=== PATIENT | male | born 1965 | race Caucasian/White ===

== ENCOUNTER 2020-04-17 13:24 | Observation (INO) ==
[2020-04-17] MEDS ORDERED: OPTIRAY 320 125ml IV ONE (13:53)
--- NOTE | 2020-04-17 13:54 | Emergency Department Note ---
Impression & Plan Left leg weakness, Stroke-like symptom, Hypertension ED Provider Note NAME: ANAYELI RAJAN AGE: 54 SEX: M : 1965 ARRIVES VIA: Walk-In INFORMANT: Patient, ED PROVIDER(S): Seferino Hook MD Chief Complaint: Leg weakness HPI: Patient was reportedly at work when he did experience some left lower extremity numbness and subsequent had weakness in the left lower extremity. The patient does not have pain in the leg but feels as though it is weak. Patient denies any slurred speech, confusion, headache, chest pain, shortness of breath. The patient states that his numbness has improved but he still feels as though the left lower extremity is weak. The patient denies any current headache and the patient denies any history of seizures. Patient's weakness has been persistent nothing is made any better or worse. ROS: See HPI for pertinent positives and negatives. A total of 10 systems were reviewed and otherwise negative. Past medical history: See below Surgical history: See below Social history: See below Physical Exam: GENERAL: Well appearing, well nourished, NAD, non-toxic. EYE EXAM: Normal conjunctiva. PERRL, no anisocoria and EOM's grossly intact w/o pain. NECK: Supple, no nuchal rigidity, no adenopathy, non-tender. No signs of meningismus. LUNGS: Clear to auscultation. Normal chest wall mechanics. HEART: NSR, no MRG. ABDOMEN: Abdomen soft, non-tender, normo-active bowel sounds, no masses, no rebound or guarding. BACK: No CVA TTP. SKIN: No rashes and no bruising. UPPER EXTREMITIES: Upper extremities are grossly normal. LOWER EXTREMITIES: Grossly normal, no edema. NEURO EXAM: A&O x3, cranial nerves II-XII grossly intact, normal speech, 4 out of 5 strength left lower extremity 5 out of 5 in the right lower extremity, no saddle anesthesia. Differential diagnoses: Infection, dehydration, metabolic abnormality, hypo/hyperglycemia, electrolyte disturbance, anemia, hypoxia, cardiac sources, intracerebral event, toxicologic, neurologic, as well as other pathologies. Course: Patient was seen and evaluated the bedside. Full history physical exam was performed. EKG: Indication: Stroke work-up Normal sinus rhythm, rate of 74, normal intervals, normal axis, single T wave inversion in lead III not in contiguous leads. No ST changes. Imaging Studies: Radiology results as stated below per my review in the radiologist's interpretation: CT ANGIOGRAM OF THE BRAIN; CT ANGIOGRAM OF THE NECK CLINICAL HISTORY: Strokelike symptoms. COMPARISON STUDY: Unenhanced CT of the brain performed concurrently on 04/17/2020. TECHNIQUE: Following the IV administration of 118 of Optiray 320, CT angiogram of the head and neck was performed from the aortic arch to the vertex. Images ar e reviewed in the axial, sagittal, and coronal planes. 3-D MIPS images are created and assessed. IV contrast was administered without complication. All measurements were calculated based on NASCET criteria. A dose lowering technique was utilized adhering to the principles of ALARA. CT DOSE: 1109.51 mGy.cm FINDINGS: Brain parenchyma: A focus of cortical irregularity/encephalomalacia is again se en in the right cerebral hemisphere with a 1.6 cm focus of hyperdensity. No additional findings are concerning for acute hemorrhage. There is no mass effect or evidence of acute territorial ischemia by CT criteria. There is no evidence of enhancing mass lesion on the angiogram phase images. The ventricles, sulci, and cisterns are normal in configuration. Clay-white matter differentiation is preserved. No extra-axial fluid collection is seen. Thoracic aorta: Visualized portions of the thoracic aorta are normal in caliber. The aortic arch demonstrates bovine variant anatomy. Right carotid arterial system: The right common carotid artery is widely patent, as are the right internal and external carotid arteries. Left carotid arterial system: The left common carotid artery is widely patent, as are the left internal and external carotid arteries. Vertebral arteries: The vertebral arteries are widely patent bilaterally noting a right-sided dominance. Subclavian arteries: Patent bilaterally. Intracranial vasculature: There is a large right posterior communicating artery. The internal carotid arteries are patent at the skull base, as are the anterior and middle cerebral arteries bilaterally. The vertebrobasilar system and posterior cerebral arteries are widely patent. The right vertebral artery is dominant. There is no aneurysm, high-grade stenosis, or focal vessel cut off seen throughout the intracranial circulation. Jugular veins: Patent bilaterally. Dural sinuses: Patent. Lung apices: Partially visualized upper lobe lung parenchyma appears clear. Soft tissues: The visualized pharyngeal soft tissues are normal in appearance noting angiographic phase technique. The oropharyngeal airway appears widely patent. The salivary and thyroid glands are normal in appearance. No cervical lymphadenopathy is seen. Skeletal structures: The calvarium appears intact. The cervical spine is maintained noting mild spondylosis. No lytic or blastic lesion is identified. Orbits: The bony orbits are intact. Orbital contents are normal in appearance. Sinuses and mastoids: There is moderate mucosal thickening with an air-fluid level in the right maxillary antrum. The remaining paranasal sinuses are clear. The mastoid air cells are well pneumatized. IMPRESSION: 1. Again seen is a focus of cortical irregularity versus encephalomalacia involving the right cerebellar hemisphere with associated parenchymal hyperdensity. This was better assessed on the today's unenhanced examination, and calcification is favored. 2. No additional findings are concerning for hemorrhage. There is no mass effect or evidence of acute territorial ischemia noting angiographic phase technique. 3. Unremarkable CT angiogram of the brain. 4. Unremarkable CT angiogram of the neck. ACT 112: Negative or not required by law. Electronically signed by: Favian Nassar M.D. 04/17/2020 2:21 PM Dictated: 04/17/20 1411 Transcribed: 04/17/[address] ANGIOGRAM OF THE BRAIN; CT ANGIOGRAM OF THE NECK CLINICAL HISTORY: Strokelike symptoms. COMPARISON STUDY: Unenhanced CT of the brain performed concurrently on 04/17/2020. TECHNIQUE: Following the IV administration of 118 of Optiray 320, CT angiogram of the head and neck was performed from the aortic arch to the vertex. Images are reviewed in the axial, sagittal, and coronal planes. 3-D MIPS images are created and assessed. IV contrast was administered without complication. All measurements were calculated based on NASCET criteria. A dose lowering technique was utilized adhering to the principles of ALARA. CT DOSE: 1109.51 mGy.cm FINDINGS: Brain parenchyma: A focus of cortical irregularity/encephalomalacia is again seen in the right cerebral hemisphere with a 1.6 cm focus of hyperdensity. No additional findings are concerning for acute hemorrhage. There is no mass effect or evidence of acute territorial ischemia by CT criteria. There is no evidence of enhancing mass lesion on the angiogram phase images. The ventricles, sulci, and cisterns are normal in configuration. Clay-white matter differentiation is preserved. No extra-axial fluid collection is seen. Thoracic aorta: Visualized portions of the thoracic aorta are normal in caliber. The aortic arch demonstrates bovine variant anatomy. Right carotid arterial system: The right common carotid artery is widely patent, as are the right internal and external carotid arteries. Left carotid arterial system: The left common carotid artery is widely patent, as are the left internal and external carotid arteries. Vertebral arteries: The vertebral arteries are widely patent bilaterally noting a right-sided dominance. Subclavian arteries: Patent bilaterally. Intracranial vasculature: There is a large right posterior communicating artery. The internal carotid arteries are patent at the skull base, as are the anterior and middle cerebral arteries bilaterally. The vertebrobasilar system and posterior cerebral arteries are widely patent. The right vertebral artery is dominant. There is no aneurysm, high-grade stenosis, or focal vessel cut off seen throughout the intracranial circulation. Jugular veins: Patent bilaterally. Dural sinuses: Patent. Lung apices: Partially visualized upper lobe lung parenchyma appears clear. Soft tissues: The visualized pharyngeal soft tissues are normal in appearance noting angiographic phase technique. The oropharyngeal airway appears widely patent. The salivary and thyroid glands are normal in appearance. No cervical l ymphadenopathy is seen. Skeletal structures: The calvarium appears intact. The cervical spine is ma intained noting mild spondylosis. No lytic or blastic lesion is identified. Orbits: The bony orbits are intact. Orbital contents are normal in appearance. Sinuses and mastoids: There is moderate mucosal thickening with an air-fluid level in the right maxillary antrum. The remaining paranasal sinuses are clear. The mastoid air cells are well pneumatized. IMPRESSION: 1. Again seen is a focus of cortical irregularity versus encephalomalacia involving the right cerebellar hemisphere with associated parenchymal hyperdensity. This was better assessed on the today's unenhanced examination, and calcification is favored. 2. No additional findings are concerning for hemorrhage. There is no mass effect or evidence of acute territorial ischemia noting angiographic phase technique. 3. Unremarkable CT angiogram of the brain. 4. Unremarkable CT angiogram of the neck. ACT 112: Negative or not required by law. Electronically signed by: Favian Nassar M.D. 04/17/2020 2:21 PM Dictated: 04/17/20 141 Transcribed: 04/17/201410 CT SCAN OF THE BRAIN WITHOUT IV CONTRAST CLINICAL HISTORY: Strokelike symptoms. COMPARISON STUDY: No priors. TECHNIQUE: Unenhanced axial CT scan of the brain is performed from the vertex to the skull base. A dose lowering technique was utilized adhering to the principles of ALARA. FINDINGS: Brain parenchyma: There is a small focus of cortical irregularity versus encephalomalacia in the right cerebellum. A linear focus of parenchymal hyperdensity at this site seen on image #8 measures 1.6 cm. Calcification is favored over hemorrhage. No additional findings are concerning for hemorrhage. There is no mass effect or evidence of acute territorial ischemia by CT criteria. Clay-white matter differentiation is preserved. No extra-axial fluid collection is seen. Ventricles, sulci, cisterns: Normal in configuration. Intracranial vasculature: The visualized intracranial vasculature at the skull base is normal in appearance. Calvarium: Unremarkable. Sinuses and mastoids: Fluid/secretions are partially visualized in the right maxillary sinus. The remaining visualized paranasal sinuses are clear. The mastoid air cells are well pneumatized. Orbits: The bony orbits are grossly intact. IMPRESSION: 1. There is a small focus of cortical irregularity versus encephalomalacia in the right cerebellar hemisphere. A linear parenchymal hyperdensity at this site could represent calcification versus hemorrhage. Calcification is favored. If no prior studies are available to assess for chronicity then a short-term follow-up CT could be considered for reassessment. 2. No additional findings are concerning for hemorrhage. There is no mass effect or evidence of acute territorial ischemia by CT criteria. Findings were discussed with Dr. Hook in the emergency department at the time of interpretation. ACT 112: Negative or not required by law. Electronically signed by: Favian Nassar M.D. 04/17/2020 2:09 PM Dictated: 04/17/20 1359 Transcribed: 04/17/20 1359 Cardiac monitoring: An order was placed for continuous cardiac monitoring. The monitor shows a rate of 74 with sinus rhythm. MDM: Patient did present with concern for left lower extremity weakness and prior numbness. After further discussion the patient states that he might have a little bit of back discomfort. The patient did have blood work completed and a code stroke was initiated given the patient's subjective weakness as well as his last known well at noon. I did asked to immediately speak with telestroke neurology at [facility]. Patient's CT head and CT angiography's of the head and neck were negative. I did speak with Dr. Valle at [facility] he did evaluate the patient. Patient did have resolution of his leg weakness. No TPA at this time. Patient was given the rest of a full dose aspirin and the patient was subsequently adm itted to the [facility] service under Dr. Galvan. Critical Care: I have personally spent 42 minutes of critical care time in direct management of this patient. This includes bedside care, interpretation of diagnostic studies, and testing, discussion with consultants, patient, and family members, and other require inpatient management activities. This 42 minutes is in excess of all separately billable procedures. Past Med/Surg History Medical History (Updated 04/18/20 @ 07:22 by Seferino Hook MD) H/O: HTN (hypertension) HLD (hyperlipidemia) Surgical History No pertinent past surgical history Social History Smoking Status: Never smoker Second Hand Exposure: No; Do You Dip or Chew Tobacco: Yes; Tobacco Cessation Education Requested by Patient: No Hx Alcohol Use: Yes Alcohol type: beer Hx Substance Use: No Preferred Language: Salvadorean Communication Ability: Effective Caustic Liquor Maker Required: No Beliefs That Will Affect Care: None Current Living Situation: Spouse Other Information That Helps Us Care for You: No Feels Safe at Home: Yes Assistive Devices: None Allergies Allergies Allergy/AdvReac Type Severity Reaction Status Date / Time niacin Allergy RASH/ Unverified 04/17/20 15:18 DIFFICULTY BREATHING Sulfa (Sulfonamide Allergy RASH/ Unverified 04/17/20 15:19 Antibiotics) DIFFICULTY BREATHING Home Meds Home Medications Medication Instructions Recorded Confirmed atorvastatin [Lipitor] 80 mg PO DAILY 04/17/20 04/17/20 cholecalciferol (vitamin D3) 12.5 mcg PO DAILY 04/17/20 04/17/20 duloxetine 60 mg PO DAILY 04/17/20 04/17/20 lisinopril [Prinivil] 20 mg PO DAILY 04/17/20 04/17/20 multivitamin [Multiple Vitamin] 1 tab PO DAILY 04/17/20 04/17/20 Results & Data (ED) Vital Signs Vital Signs - 24 hr 04/17/20 13:35 04/17/20 14:02 04/17/20 14:03 Temperature 36.5 C Temperature Source Oral Pulse Rate 74 100 H 95 H Pulse Rate from SpO2 Sensor 99 H 94 H Respiratory Rate 16 21 Respiratory Effort / Characteristics Non-Labored Spontaneous Respiratory Depth Normal Blood Pressure 156/93 H 173/104 H Blood Pressure Mean 114 120 Blood Pressure Position Sitting Pulse Oximetry 100 100 100 Oxygen Delivery Method Room Air Sepsis Recent Fever Within 48 Hours No Sepsis New/Unexplained Change in Mental Status N/A Sepsis Action Taken by Nursing No Action Required 04/17/20 14:10 04/17/20 14:20 04/17/20 14:30 Temperature Temperature Source Pulse Rate 100 H 86 73 Pulse Rate from SpO2 Sensor 99 H Respiratory Rate 22 18 Respiratory Effort / Characteristics Respiratory Depth Blood Pressure 154/99 H Blood Pressure Mean 111 Blood Pressure Position Pulse Oximetry 98 Oxygen Delivery Method Sepsis Recent Fever Within 48 Hours Sepsis New/Unexplained Change in Mental Status Sepsis Action Taken by Nursing 04/17/20 14:31 Temperature Temperature Source Pulse Rate 75 Pulse Rate from SpO2 Sensor Respiratory Rate 18 Respiratory Effort / Characteristics Respiratory Depth Blood Pressure Blood Pressure Mean Blood Pressure Position Pulse Oximetry Oxygen Delivery Method Sepsis Recent Fever Within 48 Hours Sepsis New/Unexplained Change in Mental Status Sepsis Action Taken by Residential Medications Current Medication List: was personally reviewed by me Laboratory Data Attestation: I reviewed the patient's lab results. Result diagrams: 04/18/20 06:59 04/17/20 13:50 Lab Results 04/17/20 04/17/20 04/17/20 Range/Units 13:50 13:50 13:50 WBC 7.19 (4.8-10.8) K/uL RBC 4.58 L (4.7-6.1) M/uL Hgb 15.8 (14.0-18.0) g/dL Hct 46.3 (42-52) % MCV 101.1 H (80-100) fL MCH 34.5 H (25-34) pg MCHC 34.1 (32-36) g/dL RDW Std Deviation 48.4 H (36.4-46.3) fL RDW Coeff of Lea 13.2 (11.5-14.5) % Plt Count 193 (130-400) K/uL MPV 11.3 H (7.4-10.4) fL Immature Gran % (Auto) 0.3 % Neut % (Auto) 59.3 % Lymph % (Auto) 25.3 % Tama % (Auto) 12.1 % Eos % (Auto) 2.4 % Baso % (Auto) 0.6 % Neut # (Auto) 4.27 (1.4-6.5) K/uL Lymph # (Auto) 1.82 (1.2-3.4) K/uL Tama # (Auto) 0.87 H (0.11-0.59) K/uL Eos # (Auto) 0.17 (0-0.5) K/uL Baso # (Auto) 0.04 (0-0.2) K/uL Immature Gran # (Auto) 0.02 (0.00-0.02) K/uL PT 10.5 (9.0-12.0) Seconds INR 1.0 (0.9-1.1) APTT 24.0 (21.0-31.0) Seconds PTT Ratio 0.9 Sodium 139 (136-145) mmol/L Potassium 4.0 (3.5-5.1) mmol/L Chloride 105 (98-107) mmol/L Carbon Dioxide 31 (21-32) mmol/L Anion Gap 4.0 (3-11) BUN 20 H (7-18) mg/dl Creatinine 1.23 (0.6-1.4) mg/dl Est Cr Clr Drug Dosing 70.3 ml/min Est GFR ( Amer) 77.7 Est GFR (Non-Af Amer) 67.1 BUN/Creatinine Ratio 16.4 (10-20) Glucose 99 (70-99) mg/dl POC Glucose (70-99) mg/dl Calcium 9.1 (8.5-10.1) mg/dl Magnesium 2.1 (1.8-2.4) mg/dl Total Bilirubin 0.8 (0.2-1) mg/dl AST 38 H (15-37) U/L ALT 61 (12-78) U/L Alkaline Phosphatase 84 (45-117) U/L Troponin I < 0.015 (0-0.045) ng/ml Total Protein 8.1 (6.4-8.2) gm/dl Albumin 3.8 (3.4-5.0) gm/dl Globulin 4.3 H (2.5-4.0) gm/dl Albumin/Globulin Ratio 0.9 (0.9-2) Specimen Hemolysis Blood Type Antibody Screen 04/17/20 04/17/20 Range/Units 14:03 14:04 WBC (4.8-10.8) K/uL RBC (4.7-6.1) M/uL Hgb (14.0-18.0) g/dL Hct (42-52) % MCV (80-100) fL MCH (25-34) pg MCHC (32-36) g/dL RDW Std Deviation (36.4-46.3) fL RDW Coeff of Lea (11.5-14.5) % Plt Count (130-400) K/uL MPV (7.4-10.4) fL Immature Gran % (Auto) % Neut % (Auto) % Lymph % (Auto) % Tama % (Auto) % Eos % (Auto) % Baso % (Auto) % Neut # (Auto) (1.4-6.5) K/uL Lymph # (Auto) (1.2-3.4) K/uL Tama # (Auto) (0.11-0.59) K/uL Eos # (Auto) (0-0.5) K/uL Baso # (Auto) (0-0.2) K/uL Immature Gran # (Auto) (0.00-0.02) K/uL PT (9.0-12.0) Seconds INR (0.9-1.1) APTT (21.0-31.0) Seconds PTT Ratio Sodium (136-145) mmol/L Potassium (3.5-5.1) mmol/L Chloride (98-107) mmol/L Carbon Dioxide (21-32) mmol/L Anion Gap (3-11) BUN (7-18) mg/dl Creatinine (0.6-1.4) mg/dl Est Cr Clr Drug Dosing ml/min Est GFR ( Amer) Est GFR (Non-Af Amer) BUN/Creatinine Ratio (10-20) Glucose (70-99) mg/dl POC Glucose 114 H (70-99) mg/dl Calcium (8.5-10.1) mg/dl Magnesium (1.8-2.4) mg/dl Total Bilirubin (0.2-1) mg/dl AST (15-37) U/L ALT (12-78) U/L Alkaline Phosphatase (45-117) U/L Troponin I (0-0.045) ng/ml Total Protein (6.4-8.2) gm/dl Albumin (3.4-5.0) gm/dl Globulin (2.5-4.0) gm/dl Albumin/Globulin Ratio (0.9-2) Specimen Hemolysis Blood Type A Negative Antibody Screen NEGATIVE Administered Medications Discontinued Medications Aspirin (Aspirin Chew 324 Mg) 162 mg PO NOW STA Stop: 04/17/20 15:01 Last Admin: 04/17/20 15:13 Dose: 162 mg Documented by: [id number] Ioversol (Optiray 320 125ml) 118 ml IV ONCE ONE Stop: 04/17/20 13:54 Last Admin: 04/17/20 13:53 Dose: 118 ml Documented by: [id number] Ondansetron HCl (Ondansetron Inj 2 Mg/Ml 2 Ml Vial) Confirm Administered Dose 4 mg .ROUTE .STK-MED ONE Stop: 04/17/20 14:04 Last Admin: 04/17/20 14:29 Dose: 4 mg Documented by: [id number] Discharge Plan Visit Data Chief Complaint: Neuro Symptoms/Deficit Stated Complaint: NUMBNESS IN L LEG,LIGHT HEADED, SHAKING ED Provider: Seferino Hook Discharge Problem: Left leg weakness, Stroke-like symptom, Hypertension Patient Disposition: Admitted As Inpatient Discharge Instructions Interventions: ED Discharge Assessment Last Done: 04/17/20 16:40 Discharge Problem: Hypertension Qualifiers: Hypertension type: unspecified Qualified Code(s): I10 - Essential (primary) hypertension
[2020-04-17] MEDS ORDERED: ONDANSETRON INJ 2 MG/ML 2 ML VIAL ONE (14:03)
[2020-04-17 14:08] LABS: Basophils # (auto) 0.04 K/uL (0-0.2); Basophils % (auto) 0.6 %; Eosinophils # (auto) 0.17 K/uL (0-0.5); Eosinophils % (auto) 2.4 %; Hematocrit (blood only) 46.3 % (42-52); Hemoglobin 15.8 g/dL (14.0-18.0); Immature Granulocytes # (auto) 0.02 K/uL (0.00-0.02); Immature Granulocytes % (auto) 0.3 %; Lymphocytes # (auto) 1.82 K/uL (1.2-3.4); Lymphocytes % (auto) 25.3 %; Mean Corpuscular Hemoglobin 34.5 pg (25-34); Mean Corpuscular Hgb Conc 34.1 g/dL (32-36); Mean Corpuscular Volume 101.1 fL (80-100); Mean Platelet Volume 11.3 fL (7.4-10.4); Monocytes # (auto) 0.87 K/uL (0.11-0.59); Monocytes % (auto) 12.1 %; Neutrophils # (auto) 4.27 K/uL (1.4-6.5); Neutrophils % (auto) 59.3 %; Platelet Count 193 K/uL (130-400); RDW Coefficient of Variation 13.2 % (11.5-14.5); RDW Standard Deviation 48.4 fL (36.4-46.3); Red Blood Count 4.58 M/uL (4.7-6.1); White Blood Count 7.19 K/uL (4.8-10.8)
--- NOTE | 2020-04-17 14:10 | CT Scan Report ---
CT SCAN OF THE BRAIN WITHOUT IV CONTRAST CLINICAL HISTORY: Strokelike symptoms. COMPARISON STUDY: No priors. TECHNIQUE: Unenhanced axial CT scan of the brain is performed from the vertex to the skull base. A d ose lowering technique was utilized adhering to the principles of ALARA. FINDINGS: Brain parenchyma: There is a small focus of cortical irregularity versus encephalomalacia in the righ t cerebellum. A linear focus of parenchymal hyperdensity at this site seen on image #8 measures 1.6 c m. Calcification is favored over hemorrhage. No additional findings are concerning for hemorrhage. Th ere is no mass effect or evidence of acute territorial ischemia by CT criteria. Clay-white matter dif ferentiation is preserved. No extra-axial fluid collection is seen. Ventricles, sulci, cisterns: Normal in configuration. Intracranial vasculature: The visualized intracranial vasculature at the skull base is normal in appe arance. Calvarium: Unremarkable. Sinuses and mastoids: Fluid/secretions are partially visualized in the right maxillary sinus. The rem aining visualized paranasal sinuses are clear. The mastoid air cells are well pneumatized. Orbits: The bony orbits are grossly intact. IMPRESSION: 1. There is a small focus of cortical irregularity versus encephalomalacia in the right cerebellar he misphere. A linear parenchymal hyperdensity at this site could represent calcification versus hemorrh age. Calcification is favored. If no prior studies are available to assess for chronicity then a shor t-term follow-up CT could be considered for reassessment. 2. No additional findings are concerning for hemorrhage. There is no mass effect or evidence of acute territorial ischemia by CT criteria. Findings were discussed with Dr. Hook in the emergency department at the time of interpretation. ACT 112: Negative or not required by law. Electronically signed by: Favian Nassar M.D. 04/17/2020 2:09 PM
[2020-04-17 14:20] LABS: Partial Thromboplastin Ratio 0.9; Prothrombin Time 10.5 Seconds (9.0-12.0)
--- NOTE | 2020-04-17 14:22 | CT Scan Report ---
CT ANGIOGRAM OF THE BRAIN; CT ANGIOGRAM OF THE NECK CLINICAL HISTORY: Strokelike symptoms. COMPARISON STUDY: Unenhanced CT of the brain performed concurrently on 04/17/2020. TECHNIQUE: Following the IV administration of 118 of Optiray 320, CT angiogram of the head and neck w as performed from the aortic arch to the vertex. Images are reviewed in the axial, sagittal, and donaldo nal planes. 3-D MIPS images are created and assessed. IV contrast was administered without complicati on. All measurements were calculated based on NASCET criteria. A dose lowering technique was utilize d adhering to the principles of ALARA. CT DOSE: 1109.51 mGy.cm FINDINGS: Brain parenchyma: A focus of cortical irregularity/encephalomalacia is again seen in the right cerebr al hemisphere with a 1.6 cm focus of hyperdensity. No additional findings are concerning for acute he morrhage. There is no mass effect or evidence of acute territorial ischemia by CT criteria. There is no evidence of enhancing mass lesion on the angiogram phase images. The ventricles, sulci, and cister ns are normal in configuration. Clay-white matter differentiation is preserved. No extra-axial fluid collection is seen. Thoracic aorta: Visualized portions of the thoracic aorta are normal in caliber. The aortic arch demo nstrates bovine variant anatomy. Right carotid arterial system: The right common carotid artery is widely patent, as are the right int ernal and external carotid arteries. Left carotid arterial system: The left common carotid artery is widely patent, as are the left customer marketing intern al and external carotid arteries. Vertebral arteries: The vertebral arteries are widely patent bilaterally noting a right-sided dominan ce. Subclavian arteries: Patent bilaterally. Intracranial vasculature: There is a large right posterior communicating artery. The internal carotid arteries are patent at the skull base, as are the anterior and middle cerebral arteries bilaterally. The vertebrobasilar system and posterior cerebral arteries are widely patent. The right vertebral ar olayinka is dominant. There is no aneurysm, high-grade stenosis, or focal vessel cut off seen throughout the intracranial circulation. Jugular veins: Patent bilaterally. Dural sinuses: Patent. Lung apices: Partially visualized upper lobe lung parenchyma appears clear. Soft tissues: The visualized pharyngeal soft tissues are normal in appearance noting angiographic pha se technique. The oropharyngeal airway appears widely patent. The salivary and thyroid glands are nor mal in appearance. No cervical lymphadenopathy is seen. Skeletal structures: The calvarium appears intact. The cervical spine is maintained noting mild spond ylosis. No lytic or blastic lesion is identified. Orbits: The bony orbits are intact. Orbital contents are normal in appearance. Sinuses and mastoids: There is moderate mucosal thickening with an air-fluid level in the right maxil mendy antrum. The remaining paranasal sinuses are clear. The mastoid air cells are well pneumatized. IMPRESSION: 1. Again seen is a focus of cortical irregularity versus encephalomalacia involving the right cerebel lar hemisphere with associated parenchymal hyperdensity. This was better assessed on the today's unen hanced examination, and calcification is favored. 2. No additional findings are concerning for hemorrhage. There is no mass effect or evidence of acute territorial ischemia noting angiographic phase technique. 3. Unremarkable CT angiogram of the brain. 4. Unremarkable CT angiogram of the neck. ACT 112: Negative or not required by law. Electronically signed by: Favian Nassar M.D. 04/17/2020 2:21 PM
[2020-04-17 14:28] LABS: Alanine Aminotransferase 61 U/L (12-78); Albumin Globulin Ratio 0.9 (0.9-2); Albumin Level 3.8 gm/dl (3.4-5.0); Alkaline Phosphatase 84 U/L (45-117); Aspartate Aminotransferase 38 U/L (15-37); BUN Creatinine Ratio 16.4 (10-20); Bilirubin,Total 0.8 mg/dl (0.2-1); Blood Urea Nitrogen 20 mg/dl (7-18); Calcium 9.1 mg/dl (8.5-10.1); Carbon Dioxide 31 mmol/L (21-32); Chloride 105 mmol/L (98-107); Creatinine Clr Calc Pharmacy 70.3 ml/min; Est GFR (African American) 77.7; Est GFR (Non-African American) 67.1; Globulin 4.3 gm/dl (2.5-4.0); Glucose 99 mg/dl (70-99); Magnesium 2.1 mg/dl (1.8-2.4); Sodium 139 mmol/L (136-145); Total Protein 8.1 gm/dl (6.4-8.2); Troponin I < 0.015 ng/ml (0-0.045)
[2020-04-17] MEDS ORDERED: ASPIRIN CHEW 324 MG PO STA (15:00)
[2020-04-17] MEDS ORDERED: ACETAMINOPHEN 325 MG TAB PO PRN (15:32)
[2020-04-17] MEDS ORDERED: ONDANSETRON INJ 2 MG/ML 2 ML VIAL IV PRN (15:32)
--- NOTE | 2020-04-17 15:56 | History & Physical Report ---
Date of Service April 17, 2020 Assessment & Plan (1) Stroke-like symptoms: Presented with left leg numbness and weakness started earlier at around 12 noon Stroke alert was called in at around 1348 hrs. by the time symptoms were improving CTA did not show a focus of cortical irregularity versus encephalomalacia involving the right cerebellar hemisphere with associated parenchymal hyperdensity Telemetry neurologist recommended to have full dose aspirin daily Will get MRI of the brain, carotid ultrasound and echo Neuro assessment We will consult neurologist Possible history of depression Has been taking duloxetine We will continue (2) Left leg numbness: As above-improved (3) Left leg weakness: As above-improving (4) HLD (hyperlipidemia): We will continue atorvastatin 80 mg a day Recheck fasting lipids tomorrow (5) H/O: HTN (hypertension): Continue lisinopril DVT prophylaxis SCDs,increase ambulation Statin Full History of Present Illness Chief Complaint: Left leg numbness and weakness at around noon today Primary Care Provider: Myrna Monroy PA-C He is a 54-year-old male with significant past medical history of hypertension, hyperlipidemia and depression apparently has been complaining of sudden onset of left lower extremity numbness and weakness while at work and standing. He was trying to go to the bathroom and noticed that his left leg is weak but no history of fall in the condition lasted for about half an hour. Denies any other associated symptoms. No headache but did have nonspecific visual disturbance. No facial asymmetry or speech problem. No weakness involving any other extremities. Denies any chest pain and/or palpitation or shortness of breath. No abdominal pain nausea and or vomiting and no fever and/or chills. Denies any neurological symptoms like this in the past. Stroke alert was called in and he was evaluated by on-call neurologist in [facility] who advised full dose aspirin and the symptoms of left leg numbness and weakness have almost gone by the time I examined the patient. Initial CT of the head and CTAs did not show any acute stroke but did show cortical irregularity versus encephalomalacia involving the right cerebellar hemisphere with associated parenchymal hyperdensity. He was admitted to telemetry unit for observation. Allergies Allergy/AdvReac Type Severity Reaction Status Date / Time niacin Allergy RASH/ Unverified 04/17/20 15:18 DIFFICULTY BREATHING Sulfa (Sulfonamide Allergy RASH/ Unverified 04/17/20 15:19 Antibiotics) DIFFICULTY BREATHING Home Medications Home Medications Medication Instructions Recorded Confirmed Type atorvastatin [Lipitor] 80 mg PO DAILY 04/17/20 04/17/20 History cholecalciferol (vitamin D3) 12.5 mcg PO DAILY 04/17/20 04/17/20 History duloxetine 60 mg PO DAILY 04/17/20 04/17/20 History lisinopril [Prinivil] 20 mg PO DAILY 04/17/20 04/17/20 History multivitamin [Multiple Vitamin] 1 tab PO DAILY 04/17/20 04/17/20 History Past Med/Surg History Medical History (Updated 04/17/20 @ 15:49 by Kd Galvan MD) H/O: HTN (hypertension) HLD (hyperlipidemia) Surgical History No pertinent past surgical history Social History Smoking Status: Never smoker Second Hand Exposure: No; Do You Dip or Chew Tobacco: Yes; Tobacco Cessation Education Requested by Patient: No Hx Alcohol Use: Yes Alcohol type: beer Hx Substance Use: No Preferred Language: Sinhala Communication Ability: 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 Beliefs That Will Affect Care: None Current Living Situation: Spouse Other Information That Helps Us Care for You: No Feels Safe at Home: Yes Assistive Devices: None Review of Systems Review of Systems: All systems reviewed & are unremarkable except as noted in HPI & below Physical Exam Physical Exam: Lying in bed comfortably Constitutional: well developed and well nourished; no acute distress and not ill appearing Eyes: PERRL, conjunctivae normal, anicteric sclerae ENMT: external ear and nose normal, oropharynx normal Neck: trachea midline, no thyromegaly Respiratory: no respiratory distress Auscultation: lungs clear to auscultation bilaterally Cardiovascular: Rate/Rhythm: regular rate and regular rhythm Heart Sounds: no murmur Gastrointestinal (Abdomen): Inspection/Auscultation: normal bowel sounds; abdomen not distended Percussion/Palpation: abdomen soft; abdomen nontender Musculoskeletal: No arthritis involving any joint Neurologic: normal touch/pain/proprioception, CN's II-XI intact bilaterally, deep tendon reflexes 2+ bilaterally, moves all extremities and + focal motor deficit (Questionable 1/5 motor deficit in the left lower extremity); no meningeal signs Speech / Cognition: normal speech Motor/Sensory: no tremor Psychiatric: A+Ox3, euthymic affect Lymphatic: no cervical or axillary lymphadenopathy Results & Data Results & Data ([facility]) Vital Signs (Past 12 Hours) Vital Signs Temp Pulse Resp BP Pulse Ox 04/17/20 14:31 75 18 04/17/20 14:30 73 18 154/99 H 04/17/20 14:20 86 22 04/17/20 14:10 100 H 98 04/17/20 14:03 95 H 21 100 04/17/20 14:02 100 H 173/104 H 100 04/17/20 13:35 36.5 C 74 16 156/93 H 100 Laboratory Results Short CBC 04/17/20 Range/Units 13:50 WBC 7.19 (4.8-10.8) K/uL Hgb 15.8 (14.0-18.0) g/dL Hct 46.3 (42-52) % Plt Count 193 (130-400) K/uL BMP 04/17/20 13:50 Sodium 139 Potassium 4.0 Chloride 105 Carbon Dioxide 31 BUN 20 H Creatinine 1.23 Glucose 99 Calcium 9.1 Cardiac Enzymes 04/17/20 Range/Units 13:50 Troponin I < 0.015 (0-0.045) ng/ml Liver Function 04/17/20 Range/Units 13:50 Total Bilirubin 0.8 (0.2-1) mg/dl AST 38 H (15-37) U/L ALT 61 (12-78) U/L Alkaline Phosphatase 84 (45-117) U/L Albumin 3.8 (3.4-5.0) gm/dl Medications Administered Current Inpatient Medications Acetaminophen (Acetaminophen 325 Mg Tab) 650 mg PO Q4H PRN PRN Reason: Pain or Fever Stop: 05/17/20 15:31 Aspirin (Aspirin 325 Mg Ectab) 325 mg PO QAM [facility] Stop: 05/18/20 08:59 Ondansetron HCl (Ondansetron Inj 2 Mg/Ml 2 Ml Vial) 4 mg IV Q6H PRN PRN Reason: Nausea Stop: 05/17/20 15:31 Code Status & VTE Plan VTE Prophylaxis Plan VTE Prophylaxis will be ordered: Yes
--- NOTE | 2020-04-17 18:01 | Electrocardiogram Report ---
Test Reason : Blood Pressure : / mmHG Vent. Rate : 074 BPM Atrial Rate : 074 BPM P-R Int : 118 ms QRS Dur : 072 ms QT Int : 378 ms P-R-T Axes : 051 067 012 degrees QTc Int : 419 ms Normal sinus rhythm Normal ECG No previous ECGs available Confirmed by Ted Thacker ([id number]) on 04/17/2020 6:00:49 PM Referred By: Confirmed By:Ted Thacker
--- NOTE | 2020-04-17 23:45 | Magnetic Resonance Report ---
MRI OF THE BRAIN WITHOUT IV CONTRAST CLINICAL HISTORY: Strokelike symptoms. COMPARISON STUDY: CT of the brain dated 04/17/2020. TECHNIQUE: MRI of the brain was performed utilizing various T1 and T2-weighted sequences in the axial , sagittal, and coronal planes. IV contrast was not administered for this examination. FINDINGS: Brain parenchyma: There is minimal microangiopathic disease. There is no hemorrhage or mass effect. T here is no restricted diffusion to suggest acute ischemia. Clay-white matter differentiation is prese rved. No extra-axial fluid collection is seen. The cerebellar tonsils are normal in configuration. Th ere is cortical irregularity identified in the right cerebellar hemisphere, corresponding to the abno rmality seen by CT. No abnormal signal is shown on the gradient sequences and there is no evidence of hemorrhage. Hyperdensity seen by CT likely represents calcification. Ventricles, sulci, and cisterns: Normal in configuration. Pituitary and sella: Unremarkable. Intracranial vasculature: Normal flow voids are maintained at the skull base. Orbits: The bony orbits are grossly intact. Orbital contents are normal in appearance. Sinuses and mastoids: Moderate mucosal thickening is noted in the right maxillary antrum. The remaini ng paranasal sinuses are clear. The mastoid air cells are well pneumatized. Calvarium: Unremarkable. Cervical cord: Partially visualized cervical spinal cord is normal in morphology and signal intensity . IMPRESSION: 1. There is no evidence of hemorrhage, mass effect, or acute ischemia. 2. Findings in the right cerebellar hemisphere as above. This corresponds to the abnormality seen by CT and may represent the sequelae of remote insult or possibly a small vascular malformation. ACT 112: Negative or not required by law. Electronically signed by: Favian Nassar M.D. 04/17/2020 11:44 PM
[2020-04-18 07:11] LABS: Basophils # (auto) 0.03 K/uL (0-0.2); Basophils % (auto) 0.6 %; Eosinophils # (auto) 0.22 K/uL (0-0.5); Eosinophils % (auto) 4.1 %; Hematocrit (blood only) 43.6 % (42-52); Hemoglobin 14.8 g/dL (14.0-18.0); Immature Granulocytes # (auto) 0.01 K/uL (0.00-0.02); Immature Granulocytes % (auto) 0.2 %; Lymphocytes # (auto) 1.58 K/uL (1.2-3.4); Lymphocytes % (auto) 29.1 %; Mean Corpuscular Hemoglobin 34.3 pg (25-34); Mean Corpuscular Hgb Conc 33.9 g/dL (32-36); Mean Corpuscular Volume 101.2 fL (80-100); Mean Platelet Volume 11.1 fL (7.4-10.4); Monocytes % (auto) 12.9 %; Neutrophils # (auto) 2.89 K/uL (1.4-6.5); Neutrophils % (auto) 53.1 %; Platelet Count 160 K/uL (130-400); RDW Coefficient of Variation 13.2 % (11.5-14.5); RDW Standard Deviation 49.2 fL (36.4-46.3); Red Blood Count 4.31 M/uL (4.7-6.1); White Blood Count 5.43 K/uL (4.8-10.8)
[2020-04-18 07:42] LABS: Potassium 4.1 mmol/L (3.5-5.1)
[2020-04-18 07:43] LABS: BUN Creatinine Ratio 13.2 (10-20); Calcium 8.6 mg/dl (8.5-10.1); Creatinine Clr Calc Pharmacy 83.1 ml/min; Est GFR (African American) 95.2; Est GFR (Non-African American) 82.2
[2020-04-18 07:53] LABS: Thyroid Stimulating Hormone 0.792 uIu/ml (0.300-4.500)
[2020-04-18] MEDS ORDERED: MULTIVITAMIN TAB PO SCH (09:00)
[2020-04-18] MEDS ORDERED: CHOLECALCIFEROL 1,000 UNITS 25 MCG TAB PO SCH (09:00)
[2020-04-18] MEDS ORDERED: ATORVASTATIN 40 MG TAB PO SCH (09:00)
[2020-04-18] MEDS ORDERED: ASPIRIN 325 MG ECTAB PO SCH (09:00)
[2020-04-18] MEDS ORDERED: lisinopril 20 MG TAB PO SCH (09:00)
[2020-04-18] MEDS ORDERED: DULoxetine HCL 60 MG CAP PO SCH (09:00)
[2020-04-18] MEDS ORDERED: CLOPIDOGREL BISULFATE 75 MG TAB PO ONE (10:36)
--- NOTE | 2020-04-18 10:56 | Hospitalist Progress Note ---
Date of Service April 18, 2020 Assessment & Plan Admission and Anticipated Discharge Date Admission Date: April 17, 2020 Results & Data Results & Data ([facility]) Vital Signs (Past 12 Hours) Vital Signs Temp Pulse Pulse Resp BP Pulse Ox 04/18/20 07:39 36.7 C 64 16 135/87 96 04/18/20 03:27 36.7 C 70 16 143/83 H 95
--- NOTE | 2020-04-18 11:18 | Electrocardiogram Report ---
Test Reason : Blood Pressure : / mmHG Vent. Rate : 062 BPM Atrial Rate : 062 BPM P-R Int : 116 ms QRS Dur : 070 ms QT Int : 404 ms P-R-T Axes : 062 067 050 degrees QTc Int : 410 ms Normal sinus rhythm Normal ECG When compared with ECG of 17-APR-2020 13:46, No significant change was found Confirmed by Ted Thacker ([id number]) on 04/18/2020 11:18:24 AM Referred By: REFERRED SELF Confirmed By:Ted Thacker
--- NOTE | 2020-04-18 11:43 | Consultation Report ---
DATE OF CONSULTATION: 04/18/2020 REASON FOR CONSULTATION: Possible transient ischemic attack. HISTORY OF PRESENT ILLNESS: The patient is a 54-year-old right-handed male with a history of hypertension, hyperlipidemia and depression. On this background, he was in his usual state of health, was working at about noon yesterday standing when he noted that there was as if he was walking on ice with the left leg, meaning that it was slipping and felt weak. It was accompanied by numbness to the level of the hip. Once the numbness came on, he fell to the ground. He was picked up and sat down. He felt he had spotty vision, although not sparkly vision. He felt mildly lightheaded but not vertiginous and was shaky. There was no accompanying headache, double vision, numbness on the face, slurred speech, or facial droop. There was no accompanying headache. There was no left arm numbness, tingling or weakness. There was no confusion. There was no spine pain, no incontinence and no symptoms in the right lower extremity. The patient has no prior history of neurologic dysfunction. He has been well. He has not had any fevers, chills, sweats or weight loss. He had eaten both breakfast and lunch prior to this event at 12:00 noon yesterday. He had slept well the evening before. No head or neck trauma, chiropractic manipulation of the neck, chest pain, palpitation, or shortness of breath. The symptoms lasted about a half an hour. His brought him to the Emergency Room. The patient has no history of prior neurologic dysfunction. He has no history of rheumatic fever, murmur, DE, DVT, PE or cancer. The patient was seen by stroke neurology who recommended aspirin. The patient was rapidly improving, so he did not need TPA. PAST MEDICAL HISTORY: As above. PAST SURGICAL HISTORY: None. SOCIAL HISTORY: He does not smoke. Drinks 3-4 cans of beer per night to help him fall asleep. 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 FAMILY HISTORY: His father had an DE and at 45. He also had hypertension. There is no family history otherwise of early stroke, DVT or PE. HOME MEDICATIONS: Included atorvastatin, vitamin D3, duloxetine, lisinopril and multiple vitamins. ALLERGIES: NIACIN AND SULFA. DATA: Diagnostically, the patient's electrocardiogram was sinus rhythm. His echo is pending. His laboratories were notable for an MCV of 101, normal platelet count. PT, PTT were normal. Blood sugar on admission was 114. AST 38, triglycerides 238, LDL 78, HDL 67. B12 and folate are pending. CT of the head, which I have reviewed, shows a small focus of cortical irregularity versus encephalomalacia in the right cerebellar hemisphere. A linear parenchymal hyperdensity at this site, could represent calcification versus hemorrhage; calcification is favored. CTA of the head and neck are unremarkable other than confirming the focus of cortical irregularity in the right cerebellar hemisphere. MRI of the brain, which I have reviewed, shows no evidence of hemorrhage, mass effect or acute ischemia. Findings in the right cerebellar hemisphere showed no evidence of hemorrhage. This corresponds to the abnormality on CT and may represent a sequela of remote insult or prior vascular malformation. PHYSICAL EXAMINATION: VITAL SIGNS: Initial blood pressure was 173/104. The patient has remained mildly hypertensive, although blood pressure currently 135/87. 36.7, 64, 96% on room air. GENERAL: The patient is awake and alert, normal speech and language. No right/left confusion and no aphasia. NECK: There are no carotid bruits. HEART: No heart murmurs. Heart is regular rate and rhythm. LUNGS: Clear. BACK: There is no spinal tenderness. EXTREMITIES: Bilateral posterior tibial pulses are intact. There is no calf swelling or tenderness. Both legs are warm, dry and symmetrically pigmented. NEUROLOGIC: Pupils are equal, round and reactive to light. The optic nerves are grossly normal. There is normal messina, motility, facial sensation and facial symmetry. Tongue is midline. Motor: Normal bulk and tone. Full strength, no drift. Normal rapid alternating movements. Symmetric reflexes. Downgoing toes. [id number]-vu-vgpi and ncyf-ak-yzzf are normal. There is no dysdiadochokinesia. Sensation is intact to vibration, temperature and light touch. There is no evidence of spinal level to light touch. Gait and tandem are normal. IMPRESSION: Probable transient ischemic attack. Localization most likely is brain. Spinal ischemia would likely present differently and have caused crossed motor and sensory signs. I see no evidence of ischemia to the left lower extremity and suspect had that been ischemic in basis that the patient would have had significant pain. His symptoms were painless. PLAN: Recommend aspirin 81 mg, Plavix 75 mg for 3 weeks and then discontinue Plavix. Goal LDL 70 or less. Goal blood pressure 120/80. Recommend outpatient evaluation of blood sugar. Recommend monitor worker for 2 weeks as an outpatient to rule out atrial fibrillation. Right cerebellar calcification. The patient reports 2 concussions in years; however, had no significant neurologic deficit. This could be posttraumatic dystrophic calcifications. However, a small vascular anomaly is not excluded. In that regard, the patient should be referred to neurosurgery for at least a one-time evaluation for their advice regarding imaging and any potential followup. This vascular calcification is not the etiology of the recent spell. Should the patient develop any sudden severe headaches, he should seek medical attention. The patient should see me or the physician's assistant vice president, Sofie John, in followup post discharge. [place]
--- NOTE | 2020-04-18 14:07 | Discharge Summary ---
Date of Service April 18, 2020 Admission HPI Per Admitting Provider He is a 54-year-old male with significant past medical history of hypertension, hyperlipidemia and depression apparently has been complaining of sudden onset of left lower extremity numbness and weakness while at work and standing. He was trying to go to the bathroom and noticed that his left leg is weak but no history of fall in the condition lasted for about half an hour. Denies any other associated symptoms. No headache but did have nonspecific visual disturbance. No facial asymmetry or speech problem. No weakness involving any other extremities. Denies any chest pain and/or palpitation or shortness of breath. No abdominal pain nausea and or vomiting and no fever and/or chills. Denies any neurological symptoms like this in the past. Stroke alert was called in and he was evaluated by on-call neurologist in [facility] who advised full dose aspirin and the symptoms of left leg numbness and weakness have almost gone by the time I examined the patient. Initial CT of the head and CTAs did not show any acute stroke but did show cortical irregularity versus encephalomalacia involving the right cerebellar hemisphere with associated parenchymal hyperdensity. He was admitted to telem etry unit for observation. Admission Exam Per Admitting Provider Physical Exam: Lying in bed comfortably Constitutional: well developed and well nourished; no acute distress and not ill appearing Eyes: PERRL, conjunctivae normal, anicteric sclerae ENMT: external ear and nose normal, oropharynx normal Neck: trachea midline, no thyromegaly Respiratory: no respiratory distress Auscultation: lungs clear to auscultation bilaterally Cardiovascular: Rate/Rhythm: regular rate and regular rhythm Heart Sounds: no murmur Gastrointestinal (Abdomen): Inspection/Auscultation: normal bowel sounds; abdomen not distended Percussion/Palpation: abdomen soft; abdomen nontender Musculoskeletal: No arthritis involving any joint Neurologic: normal touch/pain/proprioception, CN's II-XI intact bilaterally, deep tendon reflexes 2+ bilaterally, moves all extremities and + focal motor deficit (Questionable 1/5 motor deficit in the left lower extremity); no meningeal signs Speech / Cognition: normal speech Motor/Sensory: no tremor Psychiatric: A+Ox3, euthymic affect Lymphatic: no cervical or axillary lymphadenopathy Principal Diagnosis Transient ischemic attack Discharge Exam Constitutional WD/WN, vitals as above + well hydrated; no acute distress Eyes PERRL, conjunctivae normal, anicteric sclerae ENMT external ear and nose normal, oropharynx normal Respiratory normal respiratory effort, lungs clear to auscultation Cardiovascular RRR, no murmur, no edema Gastrointestinal (Abdomen) normal bowel sounds, soft, nontender, no hepatosplenomegaly Musculoskeletal no cyanosis or clubbing, extremities motor strength 5/5 Neurologic PERRL, EOMI, accommodation nl, no face palsy, no dysarthria normal touch/pain/proprioception, deep tendon reflexes 2+ bilaterally and moves all extremities; no focal motor deficits Psychiatric A+Ox3, euthymic affect Discharge Data Allergies Allergy/AdvReac Type Severity Reaction Status Date / Time niacin Allergy RASH/ Unverified 04/17/20 15:18 DIFFICULTY BREATHING Sulfa (Sulfonamide Allergy RASH/ Unverified 04/17/20 15:19 Antibiotics) DIFFICULTY BREATHING Consultations 04/17/20 15:16 ED Decision to Admit Stat 04/17/20 15:32 Consult Neurology Routine 04/17/20 15:37 Consult Case Management - Discharge Planning Routine Ordered Studies 04/17/20 13:49 CT angio head w con Stat CT angio neck with con Stat Brain parenchyma: A focus of cortical irregularity/encephalomalacia is again seen in the right cerebral hemisphere with a 1.6 cm focus of hyperdensity. No additional findings are concerning for acute hemorrhage. There is no mass effect or evidence of acute territorial ischemia by CT criteria. There is no evidence of enhancing mass lesion on the angiogram phase images. The ventricles, sulci, and cisterns are normal in configuration. Clay-white matter differentiation is preserved. No extra-axial fluid collection is seen. Thoracic aorta: Visualized portions of the thoracic aorta are normal in caliber. The aortic arch demonstrates bovine variant anatomy. Right carotid arterial system: The right common carotid artery is widely patent, as are the right internal and external carotid arteries. Left carotid arterial system: The left common carotid artery is widely patent, as are the left internal and external carotid arteries. Vertebral arteries: The vertebral arteries are widely patent bilaterally noting a right-sided dominance. Subclavian arteries: Patent bilaterally. Intracranial vasculature: There is a large right posterior communicating artery. The internal carotid arteries are patent at the skull base, as are the anterior and middle cerebral arteries bilaterally. The vertebrobasilar system and posterior cerebral arteries are widely patent. The right vertebral artery is dominant. There is no aneurysm, high-grade stenosis, or focal vessel cut off seen throughout the intracranial circulation. Jugular veins: Patent bilaterally. Dural sinuses: Patent. Lung apices: Partially visualized upper lobe lung parenchyma appears clear. Soft tissues: The visualized pharyngeal soft tissues are normal in appearance noting angiographic phase technique. The oropharyngeal airway appears widely patent. The salivary and thyroid glands are normal in appearance. No cervical lymphadenopathy is seen. Skeletal structures: The calvarium appears intact. The cervical spine is maintained noting mild spondylosis. No lytic or blastic lesion is identified. Orbits: The bony orbits are intact. Orbital contents are normal in appearance. Sinuses and mastoids: There is moderate mucosal thickening with an air-fluid level in the right maxillary antrum. The remaining paranasal sinuses are clear. The mastoid air cells are well pneumatized. IMPRESSION: 1. Again seen is a focus of cortical irregularity versus encephalomalacia involving the right cerebellar hemisphere with associated parenchymal hyperdensity. This was better assessed on the today's unenhanced examination, and calcification is favored. 2. No additional findings are concerning for hemorrhage. There is no mass effect or evidence of acute territorial ischemia noting angiographic phase technique. 3. Unremarkable CT angiogram of the brain. 4. Unremarkable CT angiogram of the neck. CT head/brain wo con Stat Brain parenchyma: There is a small focus of cortical irregularity versus encephalomalacia in the right cerebellum. A linear focus of parenchymal hyperdensity at this site seen on image #8 measures 1.6 cm. Calcification is favored over hemorrhage. No additional findings are concerning for hemorrhage. There is no mass effect or evidence of acute territorial ischemia by CT criteria. Clay-white matter differentiation is preserved. No extra-axial fluid collection is seen. Ventricles, sulci, cisterns: Normal in configuration. Intracranial vasculature: The visualized intracranial vasculature at the skull base is normal in appearance. Calvarium: Unremarkable. Sinuses and mastoids: Fluid/secretions are partially visualized in the right maxillary sinus. The remaining visualized paranasal sinuses are clear. The mastoid air cells are well pneumatized. Orbits: The bony orbits are grossly intact. IMPRESSION: 1. There is a small focus of cortical irregularity versus encephalomalacia in the right cerebellar hemisphere. A linear parenchymal hyperdensity at this site could represent calcification versus hemorrhage. Calcification is favored. If no prior studies are available to assess for chronicity then a short-term follow-up CT could be considered for reassessment. 2. No additional findings are concerning for hemorrhage. There is no mass effect or evidence of acute territorial ischemia by CT criteria. 04/17/20 19:09 MR brain wo con Urgent Brain parenchyma: There is minimal microangiopathic disease. There is no hemorrhage or mass effect. There is no restricted diffusion to suggest acute ischemia. Clay-white matter differentiation is preserved. No extra-axial fluid collection is seen. The cerebellar tonsils are normal in configuration. There is cortical irregularity identified in the right cerebellar hemisphere, corresponding to the abnormality seen by CT. No abnormal signal is shown on the gradient sequences and there is no evidence of hemorrhage. Hyperdensity seen by CT likely represents calcification. Ventricles, sulci, and cisterns: Normal in configuration. Pituitary and sella: Unremarkable. Intracranial vasculature: Normal flow voids are maintained at the skull base. Orbits: The bony orbits are grossly intact. Orbital contents are normal in appearance. Sinuses and mastoids: Moderate mucosal thickening is noted in the right maxillary antrum. The remaining paranasal sinuses are clear. The mastoid air cells are well pneumatized. Calvarium: Unremarkable. Cervical cord: Partially visualized cervical spinal cord is normal in morphology and signal intensity. IMPRESSION: 1. There is no evidence of hemorrhage, mass effect, or acute ischemia. 2. Findings in the right cerebellar hemisphere as above. This corresponds to the abnormality seen by CT and may represent the sequelae of remote insult or possibly a small vascular malformation. Hospital Course (1) Left leg weakness: (2) Left leg numbness: (3) Stroke-like symptoms: TIA Presented with left leg numbness and weakness started earlier at around 12 noon which resolved shortly after Was evaluated by neurologist CT head showed a small focus of cortical irregularity vs encephalomalacia in right cerebellar hemisphere. A linear parenchymal hyperdensity at this site, could represent calcification vs hemorrhage; calcification favored. CTA of head and neck are unremarkable except for confirming finding mentioned above. MRI brain showed no evidence of hemorrhage, mass effect or acute ischemia. Patient was started on aspirin and plavix Discharged on Aspirin 81mg and plavix 75mg daily for 3 weeks after which patient continues only aspirin A1c still pending Continue home atorvastatin 80mg daily Patient advised to follow up with PCP for cardiac monitoring for 2 weeks for dysrhythmia Patient to follow up with neurology Neurologist also recommends patient follow up with neurosurgery for further eval regarding imaging findings (4) HLD (hyperlipidemia): Continue atorvastatin (5) H/O: HTN (hypertension): Continue lisinopril Total Time Total Time Spent Total Time Spent (In Minutes): 45 Total Time Includes: Examination of the Patient, Discharge Planning and Medication Reconciliation Discharge Plan Discharge Items Patient Disposition: Home - Self-Care Reason For Visit: STROKE LIKE SYMPTOMS Discharge Diagnosis: Transient ischemic attack Activity: Resume your previous activity Non-emergency contact: Primary Care Provider and Neurologist Call non-emergency contact if: you have any medication questions and your symptoms worsen Follow-up/Referrals: Myrna Monroy PA-C [Primary Care Provider] - Diet: Heart Healthy Addtl Attending Provider Instructions: Mr Wang. You came to the hospital for left leg numbness and weakness. You were evaluated for a possible stroke/TIA. You were started on aspirin 81mg daily and clopidogrel 75mg daily. Please take these for 3 weeks after which you stop the plavix and continue the aspirin. Continue to take your lipitor (atorvastatin) and your other medications. You will need to follow up with your Primary Doctor about a heart monitor as we discussed. Please follow up with Neurology and neurosurgery as well. It was a pleasure taking care of you. Pending Studies at Discharge: No Stand-Alone Forms: My [facility], Work/School Release (Inpt), Smoking Cessation Medications and DC Order Prescriptions: New clopidogrel 75 mg Tablet 75 mg PO QAM 21 Days Qty: 21 RF: 0 aspirin 81 mg Tablet,Delayed Release (Dr/Ec) 81 mg PO QAM 30 Days Qty: 30 RF: 0 Continued atorvastatin [Lipitor] 80 mg Tablet 80 mg PO DAILY RF: 0 lisinopril [Prinivil] 20 mg Tablet 20 mg PO DAILY RF: 0 multivitamin Tablet 1 tab PO DAILY RF: 0 cholecalciferol (vitamin D3) 25 mcg (1,000 unit) Tablet 12.5 mcg PO DAILY RF: 0 duloxetine 60 mg capsule,delayed release(DR/EC) 60 mg PO DAILY RF: 0 Discharge Orders: Discharge Order (Routine); Ordered 04/18/20 Ordered By: Sue Orourke Admission Data Admit Date/Time: 04/17/20 15:32 Attending Provider: Sue Orourke I. Admit Provider: Kd Galvan Primary Care Provider: Myrna Monroy Other Providers: Kd Galvan ; Sofie John ; Jesús Sullivan ; Sofie Herrera ; Pepe Peñaloza Other Interventions: Discharge Summary Assessment (RN) Last Done: 04/18/20 14:04
[2020-04-18 14:27] LABS: Folate (Folic Acid) 14.61 ng/ml (>5.38)
[2020-04-19 05:51] LABS: Estimated Average Glucose 126 mg/dl
[2020-04-19] MEDS ORDERED: ASPIRIN 81 MG ECTAB PO SCH (09:00)
[2020-04-19] MEDS ORDERED: CLOPIDOGREL BISULFATE 75 MG TAB PO SCH (09:00)
== END 2020-04-18 14:22 | disposition home or self-care (01) ==
LOC: 2E 13:24 → ED 13:24 → SUATTDRO 15:32 → 2E 16:40

== ENCOUNTER 2023-05-04 15:27 | Inpatient (IN) ==
[2023-05-04] MEDS ORDERED: ASPIRIN CHEW 324 MG PO STA (15:34)
--- NOTE | 2023-05-04 15:34 | ED Triage Note ---
Date of Service May 04, 2023 History of Present Illness This patient was briefly evaluated while in triage. An abbreviated physical exam was performed. This patient is a 57-year-old Male who presents to the ED for evaluation of chest pain and shortness of breath. Patient has had symptoms that have been intermittent for months. Patient reports that the pain is in the center of the chest. It occasionally radiates to the left chest region. The patient rates his discomfort a 4 out of 10. The patient reports that his father in his mid 40s from a heart attack. After the patient left triage, charge nurse indicated that the patient was sent here for an abnormal stress test. Physical Exam CONSTITUTIONAL: Healthy and well nourished. Patient does not appear in any acute distress. HEENT: No scleral icterus or conjunctival injection/pallor. RESPIRATORY: Clear to auscultation bilaterally with no wheezing, crackles, rhonchi or stridor. CARDIOVASCULAR: Regular rate and rhythm with no murmurs, rubs or gallops. MUSCULOSKELETAL: No tenderness to palpation across the anterior chest wall. INTEGUMENTARY: No rash or other significant dermatologic conditions noted. HEMATOLOGIC: No ecchymosis or petechiae. NEUROLOGIC: No focal neurologic deficits noted. Initial orders for labs and / or imaging were placed and patient was placed in the waiting area until a bed is available. Please see further documentation for the full ED course.
--- NOTE | 2023-05-04 15:47 | Electrocardiogram Report ---
Test Reason : Blood Pressure : / mmHG Vent. Rate : 068 BPM Atrial Rate : 068 BPM P-R Int : 126 ms QRS Dur : 072 ms QT Int : 390 ms P-R-T Axes : 040 033 030 degrees QTc Int : 414 ms Normal sinus rhythm Normal ECG When compared with ECG of 18-APR-2020 07:06, No significant change was found Confirmed by Ted Thacker ([id number]) on 05/04/2023 3:47:15 PM Referred By: Confirmed By:Ted Thacker
[2023-05-04 15:51] LABS: Basophils # (auto) 0.06 K/uL (0.00-0.20); Basophils % (auto) 0.7 %; Eosinophils # (auto) 0.22 K/uL (0.00-0.50); Eosinophils % (auto) 2.7 %; Hemoglobin 15.8 g/dl (14.0-18.0); Immature Granulocytes # (auto) 0.03 K/uL (0.01-0.20); Immature Granulocytes % (auto) 0.4 %; Lymphocytes # (auto) 2.06 K/uL (1.20-3.40); Lymphocytes % (auto) 25.3 %; Mean Corpuscular Hemoglobin 35.1 pg (25.0-34.0); Mean Corpuscular Hgb Conc 36.7 g/dL (32.0-36.0); Mean Corpuscular Volume 95.6 fL (80.0-100.0); Mean Platelet Volume 11.4 fL (9.4-12.4); Monocytes # (auto) 0.83 K/uL (0.11-0.59); Monocytes % (auto) 10.2 %; Neutrophils # (auto) 4.94 K/uL (1.40-6.50); Neutrophils % (auto) 60.7 %; Platelet Count 185 K/uL (130-400); RDW Coefficient of Variation 12.1 % (11.5-14.5); RDW Standard Deviation 42.4 fL (36.4-46.3); White Blood Count 8.14 K/ul (4.8-10.8)
[2023-05-04 16:08] LABS: Albumin Globulin Ratio 1.5 (0.9-2); Albumin Level 4.5 gm/dl (3.4-5.0); BUN Creatinine Ratio 15.6 (10-20); Bilirubin,Total 0.9 mg/dl (0.2-1.0); Calcium 10.1 mg/dl (8.6-10.3); Creatinine Clr Calc Pharmacy 92.7 ml/min; Est GFR (Non-African American) 95.8 ml/min; Potassium 3.6 mmol/L (3.5-5.1); Total Protein 7.5 gm/dl (6.0-8.3)
[2023-05-04 16:16] LABS: Troponin I High Sensitivity 2.8 pg/ml (0-20)
[2023-05-04 16:19] LABS: Partial Thromboplastin Ratio 0.8; Partial Thromboplastin Time 23.6 Seconds (21.0-31.0); Prothrombin Time 10.9 Seconds (9.0-12.0)
--- NOTE | 2023-05-04 16:20 | XRay Report ---
XR chest 1V not portable CLINICAL HISTORY: Chest pain TECHNIQUE: Single frontal radiograph of the chest was obtained. Comparison: None available at the time of this dictation. FINDINGS: No lines and tubes are seen. The cardiomediastinal silhouette is normal. The lungs are clear. No evid ence of pleural effusion or pneumothorax. IMPRESSION: No acute chest disease. ACT 112: Negative or not required by law. Electronically signed by: Carlos Mcallister M.D. 05/04/2023 4:18 PM
--- NOTE | 2023-05-04 16:29 | Emergency Department Note ---
Impression & Plan Chest pain, Abnormal cardiovascular stress test ED Provider Note NAME: ANAYELI RAJAN III AGE: 57 SEX: M : 1965 ARRIVES VIA: Walk-In INFORMANT: Patient, the patient's significant other ED PROVIDER(S): Gustabo De Leon DO CHIEF COMPLAINT: Chest pain HPI: The patient is a 57-year-old male who has a history of diabetes as well as hypertension presented to the emergency department for chest pain. The patient had a family history of early coronary artery disease as well as sudden cardiac . He was having chest discomfort since Sunday. He states his pain is located in the center of his chest and is constant. He denies having any radiation to the back. He denies having any leg swelling or leg pain. He does note slight shortness of breath at times. He states the pain is worsened with exertion. The patient had a stress test on April 25. This was an abnormal stress test. The patient was sent to the emergency department for further evaluation after his follow-up appoint with cardiology today. ROS: See above HPI for pertinent positives & negatives. A total of 10 systems reviewed and were otherwise negative. PAST MEDICAL HISTORY: See Below PAST SURGICAL HISTORY: See Below FAMILY HISTORY: See Below SOCIAL HISTORY: See Below HOME MEDICATIONS: See Below ALLERGIES: See Below VITALS: See Below PHYSICAL EXAMINATION: GENERAL: Patient is awake alert in no acute distress patient is resting comfortably and showing no signs of anxiety EYES: The conjunctivae are clear. The pupils are round and reactive. EARS, NOSE, MOUTH AND THROAT: The nose is without any evidence of any deformity. NECK: The neck is nontender and supple. RESPIRATORY: Normal respiratory effort is noted there is no evidence of wheezing rhonchi or rales CARDIOVASCULAR: Regular rate and rhythm noted there no murmurs rubs or gallops normal S1 normal S2. GASTROINTESTINAL: The abdomen is soft. Abdomen is nontender. MUSCULOSKELETAL/EXTREMITIES: There is no evidence of gross deformity full range of motion is noted in the hips and shoulders. SKIN: There is no obvious evidence of any rash. There are no petechiae, pallor or cyanosis noted. NEUROLOGIC: Patient is awake alert and oriented x3 MEDICAL DECISION MAKING: The patient is a 57-year-old male who presented to the emergency department for an evaluation of chest pain. The patient has been having problems with chest over the course of the last 10 days. The patient did have a stress test. The stress test was abnormal. The patient was sent to cardiology today. 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 For this reason the patient was sent to the emergency department. The patient has had ongoing pain for greater than 24 hours. I discussed the patient's laboratory and radiographic studies with him. I also discussed the limitations of the emergency department work-up for chest pain with him. I discussed this condition with the [facility] assembler engine as well as the [facility] hospitalist group. They have agreed to evaluate the patient for further management and disposition. Triage Nursing notes reviewed. Prior medical records reviewed. The patient's stress test from the [employer] system was reviewed. Vital Signs: reviewed and remarkable for elevated blood pressure. Differential diagnosis: Cardiac ischemia, aortic dissection, pulmonary embolism, pneumothorax, pneumonia, pericarditis, myocarditis, esophageal rupture, GERD, cholecystitis, pancreatitis, musculoskeletal, as well as other pathologies. ER treatment provided: See below Diagnostics interpreted by me: ECG: EKG was obtained in the emergency department. My interpretation is normal sinus rhythm at 68 bpm. There is no ectopy. There is no acute ST segment abnormalities noted. This was compared to a tracing from April 18, 2000. No changes were noted. Cardiac Monitoring: An order was placed for continuous cardiac monitoring. The monitor shows a rate of 58 bpm with sinus bradycardia. Laboratory studies: As stated above and show below. Imaging studies: See below. Radiographic imaging was reviewed by myself Consultation(s): I discussed this case with Dr. Gonzalez who is on for interventional cardiology. I discussed this case with Dr. Franco who is on for [facility] cardiology. I discussed this case with Winter who is on-call for [facility] hospitalist group. 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 Required: No Beliefs That Will Affect Care: None marital status: Current Living Situation: Spouse Feels Safe at Home: Yes Assistive Devices: None Allergies Allergies Allergy/AdvReac Type Severity Reaction Status Date / Time niacin Allergy RASH/ Unverified 04/17/20 15:18 DIFFICULTY BREATHING Sulfa (Sulfonamide Allergy RASH/ Unverified 04/17/20 15:19 Antibiotics) DIFFICULTY BREATHING Home Meds Home Medications Medication Instructions Recorded Confirmed atorvastatin 80 mg tablet (Lipitor) 80 mg PO DAILY 04/17/20 04/17/20 cholecalciferol (vitamin D3) 25 12.5 mcg PO DAILY 04/17/20 04/17/20 mcg (1,000 unit) tablet duloxetine 60 mg capsule,delayed 60 mg PO DAILY 04/17/20 04/17/20 release lisinopril 20 mg tablet (Prinivil) 20 mg PO DAILY 04/17/20 04/17/20 multivitamin 1 tab PO DAILY 04/17/20 04/17/20 Results & Data (ED) Vital Signs Vital Signs - 24 hr 05/04/23 15:30 05/04/23 16:21 05/04/23 16:21 Temperature 36.6 C Temperature Source Temporal Artery Scan Pulse Rate 71 Pulse Rate [Apical] Pulse Rate from SpO2 Sensor Pulse Rhythm [Apical] Pulse Strength [Apical] Respiratory Rate 18 Respiratory Effort / Characteristics Non-Labored Spontaneous Respiratory Depth Normal Blood Pressure 141/98 H Blood Pressure [Left Arm] Blood Pressure Mean 112 Blood Pressure Mean [Left Arm] Pulse Oximetry 98 97 97 Oxygen Delivery Method Room Air Room Air Room Air Oxygen Flow Rate 0 Sepsis Recent Fever Within 48 Hours No Sepsis New/Unexplained Change in Mental Status N/A Sepsis Action Taken by Nursing No Action Required Oxygen Flow Rate - Titration 0 05/04/23 16:35 05/04/23 16:35 05/04/23 16:40 Temperature Temperature Source Pulse Rate 64 63 62 Pulse Rate [Apical] Pulse Rate from SpO2 Sensor 64 62 Pulse Rhythm [Apical] Pulse Strength [Apical] Respiratory Rate 16 18 Respiratory Effort / Characteristics Respiratory Depth Blood Pressure Blood Pressure [Left Arm] Blood Pressure Mean Blood Pressure Mean [Left Arm] Pulse Oximetry 98 97 Oxygen Delivery Method Oxygen Flow Rate Sepsis Recent Fever Within 48 Hours Sepsis New/Unexplained Change in Mental Status Sepsis Action Taken by Nursing Oxygen Flow Rate - Titration 05/04/23 16:50 05/04/23 17:00 05/04/23 17:00 Temperature Temperature Source Pulse Rate 63 62 Pulse Rate [Apical] Pulse Rate from SpO2 Sensor 63 62 Pulse Rhythm [Apical] Pulse Strength [Apical] Respiratory Rate 17 17 Respiratory Effort / Characteristics Respiratory Depth Blood Pressure 150/94 H Blood Pressure [Left Arm] Blood Pressure Mean 122 Blood Pressure Mean [Left Arm] Pulse Oximetry 98 97 Oxygen Delivery Method Oxygen Flow Rate Sepsis Recent Fever Within 48 Hours Sepsis New/Unexplained Change in Mental Status Sepsis Action Taken by Nursing Oxygen Flow Rate - Titration 05/04/23 17:10 05/04/23 17:20 05/04/23 17:30 Temperature Temperature Source Pulse Rate 62 68 Pulse Rate [Apical] 58 L Pulse Rate from SpO2 Sensor 61 65 Pulse Rhythm [Apical] Regular Pulse Strength [Apical] Normal Respiratory Rate 17 16 19 Respiratory Effort / Characteristics Non-Labored Spontaneous Respiratory Depth Normal Blood Pressure Blood Pressure [Left Arm] 146/100 H Blood Pressure Mean Blood Pressure Mean [Left Arm] 115 Pulse Oximetry 98 100 98 Oxygen Delivery Method Room Air Room Air Oxygen Flow Rate Sepsis Recent Fever Within 48 Hours Sepsis New/Unexplained Change in Mental Status Sepsis Action Taken by Nursing Oxygen Flow Rate - Titration Home Medications Current Medication List: was personally reviewed by me Laboratory Data Attestation: I reviewed the patient's lab results. 05/04/23 15:39 05/04/23 15:39 Lab Results 05/04/23 Range/Units 15:39 WBC 8.14 (4.8-10.8) K/ul RBC 4.50 L (4.70-6.10) M/uL Hgb 15.8 (14.0-18.0) g/dl Hct 43.0 (42.0-52.0) % MCV 95.6 (80.0-100.0) fL MCH 35.1 H (25.0-34.0) pg MCHC 36.7 H (32.0-36.0) g/dL RDW Std Deviation 42.4 (36.4-46.3) fL RDW Coeff of [place] 12.1 (11.5-14.5) % Plt Count 185 (130-400) K/uL MPV 11.4 (9.4-12.4) fL Immature Gran % (Auto) 0.4 % Neut % (Auto) 60.7 % Lymph % (Auto) 25.3 % [place] % (Auto) 10.2 % Eos % (Auto) 2.7 % Baso % (Auto) 0.7 % Neut # (Auto) 4.94 (1.40-6.50) K/uL Lymph # (Auto) 2.06 (1.20-3.40) K/uL [place] # (Auto) 0.83 H (0.11-0.59) K/uL Eos # (Auto) 0.22 (0.00-0.50) K/uL Baso # (Auto) 0.06 (0.00-0.20) K/uL Immature Gran # (Auto) 0.03 (0.01-0.20) K/uL PT 10.9 (9.0-12.0) Seconds INR 1.0 (0.9-1.1) APTT 23.6 (21.0-31.0) Seconds PTT Ratio 0.8 Sodium 141 (136-145) mmol/L Potassium 3.6 (3.5-5.1) mmol/L Chloride 102 (98-107) mmol/L Carbon Dioxide 31 (21-32) mmol/L Anion Gap 8 (3-11) BUN 14 (6-23) mg/dl Creatinine 0.90 (0.6-1.4) mg/dl Est Cr Clr Drug Dosing 92.7 ml/min Est GFR ( Amer) 111.0 ml/min Est GFR (Non-Af Amer) 95.8 ml/min BUN/Creatinine Ratio 15.6 (10-20) Glucose 134 H (70-99(Fasting)) mg/dl Calcium 10.1 (8.6-10.3) mg/dl Total Bilirubin 0.9 (0.2-1.0) mg/dl AST 38 (13-39) U/L ALT 47 (7-52) U/L Alkaline Phosphatase 65 (34-104) U/L Troponin I High Sens 2.8 (0-20) pg/ml Total Protein 7.5 (6.0-8.3) gm/dl Albumin 4.5 (3.4-5.0) gm/dl Globulin 3.0 (2.5-4.0) gm/dl Albumin/Globulin Ratio 1.5 (0.9-2) Administered Medications Discontinued Medications Aspirin (Aspirin Chew 324 Mg) 324 mg PO NOW STA Stop: 05/04/23 15:35 Last Admin: 05/04/23 16:14 Dose: 324 mg Documented By: ABBY Nitroglycerin (Nitroglycerin Sl 0.4 Mg/Tab Tab) 0.4 mg SL NOW STA Stop: 05/04/23 17:35 Last Admin: 05/04/23 17:48 Dose: 0.4 mg Documented By: MILKA Imaging Data Attestation: I personally reviewed and interpreted this imaging study as follows: My Impression: 1 view chest x-ray was obtained in the emergency department. My interpretation is no free air or definite infiltrate, final report below. Radiologist's Impression: Chest X-Ray 05/04/23 15:34 XR chest 1V not portable CLINICAL HISTORY: Chest pain TECHNIQUE: Single frontal radiograph of the chest was obtained. Comparison: None available at the time of this dictation. FINDINGS: No lines and tubes are seen. The cardiomediastinal silhouette is normal. The lungs are clear. No evidence of pleural effusion or pneumothorax. IMPRESSION: No acute chest disease. ACT 112: Negative or not required by law. Electronically signed by: Carlos Mcallister M.D. 05/04/2023 4:18 PM Discharge Plan Visit Data Chief Complaint: Chest Pain Stated Complaint: CHEST PAIN, SOB ED Provider: Gustabo De Leon Discharge Problem: Chest pain, Abnormal cardiovascular stress test Patient Disposition: Being Evaluated by Hospitalist Forms Stand Alone Forms: My [facility] Prescriptions Prescriptions: No Action atorvastatin [Lipitor] 80 mg Tablet 80 mg PO DAILY lisinopril [Prinivil] 20 mg Tablet 20 mg PO DAILY multivitamin Tablet 1 tab PO DAILY cholecalciferol (vitamin D3) 25 mcg (1,000 unit) Tablet 12.5 mcg PO DAILY duloxetine 60 mg capsule,delayed release(DR/EC) 60 mg PO DAILY Referrals Referrals: Car Pereira MD [Primary Care Provider] - Discharge Problem: Chest pain Qualifiers: Chest pain type: unspecified Qualified Code(s): R07.9 - Chest pain, unspecified
--- NOTE | 2023-05-04 16:58 | History & Physical Report ---
Date of Service May 04, 2023 Assessment & Plan (1) Chest pain: (2) Abnormal cardiovascular stress test: Plan: Patient is 57-year-old male with PMH HTN, dyslipidemia, DM II, paroxysmal SVT, history of nonsustained V. tach on ZIO in 2019, anxiety, tobacco use presented to ER from outpatient cardiology office for chest pain and history of abnormal stress test. constant chest heaviness x 5 days. Exercise stress echo on 04/25/2023 positive for inducible ischemia, apical hypokinesis on stress imaging, EF: 55-59%, no significant valvular disease. Today EKG sinus rhythm, rate 68, no significant ST changes. HS troponin: 2.8-->3.4 SL nitro x 1 in ER with reported decreased chest heaviness CXR: no acute disease Currently denies CP Repeat EKG in am Will trend troponin Nitropaste NPO midnight Lipid panel in am, continue atorvastatin Continue aspirin, metoprolol succinate Cardiology consult (3) Diabetes mellitus, type II: Plan: A1c: 7.1 on 11/24/22 Hold home metformin Novolog correction sliding for now. Monitor BSG (4) Hypertension: Plan: Continue lisinopril, HCTZ, metoprolol succinate (5) HLD (hyperlipidemia): Plan: Lipid panel 02/08/23: total: 192, Triglycerides: 266, HDL: 72, LDL: 90 Continue atorvastatin, Zetia, Vascepa (6) Anxiety: Plan: Continue duloxetine (7) Tobacco use: Plan: Chewing tobacco Denies nicotine patch (8) Alcohol use: Plan: Reports 3-4 beers daily Monitor for alcohol withdrawal Ativan prn DVT Prophylaxis Heparin SQ Full Code as per discussion with pt Follows with Dr Yuen for routine care Pt was seen and care coordinated with Dr Galvan. See addendum History of Present Illness Chief Complaint: CP Primary Care Provider: Car Pereira MD Patient is 57-year-old male with PMH HTN, dyslipidemia, DM II, paroxysmal SVT, history of nonsustained V. tach on ZIO in 2019, anxiety, tobacco use presented to ER from outpatient cardiology office for chest pain and history of abnormal stress test. History obtained from patient, significant other, as well as outpatient chart review. Patient has been having episodes of chest pain and SOB with exertion for several months. He also has been noticing tachypalpitations with exertion past couple of months. Had exercise stress echo on 04/25/2023 that was positive for inducible ischemia, apical hypokinesis on stress imaging, EF: 55-59%, no significant valvular disease. Was prescribed SL nitro after positive stress test however patient has never used. States for past 5 days has had constant mid sternal heaviness. Still with SOB with exertion. Seen by cardiology today and referred to ER.Chronic cough in morning but denies any worsening. Denies fever/chills, diaphoresis, N/V/D/C, CACERES, dizziness, syncope, vision changes, neck pain, orthopnea, sore throat, choking, otalgia, rhinorrhea, abdominal pain, paresthesias, weakness, extremity weakness, extremity edema, rashes, urinary symptoms. Allergies Allergy/AdvReac Type Severity Reaction Status Date / Time niacin Allergy RASH/ Unverified 05/04/23 17:54 DIFFICULTY BREATHING Sulfa (Sulfonamide Allergy RASH/ Unverified 05/04/23 17:54 Antibiotics) DIFFICULTY BREATHING pravastatin [From Pravachol] AdvReac Muscle Pain Verified 05/04/23 17:54 Home Medications Medication Instructions Recorded Confirmed Type atorvastatin 80 mg tablet (Lipitor) 80 mg PO HS 04/17/20 05/04/23 History duloxetine 60 mg capsule,delayed 60 mg PO DAILY 04/17/20 05/04/23 History release aspirin 81 mg tablet,delayed 81 mg PO HS 05/04/23 05/04/23 History release ezetimibe 10 mg tablet 10 mg PO DAILY 05/04/23 05/04/23 History hydrochlorothiazide 12.5 mg tablet 12.5 mg PO QAM 05/04/23 05/04/23 History icosapent ethyl 1 gram capsule 2 g PO BIDM 05/04/23 05/04/23 History lisinopril 20 mg tablet 20 mg PO DAILY 05/04/23 05/04/23 History metformin 500 mg tablet,extended 500 mg PO AMPM 05/04/23 05/04/23 History release 24 hr metoprolol succinate 25 mg 25 mg PO DAILY 05/04/23 05/04/23 History tablet,extended release 24 hr nitroglycerin 0.4 mg sublingual 0.4 mg sublingual DIRECTED PRN 05/04/23 05/04/23 History tablet Chest Pain Past Med/Surg History Medical History (Updated 05/04/23 @ 19:20 by Nataliya Malhotra PA-C) Alcohol use Tobacco use Anxiety Diabetes mellitus, type II Hypertension Stroke-like symptom Left leg weakness HLD (hyperlipidemia) H/O: HTN (hypertension) Surgical History (Updated 05/04/23 @ 19:11 by Nataliya Malhotra PA-C) History of colonoscopy Family History (Updated 05/04/23 @ 19:28 by Nataliya Malhotra PA-C) Father Sudden age 45 Mother Diabetes Social History (Updated 05/04/23 @ 19:20 by Nataliya Malhotra PA-C) Smoking Status: Never smoker Tobacco Type: Smokeless Tobacco (Dip or Chew) Second Hand Exposure: No; Do You Dip or Chew Tobacco: Yes; Hx Alcohol Use: Yes (3-4 beer daily) Alcohol type: beer Hx Substance Use: No Preferred Language: Divehi Communication Ability: Effective Stabber Required: No Beliefs That Will Affect Care: None marital status: Current Living Situation: Spouse Feels Safe at Home: Yes Assistive Devices: None Review of Systems Review of Systems: All systems reviewed & are unremarkable except as noted in HPI & below Physical Exam Physical Exam: General: no acute distress, WDWN Head: normocephalic, atraumatic Eyes: conjunctiva non-injected, anicteric ENT: normal inspection external ears, nose, mucous membranes moist Neck: supple, trachea midline Lungs: clear, no respiratory distress, no wheezing/rhonchi/rales CV: RRR, no murmur, no pretibial edema Abd: normal BS, soft, non-tender Ext: no cyanosis, no calf tenderness Neuro: A&O x 3, no focal deficits noted, normal affect Skin: warm, dry Results & Data Results & Data Vital Signs (Past 12 Hours) Vital Signs Temp Pulse Resp BP Pulse Ox O2 Del Method O2 Flow Rate 05/04/23 16:21 97 Room Air 05/04/23 16:21 97 Room Air 0 05/04/23 15:30 36.6 C 71 18 141/98 H 98 Room Air Laboratory Results Short CBC 05/04/23 Range/Units 15:39 WBC 8.14 (4.8-10.8) K/ul Hgb 15.8 (14.0-18.0) g/dl Hct 43.0 (42.0-52.0) % Plt Count 185 (130-400) K/uL BMP 05/04/23 15:39 Sodium 141 Potassium 3.6 Chloride 102 Carbon Dioxide 31 BUN 14 Creatinine 0.90 Glucose 134 H Calcium 10.1 Liver Function 05/04/23 Range/Units 15:39 Total Bilirubin 0.9 (0.2-1.0) mg/dl AST 38 (13-39) U/L ALT 47 (7-52) U/L Alkaline Phosphatase 65 (34-104) U/L Albumin 4.5 (3.4-5.0) gm/dl Diagnostic Findings Chest X-Ray 05/04/23 15:34 XR chest 1V not portable CLINICAL HISTORY: Chest pain TECHNIQUE: Single frontal radiograph of the chest was obtained. Comparison: None available at the time of this dictation. FINDINGS: No lines and tubes are seen. The cardiomediastinal silhouette is normal. The lungs are clear. No evidence of pleural effusion or pneumothorax. IMPRESSION: No acute chest disease. ACT 112: Negative or not required by law. Electronically signed by: Carlos Mcallister M.D. 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 with ongoing chest pain and abnormal stress echo During examination he has not been complaining of any pain or any other symptoms His apparent blood test and EKG are unremarkable On examination Lying in bed comfortably without any chest pain or shortness of breath Remains hemodynamically stable with blood pressure on the upper side at 150/95 Chest-clear to auscultate bilaterally Heart-S1-S2, regular Abdomen-benign Extremities-negative for any edema His admission labs, EKG and imaging studies reviewed Recent abnormal stress echo with ongoing off-and-on chest pain No apparent EKG changes and or increasing troponin We will continue current management and keep him n.p.o. for probable cardiac cath tomorrow Agree with assessment and plan as outlined above by JOHN T[address]well Dr (1) Chest pain Chest pain type: unspecified Qualified Code(s): R07.9 - Chest pain, unspecified (4) Hypertension Hypertension type: unspecified Qualified Code(s): I10 - Essential (primary) hypertension
[2023-05-04] MEDS ORDERED: NITROGLYCERIN SL 0.4 MG/TAB TAB SL STA (17:34)
[2023-05-04] MEDS ORDERED: POLYETHYLENE (MIRALAX) 17 GM PACK PO PRN (22:14)
[2023-05-04] MEDS ORDERED: GLUCOSE 40% GEL 15 GM TUBE PO PRN (22:14)
[2023-05-04] MEDS ORDERED: ONDANSETRON INJ 2 MG/ML 2 ML VIAL IV PRN (22:14)
[2023-05-04] MEDS ORDERED: LORazepam 1 MG TAB PO PRN (22:14)
[2023-05-04] MEDS ORDERED: DEXTROSE 50% 50 ML SYRINGE IV PRN (22:14)
[2023-05-04] MEDS ORDERED: CARBOHYDRATES FOR HYPOGLYCEMIA PO PRN (22:14)
[2023-05-04] MEDS ORDERED: GLUCAGON FOR INJ 1 MG VIAL SQ PRN (22:14)
[2023-05-04] MEDS ORDERED: GLUCOSE 10 TAB/TUBE PO PRN (22:14)
[2023-05-04] MEDS: INSULIN ASPART PER UNIT CHARGE SC SCH (22:34)
[2023-05-04] MEDS: NITROGLYCERIN 2% OINTMENT 30GM TUBE EXT SCH (22:48)
[2023-05-04] MEDS: ATORVASTATIN 40 MG TAB PO SCH (22:49)
[2023-05-04] MEDS: HEPARIN SOD 5,000 UNIT/0.5 ML VIAL SQ SCH (22:50)
[2023-05-05] MEDS: ACETAMINOPHEN 325 MG TAB PO PRN ×2 (06:25→21:33)
[2023-05-05] MEDS: NITROGLYCERIN 2% OINTMENT 30GM TUBE EXT SCH ×3 (06:28→17:48)
[2023-05-05] MEDS: INSULIN ASPART PER UNIT CHARGE SC SCH ×4 (06:35→20:37)
[2023-05-05 07:50] LABS: Hematocrit (blood only) 39.1 % (42.0-52.0); Mean Corpuscular Hemoglobin 34.2 pg (25.0-34.0); Mean Corpuscular Hgb Conc 35.8 g/dL (32.0-36.0); Mean Corpuscular Volume 95.6 fL (80.0-100.0); Mean Platelet Volume 11.6 fL (9.4-12.4); Platelet Count 167 K/uL (130-400); RDW Coefficient of Variation 12.3 % (11.5-14.5); Red Blood Count 4.09 M/uL (4.70-6.10); White Blood Count 5.09 K/ul (4.8-10.8)
[2023-05-05] MEDS: hydroCHLOROthiazide 25 MG TAB PO SCH (08:02)
[2023-05-05] MEDS: EZETIMIBE 10 MG TAB PO SCH (08:02)
[2023-05-05] MEDS: DULoxetine HCL 60 MG CAP PO SCH (08:03)
[2023-05-05] MEDS: lisinopril 20 MG TAB PO SCH (08:03)
[2023-05-05] MEDS: ASPIRIN 81 MG ECTAB PO SCH (08:04)
[2023-05-05] MEDS: MULTIVITAMIN TAB PO SCH (08:04)
[2023-05-05] MEDS: METOPROLOL SUCC 25MG EXT REL TAB PO SCH (08:04)
[2023-05-05] MEDS: THIAMINE HCL 100 MG TAB PO SCH (08:04)
[2023-05-05] MEDS: FOLIC ACID 1 MG TAB PO SCH (08:04)
[2023-05-05] MEDS: HEPARIN SOD 5,000 UNIT/0.5 ML VIAL SQ SCH ×2 (08:08→20:56)
[2023-05-05 08:19] LABS: Calcium 9.3 mg/dl (8.6-10.3); Magnesium 1.9 mg/dl (1.7-2.4); Potassium 3.7 mmol/L (3.5-5.1)
[2023-05-05 08:20] LABS: Estimated Average Glucose 154 mg/dl
[2023-05-05 08:25] LABS: BUN Creatinine Ratio 14.6 (10-20); Chol HDL Ratio 3.3 (0-5); Creatinine Clr Calc Pharmacy 93.8 ml/min; Est GFR (African American) 111.6 ml/min; Est GFR (Non-African American) 96.3 ml/min
--- NOTE | 2023-05-05 13:34 | Cardiology Consultation ---
Date of Consultation May 05, 2023 Assessment & Plan (1) Chest pain: (2) Abnormal cardiovascular stress test: Plan This is a 57 year old man with a recent positive exercise stress test who presents with Unstable angina. 1. Unstable Angina -resolved; continue Nitropaste -continue aspirin/lipitor/zetia -continue lisinopril and HCTZ -if chest pain returns and does not respond to nitroglycerin, will plan for urgent catheterization -repeat troponins and EKG if chest pain returns -Otherwise, plan for coronary angiogram on Sunday05/07/23. I provided 85 min of care to the patient in regards to Unstable angina. We discussed the management of unstable angina. History of Present Illness Reason for Consultation: Chest pain and positive Stress Test Attending Physician: Gauri Courtney MD History of Present Illness This ia a 57-year-old male with PMH HTN, dyslipidemia, DM II, paroxysmal SVT, history of nonsustained V. tach on ZIO in 2019, anxiety, tobacco use presented to ER from outpatient cardiology office for chest pain and history of abnormal stress test. constant chest heaviness x 5 days. He tell me that the pain was 24/7 and non-exertional. Exercise stress echo on 04/25/2023 positive for inducible ischemia, apical hypokinesis on stress imaging, EF: 55-59%, no significant valvular disease. Troponins have been negative x 3 Chest pain has resolved s/p nitropaste. No N/V/CACERES; afebrile. No PND or orthopnea. Allergies Allergy/AdvReac Type Severity Reaction Status Date / Time niacin Allergy RASH/ Unverified 05/04/23 17:54 DIFFICULTY BREATHING Sulfa (Sulfonamide Allergy RASH/ Unverified 05/04/23 17:54 Antibiotics) DIFFICULTY BREATHING pravastatin [From Pravachol] AdvReac Muscle Pain Verified 05/04/23 17:54 Home Medications Medication Instructions Recorded Confirmed Type atorvastatin 80 mg tablet (Lipitor) 80 mg PO HS 04/17/20 05/04/23 History duloxetine 60 mg capsule,delayed 60 mg PO DAILY 04/17/20 05/04/23 History release aspirin 81 mg tablet,delayed 81 mg PO HS 05/04/23 05/04/23 History release ezetimibe 10 mg tablet 10 mg PO DAILY 05/04/23 05/04/23 History hydrochlorothiazide 12.5 mg tablet 12.5 mg PO QAM 05/04/23 05/04/23 History icosapent ethyl 1 gram capsule 2 g PO BIDM 05/04/23 05/04/23 History lisinopril 20 mg tablet 20 mg PO DAILY 05/04/23 05/04/23 History metformin 500 mg tablet,extended 500 mg PO AMPM 05/04/23 05/04/23 History release 24 hr metoprolol succinate 25 mg 25 mg PO DAILY 05/04/23 05/04/23 History tablet,extended release 24 hr nitroglycerin 0.4 mg sublingual 0.4 mg sublingual DIRECTED PRN 05/04/23 05/04/23 History tablet Chest Pain Patient History Medical History Alcohol use Tobacco use Anxiety Diabetes mellitus, type II Hypertension Stroke-like symptom Left leg weakness HLD (hyperlipidemia) H/O: HTN (hypertension) Surgical History History of colonoscopy Family History Father Sudden age 45 Mother Diabetes Social History Smoking Status: Never smoker Tobacco Type: Smokeless Tobacco (Dip or Chew) Second Hand Exposure: No; Do You Dip or Chew Tobacco: Yes; Hx Alcohol Use: Yes Alcohol type: beer Hx Substance Use: No Preferred Language: Botswanan Communication Ability: Effective Edge Stripper Required: No Beliefs That Will Affect Care: None marital status: Current Living Situation: Spouse Current Living Situation Comment: home with Other Information That Helps Us Care for You: No Feels Safe at Home: Yes Safety Concerns: Feels Safe At This Time Assistive Devices: None Review of Systems Review of Systems: A comprehensive review of systems was otherwise negative unless noted above. Physical Exam Physical Exam: AAOx3; NAD. Constitutional: WD/WN, vitals as above Eyes: PERRL, conjunctivae normal, anicteric sclerae Neck: trachea midline, no thyromegaly Cardiovascular: RRR, no murmur, no edema Gastrointestinal (Abdomen): normal bowel sounds, soft, nontender, no hepatosplenomegaly Skin: no rashes, warm and dry Psychiatric: A+Ox3, euthymic affect Results & Data Vital Signs (Past 12 Hours) Vital Signs Temp Pulse Pulse Resp BP Pulse Ox O2 Del Method 05/05/23 11:29 36.5 C 60 19 122/78 98 Room Air 05/05/23 07:33 61 05/05/23 07:06 36.6 C 63 18 118/71 94 Room Air 05/05/23 06:26 60 132/77 05/05/23 03:05 36.4 C L 60 18 144/77 H 96 Room Air Results BMP Results: Sodium 142 mmol/L (136-145) 05/05/23 Potassium 3.7 mmol/L (3.5-5.1) 05/05/23 Chloride 104 mmol/L (98-107) 05/05/23 Carbon Dioxide 30 mmol/L (21-32) 05/05/23 Anion Gap 8 (3-11) 05/05/23 BUN 13 mg/dl (6-23) 05/05/23 Creatinine 0.89 mg/dl (0.6-1.4) 05/05/23 Glucose 152 mg/dl (70-99(Fasting)) H 05/05/23 Results Complete Blood Count Results: RBC 4.09 M/uL (4.70-6.10) L 05/05/23 WBC 5.09 K/ul (4.8-10.8) 05/05/23 Hgb 14.0 g/dl (14.0-18.0) 05/05/23 Hct 39.1 % (42.0-52.0) L 05/05/23 Plt Count 167 K/uL (130-400) 05/05/23 (1) Chest pain Chest pain type: unspecified Qualified Code(s): R07.9 - Chest pain, unspecified
--- NOTE | 2023-05-05 14:23 | Hospitalist Progress Note ---
Date of Service May 05, 2023 Assessment & Plan (1) Chest pain: Plan 57-year-old male with PMH of HTN, dyslipidemia, DM II, paroxysmal SVT, history of nonsustained V. tach on ZIO in 2019, anxiety, tobacco use presented to ER from outpatient cardiology office for chest pain and history of abnormal stress test. 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 He is being managed for the following: (1) Chest pain: (2) Abnormal cardiovascular stress test: Exercise stress echo on 04/25/2023 positive for inducible ischemia, apical hypokinesis on stress imaging, EF: 55-59%, no significant valvular disease. Admitting EKG sinus rhythm, rate 68, no significant ST changes. HS troponin: 2.8-->3.4 SL nitro x 1 in ER with reported decreased chest heaviness Admitting CXR: no acute disease. Troponin trends negative. LDL 46 Currently denies CP Repeat EKG w/ Chest pain C/w Nitropaste c/w aspirin/lipitor/zetia/metoprolol Cardio on board, plan for cath on Sunday. Diabetes mellitus, type II: A1c: 7.1 on 11/24/22 Hold home metformin Novolog correction sliding for now. Monitor BSG Other chronic medical conditions: Continue with/resume home meds as and when able. Hypertensioncontinue HCTZ/lisinopril/metoprolol succinate HLDcontinue atorvastatin, Zetia, Vascepa Anxietycontinue duloxetine Tobacco useChews tobacco. counseling done, denies nicotine patch. Alcohol usereports 3-4 beers a day, monitor for alcohol withdrawal. Ativan as needed DVT prophylaxis: Heparin subcu Full code Admission and Anticipated Discharge Date Admission Date: May 04, 2023 Subjective Patient was seen and examined at bedside. Patient was sitting up in bed, on room air, NAD, reports no further chest pain in the hospital. Patient denies any headache or dizziness or palpitation. Patient reports feeling okay and moving bowels okay. Physical Exam Physical Exam: GENERAL: Alert and oriented x3. NAD, on RA. HEENT: No pallor, no icterus. Pupils equal, round and reactive to light. Oral mucosa moist. NECK: No JVD, no neck masses. HEART: S1 and S2 heard. Regular rate and rhythm. No murmur, no gallop. RESPIRATORY SYSTEM: Normal AP diameter. No accessory muscle use. No wheezing, no crackles. ABDOMEN: Soft, bowel sounds present, nontender, no distention. CENTRAL NERVOUS SYSTEM: No facial droop. Speech is clear. Obeys simple commands. Moves extremities. EXTREMITIES: No edema, no erythema seen. Results & Data Results & Data Vital Signs (Past 12 Hours) Vital Signs Temp Pulse Pulse Resp BP Pulse Ox O2 Del Method 05/05/23 11:29 36.5 C 60 19 122/78 98 Room Air 05/05/23 07:33 61 05/05/23 07:06 36.6 C 63 18 118/71 94 Room Air 05/05/23 06:26 60 132/77 05/05/23 03:05 36.4 C L 60 18 144/77 H 96 Room Air (1) Chest pain Chest pain type: unspecified Qualified Code(s): R07.9 - Chest pain, unspecified
[2023-05-05] MEDS: ICOSAPENT ETHYL 1 GM EXT SCH (16:57)
[2023-05-05] MEDS ORDERED: oxyCODONE HCL IR 5 MG TAB (IMMEDIATE RELEASE) PO PRN (20:46)
[2023-05-05] MEDS ORDERED: oxyCODONE HCL IR 5 MG TAB (IMMEDIATE RELEASE) PO STA (20:46)
--- NOTE | 2023-05-05 20:46 | Communication Note ---
Date of Service: May 05, 2023 Patient complaining of headache and chest pain symptoms. Nitropaste removed for now.
[2023-05-05] MEDS: ATORVASTATIN 40 MG TAB PO SCH (20:55)
[2023-05-05 21:58] LABS: Partial Thromboplastin Ratio 0.9; Partial Thromboplastin Time 24.8 Seconds (21.0-31.0)
--- OUTSIDE RECORDS SUMMARY | 2023-05-06 05:07 | External Medical Summary | Summary of Care ---
Author Name Unknown Organization [facility] Address [address] [place] [address] Phone [phone] Care Team Providers Care Title Searcher Name Role Phone Unavailable Primary Care Provider Unavailabl e Reason for Visit * Reason Comments eRx-Medication Refill Encounter Details Date Type Department Care Team Description 03/12/2023 Refill Family Medicine [address] [phone] Car Pereira MD [address] [place] [address] [place] [id number] Hyperlipidemia LDL goal <100; Current moderate episode of major depressive disorder without prior episode (HCC) Allergies Active Allergy Reactions Severity Noted Date Comments Niacin Rash,Wheezing High 10/17/2006 Pravachol Muscle pain 04/22/2009 Sulfa Antibiotics Chills, fever, rash documented as of this encounter (statuses as of 03/13/2023) Medications Medication Sig Dispensed Refills Start Date End Date Status SM Aspirin Adult Low Strength 81 MG Oral Tablet Delayed Release Take 1 Tablet by mouth in the morning. 0 0 Active Ezetimibe 10 MG Oral Tablet (Zetia)Indications:Dy slipidemia, goal LDL below 130 TAKE 1 TABLET BY MOUTH EVERY MORNING 90 Tablet 2 3 Active Metoprolol Succinate ER 50 MG Oral Tablet Extended Release 24 Hour (Toprol XL)Indications:PSVT (paroxysmal supraventricular tachycardia),HERNÁNDEZ (dyspnea on exertion),Essential hypertension with goal blood pressure less than 140/90,Dyslipidemia, goal LDL below 70,Family history of sudden in father,NSVT (nonsustained ventricular tachycardia) (HCC) One daily 90 Tablet 1 3 Active hydroCHLOROthiazide 12.5 MG Oral Tablet (Hydrodiuril)Indicati ons:HTN, goal below 140/90,PSVT (paroxysmal supraventricular tachycardia),NSVT (nonsustained ventricular tachycardia) (HCC),Dyslipidemia, goal LDL below 100 Take 2 Tablets by mouth in the morning. 90 Tablet 3 3 Active Lisinopril 20 MG Oral Tablet (Prinivil)Indications :HTN, goal below 140/90,PSVT (paroxysmal supraventricular tachycardia),NSVT (nonsustained ventricular tachycardia) (HCC),Dyslipidemia, goal LDL below 100 Take 1 Tablet by mouth in the morning. 90 Tablet 3 3 Active metFORMIN HCl ER 500 MG Oral Tablet Extended Release 24 Hour (Glucophage XR)Indications:DM type 2, goal HbA1c < 7% (HCC) Take 1 Tablet by mouth in the morning and 1 Tablet in the evening. 180 Tablet 1 3 Active Icosapent Ethyl 1 GM Oral Capsule (Vascepa)Indications: Dyslipidemia, goal LDL below 70 Take 2 Capsules by mouth 2 times a day with morning and evening meals. Swallow capsules whole, do not open or break. 360 Capsule 3 3 Active Atorvastatin Calcium 80 MG Oral Tablet (Lipitor)Indications: Hyperlipidemia LDL goal <100 TAKE ONE TABLET BY MOUTH AT BEDTIME 90 Tablet 1 3 Active DULoxetine HCl 60 MG Oral Capsule Delayed Release Particles (Cymbalta)Indications :Current moderate episode of major depressive disorder without prior episode (HCC) take 1 capsule every day in the morning. do not cut, crush or chew. 90 Capsule 1 3 Active Atorvastatin Calcium 80 MG Oral Tablet (Lipitor)Indications: Hyperlipidemia LDL goal <100 take one pill by mouth at bedtime 90 Tablet 1 3 03/13/20 23 Discontinued DULoxetine HCl 60 MG Oral Capsule Delayed Release Particles (Cymbalta)Indications :Current moderate episode of major depressive disorder without prior episode (HCC) Take 1 Capsule by mouth in the morning. TAKE ONE CAPSULE BY MOUTH EVERY DAY DO NOT CUT, CRUSH, OR CHEW . 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 HISTORY OF TOBACCO USE Anxiety state Disorder of intervertebral disc Hyperlipidemia LDL goal <100 Overview: ICD-10 update of inactive term Primary hypertension documented as of this encounter (statuses as of 03/13/2023) Resolved Problems Problem Noted Date Resolved Date COVID-19 06/29/2020 12/03/2020 Prediabetes 04/26/2020 03/22/2022 Overview: Per Prediabetes protocol Dyslipidemia, goal to be determined 05/25/2009 01/26/2017 Overview: Per Lipid Taxonomy. Mixed dyslipidemia 12/02/2004 05/25/2009 Overview: Per Lipid Taxonomy. 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 06/14/2004 02/28/2019 NONE 01/26/2017 documented as of this encounter (statuses as of 03/13/2023) Immunizations Name Administration Dates Next Due Covid-19 Ad26, Single Dose (Adebayo/J&J) 021 PPD 10/24/2011 TD - Tetanus/Diptheria (ADULT) 06/18/2001 TDAP (age 10 and older)(Boostrix) 12/01/2020 TDAP (age 11 and older)(Adacel) 05/04/2010 documented as of this encounter Social History Tobacco Use Types Packs/Day Years Used Date Smoking Tobacco: Never Passive Smoke Exposure: Never Smokeless Tobacco: Current Snuff Comments:chews Alcohol Use Standard Drinks/Week Comments No 0 (1 standard drink = 0.6 oz pur e alcohol) Food Insecurity Answer Date Recorded Within the past 12 months, y ou worried that your food would run out before you got money to buy more. Never true 02/16/2020 Within the past 12 months, t he food you bought just didn't last and you didn't have money to get more. Never true 02/16/2020 Sex Assigned at Date Recorded Not on file Job Start Date Occupation Industry Not on file Not on file Not on file documented as of this encounter Miscellaneous Notes * Telephone Encounter - Glory Wallace [facility] - 03/13/2023 2:29 PM EDTSigned Prescriptions: Disp Refills Atorvastatin Calcium 80 MG Oral Tablet (Li*90 Tab*1 Sig: TAKE ONE TABLET BY MOUTH AT BEDTIMEAuthorizing Provider: ESTEFANY LECHUGA User: GLORY WALLACE DULoxetine HCl 60 MG Oral Capsule Delayed *90 Cap*1 Sig: take 1 capsule every day in the morning. do not cut, crush or chew.Authorizing Provider: ESTEFANY LECHUGA User: GLORY WALLACE documented in this encounter Plan of Treatment Upcoming Encounters Date Type Specialty Care Team Description 04/25/2023 Imaging Cardiac Studies 05/28/2023 Office Visit Family Medicine Estefany Lechuga DO [address] [place] [id number] 06/15/2023 Office Visit Cardiology Divya Bryan CRNP [address] [place] [id number] Scheduled Procedures Name Priority Associated Diagnoses Date/Ti me COLONOSCOPY FLEXIBLE PROXIMAL DIAGNOSTIC Recall Screen for colon cancer Health Maintenance Due Date Last Done Comments Hepatitis B (1 of 3 - 3-dose series) 1965 Pneumococcal Vaccine: Pediatrics (0 to 5 Years) and At-Risk Patients (6 to 64 Years) (1 - PCV) 10/08/1973 HIV Screening 10/08/1982 Cologuard 10/08/2012 Fecal Occult Blood Test 10/08/2012 Sigmoidoscopy 10/08/2012 Zoster Vaccines (1 of 2) 10/08/2017 Depression, Most Recent Score >= 10 (will fire each visit until score < 10) 02/17/2020 02/16/2020 COVID-19 Vaccine (2 - Booster for Adebayo series) 11/19/2020 09/24/2020 Influenza Vaccine (FLU shot) (#1) 2023 Diabetic Foot Exam 05/10/2023 05/10/2022 HbA1c 05/26/2023 11/24/2022, 04/19, 11/07/2021, Additional history exists DIABETES-EYE EXAM 08/03/2023 08/03/2022, , 08/03/2022, Additional history exists Albumin/Creatinine Ratio 11/25/2023 11/24/2022, 10/17 GFR 02/09/2024 02/08/2023, 10/17, 07/21/2021, Additional history exists Lipid Panel 02/09/2028 02/08/2023, 02/18, 11/07/2021, Additional history exists Colonoscopy 11/30/2029 12/01/2019, 12/01/2019 Colorectal Cancer Screening 11/30/2029 DTaP,Tdap,and Td Vaccines (3 - Td or Tdap) 12/01/2030 12/01/2020, 05/04/2010, 06/18/2001 Hepatitis C Screening Completed 07/21/2021 , 07/21/2021, 07/21/2021 GARDASIL-HPV IMMUNIZATION SERIES Aged Out No longer eligible based on patient's age to complete this topic MENINGOCOCCAL (MENACTRA/MENVEO) Aged Out No longer eligible based on patient's age to complete this topic documented as of this encounter Medical Devices Not on filedocumented as of this encounter Visit Diagnoses Diagnosis Hyperlipidemia LDL goal <100 Other and unspecified hyperlipidemia Current moderate episode of major depressive disorder without prior episode (HCC) documented in this encounter
--- OUTSIDE RECORDS SUMMARY | 2023-05-06 05:07 | External Medical Summary | Summary of Care ---
Author Name Unknown Organization [facility] Address [address] [place] [address] Phone [phone] Care Team Providers Care Child Development Associate Teacher Name Role Phone Unavailable Primary Care Provider Unavailabl e Reason for Visit * Reason Onset Date Comments Test Results 03/06/2023 Encounter Details Date Type Department Care Team Description 03/06/2023 Telephone Cardiology, [facility] [address] [place] [address] Divya Bryan CRNP [address] [place] [id number] Test Results Allergies Active Allergy Reactions Severity Noted Date Comments Niacin Rash,Wheezing High 10/17/2006 Pravachol Muscle pain 04/22/2009 Sulfa Antibiotics Chills, fever, rash documented as of this encounter (statuses as of 03/06/2023) Medications Medication Sig Dispensed Refills Start Date End Date Status SM Aspirin Adult Low Strength 81 MG Oral Tablet Delayed Release Take 1 Tablet by mouth in the morning. 0 04/18/2020 Active Ezetimibe 10 MG Oral Tablet (Zetia)Indications:Dys lipidemia, goal LDL below 130 TAKE 1 TABLET BY MOUTH EVERY MORNING 90 Tablet 2 08/07/2022 Active Atorvastatin Calcium 80 MG Oral Tablet (Lipitor)Indications:H yperlipidemia LDL goal <100 take one pill by mouth at bedtime 90 Tablet 1 09/13/2022 Active DULoxetine HCl 60 MG Oral Capsule Delayed Release Particles (Cymbalta)Indications: Current moderate episode of major depressive disorder without prior episode (HCC) Take 1 Capsule by mouth in the morning. TAKE ONE CAPSULE BY MOUTH EVERY DAY DO NOT CUT, CRUSH, OR CHEW . 90 Capsule 1 09/13/2022 Active Metoprolol Succinate ER 50 MG Oral Tablet Extended Release 24 Hour (Toprol XL)Indications:PSVT (paroxysmal supraventricular tachycardia) (HCC),HERNÁNDEZ (dyspnea on exertion),Essential hypertension with goal blood pressure less than 140/90,Dyslipidemia, goal LDL below 70,Family history of sudden in father,NSVT (nonsustained ventricular tachycardia) (HCC) One daily 90 Tablet 1 09/13/2022 Active hydroCHLOROthiazide 12.5 MG Oral Tablet (Hydrodiuril)Indicatio ns:HTN, goal below 140/90,PSVT (paroxysmal supraventricular tachycardia) (HCC),NSVT (nonsustained ventricular tachycardia) (HCC),Dyslipidemia, goal LDL below 100 Take 2 Tablets by mouth in the morning. 90 Tablet 3 11/06/2022 Active Lisinopril 20 MG Oral Tablet (Prinivil)Indications: HTN, goal below 140/90,PSVT (paroxysmal supraventricular tachycardia) (HCC),NSVT (nonsustained ventricular tachycardia) (HCC),Dyslipidemia, goal LDL below 100 Take 1 Tablet by mouth in the morning. 90 Tablet 3 11/06/2022 Active metFORMIN HCl ER 500 MG Oral Tablet Extended Release 24 Hour (Glucophage XR)Indications:DM type 2, goal HbA1c < 7% (HCC) Take 1 Tablet by mouth in the morning and 1 Tablet in the evening. 180 Tablet 1 11/24/2022 Active Icosapent Ethyl 1 GM Oral Capsule (Vascepa)Indications:D yslipidemia, goal LDL below 70 Take 2 Capsules by mouth 2 times a day with morning and evening meals. Swallow capsules whole, do not open or break. 360 Capsule 3 02/27/2023 Active documented as of this encounter (statuses as of 03/06/2023) Active Problems Problem Noted Date Mild nonproliferative [...] as of this encounter (statuses as of 03/06/2023) Resolved Problems Problem Noted Date Resolved Date COVID-19 06/29/2020 12/03/2020 Prediabetes 04/26/2020 03/22/2022 Overview: Per Prediabetes protocol Dyslipidemia, goal to be determined 05/25/2009 01/26/2017 Overview: Per Lipid Taxonomy. Mixed dyslipidemia 12/02/2004 05/25/2009 Overview: Per Lipid Taxonomy. 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 06/14/2004 02/28/2019 NONE 01/26/2017 documented as of this encounter (statuses as of 03/06/2023) Immunizations Name Administration Dates Next Due Covid-19 [...] encounter Miscellaneous Notes * Telephone Encounter - Stacie Salazar CMA - 03/06/2023 8:51 AM EDT Portal message sent. Stress test is on cancellation list. * Telephone Encounter - Stacie Salazar CMA - 03/06/2023 8:49 AM EDT ----- Message from BOUCHRA Dillon sent at 02/28/2023 7:43 AM EDT ----- Patient was primarily sinus rhythm with an average heart rate of 87 beats per minute. 17 episodes of SVT with the longest lasting 16 beats. Triggered events of lightheadedness and palpitations/fluttering correlated with sinus tachycardia with heart rates ranging between 100-169 beats per minute. Noconcerning or dangerous rhythms. Please have the patient increase his metoprolol succinate to a total of 75 mg daily. If he would like to split up dosing by taking 50 mg in the morning and 25 mg in the evening that is okay too- please ask what he would prefer. Are we able to get his stress test moved up any? -BOUCHRA Templeton documented in this encounter Plan of Treatment Upcoming Encounters Date Type Specialty Care Team Description 04/25/2023 Imaging Cardiac Studies 05/28/2023 Office Visit Family Medicine Edyta Yuen DO [address] [place] [address] 06/15/2023 Office Visit Cardiology Divya Bryan CRNP [address] [place] [address] Scheduled Procedures Name Priority Associated Diagnoses Date/Ti [...]
--- OUTSIDE RECORDS SUMMARY | 2023-05-06 05:07 | External Medical Summary | Summary of Care ---
Author Name Unknown Organization [facility] Address [address] [facility] [place] [address] Phone [phone] Care Team Providers Care Underlay Stitcher Name Role Phone Unavailable Primary Care Provider Unavailabl e Encounter Details Date Type Department Care Team (Late st Contact Info) Description 04/26/2023 Refill Cardiology, [facility] [address] [place] [address] Divya Franco CRNP [address] [place] [address] Allergies Active Allergy Reactions Criticality Noted Date Comments Niacin Rash,Wheezing High 10/17/2006 Pravachol Muscle pain 04/22/2009 Sulfa Antibiotics Chills, fever, rash documented as of this encounter (statuses as of 04/26/2023) Medications Medication Sig Dispensed Refills Start Date End Date Status SM Aspirin Adult Low Strength 81 MG Oral Tablet Delayed Release Take 1 Tablet by mouth in the morning. 0 04/18/2020 Active Ezetimibe 10 MG Oral Tablet (Zetia)Indications:Dys lipidemia, goal LDL below 130 TAKE 1 TABLET BY MOUTH EVERY MORNING 90 Tablet 2 08/07/2022 Active Metoprolol Succinate ER 50 MG Oral Tablet Extended Release 24 Hour (Toprol XL)Indications:PSVT (paroxysmal supraventricular tachycardia),HERNÁNDEZ (dyspnea on exertion),Essential hypertension with goal blood pressure less than 140/90,Dyslipidemia, goal LDL below 70,Family history of sudden in father,NSVT (nonsustained ventricular tachycardia) (HCC) One daily 90 Tablet 1 09/13/2022 Active hydroCHLOROthiazide 12.5 MG Oral Tablet (Hydrodiuril)Indicatio ns:HTN, goal below 140/90,PSVT (paroxysmal supraventricular tachycardia),NSVT (nonsustained ventricular tachycardia) (HCC),Dyslipidemia, goal LDL below 100 Take 2 Tablets by mouth in the morning. 90 Tablet 3 11/06/2022 Active Lisinopril 20 MG Oral Tablet (Prinivil)Indications: HTN, goal below 140/90,PSVT (paroxysmal supraventricular tachycardia),NSVT (nonsustained ventricular tachycardia) (HCC),Dyslipidemia, goal LDL below 100 Take 1 Tablet by mouth in the morning. 90 Tablet 3 11/06/2022 Active metFORMIN HCl ER 500 MG Oral Tablet Extended Release 24 Hour (Glucophage XR)Indications:DM type 2, goal HbA1c < 7% ([facility]) Take 1 Tablet by mouth in the morning and 1 Tablet in the evening. 180 Tablet 1 11/24/2022 Active Icosapent Ethyl 1 GM Oral Capsule (Vascepa)Indications:D yslipidemia, goal LDL below 70 Take 2 Capsules by mouth 2 times a day with morning and evening meals. Swallow capsules whole, do not open or break. 360 Capsule 3 02/27/2023 Active Atorvastatin Calcium 80 MG Oral Tablet (Lipitor)Indications:H yperlipidemia LDL goal <100 TAKE ONE TABLET BY MOUTH AT BEDTIME 90 Tablet 1 03/13/2023 Active DULoxetine HCl 60 MG Oral Capsule Delayed Release Particles (Cymbalta)Indications: Current moderate episode of major depressive disorder without prior episode ([facility]) take 1 capsule every day in the morning. do not cut, crush or chew. 90 Capsule 1 03/13/2023 Active Nitroglycerin 0.4 MG Sublingual Tablet Sublingual (Nitrostat) Place 1 Tablet under the tongue every 5 minutes as needed for Pain, Chest. 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 HISTORY OF TOBACCO USE Anxiety state Disorder of intervertebral disc Hyperlipidemia LDL goal <100 Overview: ICD-10 update of inactive term Primary hypertension documented as of this encounter (statuses as of 04/26/2023) Resolved Problems Problem Noted Date Diagnosed Date Resolved Date COVID-19 06/29/2020 12/03/2020 Prediabetes 04/26/2020 03/22/2022 Overview: Per Prediabetes protocol Dyslipidemia, goal to be determined 05/25/2009 01/26/2017 Overview: Per Lipid Taxonomy. Mixed dyslipidemia 12/02/2004 9 Overview: Per Lipid Taxonomy. 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 06/14/2004 02/28/2019 NONE 01/26/2017 documented as of this encounter (statuses as of 04/26/2023) Immunizations Name Administration Dates Next Due Covid-19 [...] drink = 0.6 oz pur e alcohol) PHQ-2 Answer Date Recorded PHQ-2 Score 17 09/02/2019 Hunger Vital Sign Answer Date Recorded Worried About Running Out of Food in the Last Ye ar Never true 12/10/2018 Ran Out of Food in the Last Year Never true 12/10/2018 Sex and Gender Information Value Date Recorded Sex Assigned at Not on file Gender Identity Not on file Sexual Orientation Not on file Job Start Date Occupation Industry Not on file Not on file Not on file documented as of this encounter Miscellaneous Notes * Telephone Encounter - Divya Franco CRNP - 04/26/2023 9:42 AM EST Signed Prescriptions: Disp Refills Nitroglycerin 0.4 MG Sublingual Tablet Sub*25 Tab*11 Sig: Place 1 Tablet under the tongue every 5 minutes as needed for Pain, Chest. up to 3 doses in 15 minutes Authorizing Provider: DIVYA FRANCO * Telephone Encounter - Lady Lezama OSA - 04/26/2023 9:29 AM EST Spoke with Pt, appt scheduled for 05/04 for 60 minutes with Divya. Pt aware this appointment is togo over the results of the stress test. He is also aware the he will be getting a call from the nurse with additional information. * Telephone Encounter - Divya Franco CRNP - 04/26/2023 7:52 AM EST Patient was evaluated by the undersigned in January of 2023. At this time he was having concerns regarding chest discomfort. Given symptoms and family history he underwent an exercise stress echo on 04/25/2023. Exercise stress echo abnormal and suggestive of inducible ischemia. Resting study showed a normal LV systolic function and no significant valvular disease. Please have the patient come in sooner to discuss possible cardiac catheterization. Primary electric screw driver operator is Dr. Gibbs however any AP would be appropriate. Please make sure he stays on aspirin 81 mg daily and takes all of his medications as ordered. I putin an order for sublingual nitroglycerin also--please explain any use. If he has any return of chest discomfort he should immediately call 911 and present to the emergency department. Please have him limit his activities to prevent chest discomfort from occurring. BOUCHRA Temple[place] documented in this encounter Plan of Treatment Upcoming Encounters Date Type Department Care Team (Late st Contact Info) Description 05/04/2023 3:00 PM EST Office Visit Cardiology, [facility] [address] [place] [address] Divya Franco CRNP [address] [place] [address] 05/28/2023 12:00 PM EST Office Visit Family Practice [facility] [address] [place] [address] Edyta Yuen DO [address] [place] [address] 06/15/2023 1:30 PM EST Office Visit Cardiology, [facility] [address] [place] [address] Divya Franco CRNP [address] [place] [address] Scheduled Procedures Name Priority Associated Diagnoses Date/Ti [...] 10) 02/17/2020 02/16/2020 COVID-19 Vaccine (2 - season) 2023 09/24/2020 Influenza Vaccine (FLU shot) (#1) 2023 Diabetic Foot Exam 05/10/2023 05/10/2022 HbA1c 05/26/2023 11/24/2022, 04/19, 11/07/2021, Additional history exists Diabetic Eye Exam 08/03/2023 08/03/2022, , 08/03/2022, Additional history exists Albumin/Creatinine Ratio 11/25/2023 11/24/2022, 10/17 GFR 02/09/2024 02/08/2023, 10/17, 07/21/2021, Additional history exists Lipid Panel 02/09/2028 02/08/2023, 02/18, 11/07/2021, Additional history exists Colonoscopy 11/30/2029 12/01/2019, 12/01/2019 Colorectal Cancer Screening 11/30/2029 DTaP,Tdap,and Td Vaccines (3 - Td or Tdap) 12/01/2030 12/01/2020, 05/04/2010, 06/18/2001 GARDASIL-HPV IMMUNIZATION SERIES Aged Out No longer eligible based on patient's age to complete this topic MENINGOCOCCAL (MENACTRA/MENVEO) Aged Out No longer eligible based on patient's age to complete this topic documented as of this encounter Medical Devices Not on filedocumented as of this encounter
--- OUTSIDE RECORDS SUMMARY | 2023-05-06 05:07 | External Medical Summary ---
Author Name Unknown Address Unknown Organization [id number]:[facility] [place] [address] [place] [address] Laboratory Report Ordering Provider Test Date Status SALVADOR MALDONADO 02/08/2023 15:40:38 Final Observation Date Value Abnormality Reference (Units ) Status LDL, (direct) 02/08/2023 15:40:38 90 <=129 (mg/dL) Final LDL Cholesterol Reference Ra nges (mg/dL):
<70 Target level for high risk ASCVD patient
<100 Optimal for general population
100-129 Near optimal for general population
130-159 Borderline high
160-189 High
>=190 Very high Performing Location [facility] - [address] [place] [address]
--- OUTSIDE RECORDS SUMMARY | 2023-05-06 05:07 | External Medical Summary | Summary of Care ---
Author Name Unknown Organization [facility] Address [address] [place] [address] Phone [phone] Care Team Providers Care Sales Account Executive Name Role Phone Unavailable Primary Care Provider Unavailabl e Encounter Details Date Type Department Care Team Description 12/11/2022 Orders Only Outcomes Research Department [address], [place] [id number] Sulema Flaherty CHRA [employer] [facility] Other*[id number] Allergies Active Allergy Reactions Severity Noted Date Comments Niacin Rash,Wheezing High 10/17/2006 Pravachol Muscle pain 04/22/2009 Sulfa Antibiotics Chills, fever, rash documented as of this encounter (statuses as of 12/11/2022) Medications Medication Sig Dispensed Refills Start Date End Date Status SM Aspirin Adult Low Strength 81 MG Oral Tablet Delayed Release Take 1 Tablet by mouth in the morning. 0 04/18/2020 Active Icosapent Ethyl 1 GM Oral Capsule (Vascepa) Take by mouth 2 Capsules 2 times a day with morning and evening meals . Swallow capsules whole, do not open or break. 120 Capsule 11 11/08/2021 Active Ezetimibe 10 MG Oral Tablet (Zetia)Indications:Dys lipidemia, goal LDL below 130 TAKE 1 TABLET BY MOUTH EVERY MORNING 90 Tablet 2 08/07/2022 Active Cephalexin 500 MG Oral Capsule (Keflex) 0 09/03/2022 Active Atorvastatin Calcium 80 MG Oral Tablet [...] the evening. 180 Tablet 1 11/24/2022 Active documented as of this encounter (statuses as of 12/11/2022) Active Problems Problem Noted Date Mild nonproliferative [...] as of this encounter (statuses as of 12/11/2022) Resolved Problems Problem Noted Date Resolved Date COVID-19 06/29/2020 12/03/2020 Prediabetes 04/26/2020 03/22/2022 Overview: Per Prediabetes protocol Dyslipidemia, goal to be determined 05/25/2009 01/26/2017 Overview: Per Lipid Taxonomy. Mixed dyslipidemia 12/02/2004 05/25/2009 Overview: Per Lipid Taxonomy. 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 06/14/2004 02/28/2019 NONE 01/26/2017 documented as of this encounter (statuses as of 12/11/2022) Immunizations Name Administration Dates Next Due Covid-19 [...] on file documented as of this encounter Plan of Treatment Upcoming Encounters Date Type Specialty Care Team Description 01/24/2023 Office Visit Sleep Disorders Ca Kennedy CRNP [address] [place] [address] 02/08/2023 Office Visit Cardiology Divya Bryan CRNP [address] [place] [address] 05/28/2023 Office Visit Family Medicine Edyta Yuen DO [address] [place] [address] Scheduled Orders Name Type Priority Associated Diagnoses Orde r Schedule MYCODE SUBSEQUENT ADULT Lab Routine [employer] Research Other*[id number] Every 6 Months for 2 Occurrences starting 12/11/2022 until 12/31/2023 Scheduled Procedures Name Priority Associated Diagnoses Date/Ti [...] series) 11/19/2020 09/24/2020 Influenza Vaccine (FLU shot) (Season Ended) 2023 DIABETES-FOOT EXAM 05/10/2023 05/10/2022 HbA1c 05/26/2023 11/24/2022, 04/19, 11/07/2021, Additional history exists DIABETES-EYE EXAM 08/03/2023 08/03/2022, , 08/03/2022, Additional history exists GFR 11/07/2023 11/06/2022, 08/2021, 09/22/2020, Additional history exists Albumin/Creatinine Ratio 11/25/2023 11/24/2022, 10/17 Lipid Panel 03/17/2027 03/17/2022, 10/17, 01/12/2021, Additional history exists Colonoscopy 11/30/2029 12/01/2019, 12/01/2019 [...] as of this encounter Visit Diagnoses Diagnosis [employer] Other*[id number] documented in this encounter
--- OUTSIDE RECORDS SUMMARY | 2023-05-06 05:07 | External Medical Summary ---
Author Name Unknown Address Unknown Organization [id number]:LAB[facility]ATORY [facility] [place] - [facility] [address] [place] [address] Laboratory Report Ordering Provider Test Date Status SALVADOR MALDONADO 02/08/2023 15:40:38 Final Observation Date Value Abnormality Reference (Units ) Status WBC, Total 02/08/2023 15:40:38 8.64 4.00-10.80 (K/uL) Final RBC 02/08/2023 15:40:38 4.51 4.50-5.25 (M/uL) Final Hemoglobin 02/08/2023 15:40:38 15.6 14.0-16.8 (g/dL) Final HCT 02/08/2023 15:40:38 46.9 40.0-48.4 (%) Final MCV 02/08/2023 15:40:38 104.0 82.0-99.5 (fL) Final MCH 02/08/2023 15:40:38 34.6 27.0-34.0 (pg) Final MCHC 02/08/2023 15:40:38 33.3 32.0-36.0 (g/dL) Final RDW 02/08/2023 15:40:38 12.2 11.5-15.5 (%) Final Platelets 02/08/2023 15:40:38 181 140-400 (K/uL) Final MPV 02/08/2023 15:40:38 12.0 6.6-11.1 (fL) Final Nucleated erythrocytes/100 leukocytes [Ratio] in Blood by Automated count 02/08/2023 15:40:38 0 <=0 (/100 WBCs) Final Performing Location LAB[facility]ATORY [facility] [place] - [address] [place] [address]
--- OUTSIDE RECORDS SUMMARY | 2023-05-06 05:07 | External Medical Summary | Summary of Care ---
Author Name Unknown Organization [facility] Address [address] [place] [address] Phone [phone] Care Team Providers Care Telegraph Inspector Name Role Phone Car Pereira MD Primary Care Provider Reason for Visit * Reason Onset Date Comments Test Results 11/07/2022 Encounter Details Date Type Department Care Team Description 11/07/2022 Telephone Cardiology, [facility] [address] [facility] [place] [address] [facility] [address] [facility] [address] Test Results Allergies Active Allergy Reactions Severity Noted Date Comments Niacin Rash,Wheezing High 10/17/2006 Pravachol Muscle pain 04/22/2009 Sulfa Antibiotics Chills, fever, rash documented as of this encounter (statuses as of 11/27/2022) Medications Medication Sig Dispensed Refills Start Date End Date Status SM Aspirin Adult Low Strength 81 MG Oral Tablet Delayed Release Take 1 Tablet by mouth in the morning. 0 0 Active Icosapent Ethyl 1 GM Oral Capsule (Vascepa) Take by mouth 2 Capsules 2 times a day with morning and evening meals . Swallow capsules whole, do not open or break. 120 Capsule 11 2 Active Ezetimibe 10 MG Oral Tablet (Zetia)Indications:Dy slipidemia, goal LDL below 130 TAKE 1 TABLET BY MOUTH EVERY MORNING 90 Tablet 2 3 Active Cephalexin 500 MG Oral Capsule (Keflex) 0 3 Active Atorvastatin Calcium 80 MG Oral Tablet (Lipitor)Indications: Hyperlipidemia LDL goal <100 take one pill by mouth at bedtime 90 Tablet 1 3 Active DULoxetine HCl 60 MG Oral Capsule Delayed Release Particles (Cymbalta)Indications :Current moderate episode of major depressive disorder without prior episode (HCC) Take 1 Capsule by mouth in the morning. TAKE ONE CAPSULE BY MOUTH EVERY DAY DO NOT CUT, CRUSH, OR CHEW . 90 Capsule 1 3 Active Metoprolol Succinate ER 50 MG Oral Tablet Extended Release 24 Hour (Toprol XL)Indications:PSVT (paroxysmal supraventricular tachycardia) (HCC),HERNÁNDEZ (dyspnea on exertion),Essential hypertension with goal blood pressure less than 140/90,Dyslipidemia, goal LDL below 70,Family history of sudden in father,NSVT (nonsustained ventricular tachycardia) (HCC) One daily 90 Tablet 1 3 Active hydroCHLOROthiazide 12.5 MG Oral Tablet (Hydrodiuril)Indicati ons:HTN, goal below 140/90,PSVT (paroxysmal supraventricular tachycardia) (HCC),NSVT (nonsustained ventricular tachycardia) (HCC),Dyslipidemia, goal LDL below 100 Take 2 Tablets by mouth in the morning. 90 Tablet 3 3 Active Lisinopril 20 MG Oral Tablet (Prinivil)Indications :HTN, goal below 140/90,PSVT (paroxysmal supraventricular tachycardia) (HCC),NSVT (nonsustained ventricular tachycardia) (HCC),Dyslipidemia, goal LDL below 100 Take 1 Tablet by mouth in the morning. 90 Tablet 3 3 Active metFORMIN HCl 500 MG Oral Tablet (Glucophage)Indicatio ns:DM type 2, goal HbA1c < 7% (HCC) Take 1 Tablet by mouth 2 times a day with morning and evening meals. 60 Tablet 5 3 11/25/19 23 Discontinued documented as of this encounter (statuses as of 11/27/2022) Active Problems Problem Noted Date Mild nonproliferative [...] as of this encounter (statuses as of 11/27/2022) Resolved Problems Problem Noted Date Resolved Date COVID-19 06/29/2020 12/03/2020 Prediabetes 04/26/2020 03/22/2022 Overview: Per Prediabetes protocol Dyslipidemia, goal to be determined 05/25/2009 01/26/2017 Overview: Per Lipid Taxonomy. Mixed dyslipidemia 12/02/2004 05/25/2009 Overview: Per Lipid Taxonomy. 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 06/14/2004 02/28/2019 NONE 01/26/2017 documented as of this encounter (statuses as of 11/27/2022) Immunizations Name Administration Dates Next Due Covid-19 Ad26, Single Dose (Adebayo/J&J) 021 PPD 10/24/2011 TD - Tetanus/Diptheria (ADULT) 06/18/2001 TDAP (age 10 and older)(Boostrix) 12/01/2020 TDAP (age 11 and older)(Adacel) 05/04/2010 documented as of this encounter Social History Tobacco Use Types Packs/Day Years Used Date Smoking Tobacco: Never Smokeless Tobacco: Current Snuff Comments:chews Alcohol [...] encounter Miscellaneous Notes * Telephone Encounter - Tati Myers CMA - 11/07/2022 11:58 AM EDT ----- Message from BOUCHRA Dillon sent at 11/06/2022 4:12 PM EDT ----- Renal function stable. Liver function mildly abnormal but improved compared to 02/2022. Will continue to monitor. Avoid tylenol and alcohol in excess. Repeat AST/ALT in 6 months. Blood count normal. documented in this encounter Plan of Treatment Upcoming Encounters Date Type Specialty Care Team Description 01/24/2023 Office Visit Sleep Disorders Ca Kennedy CRNP [address] [place] [address] 02/08/2023 Office Visit Cardiology Divya Bryan CRNP [address] [place] [address] 05/28/2023 Office Visit Family Medicine Edyta Yuen DO [address] [place] [address] Scheduled Orders Name Type Priority Associated Diagnoses Orde r Schedule AST Lab Routine HTN, goal below 140/90 Expected: 05/10/2023 (Approximate), Expires: 11/08/2023 ALT Lab Routine HTN, goal below 140/90 Expected: 05/10/2023 (Approximate), Expires: 11/08/2023 Scheduled Procedures Name Priority Associated Diagnoses Date/Ti [...] as of this encounter Visit Diagnoses Diagnosis HTN, goal below 140/90- Primary Unspecified essential hypertension documented in this encounter Care Teams Telegraph Inspector Relationship Specialty Start Date End Date Car Pereira MD [address] [place] [address] [place] [address] PCP - General Family Medicine 12/10/18 11/14/22 documented as of this encounter
--- OUTSIDE RECORDS SUMMARY | 2023-05-06 05:07 | External Medical Summary ---
Author Name Unknown Address Unknown Organization [id number]:LABORATORY [facility] [place] - [address] [place] [address] Laboratory Report Ordering Provider Test Date Status SALVADOR MALDONADO 02/08/2023 15:40:38 Final Observation Date Value Abnormality Reference (Units ) Status Triglyceride 02/08/2023 15:40:38 266 Above high normal <=174 (mg/dL) Final Triglyceride Reference Range s (mg/dL):
<150 Acceptable
150-174 Borderline high
175-499 High
>=500 Very high Cholesterol 02/08/2023 15:40:38 192 <200 (mg /dL) Final Total Cholesterol Reference Ranges (mg/dL):
<200 Desirable
200-239 Borderline high
>=240 High HDL 02/08/2023 15:40:38 72 >39 (mg/dL ) Final HDL Cholesterol Reference Ra nges (mg/dL):
>=60 High (Desirable)
<50 Low (Undesirable) For Females
<40 Low (Undesirable) For Males NON-HDL CHOLESTEROL 02/08/2023 15:40:38 120 <=159 (mg/dL) Final Non-HDL Cholesterol Referenc e Range (mg/dL):
<100 Target level for high risk ASCVD patient
<130 Optimal for general population
130-159 Near optimal for general population
160-189 Borderline High
190-219 High
>=220 Very High Performing Location LABORATORY [facility] - [address] [place] [address]
--- OUTSIDE RECORDS SUMMARY | 2023-05-06 05:07 | External Medical Summary ---
Author Name Unknown Address Unknown Organization [id number]:LAB[facility] [place] - [address] [facility] [address] Laboratory Report Ordering Provider Test Date Status DALTON MALDONADOISO 02/08/2023 15:40:38 Final Observation Date Value Abnormality Reference (Units ) Status BUN 02/08/2023 15:40:38 14 6-20 (mg/dL) Final Creatinine 02/08/2023 15:40:38 0.9 0.6-1.2 (mg/dL) Final Glomerular filtration rate/1.73 sq M.predicted [Volume Rate/Area] in Serum, Plasma or Blood by Creatinine-based formula (CKD-EPI) 02/08/2023 15:40:38 >90 >=60 (mL/min) Final eGFR is calculated based on the CKD-EPI 2020 equation SODIUM 02/08/2023 15:40:38 140 135-146 (m mol/L) Final Potassium 02/08/2023 15:40:38 3.9 3.5-5.1 (m mol/L) Final Cl 02/08/2023 15:40:38 99 98-107 (mm ol/L) Final CO2 02/08/2023 15:40:38 27 22-32 (mmo l/L) Final Anion gap 02/08/2023 15:40:38 14 7-15 (mmol /L) Final Glucose 02/08/2023 15:40:38 120 70-120 (mg /dL) Final Calcium 02/08/2023 15:40:38 9.8 8.4-10.2 ( mg/dL) Final Performing Location [facility] [place] - [address] [facility] [address]
--- OUTSIDE RECORDS SUMMARY | 2023-05-06 05:07 | External Medical Summary | Summary of Care ---
Author Name Unknown Organization [facility] Address [address] [place] [address] Phone [phone] Care Team Providers Care Electric Tape Slitter Name Role Phone Unavailable Primary Care Provider Unavailabl e Reason for Referral * Precert (Within 10 days (routine)) - Pending Review Specialty Diagnoses / Procedures Referred By Contac t Referred To Contact Cardiac Studies Diagnoses PSVT (paroxysmal supraventricular tachycardia) (HCC) Chest pain, unspecified type HTN, goal below 140/90 NSVT (nonsustained ventricular tachycardia) (HCC) Dyslipidemia, goal LDL below 70 Procedures ECHO, STRESS (EXERCISE) W/ PHYSICIAN Divya Bryan CRNP [address] [place] [address] Referral ID Status Reason Start Date Expiration Date Visits Requested Visits Authorized [id number] Pending Review Precert 02/08/2023 999 999 Reason for Visit * Reason Comments Follow Up Encounter Details Date Type Department Care Team Description 02/08/2023 Office Visit Cardiology, [facility] [address] [place] [address] Divya Bryan CRNP [address] [place] [address] Chest pain, unspecified type*; PSVT (paroxysmal supraventricular tachycardia) (HCC); NSVT (nonsustained ventricular tachycardia) (HCC); HTN, goal below 140/90; Dyslipidemia, goal LDL below 70 Allergies Active Allergy Reactions Severity Noted Date Comments Niacin Rash,Wheezing High 10/17/2006 Pravachol Muscle pain 04/22/2009 Sulfa Antibiotics Chills, fever, rash documented as of this encounter (statuses as of 02/08/2023) Medications Medication Sig Dispensed Refills Start Date [...] 11/08/2021 Active Ezetimibe 10 MG Oral Tablet (Zetia)Indications:Dy [...] of sudden in father,NSVT (nonsustained ventricular tachycardia) ([facility]) One daily 90 Tablet 1 09/13/2022 Active hydroCHLOROthiazide 12.5 MG Oral Tablet (Hydrodiuril)Indicati ons:HTN, goal below 140/90,PSVT (paroxysmal supraventricular tachycardia) (HCC),NSVT (nonsustained ventricular tachycardia) (HCC),Dyslipidemia, goal LDL below 100 Take 2 Tablets by mouth in the morning. 90 Tablet 3 11/06/2022 Active Lisinopril 20 MG Oral Tablet (Prinivil)Indications [...] the evening. 180 Tablet 1 11/24/2022 Active Cephalexin 500 MG Oral Capsule (Keflex) 0 09/03/2022 3 Discontinu ed(End of Procedure) documented as of this encounter (statuses as of 02/08/2023) Active Problems Problem Noted Date Mild nonproliferative [...] as of this encounter (statuses as of 02/08/2023) Resolved Problems Problem Noted Date Resolved Date COVID-19 06/29/2020 12/03/2020 Prediabetes 04/26/2020 03/22/2022 Overview: Per Prediabetes protocol Dyslipidemia, goal to be determined 05/25/2009 01/26/2017 Overview: Per Lipid Taxonomy. Mixed dyslipidemia 12/02/2004 05/25/2009 Overview: Per Lipid Taxonomy. 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 06/14/2004 02/28/2019 NONE 01/26/2017 documented as of this encounter (statuses as of 02/08/2023) Immunizations Name Administration Dates Next Due Covid-19 Ad26, Single Dose (Adebayo/J&J) 021 PPD 10/24/2011 TD - Tetanus/Diptheria (ADULT) 06/18/2001 TDAP (age 10 and older)(Boostrix) 12/01/2020 TDAP (age 11 and older)(Adacel) 05/04/2010 documented as of this encounter Social History Tobacco Use Types Packs/Day Years Used Date Smoking Tobacco: Never Passive Smoke Exposure: Never Smokeless Tobacco: Current Snuff Tobacco Cessation:Ready to Q uit: Not Asked; Counseling Given: Not Answered Comments:chews Alcohol Use Standard Drinks/Week Comments No [...] on file documented as of this encounter Last Filed Vital Signs Vital Sign Reading Time Taken Comments Blood Pressure 120/82 02/08/2023 3:02 PM EDT Pulse 72 02/08/2023 3:02 PM EDT Temperature - - Respiratory Rate 10 02/08/2023 3:02 PM EDT Oxygen Saturation 97% 02/08/2023 3:02 PM EDT Inhaled Oxygen Concentration - - Weight 80.9 kg (178 lb 4 oz) 02/08/2023 3:02 PM EDT Height - - Body Mass Index 25.38 08/05/2021 2:18 PM EST documented in this encounter Progress Notes * BOUCHRA Dillon - 02/08/2023 3:00 PM EDT Cardiology Outpatient Visit 02/08/2023 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 Gibbs Past medical history: Palpitations, secondary to Paroxysmal SVT and nonsustained VT per Zio monitor 04/2020 Chronic HERNÁNDEZ- mild restrictive lung disease noted on PFTS, 07/2021 Hypertension, goal below 140/90 Dyslipidemia History of tobacco use ? TIA, 04/2020 COVID-2019 and 07/11/2020 Type 2 Diabetes Family history of sudden in father age 45 HPI 57-year-old male presenting to the cardiology office today in routine follow-up. [facility]. At his last appointment he was having concerns regarding intermittent lightheadedness with position changes thought to be due to orthostasis and hydrochlorothiazide was reduced to 12.5 mg daily. Today the patient presents with concerns regarding a recent episode of chest discomfort. Sunday morning he woke up with a dull heavy chest discomfort. Symptoms waxed and waned throughout the day and eventually resolved spontaneously. He denies any associated symptoms of shortness of breath. Does note some muscular discomfort in his left shoulder and left neck which worsens with movement/manipulation. He has been noticing tachy palpitations, heart rates elevating with minimal activity. Causes him to become diaphoretic. No lightheadedness. No orthopnea, PND, or increased lower extremity edema. No fever, chills, cough, hematochezia, melena, or hemoptysis. He states he is compliant with all medications. EKG today normal sinus rhythm, 66 beats per minute. Current Outpatient Medications Medication Sig Dispense Refill SM Aspirin Adult Low Strength 81 MG Oral Tablet Delayed Release Take 1 Tablet by mouth in the morning. Icosapent Ethyl 1 GM Oral Capsule (Vascepa) Take by mouth 2 Capsules 2 times a day with morning andevening meals . Swallow capsules whole, do not open or break. 120 Capsule 11 Ezetimibe 10 MG Oral Tablet (Zetia) TAKE 1 TABLET BY MOUTH EVERY MORNING 90 Tablet 2 Atorvastatin Calcium 80 MG Oral Tablet (Lipitor) take one pill by mouth at bedtime 90 Tablet 1 DULoxetine HCl 60 MG Oral Capsule Delayed Release Particles (Cymbalta) Take 1 Capsule by mouth in the morning. TAKE ONE CAPSULE BY MOUTH EVERY DAY DO NOT CUT, CRUSH, OR CHEW . 90 Capsule 1 Metoprolol Succinate ER 50 MG Oral Tablet Extended Release 24 Hour (Toprol XL) One daily 90 Tablet 1 hydroCHLOROthiazide 12.5 MG Oral Tablet (Hydrodiuril) Take 2 Tablets by mouth in the morning. 90 Tablet 3 Lisinopril 20 MG Oral Tablet (Prinivil) Take 1 Tablet by mouth in the morning. 90 Tablet 3 metFORMIN HCl ER 500 MG Oral Tablet Extended Release 24 Hour (Glucophage XR) Take 1 Tablet by mouthin the morning and 1 Tablet in the evening. 180 Tablet 1 No current facility-administered medications for this visit. Past Medical History: Diagnosis Date Anxiety state COVID-19 07/12/2020 Disorder of intervertebral disc DM type 2, goal HbA1c < 7% (HCC) 11/07/2021 hgba1c 7.0 Dog bite 12/01/2020 son's bit right hand Encounter for hepatitis C screening test for low risk patient 07/21/2021 negative Essential hypertension with goal blood pressure less than 140/90 History of tobacco use Hyperlipidemia LDL goal < 160 Laceration of left ear 09/03/2022 complex laceration, sutured in ER Major depressive disorder, single episode, moderate (HCC) 09/02/2019 Psychosexual dysfunction with inhibited sexual excitement Past Surgical History: Procedure Laterality Date COLONOSCOPY, DIAGNOSTIC (RECTUM) 12/01/2019 diverticulosis, repeat 10 yrs / COLONOSCOPY FLEXIBLE PROXIMAL DIAGNOSTIC performed by Diana Dobbs MD at ENDOSCOPY [facility] CXR 2 VIEWS AP/PA & LATERAL 05/22/2004 pah-normal chest INFORMATION 07/2002 rt knee surgery , has donor ligament Social History Tobacco Use Smoking status: Never Passive exposure: Never Smokeless tobacco: Current Types: Snuff Tobacco comments: chews Substance Use Topics Alcohol use: No Drug use: No Review of patient's allergies indicates: Allergen Reactions Niacin Rash and Wheezing Pravachol [Pravachol] Muscle pain Sulfa Antibiotics Chills, fever, rash Review of Systems: See HPI for pertinent positives. All others negative, other than those noted in HPI. Physical Exam BP 120/82 (BP Site: Left Arm, BP Position: Sitting, BP Cuff Size: Large) | Pulse 72 | Resp 10 | Wt 80.9 kg (178 lb 4 oz) | SpO2 97% | BMI 25.38 kg/m | BSA 2 m General: No acute distress. A+Ox3. HEENT: Normocephalic. Atraumatic. Conjunctiva and sclera clear. NECK: No carotid bruits. No JVD. Carotid upstrokes are brisk. Heart: RRR. S1 and S2 noted without murmur, rubs, gallops. PMI non displaced. Lungs: Clear lung sounds bilaterally. No wheezing rhonchi or rales. Abdomen: Normal bowel sounds. Soft. Nontender. No masses or organomegaly. No abdominal bruits. Extremities: No edema No clubbing or cyanosis. Pulses: radial=2/4, posterior tibial=2/4, dorsalis pedis = 2/4. NEURO: No focal deficits. PSYCH: Normal. Lab data/imaging study review: Echo 10/21/2021 The examination is adequate to evaluate the referral indication. The qualitative LV ejection fraction is 60-64% (normal). The LV wall thickness is normal. No significant valvular disease is present. Trivial tricuspid regurgitation is present. The signal is inadequate to calculate pulmonary artery systolic pressure. Normal right heart. Nuclear stress 06/03/2020 Exercise stress nuclear cardiac stress test negative for ischemia. Gated SPECT imaging reveals normal myocardial thickening and wall motion. The left ventricular ejection fraction was calculated to be >70 % The exercise test was terminated per patient request due to fatigue and shortness of breath. The patient described a "3/10 anterior chest tightness" at rest which did not change with exercise and persisted post exercise without change. These symptoms were felt to be atypical in character for angina, with normal rest, normal EKG response, and normal perfusion as noted. Echocardiogram at [facility] 04/18/2020 LVEF 60-65% with normal wall thickness and no wall motion abnormalities. Normal diastolic dysfunction. No significant valvular abnormalities. No evidence of PFO/ASD Impression/Plan: 1. Chest pain, unspecified type -Episode of chest discomfort concerning for unstable angina given cardiac risk factors and family history of sudden cardiac . -EKG without acute ischemic changes. Patient referred for exercise stress echo to rule out ischemic cause to his symptoms. 2. PSVT (paroxysmal supraventricular tachycardia) (HCC) 3. NSVT (nonsustained ventricular tachycardia) (HCC) Palpitations secondary to paroxysmal SVT and nonsustained V-tach per Zio 04/2020. Symptoms normally well controlled- now having worsening tachy-palpitations with minimal exertion. 1. Repeat 14 day Zio monitor to reassess repeat 14 day Zio monitor to assess for concerning cardiacdysrhythmias. 2. Continue metoprolol succinate 50 mg daily 3. Routine blood work ordered for today. 4. HTN, goal below 140/90 Well controlled. 1. Continue lisinopril 20 mg daily. 2. Continue HCTZ 12.5 mg daily -consider discontinuation 3. Continue metoprolol succinate 50 mg daily. 5. Dyslipidemia, goal LDL below 70 Triglycerides elevated but improved overall. LDL 82. 1. Continue Vascepa 2g BID, atorvastatin 80 mg daily, and Zetia 10 mg daily. 2. Repeat fasting lipid panel. The patient agrees to the above plan and will call with additional questions or concerns. ER with all emergencies advised. Follow-up: Return in about 3 months (around 05/11/2023). | Check-out note: Labs today. Wearing 14 day zio- schedule LISA I spent a total of 40 minutes on the date of service in preparation, delivery, and documentation ofthe care provided to William Wang excluding any time spent in the performance of separately billed services. BOUCHRA [facility], Department of Cardiology This chart was completed in part utilizing [employer] Speech Voice Recognition Software. Grammatical errors, random word insertions, prounoun errors, and incomplete sentences are an occasional consequence of this system due to software limitations, ambient noise, and hardware issues. Any formal questions or concerns about the content, text, or information contained within the body of this dictation should be directly addressed to the provider for clarification. documented in this encounter Procedure Notes * Javi Richter MD - 02/08/2023 3:10 PM EDTAssociated Order(s): EKG REASON FOR STUDY: chest pain, palpitations CONCLUSIONS: Normal sinus rhythm Normal ECG When compared with ECG of 13-SEP-2022 11:36, Vent. rate has decreased BY 44 BPM Ventricular Rate: 66 Atrial Rate: 66 OK Interval: 120 QRS Duration: 78 QT/QTc: 394/413 ms P-R-T [place]: 50 : 52 : 32 degrees documented in this encounter Nursing Notes * Tati Myers CMA - 02/08/2023 2:57 PM EDT Examination Room: 7 Name: William Wang Date of : (1965). Reason for Visit: 5M f/u Interim Hospitalization(s): none Problems/Concerns: C/o heart racing, palpitations with little exertion such as walking up steps Chest Pain/SOB: C/o of dull chest pain upon waking Sunday AM, lasted 2 days. No aggravating factors. Also c/o neck and shoulder pain. No SOB [facility] Discussed: Not applicable [facility] is a way you can talk to your provider online through e-mail. Would you like to sign up? I can activate it for you? ALREADY ACTIVE Patient was instructed to not get up on the exam table until directed and assisted by their provider; patient is to remain seated in the chair/ wheelchair/ exam table for fall prevention and safety reasons. Patient is aware to have assistance to step down off exam table with personnel. Patient voiced full comprehension of instructions. documented in this encounter Plan of Treatment Upcoming Encounters Date Type Specialty Care Team Description 04/25/2023 Imaging Cardiac Studies 05/28/2023 Office Visit Family Medicine Edyta Yuen DO [address] [place] [address] 06/15/2023 Office Visit Cardiology Divya Bryan CRNP [address] [place] [address] Pending Results Name Type Priority Associated Diagnoses Date /Time CBC Lab Routine PSVT (paroxysmal supraventricular tachycardia) (HCC) Chest pain, unspecified type HTN, goal below 140/90 NSVT (nonsustained ventricular tachycardia) (HCC) Dyslipidemia, goal LDL below 70 02/08/2023 3:40 PM EDT BASIC METABOLIC PANEL Lab Routine PSVT (paroxysmal supraventricular tachycardia) (HCC) Chest pain, unspecified type HTN, goal below 140/90 NSVT (nonsustained ventricular tachycardia) (HCC) Dyslipidemia, goal LDL below 70 02/08/2023 3:40 PM EDT MAGNESIUM Lab Routine PSVT (paroxysmal supraventricular tachycardia) (HCC) Chest pain, unspecified type HTN, goal below 140/90 NSVT (nonsustained ventricular tachycardia) (HCC) Dyslipidemia, goal LDL below 70 02/08/2023 3:40 PM EDT LIPID PANEL WITH DIRECT LDL IF TG IS HIGH Lab Routine PSVT (paroxysmal supraventricular tachycardia) (HCC) Chest pain, unspecified type HTN, goal below 140/90 NSVT (nonsustained ventricular tachycardia) (HCC) Dyslipidemia, goal LDL below 70 02/08/2023 3:40 PM EDT Scheduled Orders Name Type Priority Associated Diagnoses Orde r Schedule ECHO, STRESS (EXERCISE) W/ PHYSICIAN Echocardiology Routine PSVT (paroxysmal supraventricular tachycardia) (HCC) Chest pain, unspecified type HTN, goal below 140/90 NSVT (nonsustained ventricular tachycardia) (HCC) Dyslipidemia, goal LDL below 70 Expected: 02/08/2023, Expires: 02/09/2024 CBC Lab Routine PSVT (paroxysmal supraventricular tachycardia) (HCC) Chest pain, unspecified type HTN, goal below 140/90 NSVT (nonsustained ventricular tachycardia) (HCC) Dyslipidemia, goal LDL below 70 Expected: 02/08/2023, Expires: 02/09/2024 BASIC METABOLIC PANEL Lab Routine PSVT (paroxysmal supraventricular tachycardia) (HCC) Chest pain, unspecified type HTN, goal below 140/90 NSVT (nonsustained ventricular tachycardia) (HCC) Dyslipidemia, goal LDL below 70 Expected: 02/08/2023, Expires: 02/09/2024 MAGNESIUM Lab Routine PSVT (paroxysmal supraventricular tachycardia) (HCC) Chest pain, unspecified type HTN, goal below 140/90 NSVT (nonsustained ventricular tachycardia) (HCC) Dyslipidemia, goal LDL below 70 Expected: 02/08/2023, Expires: 02/09/2024 EXTERNAL EKG 8 TO 15 DAYS Holter Routine PSVT (paroxysmal supraventricular tachycardia) (HCC) Chest pain, unspecified type HTN, goal below 140/90 NSVT (nonsustained ventricular tachycardia) (HCC) Dyslipidemia, goal LDL below 70 Expected: 02/09/2023 (Approximate), Expires: 02/09/2024 LIPID PANEL WITH DIRECT LDL IF TG IS HIGH Lab Routine PSVT (paroxysmal supraventricular tachycardia) (HCC) Chest pain, unspecified type HTN, goal below 140/90 NSVT (nonsustained ventricular tachycardia) (HCC) Dyslipidemia, goal LDL below 70 Expected: 02/08/2023, Expires: 02/09/2024 Scheduled Procedures Name Priority Associated Diagnoses Date/Ti [...] 09/24/2020 Influenza Vaccine (FLU shot) (#1) 2023 DIABETES-FOOT EXAM 05/10/2023 05/10/2022 HbA1c 05/26/2023 [...] Not on filedocumented as of this encounter Procedures Procedure Name Priority Date/Time Associated Diagnosis Comments OK ECG ROUTINE ECG W/LEAST 12 LDS W/I&R Routine 02/08/2023 3:10 PM EDT PSVT (paroxysmal supraventricular tachycardia) (HCC) Chest pain, unspecified type HTN, goal below 140/90 NSVT (nonsustained ventricular tachycardia) (HCC) Dyslipidemia, goal LDL below 70 documented in this encounter Results * EKG (02/08/2023 3:10 PM EDT) 02/08/2023 3:10 PM EDT Procedure Note Javi Richter MD - 02/08/2023 3:10 PM EDT REASON FOR STUDY: chest pain, palpitations CONCLUSIONS: Normal sinus rhythm Normal ECG When compared with ECG of 13-SEP-2022 11:36, Vent. rate has decreased BY 44 BPM Ventricular Rate: 66 Atrial Rate: 66 OK Interval: 120 QRS Duration: 78 QT/QTc: 394/413 ms P-R-T [place]: 50 : 52 : 32 degrees Divya SHOOK EKG [facility] documented in this encounter Visit Diagnoses Diagnosis Chest pain, unspecified type- Primary PSVT (paroxysmal supraventricular tachycardia) (HCC) Paroxysmal supraventricular tachycardia NSVT (nonsustained ventricular tachycardia) (HCC) Paroxysmal ventricular tachycardia HTN, goal below 140/90 Unspecified essential hypertension Dyslipidemia, goal LDL below 70 Other and unspecified hyperlipidemia documented in this encounter
--- OUTSIDE RECORDS SUMMARY | 2023-05-06 05:07 | External Medical Summary | Summary of Care ---
Author Name Unknown Organization [facility] Address [address] [facility] [place] [address] Phone [phone] Care Team Providers Care Decal Applier Name Role Phone Unavailable Primary Care Provider Unavailabl e Reason for Visit * Reason Onset Date Comments Test Results 04/26/2023 Encounter Details Date Type Department Care Team (Late st Contact Info) Description 04/26/2023 Refill Cardiology, [facility] [address] [place] [address] Erica Franco CRNP [address] [place] [address] Allergies Active Allergy Reactions Criticality Noted Date Comments Niacin Rash,Wheezing High 10/17/2006 Pravachol Muscle pain 04/22/2009 Sulfa Antibiotics Chills, fever, rash documented as of this encounter (statuses as of 04/27/2023) Medications Medication Sig Dispensed Refills Start Date [...] of sudden in father,NSVT (nonsustained ventricular tachycardia) ([facility]) One daily 90 Tablet 1 09/13/2022 Active hydroCHLOROthiazide 12.5 MG Oral Tablet (Hydrodiuril)Indicatio ns:HTN, goal below 140/90,PSVT (paroxysmal supraventricular tachycardia),NSVT (nonsustained ventricular tachycardia) ([facility]),Dyslipidemia, goal LDL below 100 Take 2 Tablets by mouth in the morning. 90 Tablet 3 11/06/2022 Active Lisinopril 20 MG Oral Tablet (Prinivil)Indications: HTN, goal below 140/90,PSVT (paroxysmal supraventricular tachycardia),NSVT (nonsustained ventricular tachycardia) ([facility]),Dyslipidemia, goal LDL below 100 Take 1 Tablet by mouth in the morning. 90 Tablet 3 11/06/2022 Active metFORMIN HCl ER 500 MG Oral Tablet Extended Release 24 Hour (Glucophage XR)Indications:DM type 2, goal HbA1c < 7% ([facility]) Take 1 Tablet by mouth in the [...] of major depressive disorder without prior episode ([facility]) take 1 capsule every day in the morning. do not cut, crush or chew. 90 Capsule 1 03/13/2023 Active Nitroglycerin 0.4 MG Sublingual Tablet Sublingual (Nitrostat) Place 1 Tablet under the tongue every 5 minutes as needed for Pain, Chest. up to 3 doses in 15 minutes 25 Tablet 11 04/26/2023 Active documented as of this encounter (statuses as of 04/27/2023) Active Problems Problem Noted Date Diagnosed Date [...] as of this encounter (statuses as of 04/27/2023) Resolved Problems Problem Noted Date Diagnosed Date Resolved Date COVID-19 06/29/2020 12/03/2020 Prediabetes 04/26/2020 03/22/2022 Overview: Per Prediabetes protocol Dyslipidemia, goal to be determined 05/25/2009 01/26/2017 Overview: Per Lipid Taxonomy. Mixed dyslipidemia 12/02/2004 9 Overview: Per Lipid Taxonomy. 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 06/14/2004 02/28/2019 NONE 01/26/2017 documented as of this encounter (statuses as of 04/27/2023) Immunizations Name Administration Dates Next Due Covid-19 [...] Telephone Encounter - Stacie Salazar CMA - 04/27/2023 11:13 AM EST Portal message sent * Telephone Encounter - Erica Franco CRNP - 04/26/2023 9:42 AM EST Signed Prescriptions: Disp Refills Nitroglycerin 0.4 MG Sublingual Tablet Sub*25 Tab*11 Sig: Place 1 Tablet under the tongue every 5 minutes as needed for Pain, Chest. up to 3 doses in 15 minutes Authorizing Provider: ERICA FRANCO * Telephone Encounter - Lady Lezama OSA - 04/26/2023 9:29 AM EST Spoke with Pt, appt scheduled for 05/04 for 60 minutes with Erica. Pt aware this appointment is togo over the results of the stress test. He is also aware the he will be getting a call from the nurse with additional information. * Telephone Encounter - Erica Franco CRNP - 04/26/2023 7:52 AM EST [...] sooner to discuss possible cardiac catheterization. Primary industrial sewer is Dr. Gibbs however any AP would [...] 05/04/2023 3:00 PM EST Office Visit Cardiology, [facility] [address] [place] [address] Erica Franco CRNP [address] [place] [address] 05/28/2023 12:00 PM EST Office Visit Family Practice [facility] [address] [place] [address] Edyta Yuen DO [address] [place] [address] 06/15/2023 1:30 PM EST Office Visit Cardiology, [facility] [address] [place] [address] Erica Franco CRNP [address] [place] [address] Scheduled Procedures Name Priority Associated Diagnoses Date/Ti [...]
--- OUTSIDE RECORDS SUMMARY | 2023-05-06 05:07 | External Medical Summary | Summary of Care ---
Author Name Unknown Organization [facility] Address [address] [facility] [place] [address] Phone [phone] Care Team Providers Care Firer Diesel Locomotive Name Role Phone Unavailable Primary Care Provider Unavailabl e Encounter Details Date Type Department Care Team Description 02/12/2023 Telephone Cardiology, [facility] [address] [place] [address] Divya Bryan CRNP [address] [place] [address] Allergies Active Allergy Reactions Severity Noted Date Comments Niacin Rash,Wheezing High 10/17/2006 Pravachol Muscle pain 04/22/2009 Sulfa Antibiotics Chills, fever, rash documented as of this encounter (statuses as of 02/12/2023) Medications Medication Sig Dispensed Refills Start Date [...] as of this encounter (statuses as of 02/12/2023) Active Problems Problem Noted Date Mild nonproliferative [...] as of this encounter (statuses as of 02/12/2023) Resolved Problems Problem Noted Date Resolved Date COVID-19 06/29/2020 12/03/2020 Prediabetes 04/26/2020 03/22/2022 Overview: Per Prediabetes protocol Dyslipidemia, goal to be determined 05/25/2009 01/26/2017 Overview: Per Lipid Taxonomy. Mixed dyslipidemia 12/02/2004 05/25/2009 Overview: Per Lipid Taxonomy. 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 * Telephone Encounter - BOUCHRA Dillon - 02/12/2023 8:38 AM EDT Lipids are borderline controlled. Renal function electrolytes, and CBC all normal. It looks like the patients stress test is not scheduled till April- can we get this moved up within the next 4-6 weeks. Thanks, BOUCHRA Templeton documented in this encounter Plan of Treatment Upcoming Encounters Date Type Specialty Care Team Description 04/25/2023 Imaging Cardiac Studies 05/28/2023 Office Visit Family Medicine Edyta Yuen DO [address] [place] [address] 06/15/2023 Office Visit Cardiology Divya Bryan CRNP [address] [place] [address] Scheduled Procedures Name Priority Associated Diagnoses Date/Ti [...]
--- OUTSIDE RECORDS SUMMARY | 2023-05-06 05:07 | External Medical Summary | Summary of Care ---
Author Name Unknown Organization [facility] Address [address] [facility] [place] [address] Phone [phone] Care Team Providers Care Ham Sawyer Name Role Phone Unavailable Primary Care Provider Unavailabl e Reason for Visit * Reason Onset Date Comments Medication Refill 02/27/2023 Encounter Details Date Type Department Care Team Description 02/27/2023 Refill Cardiology, [facility] [address] [place] [address] Divya Franco CRNP [address] [place] [address] Dyslipidemia, goal LDL below 70* Allergies Active Allergy Reactions Severity Noted Date Comments Niacin Rash,Wheezing High 10/17/2006 Pravachol Muscle pain 04/22/2009 Sulfa Antibiotics Chills, fever, rash documented as of this encounter (statuses as of 02/27/2023) Medications Medication Sig Dispensed Refills Start Date End Date Status SM Aspirin Adult Low Strength 81 MG Oral Tablet Delayed Release Take 1 Tablet by mouth in the morning. 0 04/18/2020 Active Ezetimibe 10 MG Oral Tablet (Zetia)Indications:Dy [...] or break. 360 Capsule 3 02/27/2023 Active Icosapent Ethyl 1 GM Oral Capsule (Vascepa) Take by mouth 2 Capsules 2 times a day with morning and evening meals . Swallow capsules whole, do not open or break. 120 Capsule 11 11/08/2021 3 Discontinu ed(Refill) documented as of this encounter (statuses as of 02/27/2023) Active Problems Problem Noted Date Mild nonproliferative [...] as of this encounter (statuses as of 02/27/2023) Resolved Problems Problem Noted Date Resolved Date COVID-19 06/29/2020 12/03/2020 Prediabetes 04/26/2020 03/22/2022 Overview: Per Prediabetes protocol Dyslipidemia, goal to be determined 05/25/2009 01/26/2017 Overview: Per Lipid Taxonomy. Mixed dyslipidemia 12/02/2004 05/25/2009 Overview: Per Lipid Taxonomy. 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 Swallow capsules whole, do not open or break. Authorizing Provider: DIVYA FRANCO * Telephone Encounter - SHERI Aguilar - 02/27/2023 9:15 AM EDTPending Prescriptions: Disp Refills Icosapent Ethyl 1 GM Oral Capsule (Vascepa)360 Ca*3 Sig: Take 2 Capsules by mouth 2 times a day with morning and evening meals. Swallow capsules whole, do not open or break. * Telephone Encounter - SHERI Aguilar - 02/27/2023 9:14 AM EDT Did you pend patient's preferred pharmacy and medication before forwarding?yes Pharmacy: [id number] [address] [facility] Pending Prescriptions: Disp Refills Icosapent Ethyl 1 GM Oral Capsule (Vascep*360 Ca*3 Sig: Take 2 Capsules by mouth 2 times a day with morning and evening meals. Swallow capsules whole, do not open or break. Last Visit: 02/08/2023 (in office), 07/14/2021 (telemedicine) Next Visit: 06/15/2023 If no future appointments scheduled, and last appointment is greater than a year ago, please schedule patient for a follow-up appointment Last date the medication was ordered: 11-08-2021 Is this request for a controlled substance?No Urine Drug Screen:No results found for this or any previous visit. Patient Phone Numbers Labs: Lab Results Component Value Date/Time CREAT 0.9 02/08/2023 03:40 PM CREAT 0.9 05/04/2020 01:20 PM POTASSIUM 3.9 02/08/2023 03:40 PM POTASSIUM 4.1 04/18/2020 12:00 AM POTASSIUM 4.4 09/02/2019 03:38 PM TSH 1.63 11/24/2022 12:52 PM TSH 0.792 04/18/2020 12:00 AM TSH 2.30 09/02/2019 03:38 PM LDLCALC 107 11/07/2021 11:28 AM LDLCALC 78 04/18/2020 12:00 AM LDLCALC 195 (H) 08/23/2015 10:49 AM LDLDIRECT 90 02/08/2023 03:40 PM LDLDIRECT 284 (H) 02/16/2020 08:52 AM ALT 63 (H) 11/06/2022 02:00 PM ALT 24 01/21/2019 03:44 PM HGBA1C 7.1 (H) 11/24/2022 12:52 PM HGBA1C 6 (A) 04/18/2020 12:00 AM documented in this encounter Plan of Treatment Upcoming Encounters Date Type Specialty Care Team Description 04/25/2023 Imaging Cardiac Studies 05/28/2023 Office Visit Family Medicine Edyta Yuen DO [address] [place] [address] 06/15/2023 Office Visit Cardiology Divya Franco CRNP [address] [place] [address] Scheduled Procedures Name Priority Associated Diagnoses Date/Ti [...] as of this encounter Visit Diagnoses Diagnosis Dyslipidemia, goal LDL below 70- Primary Other and unspecified hyperlipidemia documented in this encounter
--- OUTSIDE RECORDS SUMMARY | 2023-05-06 05:07 | External Medical Summary ---
Author Name Unknown Address Unknown Organization [id number]:[facility] [address] [place] [address] Laboratory Report Ordering Provider Test Date Status SALVADOR MALDONADO 02/08/2023 15:40:38 Final Observation Date Value Abnormality Reference (Units ) Status Magnesium 02/08/2023 15:40:38 2.2 1.5-2.6 (m g/dL) Final Performing Location [facility] - [address] [place] [address]
--- OUTSIDE RECORDS SUMMARY | 2023-05-06 05:07 | External Medical Summary | Summary of Care ---
Author Name Unknown Organization [facility] Address [address] [facility] [place] [address] Phone [phone] Care Team Providers Care Child Development Professor Name Role Phone Unavailable Primary Care Provider Unavailabl e Reason for Visit * Reason Comments Outpatient Testing Encounter Details Date Type Department Care Team Description 02/08/2023 Laboratory Laboratory, [facility] [place] [phone] [facility] [address] [place] [address] PSVT (paroxysmal supraventricular tachycardia) ([facility]); Chest pain, unspecified type; HTN, goal below 140/90; NSVT (nonsustained ventricular tachycardia) ([facility]); Dyslipidemia, goal LDL below 70 Allergies Active [...] 24 Hour (Toprol XL)Indications:PSVT (paroxysmal supraventricular tachycardia) ([facility]),HERNÁNDEZ (dyspnea on exertion),Essential hypertension with goal blood pressure less than 140/90,Dyslipidemia, goal LDL below 70,Family history of sudden in father,NSVT (nonsustained ventricular tachycardia) ([facility]) One daily 90 Tablet 1 09/13/2022 Active [...] Edyta Yuen DO [address] [place] [address] 06/15/2023 Office Visit Cardiology Divya Bryan CRNP [address] [place] [address] Pending Results Name Type Priority Associated Diagnoses [...] below 70 02/08/2023 3:40 PM EDT Scheduled Procedures Name Priority Associated Diagnoses Date/Ti [...] as of this encounter Visit Diagnoses Diagnosis PSVT (paroxysmal supraventricular tachycardia) (HCC) Paroxysmal supraventricular tachycardia Chest pain, unspecified type HTN, goal below 140/90 Unspecified essential hypertension NSVT (nonsustained ventricular tachycardia) (HCC) Paroxysmal ventricular tachycardia Dyslipidemia, goal LDL below 70 Other and unspecified hyperlipidemia documented in this encounter
--- OUTSIDE RECORDS SUMMARY | 2023-05-06 05:08 | External Medical Summary ---
Author Name Unknown Address Unknown Organization [id number]:LABORATORY [facility] - [address] [place] [address] Laboratory Report Ordering Provider Test Date Status ALEXANDREA ALLISON 11/24/2022 12:52:39 Final Observation Date Value Abnormality Reference (Units ) Status HbA1C 11/24/2022 12:52:39 7.1 Above high normal 4. 0-5.6 (%) Final The use of HbA1c to monitor glycemic status is based on normal hemoglobin and HbA composition. This test should not be used in patients with abnormal hemoglobin that affects the half life of the red blood cell or the in vivo glycation rates. Glucose, estimated average 11/24/2022 12:52:39 157 Above high normal <126 (mg/dL) Fin al Performing Location LAB[facility]ATORY [facility] - [address] [place] [address]
--- OUTSIDE RECORDS SUMMARY | 2023-05-06 05:08 | External Medical Summary | Summary of Care ---
Author Name Unknown Organization [facility] Address [address] [facility] [address] Phone [phone] Care Team Providers Care Internal Audit Senior Manager Name Role Phone Unavailable Primary Care Provider Unavailabl e Reason for Visit * Reason Comments Outpatient Testing Encounter Details Date Type Department Care Team Description 11/24/2022 Laboratory Laboratory, [facility] [address] [facility] [place] [phone] [facility] [address] PSVT (paroxysmal supraventricular tachycardia) ([facility]); Screening for prostate cancer; DM type 2, goal HbA1c < 7% ([facility]) Allergies Active Allergy Reactions Severity Noted Date Comments Niacin Rash,Wheezing High 10/17/2006 Pravachol Muscle pain 04/22/2009 Sulfa Antibiotics Chills, fever, rash documented as of this encounter (statuses as of 11/24/2022) Medications Medication Sig Dispensed Refills Start Date [...] of sudden in father,NSVT (nonsustained ventricular tachycardia) ([facility]) One daily 90 Tablet 1 09/13/2022 Active [...] as of this encounter (statuses as of 11/24/2022) Active Problems Problem Noted Date Mild nonproliferative [...] as of this encounter (statuses as of 11/24/2022) Resolved Problems Problem Noted Date Resolved Date COVID-19 06/29/2020 12/03/2020 Prediabetes 04/26/2020 03/22/2022 Overview: Per Prediabetes protocol Dyslipidemia, goal to be determined 05/25/2009 01/26/2017 Overview: Per Lipid Taxonomy. Mixed dyslipidemia 12/02/2004 05/25/2009 Overview: Per Lipid Taxonomy. 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 06/14/2004 02/28/2019 NONE 01/26/2017 documented as of this encounter (statuses as of 11/24/2022) Immunizations Name Administration Dates Next Due Covid-19 Ad26, Single Dose (Adebyao/J&J) 021 PPD 10/24/2011 TD - Tetanus/Diptheria (ADULT) [...] Encounters Date Type Specialty Care Team Description 02/08/2023 Office Visit Cardiology Divya Bryan CRNP [address] [place] [address] 05/28/2023 Office Visit Family Medicine Edyta Yuen DO [address] [place] [address] Pending Results Name Type Priority Associated Diagnoses Date /Time TSH WITH FREE T4 IF INDICATED Lab Routine PSVT (paroxysmal supraventricular tachycardia) ([facility]) 11/24/2022 12:52 PM EDT PSA Lab Routine Screening for prostate cancer 11/24/2022 12:52 PM EDT HEMOGLOBIN A1C Lab Routine DM type 2, goal HbA1c < 7% ([facility]) 11/24/2022 12:52 PM EDT ALBUMIN / CREATININE RATIO, URINE Lab Routine DM type 2, goal HbA1c < 7% ([facility]) 11/24/2022 12:52 PM EDT Scheduled Procedures Name Priority Associated [...] - Booster for Adebayo series) 11/19/2020 09/24/2020 Albumin/Creatinine Ratio 11/07/2022 11/07/2021 HbA1c 11/07/2022 05/10/2022, 10/17, 09/22/2020, Additional history exists Influenza Vaccine (FLU shot) (Season Ended) 2023 DIABETES-FOOT EXAM 05/10/2023 05/10/2022 DIABETES-EYE EXAM 08/03/2023 08/03/2022, , 08/03/2022, Additional history exists GFR 11/07/2023 11/06/2022, 08/2021, 09/22/2020, Additional history exists Lipid Panel 03/17/2027 03/17/2022, 10/17, 01/12/2021, Additional [...] (paroxysmal supraventricular tachycardia) (HCC) Paroxysmal supraventricular tachycardia Screening for prostate cancer Special screening for malignant neoplasm of prostate DM type 2, goal HbA1c < 7% (HCC) documented in this encounter
--- OUTSIDE RECORDS SUMMARY | 2023-05-06 05:08 | External Medical Summary ---
Author Name Unknown Address Unknown Organization K01:[facility] - [address] [place] [address] Laboratory Report Ordering Provider Test Date Status ALEXANDREA ALLISON 11/24/2022 12:52:39 Final Observation Date Value Abnormality Reference (Units ) Status PSA 11/24/2022 12:52:39 0.40 <3.10 (ng/ mL) Final Performing Location [facility] - [address] [place] [address]
--- OUTSIDE RECORDS SUMMARY | 2023-05-06 05:08 | External Medical Summary | Summary of Care ---
Author Name Unknown Organization [facility] Address [address] [place] [address] Phone [phone] Care Team Providers Care Appraiser Art Name Role Phone Car Pereira MD Primary Care Provider Reason for Visit * Reason Comments Outpatient Testing Encounter Details Date Type Department Care Team Description 11/06/2022 Laboratory Laboratory, [facility] [address] [place] [address] [facility] [address] [place] [address] Elevated AST (SGOT); Elevated ALT measurement; HTN, goal below 140/90; PSVT (paroxysmal supraventricular tachycardia) ([facility]); NSVT (nonsustained ventricular tachycardia) ([facility]); Dyslipidemia, goal LDL below 100; DM type 2, goal HbA1c < 7% ([facility]); Essential hypertension with goal blood pressure less than 140/90 Allergies Active Allergy Reactions Severity Noted Date Comments Niacin Rash,Wheezing High 10/17/2006 Pravachol Muscle pain 04/22/2009 Sulfa Antibiotics Chills, fever, rash documented as of this encounter (statuses as of 11/06/2022) Medications Medication Sig Dispensed Refills Start Date [...] CHEW . 90 Capsule 1 09/13/2022 Active metFORMIN HCl 500 MG Oral Tablet (Glucophage)Indication s:DM type 2, goal HbA1c < 7% (HCC) Take 1 Tablet by mouth 2 times a day with morning and evening meals. 60 Tablet 5 09/13/2022 Active Metoprolol Succinate ER 50 MG [...] the morning. 90 Tablet 3 11/06/2022 Active documented as of this encounter (statuses as of 11/06/2022) Active Problems Problem Noted Date Mild nonproliferative [...] as of this encounter (statuses as of 11/06/2022) Resolved Problems Problem Noted Date Resolved Date COVID-19 06/29/2020 12/03/2020 Prediabetes 04/26/2020 03/22/2022 Overview: Per Prediabetes protocol Dyslipidemia, goal to be determined 05/25/2009 01/26/2017 Overview: Per Lipid Taxonomy. Mixed dyslipidemia 12/02/2004 05/25/2009 Overview: Per Lipid Taxonomy. 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 06/14/2004 02/28/2019 NONE 01/26/2017 documented as of this encounter (statuses as of 11/06/2022) Immunizations Name Administration Dates Next Due Covid-19 [...] Encounters Date Type Specialty Care Team Description 11/24/2022 Office Visit Family Medicine Edyta Yuen DO [address] [place] [address] 02/08/2023 Office Visit Cardiology Divya Bryan CRNP [address] [place] [address] Pending Results Name Type Priority Associated Diagnoses Date /Time COMPREHENSIVE METABOLIC PANEL Lab Routine HTN, goal below 140/90 PSVT (paroxysmal supraventricular tachycardia) (HCC) NSVT (nonsustained ventricular tachycardia) (HCC) Dyslipidemia, goal LDL below 100 DM type 2, goal HbA1c < 7% (HCC) Essential hypertension with goal blood pressure less than 140/90 11/06/2022 2:00 PM EDT Scheduled Procedures Name Priority Associated [...] - Booster for Adebayo series) 11/19/2020 09/24/2020 GFR - Renal Function 07/21/2022 07/21/2021, 09/22/2020, 05/04/2020, Additional history exists Albumin/Creatinine Ratio 11/07/2022 11/07/2021 HgA1C 11/07/2022 05/10/2022, 10/17, 09/22/2020, Additional history exists Influenza Vaccine (FLU shot) (Season Ended) 2023 DIABETES-FOOT EXAM 05/10/2023 05/10/2022 DIABETES-EYE EXAM 08/03/2023 08/03/2022, , 08/03/2022, Additional history exists Lipid Panel 03/17/2027 03/17/2022, 10/17, 01/12/2021, Additional history exists Colonoscopy 11/30/2029 12/01/2019, 12/01/2019 Colorectal Cancer Screening 11/30/2029 DTaP,Tdap,and Td Vaccines (3 - Td or Tdap) 12/01/2030 12/01/2020, 05/04/2010, 06/18/2001 Hepatitis C Screening Completed 07/21/2021 GARDASIL-HPV IMMUNIZATION SERIES Aged Out No longer eligible based on patient's age to complete this topic MENINGOCOCCAL (MENACTRA/MENVEO) Aged Out No longer eligible based on patient's age to complete this topic documented as of this encounter Medical Devices Not on filedocumented as of this encounter Procedures Procedure Name Priority Date/Time Associated Diagnosis Comments CBC Routine 11/06/2022 2:00 PM EDT HTN, goal below 140/90 PSVT (paroxysmal supraventricular tachycardia) (HCC) NSVT (nonsustained ventricular tachycardia) (HCC) Dyslipidemia, goal LDL below 100 DM type 2, goal HbA1c < 7% (HCC) Essential hypertension with goal blood pressure less than 140/90 documented in this encounter Results * CBC (11/06/2022 2:00 PM EDT) WBC 7.03 4.00 - 10.80 K/uL 11/06/2022 2:11 PM EDT [facility] RBC 4.24 4.50 - 5.25 M/uL 11/06/2022 2:11 PM EDT [facility] HGB 14.5 14.0 - 16.8 g/dL 11/06/2022 2:11 PM EDT [facility] [place] [facility] HCT 42.7 40.0 - 48.4 % 11/06/2022 2:11 PM EDT [facility] [place] [facility] MCV 100.7 82.0 - 99.5 fL 11/06/2022 2:11 PM EDT [facility] [place] [facility] MCH 34.2 27.0 - 34.0 pg 11/06/2022 2:11 PM EDT [facility] [place] [facility] MCHC 34.0 32.0 - 36.0 g/dL 11/06/2022 2:11 PM EDT [facility] [place] [facility] RDW 12.8 11.5 - 15.5 % 11/06/2022 2:11 PM EDT [facility] [place] [facility] PLT 151 140 - 400 K/uL 11/06/2022 2:11 PM EDT [facility] [place] [facility] MPV 11.4 6.6 - 11.1 fL 11/06/2022 2:11 PM EDT [facility] [place] [facility] Blood Venous blood specimen / Unknown Venipuncture / Unknown 11/06/2022 2:00 PM EDT 11/06/2022 2:00 PM EDT Divya SHOOK LAB BLOOD ORDER [facility] [facility] [address] documented in this encounter Visit Diagnoses Diagnosis Elevated AST (SGOT) Nonspecific elevation of levels of transaminase or lactic acid dehydrogenase (LDH) Elevated ALT measurement Nonspecific elevation of levels of transaminase or lactic acid dehydrogenase (LDH) HTN, goal below 140/90 Unspecified essential hypertension PSVT (paroxysmal supraventricular tachycardia) (HCC) Paroxysmal supraventricular tachycardia NSVT (nonsustained ventricular tachycardia) (HCC) Paroxysmal ventricular tachycardia Dyslipidemia, goal LDL below 100 Other and unspecified hyperlipidemia DM type 2, goal HbA1c < 7% (HCC) Essential hypertension with goal blood pressure less than 140/90 documented in this encounter Care Teams Appraiser Art Relationship Specialty Start Date End Date Car Pereira MD [address] [place] [address] [place] [address] PCP - General Family Medicine 12/10/18 documented as of this encounter
--- OUTSIDE RECORDS SUMMARY | 2023-05-06 05:08 | External Medical Summary ---
Author Name Unknown Address Unknown Organization K0G:[facility] - [address] [place] [address] Laboratory Report Ordering Provider Test Date Status SALVADOR MALDONADO 11/06/2022 14:00:27 Final Observation Date Value Abnormality Reference (Units ) Status BUN 11/06/2022 14:00:27 12 6-20 (mg/dL) Final Creatinine 11/06/2022 14:00:27 1.0 0.6-1.2 (mg/dL) Final Glomerular filtration rate/1.73 sq M.predicted [Volume Rate/Area] in Serum, Plasma or Blood by Creatinine-based formula (CKD-EPI) 11/06/2022 14:00:27 86 >=60 (mL/min) Final eGFR is calculated based on the CKD-EPI 2020 equation SODIUM 11/06/2022 14:00:27 142 135-146 (m mol/L) Final Potassium 11/06/2022 14:00:27 4.4 3.5-5.1 (m mol/L) Final Cl 11/06/2022 14:00:27 101 98-107 (mm ol/L) Final CO2 11/06/2022 14:00:27 29 22-32 (mmo l/L) Final Anion gap 11/06/2022 14:00:27 12 7-15 (mmol /L) Final Glucose 11/06/2022 14:00:27 128 Above high normal 70 -120 (mg/dL) Final Albumin 11/06/2022 14:00:27 4.5 3.8-5.0 (g /dL) Final AST (Aspartate aminotransferase) 11/06/2022 14:00:27 62 Above high normal 10-50 (U/L) Final Alk Phos 11/06/2022 14:00:27 81 35-130 (U/ L) Final Bilirubin, Total 11/06/2022 14:00:27 0.7 <=1 .2 (mg/dL) Final Calcium 11/06/2022 14:00:27 10.0 8.4-10.2 ( mg/dL) Final Protein 11/06/2022 14:00:27 6.9 6.0-8.3 (g /dL) Final ALT (Alanine aminotransferase) 11/06/2022 14:00:27 63 Above high normal 10-50 (U/L) Final Performing [facility] - [address] [facility] [address]
--- OUTSIDE RECORDS SUMMARY | 2023-05-06 05:08 | External Medical Summary | Summary of Care ---
Author Name Unknown Organization [facility] Address [address] [place] [address] Phone [phone] Care Team Providers Care Hydrometeorologist Name Role Phone Unavailable Primary Care Provider Unavailabl e Reason for Referral * Evaluate & Treat - Unlimited Visits (Within 10 days (routine)) - Pending Review Specialty Diagnoses / Procedures Referred By Katerin reilly Referred To Contact Sleep Medicine / Sleep Disorders Diagnoses Snoring Persistent insomnia ETOH abuse Edyta Lopez DO [address] [place] [address] Referral ID Status Reason Start Date Expiration Date Visits Requested Visits Authorized [id number] Pending Review Specialty Services Required 11/24/2022 2 2 Question Answer Referral Priority Within 10 days (routine) [facility] CAD SLEEP MED ADULT REFERRAL Sleep Apnea Testing and Management Does the patient snore and/or gasp at night or has been told they stop breathing at night? Yes Reason for Visit * Reason Comments NEW PATIENT New pt to get establ ished in care with us, wants to discuss his meds and issue with the Metformin has diarrhea on this. He has some nausea as well and not sure if from the Metformin. He had a splinter in Rt foot and wants it looked at. Encounter Details Date Type Department Care Team Description 11/24/2022 Office Visit Family [facility] [address] [place] [address] Edyta Lopez DO [address] [place] [address] Well adult exam*; DM type 2, goal HbA1c < 7% (HCC); Screening for prostate cancer; PSVT (paroxysmal supraventricular tachycardia) ([facility]); Snoring; Persistent insomnia; ETOH abuse Allergies Active Allergy Reactions Severity Noted Date [...] depressive disorder without prior episode ([facility]) Take 1 Capsule by mouth in the morning. TAKE ONE CAPSULE BY MOUTH EVERY DAY DO NOT CUT, CRUSH, OR CHEW . 90 Capsule 1 3 Active Metoprolol Succinate ER 50 MG Oral Tablet Extended Release 24 Hour (Toprol XL)Indications:PSVT (paroxysmal supraventricular tachycardia) ([facility]),HERNÁNDEZ (dyspnea on exertion),Essential hypertension with goal blood pressure less than 140/90,Dyslipidemia, goal LDL below 70,Family history of sudden in father,NSVT (nonsustained ventricular tachycardia) ([facility]) One daily 90 Tablet 1 3 Active [...] the evening. 180 Tablet 1 3 Active metFORMIN HCl 500 MG Oral [...] Sign Reading Time Taken Comments Blood Pressure 108/66 11/24/2022 12:16 PM EDT Pulse 102 11/24/2022 12:16 PM EDT Temperature 36.6 C (97.8 F) 11/24/2022 12:16 PM E DT Respiratory Rate 16 11/24/2022 12:16 PM EDT Oxygen Saturation - - Inhaled Oxygen Concentration - - Weight 83 kg (183 lb) 11/24/2022 12:16 PM EDT Height - - Body Mass Index 26.05 08/05/2021 2:18 PM EST documented in this encounter Progress Notes * Edyta Lopez, DO - 11/24/2022 12:25 PM EDT Subjective: William Wang is a 57 year old male. Chief Complaint Patient presents with NEW PATIENT New pt to get established in care with us, wants to discuss his meds and issue with the Metformin has diarrhea on this. He has some nausea as well and not sure if from the Metformin. He had a splinter in Rt foot and wants it looked at. HPI: This is a 57 year old male with PMHx as below presents for annual well check. hctz, lisinopril, metoprolol - cardio following - htn, psvt, DL statin, zetia, vascepa cymbalta Metformin-DM - will try to change to ER to see if helps with diarrhea Additional labs ordered Splinter in foot - R When getting up in am will get dizzy - advised to send message to cardio to see if meds could be adjusted Does drink nightly 3-4 drinks per night - states doing this to help with sleeping. Pos snoring. 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 Icosapent Ethyl 1 GM Oral Capsule (Vascepa) Take by mouth 2 Capsules 2 times a day with morningand evening meals . Swallow capsules whole, do [...] CRUSH, OR CHEW . 90 Capsule 1 metFORMIN HCl 500 MG Oral Tablet (Glucophage) Take 1 Tablet by mouth 2 times a day with morningand evening meals. 60 Tablet 5 Metoprolol Succinate ER 50 MG Oral Tablet Extended Release 24 Hour (Toprol XL) One daily 90 Tablet 1 hydroCHLOROthiazide 12.5 MG Oral Tablet (Hydrodiuril) Take 2 Tablets by mouth in the morning. 90 Tablet 3 Lisinopril 20 MG Oral Tablet (Prinivil) Take 1 Tablet by mouth in the morning. 90 Tablet 3 Cephalexin 500 MG Oral Capsule (Keflex) (Patient not taking: Reported on 11/06/2022) No current facility-administered medications for this visit. [...] performed by Diana Dobbs MD at [facility] CXR 2 VIEWS AP/PA & LATERAL 05/22/2004 pah-normal chest INFORMATION 07/2002 rt knee surgery , has donor ligament Review of patient's allergies indicates: Allergen Reactions Niacin Rash and Wheezing Pravachol [Pravachol] Muscle pain Sulfa Antibiotics Chills, fever, rash Family History Problem Relation Age of Onset Diabetes Mother at age 57yrs dx 2002 Heart Disorder Father OK at age 45 Family Status Relation Status Mo Alive Fa at age 45 [place] Bro Alive Bro Alive Shaan Alive Son Alive Social History Socioeconomic History Marital status: Spouse name: Not on file Number of children: Not on file Years of education: Not on file Highest education level: Not on file Occupational History 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 Tobacco Use Smoking status: Never Passive exposure: Never Smokeless tobacco: Current Types: Snuff Tobacco comments: chews Substance and Sexual Activity Alcohol use: No Drug use: No Sexual activity: Yes Partners: Female Other Topics Concern Not on file Social History Narrative Not on file Social Determinants of Health Financial Resource Strain: Not on file Food Insecurity: Not on file Transportation Needs: Not on file Physical Activity: Not on file Stress: Not on file Social Connections: Not on file Intimate Partner Violence: Not on file Housing Stability: Not on file Did the patient complete the screening questionnaire for Depression: Yes. In general, compared to other people your age, what would you say that your health is? Good Not Applicable Hospital ER within 30 days: No Patient is able to obtain all of his medications? Yes Patient takes medications as prescribed? Yes Tobacco screening completed today: Yes Non-smoker Alcohol screening completed today: Yes Occasionally (Socially) Spirometry: Not applicable Dental Exam: No Eye Screening: Yes: Exercise Screening: exercises 3-4 times per week Nutrition Assessment: Eats a balanced diet Pain Screening: Yes Are you having any pain? No Review of Systems: As per HPI all other ROS negative. Results for orders placed or performed in visit on 11/06/22 CBC Result Value Ref Range WBC 7.03 4.00 - 10.80 K/uL RBC 4.24 4.50 - 5.25 M/uL HGB 14.5 14.0 - 16.8 g/dL HCT 42.7 40.0 - 48.4 % MCV 100.7 82.0 - 99.5 fL MCH 34.2 27.0 - 34.0 pg MCHC 34.0 32.0 - 36.0 g/dL RDW 12.8 11.5 - 15.5 % PLT 151 140 - 400 K/uL MPV 11.4 6.6 - 11.1 fL COMPREHENSIVE METABOLIC PANEL Result Value Ref Range BUN 12 6 - 20 mg/dL Creatinine 1.0 0.6 - 1.2 mg/dL Estimated Glomerular Filtration Rate 86 >=60 mL/min Sodium 142 135 - 146 mmol/L Potassium 4.4 3.5 - 5.1 mmol/L Chloride 101 98 - 107 mmol/L CO2 29 22 - 32 mmol/L Anion Gap 12 7 - 15 mmol/L Glucose 128 (H) 70 - 120 mg/dL Albumin 4.5 3.8 - 5.0 g/dL AST 62 (H) 10 - 50 U/L Alkaline Phosphatase 81 35 - 130 U/L Bilirubin, Total 0.7 <=1.2 mg/dL Calcium 10.0 8.4 - 10.2 mg/dL Protein 6.9 6.0 - 8.3 g/dL ALT 63 (H) 10 - 50 U/L Wt Readings from Last 3 Encounters: 11/24/22 83 kg (183 lb) 11/06/22 84 kg (185 lb 1.6 oz) 09/13/22 83 kg (183 lb) Health Maintenance Due Topic Date Due Hepatitis B (1 of 3 - 3-dose series) Never done Pneumococcal Vaccine: Pediatrics (0 to 5 Years) and At-Risk Patients (6 to 64 Years) (1 - PCV) Never done HIV Screening Never done Zoster Vaccines (1 of 2) Never done Depression, Most Recent Score >= 10 (will fire each visit until score < 10) 02/17/2020 COVID-19 Vaccine (2 - Booster for Adebayo series) 11/19/2020 Albumin/Creatinine Ratio 11/07/2022 HbA1c 11/07/2022 OBJECTIVE: Physical Exam: BP 108/66 | Pulse 102 | Temp 36.6 C (97.8 F) (Tympanic) | Resp 16 | Wt 83 kg (183 lb) | BMI 26.05 kg/m | BSA 2.03 m General: alert, healthy and no distress Head: Normocephalic, No masses, lesions, tenderness or abnormalities Eye Exam: PERRLA, extraocular movements intact, conjunctiva are pink and non- injected, sclera clear Ears: External ears normal, Canals clear, TM's Normal Oropharynx: no exudate, no erythema, lips, buccal mucosa, and tongue normal and mucous membranes are moist Neck: supple, no adenopathy, no bruits Heart: regular rate & rhythm, no murmur and no gallops Lungs: lungs clear to auscultation Abdomen: abdomen soft, non-tender, normal bowel sounds and no masses or organomegaly Extremities: no joint deformities, effusion, or inflammation, no edema Well adult exam (Primary) DM type 2, goal HbA1c < 7% (HCC) - HEMOGLOBIN A1C; Future; Expected date: 11/24/2022 - ALBUMIN / CREATININE RATIO, URINE; Future; Expected date: 11/24/2022 - metFORMIN HCl ER 500 MG Oral Tablet Extended Release 24 Hour (Glucophage XR); Take 1 Tablet by mouth in the morning and 1 Tablet in the evening. Screening for prostate cancer - PSA; Future; Expected date: 11/24/2022 PSVT (paroxysmal supraventricular tachycardia) (HCC) - TSH WITH FREE T4 IF INDICATED; Future; Expected date: 11/24/2022 Snoring - SLEEP MEDICINE REFERRAL OP Persistent insomnia - SLEEP MEDICINE REFERRAL OP ETOH abuse - SLEEP MEDICINE REFERRAL OP Follow Up: Return in about 6 months (around 05/26/2023), or if symptoms worsen or fail to improve, for Clinic Visit. | For: Clinic Visit Discussed with patient: -HEALTH PROMOTION: Adequate sleep (8-10 hours/night), regular exercise, balanced diet, dental care,limiting sedentary activities (TV, computer, Internet) -MENTAL HEALTH: Discuss feelings with an someone that they can trust -INJURY PREVENTION: Driving Safety, Seat Belts, Sun Safety, No Weapons, Conflict Resolution, Personal Safety -SUBSTANCE ABUSE: Tobacco, Drugs, Alcohol Edyta Lopez DO documented in this encounter Plan of Treatment Upcoming Encounters Date Type Specialty Care Team Description 02/08/2023 Office Visit Cardiology Divya Bryan CRNP [address] [place] [address] 05/28/2023 Office Visit Family Medicine Edyta Lopez DO [address] [place] [address] Pending Results Name Type Priority Associated Diagnoses Date /Time TSH WITH FREE T4 IF INDICATED Lab Routine PSVT (paroxysmal supraventricular tachycardia) (HCC) 11/24/2022 12:52 PM EDT PSA Lab Routine Screening for prostate cancer 11/24/2022 12:52 PM EDT HEMOGLOBIN A1C Lab Routine DM type 2, goal HbA1c < 7% (HCC) 11/24/2022 12:52 PM EDT ALBUMIN / CREATININE RATIO, URINE Lab Routine DM type 2, goal HbA1c < 7% ([facility]) 11/24/2022 12:52 PM EDT Scheduled Orders Name Type Priority Associated Diagnoses Orde r Schedule TSH WITH FREE T4 IF INDICATED Lab Routine PSVT (paroxysmal supraventricular tachycardia) (HCC) Expected: 11/24/2022 (Approximate), Expires: 11/24/2023 PSA Lab Routine Screening for prostate cancer Expected: 11/24/2022 (Approximate), Expires: 11/24/2023 HEMOGLOBIN A1C Lab Routine DM type 2, goal HbA1c < 7% (HCC) Expected: 11/24/2022 (Approximate), Expires: 11/24/2023 ALBUMIN / CREATININE RATIO, URINE Lab Routine DM type 2, goal HbA1c < 7% (HCC) Expected: 11/24/2022 (Approximate), Expires: 11/24/2023 Scheduled Procedures Name Priority Associated Diagnoses Date/Ti me COLONOSCOPY FLEXIBLE PROXIMAL DIAGNOSTIC Recall Screen for colon cancer Scheduled Referrals Name Type Priority Associated Diagnoses Orde r Schedule SLEEP MEDICINE REFERRAL OP Referral Within 10 days (routine) Snoring Persistent insomnia ETOH abuse Ordered: 11/24/2022 Health Maintenance Due Date Last Done Comments [...] Albumin/Creatinine Ratio 11/07/2022 11/07/2021 HbA1c 11/07/2022 05/10/2022, 05/2 08/2021, 09/22/2020, Additional history exists Influenza Vaccine (FLU shot) (Season Ended) 2023 DIABETES-FOOT EXAM 05/10/2023 05/10/2022 DIABETES-EYE EXAM 08/03/2023 08/03/2022, , 08/03/2022, Additional history exists GFR 11/07/2023 11/06/2022, 02/0 08/2021, 09/22/2020, Additional history exists Lipid Panel 03/17/2027 03/17/2022, 0508/2021, 01/12/2021, Additional history exists Colonoscopy 11/30/2029 12/01/2019, [...] as of this encounter Visit Diagnoses Diagnosis Well adult exam- Primary Routine general medical examination at a health care facility DM type 2, goal HbA1c < 7% (HCC) Screening for prostate cancer Special screening for malignant neoplasm of prostate PSVT (paroxysmal supraventricular tachycardia) (HCC) Paroxysmal supraventricular tachycardia Snoring Other dyspnea and respiratory abnormality Persistent insomnia Persistent disorder of initiating or maintaining sleep ETOH abuse Alcohol abuse, unspecified documented in this encounter"
--- OUTSIDE RECORDS SUMMARY | 2023-05-06 05:08 | External Medical Summary | Summary of Care ---
Author Name Unknown Organization [facility] Address [address] [facility] [address] Phone [phone] Care Team Providers Care Security And Compliance Analyst Name Role Phone Car Pereira MD Primary Care Provider [phone] Reason for Visit * Reason Comments Follow Up Encounter Details Date Type Department Care Team Description 11/06/2022 Office Visit Cardiology, [facility] [address] [place] [address] Divya Bryan CRNP [address] [place] [address] HTN, goal below 140/90*; PSVT (paroxysmal supraventricular tachycardia) (HCC); NSVT (nonsustained ventricular tachycardia) (HCC); Dyslipidemia, goal LDL below 100 Allergies Active Allergy Reactions Severity Noted Date [...] CHEW . 90 Capsule 1 3 Active metFORMIN HCl 500 MG Oral Tablet (Glucophage)Indicatio ns:DM type 2, goal HbA1c < 7% (HCC) Take 1 Tablet by mouth 2 times a day with morning and evening meals. 60 Tablet 5 3 Active Metoprolol Succinate ER 50 MG [...] the morning. 90 Tablet 3 3 Active hydroCHLOROthiazide 25 MG Oral Tablet (Hydrodiuril)Indicati ons:PSVT (paroxysmal supraventricular tachycardia) (HCC) Take by mouth 1 Tablet in the morning. 90 Tablet 3 2 11/07/19 23 Discontinued Lisinopril 10 MG Oral Tablet (Prinivil)Indications :DM type 2, goal HbA1c < 7% (HCC),Essential hypertension with goal blood pressure less than 140/90 Take 1 Tablet by mouth in the morning. 90 Tablet 3 3 11/07/19 23 Discontinued documented as of this encounter [...] Smoking Tobacco: Never Smokeless Tobacco: Current Snuff Tobacco Cessation:Ready [...] Sign Reading Time Taken Comments Blood Pressure 136/90 11/06/2022 1:28 PM EDT Pulse 80 11/06/2022 1:28 PM EDT Temperature - - Respiratory Rate 18 11/06/2022 1:28 PM EDT Oxygen Saturation - - Inhaled Oxygen Concentration - - Weight 84 kg (185 lb 1.6 oz) 11/06/2022 1:28 PM EDT Height - - Body Mass Index 26.35 08/05/2021 2:18 PM EST documented in this encounter Progress Notes * BOUCHRA Dillon - 11/06/2022 1:30 PM EDT Cardiology Outpatient Visit 11/06/2022 Primary Routing Machine Operator: Dr. Gibbs Past medical history: 1. Palpitations, secondary to Paroxysmal SVT and nonsustained VT per Zio monitor 04/2020 2. Chronic HERNÁNDEZ- mild restrictive lung disease noted on PFTS, 07/2021 3. Hypertension, goal below 140/90 4. Dyslipidemia 5. History of tobacco use 6. ? TIA, 04/2020 7. COVID-2019 and 07/11/2020 8. Type 2 Diabetes 9. Family history of sudden in father age 45 HPI 57-year-old male presenting to the cardiology office today in routine follow-up. Was last evaluatedby the undersigned approximately 1 year ago. Today the patient presents feeling generally well. Notes that back in August had an episode of lightheadedness with position changes. One instance he fell and hit his ear. Since then he is had intermittent episodes of lightheadedness but no syncope. Denies any chest pain. Has ongoing shortness of breath however he believes that his symptoms are improving as he started going back to the gym and exercises by lifting weights 4 days a week. He has also been doing some cardio. No orthopnea, PND, or increased lower extremity edema. No fever, chills, cough, hematochezia, melena, or hemoptysis. He states he is compliant with all medications. Of note, he was also recently started on metformin.With this medication he has been having frequent loose bowel movements. Current Outpatient Medications Medication Sig Dispense Refill [...] DM type 2, goal HbA1c < 7% ([facility]) 11/07/2021 hgba1c 7.0 Dog bite 12/01/2020 son's [...] performed by Diana Dobbs MD at END[facility]COPY [facility] CXR 2 VIEWS AP/PA & LATERAL 05/22/2004 pah-normal chest INFORMATION 07/2002 rt knee surgery , has donor ligament Social History Tobacco Use Smoking status: Never Smokeless tobacco: Current Types: Snuff Tobacco comments: chews Substance Use Topics Alcohol use: No Drug use: No Review of patient's allergies indicates: Allergen Reactions Niacin Rash and Wheezing Pravachol [Pravachol] Muscle pain Sulfa Antibiotics Chills, fever, rash Review of Systems: See HPI for pertinent positives. All others negative, other than those noted in HPI. Physical Exam BP 136/90 | Pulse 80 | Resp 18 | Wt 84 kg (185 lb 1.6 oz) | BMI 26.35 kg/m | BSA 2.04 m General: No acute distress. A+Ox3. HEENT: [...] and normal perfusion as noted. Echocardiogram at [facility] 04/18/2020 LVEF 60-65% with normal wall thickness and no wall motion abnormalities. Normal diastolic dysfunction. No significant valvular abnormalities. No evidence of PFO/ASD Impression/Plan: 1. HTN, goal below 140/90 Controlled. Having episodes of lightheadedness with position changes. 1. Reduce hydrochlorothiazide to 12.5 mg daily. Increase hydration to at minimum 60 oz of water a day. ? Possibly a degree of hypovolemia given frequent bowel movements with metformin. I encouraged the patient to reach out to his PCP regarding dose adjustments. 2. Increase lisinopril 20 mg daily. 3. Continue metoprolol succinate 50 mg daily. 4. Routine blood work ordered for today. 2. PSVT (paroxysmal supraventricular tachycardia) (HCC) 3. NSVT (nonsustained ventricular tachycardia) (HCC) Palpitations secondary to paroxysmal SVT and nonsustained V-tach per Zio 04/2020. 1. Patient symptoms controlled on metoprolol. Continue 4. Dyslipidemia, goal LDL below 70 Triglycerides elevated but improved overall. LDL 82. 1. Continue Vascepa 2g BID, atorvastatin 80 mg daily, and Zetia 10 mg daily. 2. Repeat fasting lipid panel. The patient agrees to the above plan and will call with additional questions or concerns. ER with all emergencies advised. Follow-up: Return in about 3 months (around 02/06/2023). | Check-out note: Labs today. Wants a PCP at I spent a total of 30 minutes on the date of service in preparation, delivery, and documentation ofthe care provided to William Wang excluding any time spent in the performance of separately billed services. BOUCHRA Cortes [facility], Department of Cardiology This chart was completed in part utilizing [employer] Speech Voice Recognition Software. Grammatical errors, random word insertions, prounoun errors, and incomplete sentences are an occasional consequence of this system due to software limitations, ambient noise, and hardware issues. Any formal questions or concerns about the content, text, or information contained within the body of this dictation should be directly addressed to the provider for clarification. documented in this encounter Nursing Notes * Gayatri Saleem LPN - 11/06/2022 1:27 PM EDT Examination Room: 7 Name: William Wang Date of : (1965) Reason for Visit: Follow up Interim Hospitalization(s): Denies Problems/Concerns: Denies Chest Pain/SOB: Denies chest pain at this time, increased Exertional SOB My [facility] is a way you can [...] Encounters Date Type Specialty Care Team Description 11/06/2022 Laboratory Laboratory Thiago Lindo [address] [place] [address] Elevated AST (SGOT); Elevated ALT measurement; HTN, goal below 140/90; PSVT (paroxysmal supraventricular tachycardia) (HCC); NSVT (nonsustained ventricular tachycardia) (HCC); Dyslipidemia, goal LDL below 100; DM type 2, goal HbA1c < 7% (HCC); Essential hypertension with goal blood pressure less than 140/90 11/24/2022 Office Visit Family Medicine Edyta Yuen DO [address] [place] [address] 02/08/2023 Office Visit Cardiology Divya Bryan CRNP [address] [place] [address] Pending Results Name Type Priority Associated Diagnoses Date /Time COMPREHENSIVE METABOLIC PANEL Lab Routine HTN, goal below 140/90 PSVT (paroxysmal supraventricular tachycardia) (HCC) NSVT (nonsustained ventricular tachycardia) (HCC) Dyslipidemia, goal LDL below 100 DM type 2, goal HbA1c < 7% (HCC) Essential hypertension with goal blood pressure less than 140/90 11/06/2022 2:00 PM EDT Scheduled Orders Name Type Priority Associated Diagnoses Orde r Schedule COMPREHENSIVE METABOLIC PANEL Lab Routine HTN, goal below 140/90 PSVT (paroxysmal supraventricular tachycardia) (HCC) NSVT (nonsustained ventricular tachycardia) (HCC) Dyslipidemia, goal LDL below 100 Expected: 11/06/2022, Expires: 11/07/2023 Scheduled Procedures Name Priority Associated Diagnoses Date/Ti [...] Not on filedocumented as of this encounter Results * CBC (11/06/2022 2:00 [...] Divya SHOOK LAB BLOOD ORDER [facility] [address] [facility] [address] documented in this encounter Visit Diagnoses Diagnosis HTN, goal below 140/90- Primary Unspecified essential hypertension PSVT (paroxysmal supraventricular tachycardia) (HCC) Paroxysmal supraventricular tachycardia NSVT (nonsustained ventricular tachycardia) (HCC) Paroxysmal ventricular tachycardia Dyslipidemia, goal LDL below 100 Other and unspecified hyperlipidemia Elevated AST (SGOT) Nonspecific elevation of levels [...] 140/90 documented in this encounter Care Teams Security And Compliance Analyst Relationship Specialty Start Date End Date Car Pereira MD [address] [place] [address] [place] [phone] PCP - General Family Medicine 12/10/18 documented as of this encounter
--- OUTSIDE RECORDS SUMMARY | 2023-05-06 05:08 | External Medical Summary ---
Author Name Unknown Address Unknown Organization [id number] [address] [place] [address] Laboratory Report Ordering Provider Test Date Status SALVADOR MALDONADO 11/06/2022 14:00:27 Final Observation Date Value Abnormality Reference (Units ) Status WBC, Total 11/06/2022 14:00:27 7.03 4.00-10.8 0 (K/uL) Final RBC 11/06/2022 14:00:27 4.24 4.50-5.25 (M/uL) Final Hemoglobin 11/06/2022 14:00:27 14.5 14.0-16.8 (g/dL) Final HCT 11/06/2022 14:00:27 42.7 40.0-48.4 (%) Final MCV 11/06/2022 14:00:27 100.7 82.0-99.5 (fL) Final MCH 11/06/2022 14:00:27 34.2 27.0-34.0 (pg) Final MCHC 11/06/2022 14:00:27 34.0 32.0-36.0 (g/dL) Final RDW 11/06/2022 14:00:27 12.8 11.5-15.5 (%) Final Platelets 11/06/2022 14:00:27 151 140-400 (K /uL) Final MPV 11/06/2022 14:00:27 11.4 6.6-11.1 ( fL) Final Performing Location [facility] [address] [place] [address]
--- OUTSIDE RECORDS SUMMARY | 2023-05-06 05:08 | External Medical Summary ---
Author Name Unknown Address Unknown Organization [id number]:LABORATORY [facility] – [place] - [address] [place] [address] Laboratory Report Ordering Provider Test Date Status ALEXANDREA ALLISON 11/24/2022 12:52:39 Final Normal: <30 mg/g creatinine< br/>High: 30-300 mg/g creatinine
Very High: >300 mg/g creatinine
Nephrotic: >2200 mg/g creatinine Observation Date Value Abnormality Reference (Units ) Status Albumin, Urine 11/24/2022 12:52:39 <1.20 (mg/dL) Final Creatinine, Urine 11/24/2022 12:52:39 183 (mg/dL) Final Albumin/Creatinine [Mass Ratio] in Urine 11/24/2022 12:52:39 <7 <30 (mg/g Creat) Final Performing Location LABORATORY [facility] [place] - [address] [place] [address]
--- OUTSIDE RECORDS SUMMARY | 2023-05-06 05:08 | External Medical Summary ---
Author Name Unknown Address Unknown Organization [id number]:LABORATORY [facility] [place] - [address] [place] [address] Laboratory Report Ordering Provider Test Date Status ALEXANDREA ALLISON 11/24/2022 12:52:39 Final Observation Date Value Abnormality Reference (Units ) Status TSH 11/24/2022 12:52:39 1.63 0.27-4.20 (uIU/mL) Final Performing Location LABORATORY [facility] - [address] [place] [address]
[2023-05-06 06:47] LABS: BUN Creatinine Ratio 16.5 (10-20); Calcium 9.4 mg/dl (8.6-10.3); Creatinine Clr Calc Pharmacy 98.2 ml/min; Est GFR (African American) 113.7 ml/min; Est GFR (Non-African American) 98.1 ml/min; Potassium 3.7 mmol/L (3.5-5.1)
--- OUTSIDE RECORDS SUMMARY | 2023-05-06 07:28 | External Medical Summary | Summary of Care ---
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 [place] [address] Divya Bryan CRNP [address] [facility] [place] [address] Chest pain, unspecified type*; Abnormal stress echocardiogram; Family history of sudden in father; PSVT (paroxysmal supraventricular tachycardia); NSVT (nonsustained ventricular tachycardia) ([facility]); HTN, goal below 140/90; Dyslipidemia, goal LDL below 70 Allergies Active Allergy Reactions Criticality Noted Date Comments Niacin Rash,Wheezing High 10/17/2006 Pravachol Muscle pain 04/22/2009 Sulfa Antibiotics Chills, fever, rash documented as of this encounter (statuses as of 05/04/2023) Medications Medication Sig Dispensed Refills Start Date [...] One daily 90 Tablet 1 09/13/2022 Active Lisinopril 20 MG Oral Tablet (Prinivil)Indications [...] 15 minutes 25 Tablet 11 04/26/2023 Active hydroCHLOROthiazide 12.5 MG Oral Tablet (Hydrodiuril)Indicati ons:PSVT (paroxysmal supraventricular tachycardia),NSVT (nonsustained ventricular tachycardia) (HCC),HTN, goal below 140/90 Take 1 Tablet by mouth in the morning. 0 05/04/2023 Active hydroCHLOROthiazide 12.5 MG Oral Tablet (Hydrodiuril)Indicati ons:HTN, goal below 140/90,PSVT (paroxysmal supraventricular tachycardia),NSVT (nonsustained ventricular tachycardia) (HCC),Dyslipidemia, goal LDL below 100 Take 2 Tablets by mouth in the morning. 90 Tablet 3 11/06/2022 3 Discontinu ed(Refill) documented as of this encounter (statuses as of 05/04/2023) Active Problems Problem Noted Date Diagnosed Date [...] as of this encounter (statuses as of 05/04/2023) Resolved Problems Problem Noted Date Diagnosed Date Resolved Date COVID-19 06/29/2020 12/03/2020 Prediabetes 04/26/2020 03/22/2022 Overview: Per Prediabetes protocol Dyslipidemia, goal to be determined 05/25/2009 01/26/2017 Overview: Per Lipid Taxonomy. Mixed dyslipidemia 12/02/2004 9 Overview: Per Lipid Taxonomy. 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 06/14/2004 02/28/2019 NONE 01/26/2017 documented as of this encounter (statuses as of 05/04/2023) Immunizations Name Administration Dates Next Due Covid-19 [...] Sign Reading Time Taken Comments Blood Pressure 128/76 05/04/2023 2:46 PM EST Pulse 74 05/04/2023 2:46 PM EST Temperature - - Respiratory Rate - - Oxygen Saturation 93% 05/04/2023 2:46 PM EST Inhaled Oxygen Concentration - - Weight 81.6 kg (180 lb) 05/04/2023 2:46 PM EST Height - - Body Mass Index 25.62 08/05/2021 2:18 PM EST documented in this encounter Progress Notes * Divya Bryan CRNP - 05/04/2023 3:00 PM EST Cardiology Outpatient Visit 05/04/2023 Primary Stock Associate: Dr. Gibbs Past medical history: Abnormal LISA 04/25/2023-- completed due to chest pain. Palpitations, secondary to Paroxysmal SVT and nonsustained VT per Zio monitor 04/2020 Chronic HERNÁNDEZ- mild restrictive lung disease noted on PFTS, 07/2021 Hypertension, goal below 140/90 Dyslipidemia History of tobacco use ? TIA, 04/2020 COVID-2019 and 07/11/2020 Type 2 Diabetes Family history of sudden in father age 45 HPI 57-year-old male presenting to the cardiology office today in follow-up after recent testing. In March of 2023 patient had concerns regarding episodes of chest discomfort without any associated symptoms. Given symptoms and family history he ultimately underwent an exercise stress echo on 04/25/2023. Exercise stress echo was abnormal and suggestive of inducible ischemia. Resting study revealed a normal LV systolic function and no significant valvular disease. Was started on aspirin 81 mgdaily. Today the patient presents with his . Notes that over the last 2 months he has been extremely sedentary which is very unusual for him. He continues to have chest pressure and tightness with any sort of exertion. Actively having chest discomfort today in office-- describes it as constant. He also notes shortness of breath with minimal exertion. Unable to walk up his 16 steps without becoming dyspneic. He denies palpitations. No lightheadedness or dizziness. No orthopnea, PND, or increased lower extremity edema. No fever, chills, cough, hematochezia, melena, or hemoptysis. He states he is compliant with all medications. Has not used any sublingual nitroglycerin. EKG today normal sinus rhythm, 71 beats per minute. Current Outpatient Medications Medication Sig Dispense Refill SM Aspirin Adult Low Strength 81 MG Oral Tablet Delayed Release Take 1 Tablet by mouth in the morning. Ezetimibe 10 MG Oral Tablet (Zetia) TAKE 1 TABLET BY MOUTH EVERY MORNING 90 Tablet 2 Metoprolol Succinate ER 50 MG Oral Tablet Extended Release 24 Hour (Toprol XL) One daily 90 Tablet 1 Lisinopril 20 MG Oral Tablet (Prinivil) Take 1 Tablet by mouth in the morning. 90 Tablet 3 metFORMIN HCl ER 500 MG Oral Tablet Extended Release 24 Hour (Glucophage XR) Take 1 Tablet by mouthin the morning and 1 Tablet in the evening. 180 Tablet 1 Icosapent Ethyl 1 GM Oral Capsule (Vascepa) Take 2 Capsules by mouth 2 times a day with morning andevening meals. Swallow capsules whole, do not open or break. 360 Capsule 3 Atorvastatin Calcium 80 MG Oral Tablet (Lipitor) TAKE ONE TABLET BY MOUTH AT BEDTIME 90 Tablet 1 DULoxetine HCl 60 MG Oral Capsule Delayed Release Particles (Cymbalta) take 1 capsule every day in the morning. do not cut, crush or chew. 90 Capsule 1 hydroCHLOROthiazide 12.5 MG Oral Tablet (Hydrodiuril) Take 1 Tablet by mouth in the morning. Nitroglycerin 0.4 MG Sublingual Tablet Sublingual (Nitrostat) Place 1 Tablet under the tongue every5 minutes as needed for Pain, Chest. up to 3 doses in 15 minutes 25 Tablet 11 No current facility-administered medications for this visit. [...] performed by Diana Dobbs MD at ENDOSCOPY [facility] CXR 2 VIEWS AP/PA & LATERAL [...] those noted in HPI. Physical Exam BP 128/76 | Pulse 74 | Wt 81.6 kg (180 lb) | SpO2 93% | BMI 25.62 kg/m | BSA 2.01 m General: No acute distress. A+Ox3. HEENT: [...] deficits. PSYCH: Normal. Lab data/imaging study review: LISA 04/25/2023 The stress echo is positive for inducible ischemia. Apical hypokinesis visualized on stress imaging. The left ventricular ejection fraction increases normally with stress. There was accelerated heart rate response to exercise. The stress test was terminated due to dyspnea. Abnormal stress ECG as described below. Resting Study: The qualitative LV ejection fraction is 55-59% (normal). The left ventricular diastolic function is normal. No significant valvular disease is present. This study has what is deemed to be a "significant abnormality" consistent with ACT 112. See additional documentation regarding notification of patient and ordering provider Echo 10/21/2021 The examination is adequate to [...] and normal perfusion as noted. Echocardiogram at [facility] 04/18/2020 LVEF 60-65% with normal wall thickness and no wall motion abnormalities. Normal diastolic dysfunction. No significant valvular abnormalities. No evidence of PFO/ASD Impression/Plan: 1. Chest pain, unspecified type 2. Abnormal stress test -Episode of chest discomfort concerning for unstable angina given-- abnortmal LISA suggestive of ischemia 04/25/2023 -Cardiac risk factors include HTN, DM and family history of sudden cardiac . -EKG today showing NSR 71 bpm, no acute ST segment changes. 1. Case discussed with Dr. Gibbs. Discussed risk versus benefit of inpatient versus outpatient cardiac catheterization. Given ongoing chest discomfort symptoms patient opted to present to [facility] Emergency Department for expedited care-- agree with this decision. Declined ambulance. 2. Continue aspirin 81 mg daily 3. PSVT (paroxysmal supraventricular tachycardia) (HCC) 4. NSVT (nonsustained ventricular tachycardia) (HCC) Palpitations secondary to paroxysmal SVT and nonsustained V-tach per Zio 04/2020. Symptoms normally well controlled- now having worsening tachy-palpitations with minimal exertion. 1. Continue metoprolol succinate 50 mg daily 5. HTN, goal below 140/90 Well controlled. 1. Continue lisinopril 20 mg daily. 2. Continue HCTZ 12.5 mg daily -consider discontinuation 3. Continue metoprolol succinate 50 mg daily. 6. Dyslipidemia, goal LDL below 70 Triglycerides elevated but improved overall. LDL 90. 1. Continue Vascepa 2g BID, atorvastatin 80 mg daily, and Zetia 10 mg daily. 2. Consider transitioning to Crestor vs [id number]. The patient agrees to the above plan and will call with additional questions or concerns. ER with all emergencies advised. Check-out note: Follow up after hospitalization. I spent a total of 40 minutes on the date of service in preparation, delivery, and documentation ofthe care provided to William Wang excluding any time spent in the performance of separately billed services. BOUCHRA Cortes, Department of Cardiology This chart was completed in part utilizing [employer] Speech Voice Recognition Software. Grammatical errors, random [...] documented in this encounter Nursing Notes * Stacie Salazar CMA - 05/04/2023 2:46 PM EST Examination Room: 7 Name: William Wang Date of : (1965) Reason for Visit: acutre Interim Hospitalization(s): none Problems/Concerns: denied Chest Pain/SOB: chest pain [facility] you can [...] Care Team (Late st Contact Info) Description 05/28/2023 12:00 PM EST Office Visit Family Practice [facility] [address] [facility] [place] [address] Edyta Yuen DO [address] [place] [address] 06/15/2023 1:30 PM EST Office Visit Cardiology, [facility] [address] [place] [place] [address] Divya Bryan CRNP [address] [place] [address] Scheduled Orders Name Type Priority Associated Diagnoses Orde r Schedule EKG COMPLETE (TRACING AND INTERP) EKG Routine Chest pain, unspecified type Abnormal stress echocardiogram Family history of sudden in father Dyslipidemia, goal LDL below 70 PSVT (paroxysmal supraventricular tachycardia) NSVT (nonsustained ventricular tachycardia) (HCC) HTN, goal below 140/90 Ordered: 05/04/2023 Scheduled Procedures Name Priority Associated Diagnoses Date/Ti [...] score < 10) 02/17/2020 02/16/2020 COVID-19 Vaccine ( season) 2023 09/24/2020 Influenza Vaccine (FLU shot) [...] as of this encounter Visit Diagnoses Diagnosis Chest pain, unspecified type- Primary Abnormal stress echocardiogram Other nonspecific abnormal cardiovascular system function study Family history of sudden in father PSVT (paroxysmal supraventricular tachycardia) Paroxysmal supraventricular tachycardia NSVT (nonsustained ventricular tachycardia) (HCC) Paroxysmal ventricular tachycardia HTN, goal below 140/90 Unspecified essential hypertension Dyslipidemia, goal LDL below 70 Other and unspecified hyperlipidemia documented in this encounter
[2023-05-06] MEDS: INSULIN ASPART PER UNIT CHARGE SC SCH ×4 (08:00→20:26)
[2023-05-06] MEDS: ICOSAPENT ETHYL 1 GM EXT SCH ×2 (08:01→17:08)
[2023-05-06] MEDS: ASPIRIN 81 MG ECTAB PO SCH (08:01)
[2023-05-06] MEDS: DULoxetine HCL 60 MG CAP PO SCH (08:01)
[2023-05-06] MEDS: hydroCHLOROthiazide 25 MG TAB PO SCH (08:02)
[2023-05-06] MEDS: FOLIC ACID 1 MG TAB PO SCH (08:02)
[2023-05-06] MEDS: THIAMINE HCL 100 MG TAB PO SCH (08:02)
[2023-05-06] MEDS: EZETIMIBE 10 MG TAB PO SCH (08:03)
[2023-05-06] MEDS: lisinopril 20 MG TAB PO SCH (08:03)
[2023-05-06] MEDS: MULTIVITAMIN TAB PO SCH (08:03)
[2023-05-06] MEDS: METOPROLOL SUCC 25MG EXT REL TAB PO SCH (08:03)
[2023-05-06] MEDS: HEPARIN SOD 5,000 UNIT/0.5 ML VIAL SQ SCH ×2 (08:07→20:34)
[2023-05-06] MEDS ORDERED: POTASSIUM CHLORIDE CRTAB 20 MEQ TABCR PO STA (09:13)
[2023-05-06] MEDS ORDERED: NITROGLYCERIN SL 0.4 MG/TAB TAB ONE (10:49)
--- NOTE | 2023-05-06 11:19 | Cardiology Progress Note ---
Date of Service May 06, 2023 Assessment & Plan (1) Chest pain: (2) Abnormal cardiovascular stress test: Plan This is a 57 year old man with a recent positive exercise stress test who presents with Unstable angina. 1. Unstable Angina (recent abnormal stress test) -resolved; continue nitroglycerin prn -continue aspirin/lipitor/zetia -continue lisinopril and HCTZ -if chest pain returns and does not respond to nitroglycerin, will plan for urgent catheterization -repeat troponins and EKG if chest pain returns -Otherwise, plan for coronary angiogram on Sunday05/07/23. -NPO s/p midnight I provided 55 min of care to the patient in regards to Unstable angina. We discussed the management of unstable angina. Admission and Anticipated Discharge Date Admission Date: May 04, 2023 Subjective Patient was seen and examined at bedside. Patient was sitting up in bed, on room air, NAD, reports no further chest pain in the hospital. Patient denies any headache or dizziness or palpitation. Patient reports feeling okay and moving bowels okay. Had some CP this morning that resolved with SL nitro x 1. Nitropaste is off. Review of Systems Review of Systems: A comprehensive review of systems was otherwise negative unless noted above. Physical Exam Physical Exam: AAOx3; NAD. Constitutional: WD/WN, vitals as above Eyes: PERRL, conjunctivae normal, anicteric sclerae Neck: trachea midline, no thyromegaly Cardiovascular: RRR, no murmur, no edema Gastrointestinal (Abdomen): normal bowel sounds, soft, nontender, no hepatosplenomegaly Skin: no rashes, warm and dry Psychiatric: A+Ox3, euthymic affect Results & Data Vital Signs (Past 12 Hours) Vital Signs Temp Pulse Pulse Resp BP Pulse Ox O2 Del Method 05/06/23 10:56 36.7 C 73 18 101/65 93 Room Air 05/06/23 09:59 59 L 05/06/23 07:29 36.7 C 61 16 118/77 95 Room Air 05/06/23 06:08 36.8 C 67 17 128/82 97 Oxymask 05/06/23 04:00 36.0 C L 58 L 18 117/75 96 Room Air O2 Flow Rate 05/06/23 10:56 05/06/23 09:59 05/06/23 07:29 05/06/23 06:08 4 05/06/23 04:00 Results BMP Results: Sodium 140 mmol/L (136-145) 05/06/23 Potassium 3.7 mmol/L (3.5-5.1) 05/06/23 Chloride 103 mmol/L (98-107) 05/06/23 Carbon Dioxide 31 mmol/L (21-32) 05/06/23 Anion Gap 6 (3-11) 05/06/23 BUN 14 mg/dl (6-23) 05/06/23 Creatinine 0.85 mg/dl (0.6-1.4) 05/06/23 Glucose 114 mg/dl (70-99(Fasting)) H 05/06/23 Results Complete Blood Count Results: RBC 4.09 M/uL (4.70-6.10) L 05/05/23 WBC 5.09 K/ul (4.8-10.8) 05/05/23 Hgb 14.0 g/dl (14.0-18.0) 05/05/23 Hct 39.1 % (42.0-52.0) L 05/05/23 Plt Count 167 K/uL (130-400) 05/05/23 (1) Chest pain Chest pain type: unspecified Qualified Code(s): R07.9 - Chest pain, unspecified
[2023-05-06] MEDS: NITROGLYCERIN SL 0.4 MG/TAB TAB SL PRN ×3 (14:22→14:42)
[2023-05-06] MEDS ORDERED: CALCIUM CARBONATE 500 MG CHEWABLE TAB PO STA (14:42)
[2023-05-06] MEDS ORDERED: FAMOTIDINE 20 MG TAB PO STA (14:42)
[2023-05-06] MEDS ORDERED: MoRPHine SULFATE 2 MG/ML CARP IV STA (14:57)
[2023-05-06] MEDS: NITROGLYCERIN 2% OINTMENT 30GM TUBE EXT SCH ×2 (15:23→20:34)
--- NOTE | 2023-05-06 15:53 | Hospitalist Progress Note ---
Date of Service May 06, 2023 Assessment & Plan (1) Chest pain: Plan 57-year-old male with PMH of HTN, dyslipidemia, DM II, paroxysmal SVT, history of nonsustained V. tach on ZIO in 2019, anxiety, tobacco use presented to ER from outpatient cardiology office for chest pain and history of abnormal stress test. He reported constant chest heaviness x 5 days DISPOSAL MAN. He is being managed for the following: (1) Chest pain: (2) Abnormal cardiovascular stress test: Exercise stress echo on 04/25/2023 positive for inducible ischemia, apical hypokinesis on stress imaging, EF: 55-59%, no significant valvular disease. Admitting EKG sinus rhythm, rate 68, no significant ST changes. HS troponin: 2.8-->3.4 SL nitro x 1 in ER with reported decreased chest heaviness Admitting CXR: no acute disease. Troponin trends negative. LDL 46 had mild chest pain today, requiring reinstitution of nitropaste, pt is agreeable for nitropaste Repeat EKG w/ Chest pain, so far no acute changes. C/w Nitropaste c/w aspirin/lipitor/zetia/metoprolol Cardio on board, plan for cath on Sunday. NPO midnight. Diabetes mellitus, type II: A1c: 7.1 on 11/24/22 Hold home metformin Novolog correction sliding for now. Monitor BSG Other chronic medical conditions: Continue with/resume home meds as and when able. Hypertensioncontinue HCTZ/lisinopril/metoprolol succinate HLDcontinue atorvastatin, Zetia, Vascepa Anxietycontinue duloxetine Tobacco useChews tobacco. counseling done, denies nicotine patch. Alcohol usereports 3-4 beers a day, monitor for alcohol withdrawal. Ativan as needed DVT prophylaxis: Heparin subcu Full code Admission and Anticipated Discharge Date Admission Date: May 04, 2023 Subjective Patient was seen and examined at bedside. Patient was sitting up in bed, on room air, NAD, not in any acute distress. Overnight patient had mild headache per patient and hence his Nitropaste was discontinued. Patient reported having 3/10 chest pain with no radiation during bedside exam in the morning, EKG with no acute ST or T changes. This seems to have resolved on its own before sublingual nitro. Later in the day, he again had chest pain 4/10, with radiation to base of neck and left arm. He received 3 sublingual nitro with some improvement in chest pain, then received Nitropaste with resolution of chest pain. EKG with no changes, troponin was negative. Given him small dose of IV morphine. Coordinated with cardiology, plan for early cath tomorrow. Physical Exam Physical Exam: GENERAL: Alert and oriented x3. NAD, on RA. HEENT: No pallor, no icterus. Pupils equal, round and reactive to light. Oral mucosa moist. NECK: No JVD, no neck masses. HEART: S1 and S2 heard. Regular rate and rhythm. No murmur, no gallop. RESPIRATORY SYSTEM: Normal AP diameter. No accessory muscle use. No wheezing, no crackles. ABDOMEN: Soft, bowel sounds present, nontender, no distention. CENTRAL NERVOUS SYSTEM: No facial droop. Speech is clear. Obeys simple commands. Moves extremities. EXTREMITIES: No edema, no erythema seen. Results & Data Results & Data Vital Signs (Past 12 Hours) Vital Signs Temp Pulse Pulse Resp BP BP Pulse Ox 05/06/23 14:45 90 22 116/68 98 05/06/23 10:56 36.7 C 73 18 101/65 93 05/06/23 09:59 59 L 05/06/23 07:29 36.7 C 61 16 118/77 95 05/06/23 06:08 36.8 C 67 17 128/82 97 05/06/23 04:00 36.0 C L 58 L 18 117/75 96 O2 Del Method O2 Flow Rate 05/06/23 14:45 Nasal Cannula 2 05/06/23 10:56 Room Air 05/06/23 09:59 05/06/23 07:29 Room Air 05/06/23 06:08 Oxymask 4 05/06/23 04:00 Room Air (1) Chest pain Chest pain type: unspecified Qualified Code(s): R07.9 - Chest pain, unspecified
[2023-05-06] MEDS: ATORVASTATIN 40 MG TAB PO SCH (20:33)
[2023-05-07] MEDS: NITROGLYCERIN 2% OINTMENT 30GM TUBE EXT SCH ×4 (03:01→20:12)
[2023-05-07] MEDS: INSULIN ASPART PER UNIT CHARGE SC SCH ×4 (07:42→20:17)
[2023-05-07] MEDS: lisinopril 20 MG TAB PO SCH (07:45)
[2023-05-07] MEDS: hydroCHLOROthiazide 25 MG TAB PO SCH (07:46)
[2023-05-07] MEDS: ASPIRIN 81 MG ECTAB PO SCH (07:46)
[2023-05-07] MEDS: DULoxetine HCL 60 MG CAP PO SCH (07:46)
[2023-05-07] MEDS: FOLIC ACID 1 MG TAB PO SCH (07:46)
[2023-05-07] MEDS: THIAMINE HCL 100 MG TAB PO SCH (07:46)
[2023-05-07] MEDS: EZETIMIBE 10 MG TAB PO SCH (07:46)
[2023-05-07] MEDS: ICOSAPENT ETHYL 1 GM EXT SCH ×2 (07:47→17:16)
[2023-05-07] MEDS: MULTIVITAMIN TAB PO SCH (07:47)
[2023-05-07] MEDS: METOPROLOL SUCC 25MG EXT REL TAB PO SCH (07:47)
[2023-05-07] MEDS: HEPARIN SOD 5,000 UNIT/0.5 ML VIAL SQ SCH ×2 (07:51→20:14)
--- NOTE | 2023-05-07 08:05 | Cardiology Progress Note ---
Date of Service May 07, 2023 Assessment & Plan (1) Chest pain: (2) Abnormal cardiovascular stress test: Plan IMPRESSION: This is a 57 year old man with a recent positive exercise stress test who presents with unstable angina. PLAN: 1. Unstable Angina (recent abnormal stress test) -resolved with nitro-patch; continue nitroglycerin prn -continue aspirin/Lipitor/Zetia -continue lisinopril and HCTZ -Keep NPO for tentative diagnostic cardiac cath this am. Case discussed with Dr. Gibbs-- further recommendations pending cath findings. I spent a total of 40 minutes on the date of service in preparation, delivery, and documentation of the care provided to this patient, excluding any time spent in the performance of separately billed services. Admission and Anticipated Discharge Date Admission Date: May 04, 2023 Supervising Physician Co-Signing Physician Notes Supervising Physician Attestation: I have personally performed a history and physical examination on the patient. I agree with the physician lpn or medical assistant's findings and plan as documented with the following additions. Subjective: Patient feeling well at present without recurrent chest discomfort. Telemetry reveals sinus rhythm mostly in the 60s to 70s at rest. Exam: Cardiovascular: Regular, no murmurs rubs or gallops, no edema Data: EKG performed this morning 05/07/2023 and interpreted pendantly: Sinus rhythm at 63 bpm, normal tracing. Assessment and Plan: Chest pain, unstable angina Abnormal recent exercise stress echocardiogram suggestive of LAD coronary territory ischemia Continue aspirin, ezetimibe, HCTZ, lisinopril, metoprolol, atorvastatin. Continue topical nitroglycerin ointment for now with plans to discontinue depending upon how he does postcardiac catheterization. DVT prophylaxis: Subcutaneous heparin I spent a total of 20 minutes on the date of service in preparation, delivery, and documentation of the care provided to this patient, excluding any time spent in the performance of separately billed services. Domingo Gibbs, DO Subjective 57-year-old male who initially presented to [facility] emergency department on 05/04/2023 due to concerns for unstable angina in the setting of an abnormal e xercise stress echo. Started on Nitro-paste with resolution in chest discomfort. EKG unremarkable showing normal sinus rhythm without acute ST segment changes throughout the weekend. Currently n.p.o. for possible cardiac catheterization today. Labs pending from this AM. HS trops during admission negative x5. Upon entrance into the room patient resting in bed. Family and at bedside. Had chest pain this morning, prior to nitro patch replacement-- symptoms improving. EKG without acute changes. No shortness of breath. No palpitations. No lightheadedness/dizziness or syncope- no headache. Tele: NSR 60-100s Review of Systems Review of Systems: All systems reviewed & are unremarkable except as noted in HPI & below Physical Exam Constitutional: WD/WN, vitals as above Eyes: PERRL, conjunctivae normal, anicteric sclerae Neck: trachea midline, no thyromegaly Cardiovascular: RRR, no murmur, no edema Gastrointestinal (Abdomen): normal bowel sounds, soft, nontender, no hepatosplenomegaly Skin: no rashes, warm and dry Psychiatric: A+Ox3, euthymic affect Results & Data Vital Signs (Past 12 Hours) Vital Signs Temp Pulse Pulse Resp BP Pulse Ox O2 Del Method 05/07/23 07:11 36.4 C L 63 18 115/78 95 Room Air 05/07/23 02:34 36.5 C 82 18 103/65 94 Room Air 05/06/23 23:23 36.6 C 62 19 102/65 94 Room Air 05/06/23 22:44 62 Laboratory Results Cardiac Enzymes 05/06/23 Range/Units 14:42 Troponin I High Sens 2.4 (0-20) pg/ml CBC 05/07/23 Range/Units 08:38 WBC 6.75 (4.8-10.8) K/ul RBC 4.52 L (4.70-6.10) M/uL Hgb 15.5 (14.0-18.0) g/dl Hct 44.6 (42.0-52.0) % Plt Count 183 (130-400) K/uL Comprehensive Metabolic Panel 05/07/23 Range/Units 08:38 Sodium 140 (136-145) mmol/L Potassium 4.5 D (3.5-5.1) mmol/L Chloride 102 (98-107) mmol/L Carbon Dioxide 31 (21-32) mmol/L BUN 15 (6-23) mg/dl Creatinine 0.88 (0.6-1.4) mg/dl Glucose 124 H (70-99(Fasting)) mg/dl Calcium 9.9 (8.6-10.3) mg/dl Intake and Output 05/06/23 05/07/23 05/07/23 22:59 06:59 14:59 Intake Total 200 / 1700 50 / 1700 Balance 200 / 1700 50 / 1700 Intake: Oral 200 / 1700 50 / 1700 Other: Weight 78 kg Weight Measurement Method Standing Scale Diagnostic Findings Cardiac Enzymes 05/06/23 Range/Units 14:42 Troponin I High Sens 2.4 (0-20) pg/ml CBC 05/07/23 Range/Units 08:38 WBC 6.75 (4.8-10.8) K/ul RBC 4.52 L (4.70-6.10) M/uL Hgb 15.5 (14.0-18.0) g/dl Hct 44.6 (42.0-52.0) % Plt Count 183 (130-400) K/uL Comprehensive Metabolic Panel 05/07/23 Range/Units 08:38 Sodium 140 (136-145) mmol/L Potassium 4.5 D (3.5-5.1) mmol/L Chloride 102 (98-107) mmol/L Carbon Dioxide 31 (21-32) mmol/L BUN 15 (6-23) mg/dl Creatinine 0.88 (0.6-1.4) mg/dl Glucose 124 H (70-99(Fasting)) mg/dl Calcium 9.9 (8.6-10.3) mg/dl Intake and Output 05/06/23 05/07/23 05/07/23 22:59 06:59 14:59 Intake Total 200 / 1700 50 / 1700 Balance 200 / 1700 50 / 1700 Intake: Oral 200 / 1700 50 / 1700 Other: Weight 78 kg Weight Measurement Method Standing Scale (1) Chest pain Chest pain type: unspecified Qualified Code(s): R07.9 - Chest pain, unspecified
[2023-05-07] MEDS: NITROGLYCERIN SL 0.4 MG/TAB TAB SL PRN (08:42)
[2023-05-07 09:06] LABS: Hematocrit (blood only) 44.6 % (42.0-52.0); Hemoglobin 15.5 g/dl (14.0-18.0); Mean Corpuscular Hemoglobin 34.3 pg (25.0-34.0); Mean Corpuscular Hgb Conc 34.8 g/dL (32.0-36.0); Mean Corpuscular Volume 98.7 fL (80.0-100.0); Mean Platelet Volume 11.3 fL (9.4-12.4); Platelet Count 183 K/uL (130-400); RDW Coefficient of Variation 12.3 % (11.5-14.5); RDW Standard Deviation 44.9 fL (36.4-46.3); Red Blood Count 4.52 M/uL (4.70-6.10); White Blood Count 6.75 K/ul (4.8-10.8)
[2023-05-07 09:30] LABS: Calcium 9.9 mg/dl (8.6-10.3); Creatinine Clr Calc Pharmacy 94.8 ml/min; Est GFR (African American) 112.1 ml/min; Est GFR (Non-African American) 96.7 ml/min; Potassium 4.5 mmol/L (3.5-5.1)
--- NOTE | 2023-05-07 15:16 | Pre Anesthesia Assessment ---
Date of Service May 07, 2023 Pre Sedation Assessment Vital Signs Temp Pulse Pulse Pulse Resp BP BP 05/07/23 10:56 97.7 F 61 18 108/69 05/07/23 08:48 61 115/74 05/07/23 08:00 65 05/07/23 08:00 05/07/23 07:11 97.5 F L 63 18 115/78 05/07/23 02:34 97.7 F 82 18 103/65 05/06/23 23:23 97.9 F 62 19 102/65 05/06/23 22:44 62 05/06/23 19:50 98.4 F 69 18 109/72 05/06/23 16:30 68 05/06/23 16:15 97.9 F 69 19 107/68 Pulse Ox O2 Del Method 05/07/23 10:56 97 Room Air 05/07/23 08:48 05/07/23 08:00 05/07/23 08:00 Room Air 05/07/23 07:11 95 Room Air 05/07/23 02:34 94 Room Air 05/06/23 23:23 94 Room Air 05/06/23 22:44 05/06/23 19:50 99 Room Air 05/06/23 16:30 05/06/23 16:15 96 Room Air Cardiovascular + regular rate Respiratory + respiratory effort normal Pre-Sedation Airway Assessment Smoking Status: Never smoker Hx Sleep Apnea: No Hx Difficult Intubation: No Thyromental Distance: < 3.5 Finger Breadths Oral Cavity: + Dental Abnormalities Mallampati Class: III ASA: ASA3 Procedure Planning Contraindications for Sedation: none Current Medications Reviewed: Yes Notes The planned sedation has been discussed with the patient. Informed Consent was obtained. I have identified the patient, determined the appropriateness of sedation and have assessed the patient immediately prior to the procedure. All medicine(s) and interventions are by my order.
[2023-05-07] MEDS ORDERED: HEPARIN (PORCINE) 1000 UNIT/ML 10 ML (CATH LAB USE ONLY) ONE (15:18)
[2023-05-07] MEDS ORDERED: MIDAZOLAM HCL 1 MG/ML 2ML VIAL ONE ×2 (15:18→16:26)
[2023-05-07] MEDS ORDERED: fentaNYL citrate PF 100 MCG/2 ML VIAL ONE ×2 (15:18→16:36)
[2023-05-07] MEDS ORDERED: niCARdipine HCL INJ 2.5 MG/ML 10 ML AMP ONE (15:18)
[2023-05-07] MEDS ORDERED: NITROGLYCERIN/D5W 100MCG/ML 20ML SYR ONE (15:19)
--- NOTE | 2023-05-07 15:35 | Hospitalist Progress Note ---
Date of Service May 07, 2023 Assessment & Plan (1) Chest pain: Plan 57-year-old male with PMH of HTN, dyslipidemia, DM II, paroxysmal SVT, history of nonsustained V. tach on ZIO in 2019, anxiety, tobacco use presented to ER from outpatient cardiology office for chest pain and history of abnormal stress test. 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 He is being managed for the following: (1) Chest pain: (2) Abnormal cardiovascular stress test: Exercise stress echo on 04/25/2023 positive for inducible ischemia, apical hypokinesis on stress imaging, EF: 55-59%, no significant valvular disease. Admitting EKG sinus rhythm, rate 68, no significant ST changes. HS troponin: 2.8-->3.4 SL nitro x 1 in ER with reported decreased chest heaviness Admitting CXR: no acute disease. Troponin trends negative. LDL 46 had mild chest pain in AM, recieved SL nitro w/ resolution Repeat EKG w/ Chest pain, so far no acute changes. C/w Nitropaste c/w aspirin/lipitor/zetia/metoprolol Cardio on board, plan for cath on today, await further recs. Diabetes mellitus, type II: A1c: 7.1 on 11/24/22 Hold home metformin Novolog correction sliding for now. Monitor BSG Other chronic medical conditions: Continue with/resume home meds as and when able. Hypertensioncontinue HCTZ/lisinopril/metoprolol succinate HLDcontinue atorvastatin, Zetia, Vascepa Anxietycontinue duloxetine Tobacco useChews tobacco. counseling done, denies nicotine patch. Alcohol usereports 3-4 beers a day, monitor for alcohol withdrawal. Ativan as needed DVT prophylaxis: Heparin subcu Full code Dispo: pending cardiac clearance, for heart cath today. Admission and Anticipated Discharge Date Admission Date: May 04, 2023 Subjective Patient was seen and examined at bedside. Patient was sitting up in bed, on room air, NAD, not in any acute distress. Reports mild chest pain in am, relieved w/ SL nitro. denies other ros. Physical Exam Physical Exam: GENERAL: Alert and oriented x3. NAD, on RA. HEENT: No pallor, no icterus. Pupils equal, round and reactive to light. Oral mucosa moist. NECK: No JVD, no neck masses. HEART: S1 and S2 heard. Regular rate and rhythm. No murmur, no gallop. RESPIRATORY SYSTEM: Normal AP diameter. No accessory muscle use. No wheezing, no crackles. ABDOMEN: Soft, bowel sounds present, nontender, no distention. CENTRAL NERVOUS SYSTEM: No facial droop. Speech is clear. Obeys simple commands. Moves extremities. EXTREMITIES: No edema, no erythema seen. Results & Data Results & Data Vital Signs (Past 12 Hours) Vital Signs Temp Pulse Pulse Pulse Resp BP BP 05/07/23 15:19 72 16 112/76 05/07/23 10:56 36.5 C 61 18 108/69 05/07/23 08:48 61 115/74 05/07/23 08:00 65 05/07/23 08:00 05/07/23 07:11 36.4 C L 63 18 115/78 Pulse Ox O2 Del Method 05/07/23 15:19 96 Room Air 05/07/23 10:56 97 Room Air 05/07/23 08:48 05/07/23 08:00 05/07/23 08:00 Room Air 05/07/23 07:11 95 Room Air (1) Chest pain Chest pain type: unspecified Qualified Code(s): R07.9 - Chest pain, unspecified
[2023-05-07] MEDS ORDERED: OPTIRAY 350 ONE (15:40)
[2023-05-07] MEDS ORDERED: ATROPINE SULFATE 0.1 MG/ML 10ML SYR IV ONE (16:25)
[2023-05-07] MEDS ORDERED: NOREPINEPHRINE BITARTRATE 1 MG/ML 4 ML VIAL (CATH LAB USE ONLY) IV ONE (16:25)
[2023-05-07] MEDS ORDERED: DOPamine 400MG / 250ML D5W (Cath Lab Use ONLY) IV ONE (16:26)
[2023-05-07] MEDS ORDERED: CLOPIDOGREL BISULFATE 300 MG TAB ONE (17:05)
--- NOTE | 2023-05-07 17:25 | Post Anesthesia Assessment ---
Date of Service May 07, 2023 Post Sedation Assessment Vital Signs Temp Pulse Pulse Pulse Resp BP BP 05/07/23 17:21 97.3 F L 66 19 112/68 05/07/23 15:47 66 05/07/23 15:19 72 16 112/76 05/07/23 10:56 97.7 F 61 18 108/69 05/07/23 08:48 61 115/74 05/07/23 08:00 65 05/07/23 08:00 05/07/23 07:11 97.5 F L 63 18 115/78 05/07/23 02:34 97.7 F 82 18 103/65 05/06/23 23:23 97.9 F 62 19 102/65 05/06/23 22:44 62 05/06/23 19:50 98.4 F 69 18 109/72 Pulse Ox O2 Del Method 05/07/23 17:21 96 Room Air 05/07/23 15:47 05/07/23 15:19 96 Room Air 05/07/23 10:56 97 Room Air 05/07/23 08:48 05/07/23 08:00 05/07/23 08:00 Room Air 05/07/23 07:11 95 Room Air 05/07/23 02:34 94 Room Air 05/06/23 23:23 94 Room Air 05/06/23 22:44 05/06/23 19:50 99 Room Air Recovery Score Activity: Moves 4 extremities Respiration: Deep Breath/Cough Circulation: +/-20% PreAnes Value Consciousness: Fully Awake Oxygen Saturation: O2 needed for >90% Discharge Sedation Level of Care: Fast Track Phase II Post Sedation Plan On clinical assessment, the patient appears to have tolerated the sedation without complications. Patient is recovering as anticipated. Patient will continue to be monitored by nursing and may be discharged when sedation discharge criteria are met per below protocol. Upon Completions of procedure up to 15 minutes continue every 5 minute vital signs and the P.A.R. score; then discharge to a Phase I or Fast Track to Phase II per the following guidelines: * Discharge Patient to appropriate Phase II area if PAR is 8 or greater or return to pre- procedure baseline. The post - procedure orders will be as directed. * If PAR score is less than 8 or not return to pre-procedure baseline then patient will follow Phase I monitoring till PAR is reached for Phase II. The Phase I may be done in procedure room or may call to secure a Phase I area. * If naloxone or flumazenil are used for reversal, hold in Phase I for continued monitoring from when last reversal dose was given for a minimum of 60 minutes or longer pending the nurse and/or physician discretion of patient condition before discharge to Phase II. Please call the Sedation Physician to re-evaluate and complete post-note for discharge to Phase II area. Do NOT discharge from procedure sedation or Phase 1 until post- sedation evaluation note is complete by procedure /sedation MD Sedation Discharge Instructions to be given to the patient at discharge to home.
--- NOTE | 2023-05-07 17:30 | Post Operative Brief Note ---
Cardiology Brief Post Op Date of Surgery May 07, 2023 Pre & Post Diagnosis Coronary artery disease Procedure Coronary angiography/left heart catheterization PCI RCA Tree Trimmer Kendrick Norwood MD Medical Records Field Technician Keiko Onofre Estimated Blood Loss 15 Findings See Below Left main normal Circumflex diffuse mid segment disease up to 40% LAD diffuse mid segment disease up to 50%. Medium D1 with 70% ostial RCA mild diffuse proximal/mid disease. 95% stenosis at the junction of mi d/distal segments LVEDP normal PCI of RCA with 2 overlapping drug-eluting stents (2.75 x 12, 2.75 x 18 mm [place]; postdilated with 3.0 NC). Anesthesia Type RN Sedation Complications none Disposition Disposition: PCU
--- NOTE | 2023-05-07 19:12 | Electrocardiogram Report ---
Test Reason : Blood Pressure : / mmHG Vent. Rate : 063 BPM Atrial Rate : 063 BPM P-R Int : 134 ms QRS Dur : 084 ms QT Int : 416 ms P-R-T Axes : 040 023 006 degrees QTc Int : 425 ms Normal sinus rhythm Normal ECG When compared with ECG of 04-MAY-2023 15:35, No significant change was found Confirmed by Rakesh Cardoza ([id number]) on 05/07/2023 7:12:13 PM Referred By: NO PCP Confirmed By:Rakesh Cardoza
[2023-05-07] MEDS: ATORVASTATIN 40 MG TAB PO SCH (20:14)
--- NOTE | 2023-05-08 00:13 | Cardiac Catheterization ---
[facility] Data: Drywall Sander Cardiac Status Clinical evaluation leading to the procedure CAD Presenation: Unstable angina Anginal Classification: CCS IV Diagnostic Physicians Name: Kendrick Norwood MD Closure Device Recommendations: PCI without planned CABG Cardiac Cath Procedure Full Procedure Date May 08, 2023 Pre-Procedure Diagnosis Pre-Procedure Diagnosis: Angina and Positive Stress Test AUC Score AUC Score: 7 Post-Procedure Diagnosis Post-Procedure Diagnosis: Severe CAD, Successful PCI and Normal Intracardiac Pressures Procedure(s) Performed Procedure(s) Performed: Coronary Angiography, Left Heart Cath and Drug Eluting Stent Dynamometer Tuner Kendrick Norwood MD Count Team Member(s) Keiko Onofre Estimated Blood Loss Estimated Blood Loss: 25 Medication(s) Medication(s): Clopidogrel, Fentanyl, Heparin, Lidocaine 1%, Nicardipine, Nitroglycerin and Versed Summary of Findings Indication: Unstable angina, abnormal stress test Access: 6 Fr right radial artery Catheters: [place] Findings: LM -normal caliber, 20% distal stenosis LAD -medium caliber, 30% ostial, 40 to 50% mid segment stenosis, remainder of vessel without significant disease. Distal vessel small and tapers to apex. Medium D1 70 to 80% ostial. Medium D2 without significant disease. Circumflex -medium caliber, proximal luminal irregularities, 40% mid segment stenosis just before takeoff of small OM2. RCA -dominant, medium caliber. Diffuse, mild earlymid segment disease up to 30%, 95% latemid stenosis at junction with distal segment. Remainder of distal vessel and the PDA without significant disease. LVEDP -4 -- PCI -- Antithrombotic therapy: Heparin, clopidogrel Procedure: RCA cannulated with JR4 guide Pre-procedure flow GUERDA 3 Electronic Equipment Set Up Operator 50 wire passed across lesion into distal vessel Latemid into distal RCA lesion predilated with 2.5 compliant balloon Initial attempt to stent vessel unsuccessful as stent malfunction caused early partial stent expansion while trying to place across dilated lesion. During stenting attempt patient developed chest pain and ST elevations inferiorly. Stent removed back to guide with improvement in symptoms/EKG changes. Stent eventually able to be pulled back into guide with some difficulty and removed from body Dilated lesion stented with new 2.75 x 18 mm [place] drug-eluting stent. Additional stent (2.75 x 12 mm Blas) placed to mid RCA overlapping proximal aspect of initial stent Stent post-dilated with 3.0 noncompliant balloon Residual stenosis just proximal to stent unresponsive to IC vasodilators. Post procedure GUERDA 3 flow, stent well expanded with minimal residual stenosis and no apparent cardiac complications. Arterial Closure: TR band Summary: 1. Multi-vessel coronary artery disease -95% latemid RCA 40 to 50% mid LAD. 75% ostial D1 40% mid circumflex 2. Normal intracardiac filling pressure 3. Successful PCI of mid to distal RCA with 2 overlapping drug-eluting stents (2.75 x 12, 2.75 x 18 mm Blas; postdilated with 3.0 NC). Recommendations: To PCU for continued monitoring Loaded with clopidogrel 600 mg in Drywall Sander Continue dual-antiplatelet therapy for at least 1 year Continue statin, and ASCVD risk factor modification Consult cardiac Rehab Recommend medical management of remaining CAD. Hemodynamics Rest Ao:: 87/55/72 Final Ao: 81/48/59 LV: 91/4 Recommendations Recommendations: PCI without planned CABG Specimens Specimens: None Radiation Exposure (mGy) 2225 Contrast (mls) 140 Anesthesia moderate 6589-4103 Procedural Complication(s) None Disposition PCU I attest to the content of the Intraoperative Record and any orders documented therein. Any exceptions are noted below. [facility] Card Cath Procedure Codes Cardiac Catheterization Procedure 1: Cardiovascular Cath Procedures: 54787 Coronaries and LHC (+/-LV) Moderate Sedation Procedure 1: Sedation/Anesthesia: 36163 Mod Sedation by the same physician;Init15 Min Child Age 5 & Up Procedure 2: Sedation/Anesthesia: 38637 Mod Sedation by the same physician; Ea [id number] Minutes Stenting Procedure 1: Cardiovascular Stent Procedures: 62546 Perc transcatheter placement of intracoronary stent(s), with ang PG Care Time/CCT Total # of Minutes Spent Total Time Spent with Patient: Total time spent is greater than 50% in coordination of care (as documented) at patient's floor/unit and/or counseling patient:
[2023-05-08] MEDS: NITROGLYCERIN 2% OINTMENT 30GM TUBE EXT SCH (03:07)
--- NOTE | 2023-05-08 07:00 | Cardiology Progress Note ---
Date of Service May 08, 2023 Assessment & Plan (1) Chest pain: (2) Abnormal cardiovascular stress test: (3) CAD (coronary artery disease): Plan IMPRESSION: This is a 57 year old man with a recent positive exercise stress test who presents with unstable angina. Found to have diffuse multivessel CAD per cardiac cath 05/07/2023. S/p PCI to the mRCA with x2 ZEE. PLAN: 1. Unstable Angina (recent abnormal stress test) -Continue DAPT with ASA (lifelong therapy) and clopidogrel for a minimum of 1 year uninterrupted -LDL controlled. Continue Lipitor, Zetia, and Vascepa -BP controlled, continue lisinopril and HCTZ -Recommend cardiac rehab. -Recommend patient to get up and ambulate in the baig way prior to discharge. -No pushing/pulling/heavy lifting or using the right arm for 3 days. -Patient off of work until 05/14. Recommend light duty until evaluated in office at the beginning of May. Case discussed with Dr. Gibbs. Will arrange follow up in our office the first week in May. I spent a total of 40 minutes on the date of service in preparation, delivery, and documentation of the care provided to this patient, excluding any time spent in the performance of separately billed services. Admission and Anticipated Discharge Date Admission Date: May 04, 2023 Supervising Physician Co-Signing Physician Notes Supervising Physician Attestation: I have personally performed a history and physical examination on the patient. I agree with the physician ophthalmic surgical assistant's findings and plan as documented with the following additions. Subjective: Patient feeling well at present without recurrent chest discomfort. Telemetry reveals sinus rhythm mostly in the 60s to 70s at rest. Exam: Cardiovascular: Regular, no murmurs rubs or gallops, no edema Right radial catheterization site clean , dry, and intact without hematoma Data: EKG performed this morning 05/08/2023 and interpreted independently: Sinus rhythm at 73 bpm, normal tracing. Assessment and Plan: Chest pain, unstable angina Abnormal recent exercise stress echocardiogram with PCI ,two Inez to RCA on 04/2023. Residual branch vessel and nonobstructive disease elsewhere for which medical Rx planned. Continue aspirin, clopidogrel, ezetimibe, HCTZ, lisinopril, metoprolol, ator vastatin. Topical nitroglycerin discontinued. Increase activity. Future consideration include adding Imdur. Stable for discharge from cardiac perspective. DVT prophylaxis: Subcutaneous heparin I spent a total of 20 minutes on the date of service in preparation, delivery, and documentation of the care provided to this patient, excluding any time spent in the performance of separately billed services. Domingo Gibbs, DO Subjective 57 year old man with a recent positive exercise stress test who presents with unstable angina. Underwent cardiac cath 05/07/2023: revealing multi-vessel coronary artery disease-- 95% latemid RCA, 40 to 50% mid LAD, 75% ostial D1, 40% mid circumflex. s/p Successful PCI of mid to distal RCA with 2 overlapping drug-eluting stents (2.75 x 12, 2.75 x 18 mm Blas; postdilated with 3.0 NC). Loaded with Plavix and started on DAPT with ASA. Labs: Stable renal function Tele: NSR 70-80s Upon entrance into the room patient resting in bed. Feeling well, no exertional chest pain or shortness of breath. No palpitations, lightheadedness or dizziness. No pain or numbness of the right arm/hand. No bleeding or hematoma of the right arm. Review of Systems Review of Systems: All systems reviewed & are unremarkable except as noted in HPI & below Physical Exam Physical Exam: AAOx3; NAD. Constitutional: WD/WN, vitals as above Eyes: PERRL, conjunctivae normal, anicteric sclerae Neck: trachea midline, no thyromegaly Cardiovascular: RRR, no murmur, no edema Gastrointestinal (Abdomen): normal bowel sounds, soft, nontender, no hepatosplenomegaly Skin: no rashes, warm and dry Psychiatric: A+Ox3, euthymic affect Results & Data Vital Signs (Past 12 Hours) Vital Signs Temp Pulse Pulse Pulse Resp BP BP 05/08/23 03:10 36.3 C L 85 17 111/71 05/07/23 23:44 36.5 C 68 18 102/67 05/07/23 22:45 83 05/07/23 21:16 36.5 C 72 18 112/71 05/07/23 20:00 71 110/68 05/07/23 19:25 76 107/70 05/07/23 19:13 36.8 C 74 18 110/72 Pulse Ox O2 Del Method 05/08/23 03:10 95 Room Air 05/07/23 23:44 94 Room Air 05/07/23 22:45 05/07/23 21:16 97 Room Air 05/07/23 20:00 05/07/23 19:25 05/07/23 19:13 98 Room Air Laboratory Results Comprehensive Metabolic Panel 05/07/23 05/08/23 Range/Units 08:38 05:52 Sodium 140 140 (136-145) mmol/L Potassium 4.5 D 4.1 (3.5-5.1) mmol/L Chloride 102 102 (98-107) mmol/L Carbon Dioxide 31 33 H (21-32) mmol/L BUN 15 15 (6-23) mg/dl Creatinine 0.88 0.85 (0.6-1.4) mg/dl Glucose 124 H 116 H (70-99(Fasting)) mg/dl Calcium 9.9 9.3 (8.6-10.3) mg/dl Intake and Output 05/07/23 05/08/23 05/08/23 22:59 06:59 14:59 Intake Total 200 / 320 120 / 320 Balance 200 / 320 120 / 320 Intake: Oral 200 / 320 120 / 320 Other: # Unmeasured Voids 1 Weight 79.9 kg Weight Measurement Method Built in [facility] (1) Chest pain Chest pain type: unspecified Qualified Code(s): R07.9 - Chest pain, unspecified (3) CAD (coronary artery disease) Associated angina: without angina Coronary Disease-Associated Artery/Lesion type: redding artery [place] vs. transplanted heart: redding heart Qualified Code(s): I25.10 - Atherosclerotic heart disease of redding coronary artery without angina pectoris
[2023-05-08 07:07] LABS: Calcium 9.3 mg/dl (8.6-10.3); Potassium 4.1 mmol/L (3.5-5.1)
[2023-05-08 07:13] LABS: BUN Creatinine Ratio 17.6 (10-20); Creatinine Clr Calc Pharmacy 98.2 ml/min; Est GFR (African American) 113.7 ml/min; Est GFR (Non-African American) 98.1 ml/min; Phosphorus 4.5 mg/dl (2.5-4.9)
[2023-05-08 07:51] VITALS: RESP 18
[2023-05-08] MEDS: INSULIN ASPART PER UNIT CHARGE SC SCH ×2 (08:00→12:04)
[2023-05-08] MEDS: MULTIVITAMIN TAB PO SCH (08:01)
[2023-05-08] MEDS: EZETIMIBE 10 MG TAB PO SCH (08:01)
[2023-05-08] MEDS: ICOSAPENT ETHYL 1 GM EXT SCH (08:01)
[2023-05-08] MEDS: ASPIRIN 81 MG ECTAB PO SCH (08:01)
[2023-05-08] MEDS: METOPROLOL SUCC 25MG EXT REL TAB PO SCH (08:01)
[2023-05-08] MEDS: DULoxetine HCL 60 MG CAP PO SCH (08:01)
[2023-05-08] MEDS: hydroCHLOROthiazide 25 MG TAB PO SCH (08:01)
[2023-05-08] MEDS: FOLIC ACID 1 MG TAB PO SCH (08:01)
[2023-05-08] MEDS: THIAMINE HCL 100 MG TAB PO SCH (08:02)
[2023-05-08] MEDS: lisinopril 20 MG TAB PO SCH (08:02)
[2023-05-08] MEDS ORDERED: CLOPIDOGREL BISULFATE 75 MG TAB PO SCH (09:00)
[2023-05-08] MEDS: HEPARIN SOD 5,000 UNIT/0.5 ML VIAL SQ SCH (10:09)
[2023-05-08 11:18] VITALS: TEMP 98.1; O2SAT 98
--- NOTE | 2023-05-08 12:50 | Discharge Summary ---
Date of Service May 08, 2023 Admission HPI Per Admitting Provider Patient is 57-year-old male with PMH HTN, dyslipidemia, DM II, paroxysmal SVT, history of nonsustained V. tach on ZIO in 2019, anxiety, tobacco use presented to ER from outpatient cardiology office for chest pain and history of abnormal stress test. History obtained from patient, significant other, as well as outpatient chart review. Patient has been having episodes of chest pain and SOB with exertion for several months. He also has been noticing tachypalpitations with exertion past couple of months. Had exercise stress echo on 04/25/2023 that was positive for inducible ischemia, apical hypokinesis on stress imaging, EF: 55-59%, no significant valvular disease. Was prescribed SL nitro after positive stress test however patient has never used. States for past 5 days has had constant mid sternal heaviness. Still with SOB with exertion. Seen by cardiology today and referred to ER.Chronic cough in morning but denies any worsening. Denies fever/chills, diaphoresis, N/V/D/C, CACERES, dizziness, syncope, vision c hanges, neck pain, orthopnea, sore throat, choking, otalgia, rhinorrhea, abdominal pain, paresthesias, weakness, extremity weakness, extremity edema, rashes, urinary symptoms. Admission Exam Per Admitting Provider General: no acute distress, WDWN Head: normocephalic, atraumatic Eyes: conjunctiva non-injected, anicteric ENT: normal inspection external ears, nose, mucous membranes moist Neck: supple, trachea midline Lungs: clear, no respiratory distress, no wheezing/rhonchi/rales CV: RRR, no murmur, no pretibial edema Abd: normal BS, soft, non-tender Ext: no cyanosis, no calf tenderness Neuro: A&O x 3, no focal deficits noted, normal affect Skin: warm, dry Principal Diagnosis Unstable angina Discharge Exam GENERAL: Alert and oriented x3. NAD, on RA. HEENT: No pallor, no icterus. Pupils equal, round and reactive to light. Oral mucosa moist. NECK: No JVD, no neck masses. HEART: S1 and S2 heard. Regular rate and rhythm. No murmur, no gallop. RESPIRATORY SYSTEM: Normal AP diameter. No accessory muscle use. No wheezing, no crackles. ABDOMEN: Soft, bowel sounds present, nontender, no distention. CENTRAL NERVOUS SYSTEM: No facial droop. Speech is clear. Obeys simple commands. Moves extremities. EXTREMITIES: No edema, no erythema seen. Discharge Data Allergies Allergy/AdvReac Type Severity Reaction Status Date / Time niacin Allergy RASH/ Unverified 05/04/23 17:54 DIFFICULTY BREATHING Sulfa (Sulfonamide Allergy RASH/ Unverified 05/04/23 17:54 Antibiotics) DIFFICULTY BREATHING pravastatin [From Pravachol] AdvReac Muscle Pain Verified 05/04/23 17:54 Consultations 05/04/23 16:24 Consult Cardiology Stat 05/04/23 16:38 ED Decision to Admit Stat 05/04/23 22:14 Consult Cardiology Routine Procedures Performed Operation Date: 05/07/23 13:00 Actual Procedures p Cineradiography w/Routine Exam - Kendrick Norwood MD p Cath, Left with Cors and Vent - Kendrick Norwood MD s Drug Eluting Stent SGl Vessel - Kendrick Norwood MD s Ultrasound Vascular Access - Kendrick Norwood MD Ordered Studies 05/07/23 15:04 CL Cath Imgs for PACS use only Routine Hospital Course (1) Chest pain: Plan 57-year-old male with PMH of HTN, dyslipidemia, DM II, paroxysmal SVT, history of nonsustained V. tach on ZIO in 2019, anxiety, tobacco use presented to ER from outpatient cardiology office for chest pain and history of abnormal stress test. 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 He was managed for the following: (1) Chest pain: (2) Abnormal cardiovascular stress test: Exercise stress echo on 04/25/2023 positive for inducible ischemia, apical hypokinesis on stress imaging, EF: 55-59%, no significant valvular disease. Admitting EKG sinus rhythm, rate 68, no significant ST changes. HS troponin: 2.8-->3.4 SL nitro x 1 in ER with reported decreased chest heaviness Admitting CXR: no acute disease. Troponin trends negative. LDL 46 s/p heart cath w/ Successful PCI of mid to distal RCA with 2 overlapping drug- eluting stents c/w aspirin/lipitor/zetia/metoprolol. Added plavix Pt feels better, hemodynamically stable. to f/u w/ cardio and cardiac rehab on dc. Diabetes mellitus, type II: A1c: 7.1 on 11/24/22 Hold home metformin Novolog correction sliding for now. Monitor BSG Other chronic medical conditions: Continue with/resume home meds as and when able. Hypertensioncontinue HCTZ/lisinopril/metoprolol succinate HLDcontinue atorvastatin, Zetia, Vascepa Anxietycontinue duloxetine Tobacco useChews tobacco. counseling done, denies nicotine patch. Alcohol usereports 3-4 beers a day, monitor for alcohol withdrawal. Ativan as needed DVT prophylaxis: Heparin subcu Full code Patient being discharged to home with follow instruction at the point of discharge: Follow-up with your primary care physician within a week time and likely you will need labs CBC/CMP/magnesium/phosphorus. You underwent heart cath, underwent stent placement. Your medications were optimized while in the hospital. Coordinate with your PCP office or cardiology office to set up cardiac rehab on discharge. Advise staying away from tobacco use or alcohol use. Take your medications as prescribed. Please make sure that you are able to get your medications today by calling your pharmacy before you leave the hospital so that your treatment continuity is not broken. Home Health Attestation I certify that this patient is under my care and that I, or a physicians hospital nursing assistant working with me, had a face to-face encounter that meets the home health [id number] encounter requirements with this patient. The encounter with the patient was in whole, or in part, for the following medical condition, which is the primary reason for home health care (list medical condition): I certify that, based on my findings, the following services are medically necessary home health services: My clinical findings support the need for the above services because: Further, I certify that my clinical findings support that this patient is homebound (i.e. absences from home require considerable and taxing effort and are for medical reasons or pentecostalism services or infrequently or of short duration when for other reasons) because: Certification for Home Health Services: Based on the above findings, I certify that this patient is confined to the home and needs intermittent mcc care, physical therapy and/or speech therapy or continues to need occupational therapy. The patient is under my care, and I have initiated the establishment of the plan of care. This patient will be followed by a physician who will periodically review the plan of care. Total Time Total Time Spent Total Time Spent (In Minutes): 45 Discharge Plan Discharge Items Patient Disposition: Home - Self-Care Reason For Visit: CP Discharge Diagnosis: Unstable angina Activity: As commented below Activity Comment: No pushing/pulling/heavy lifting or using the right arm for 3 days. Non-emergency contact: Primary Care Provider Call non-emergency contact if: you have any medication questions, your symptoms worsen and your temperature is above 101 Follow-up/Referrals: Car Pereira MD [Outside Practitioners] - Diet: Carb Consistent or DM2 and Heart Healthy Addtl Attending Provider Instructions: ACTIVITY RECOMMENDATIONS: Excess manipulation of the wrist should be avoided for the next 24-48 hours. * No lifting over 2 pounds (approximately a 1/2 gallon of milk) with the utilized arm for 24 hours. * No strenuous activity such as bowling or tennis for 3 days. * Keep the site of the procedure covered with a bandage for 24 hours. *You may shower the day after the procedure. Do not take a tub bath or submerge the puncture site in water for the next 3 days. *Do not operate any motorized equipment for 3 days. SPECIAL CARE INSTRUCTIONS: The site may be slightly bruised and sore following your procedure. Should any of the following occur, contact the Dr. who performed your procedure. 1. Redness/inflammation, swelling, chills, or fever, or colored drainage at procedure site within 3-7 days after your procedure. 2. Coldness, discoloration, ongoing numbness, severe pain, or swelling. Expect mild tingling of hand and tenderness at the puncture site for up to three days. If this persists beyond three days, or other symptoms develop, notify the Dr. who performed your procedure. BLEEDING: If the procedure site on your wrist begins to bleed, do not panic 1. Place 1 or 2 fingers firmly just slightly above the insertion site to stop the bleeding. You may be able to feel your pulse as you hold pressure. 2. Lift your finger after 5 minutes to see if the bleeding has stopped. 3. Once the bleeding has stopped, gently wipe the wrist area clean with a bandage. * If the bleeding from your wrist does not stop after 10 minutes, or if there is a large amount of bleeding or spurting, call 911 (do not drive yourself to the hospital). SKIN IRRITATION: * You may experience some redness and/or swelling in the area where radiation was administered. If any skin irritation occurs, please contact your family physician. FOLLOW UP VISIT: Keep any scheduled doctor appointments. Addtl Automated Access Systems Technician Provider Instructions: Follow-up with your primary care physician within a week time and likely you will need labs CBC/CMP/magnesium/phosphorus. You underwent heart cath, underwent stent placement. Your medications were optimized while in the hospital. Coordinate with your PCP office or cardiology office to set up cardiac rehab on discharge. Advise staying away from tobacco use or alcohol use. Take your medications as prescribed. Please make sure that you are able to get your medications today by calling your pharmacy before you leave the hospital so that your treatment continuity is not broken. Pending Studies at Discharge: No Stand-Alone Forms: My [facility], Smoking Cessation Medications and DC Order Prescriptions: New clopidogrel 75 mg Tablet 75 mg PO QAM Qty: 30 0RF folic acid 1 mg Tablet 1 mg PO QAM Qty: 30 0RF multivitamin with folic acid [Daily-Bakari (with folic acid)] 400 mcg Tablet 1 tab PO QAM Qty: 30 0RF thiamine HCl (vitamin B1) 100 mg Tablet 100 mg PO QAM Qty: 30 0RF Continued atorvastatin [Lipitor] 80 mg Tablet 80 mg PO HS duloxetine 60 mg capsule,delayed release(DR/EC) 60 mg PO DAILY lisinopril 20 mg tablet 20 mg PO DAILY aspirin [Aspir-Low] 81 mg Tablet,Delayed Release (Dr/Ec) 81 mg PO HS nitroglycerin 0.4 mg tablet, sublingual 0.4 mg sublingual DIRECTED PRN (Reason: Chest Pain) Rx Instructions: Place 1 tab sl Q 5 min PRN, UP TO 3 DOSES IN 15 MIN. metoprolol succinate 25 mg tablet extended release 24 hr 25 mg PO DAILY metformin 500 mg tablet extended release 24 hr 500 mg PO AMPM ezetimibe 10 mg tablet 10 mg PO DAILY hydrochlorothiazide 12.5 mg tablet 12.5 mg PO QAM icosapent ethyl 1 gram capsule 2 g PO BIDM Discharge Orders: Discharge Order (Routine); Ordered 05/08/23 Ordered By: Gauri Sanchez/Other Patient Handouts: Managing Type 2 Diabetes, Eating Heart-Healthy Foods Admission Data Admit Date/Time: 05/04/23 17:12 Attending Provider: Gauri Courtney Admit Provider: Kd Galvan Primary Care Provider: Edyta Yuen Other Providers: Michael Franco; Kd Galvan; Fletcher Castrejon
[2023-05-08 13:32] VITALS: BP 106/69; PULSE 71
--- NOTE | 2023-05-09 05:44 | Electrocardiogram Report ---
Test Reason : Blood Pressure : / mmHG Vent. Rate : 064 BPM Atrial Rate : 064 BPM P-R Int : 124 ms QRS Dur : 074 ms QT Int : 412 ms P-R-T Axes : 040 046 039 degrees QTc Int : 425 ms Normal sinus rhythm Normal ECG When compared with ECG of 05-MAY-2023 06:32, No significant change was found Confirmed by Rakesh Cardoza ([id number]) on 05/09/2023 5:44:18 AM Referred By: NO PCP Confirmed By:Rakesh Cardoza
--- NOTE | 2023-05-09 06:07 | Electrocardiogram Report ---
Test Reason : Blood Pressure : / mmHG Vent. Rate : 068 BPM Atrial Rate : 068 BPM P-R Int : 132 ms QRS Dur : 074 ms QT Int : 410 ms P-R-T Axes : 047 046 029 degrees QTc Int : 435 ms Normal sinus rhythm Normal ECG When compared with ECG of 05-MAY-2023 20:49, No significant change was found Confirmed by Rakesh Cardoza ([id number]) on 05/09/2023 6:07:41 AM Referred By: NO PCP Confirmed By:Rakesh Cardoza
--- NOTE | 2023-05-09 06:15 | Electrocardiogram Report ---
Test Reason : Blood Pressure : / mmHG Vent. Rate : 067 BPM Atrial Rate : 067 BPM P-R Int : 122 ms QRS Dur : 072 ms QT Int : 402 ms P-R-T Axes : 033 030 012 degrees QTc Int : 424 ms Normal sinus rhythm Normal ECG When compared with ECG of 06-MAY-2023 06:34, No significant change was found Confirmed by Rakesh Cardoza ([id number]) on 05/09/2023 6:14:47 AM Referred By: NO PCP Confirmed By:Rakesh Cardoza
--- NOTE | 2023-05-09 22:53 | Electrocardiogram Report ---
Test Reason : Blood Pressure : / mmHG Vent. Rate : 077 BPM Atrial Rate : 077 BPM P-R Int : 132 ms QRS Dur : 070 ms QT Int : 394 ms P-R-T Axes : 031 029 011 degrees QTc Int : 445 ms Normal sinus rhythm Normal ECG When compared with ECG of 06-MAY-2023 10:48, No significant change was found Confirmed by Rakesh Cardoza ([id number]) on 05/09/2023 10:53:24 PM Referred By: NO PCP Confirmed By:Rakesh Cardoza
--- NOTE | 2023-05-10 05:34 | Electrocardiogram Report ---
Test Reason : Blood Pressure : / mmHG Vent. Rate : 063 BPM Atrial Rate : 063 BPM P-R Int : 126 ms QRS Dur : 070 ms QT Int : 420 ms P-R-T Axes : 024 033 015 degrees QTc Int : 429 ms Normal sinus rhythm Normal ECG When compared with ECG of 06-MAY-2023 14:36, No significant change was found Confirmed by Rakesh Cardoza ([id number]) on 05/10/2023 5:34:10 AM Referred By: NO PCP Confirmed By:Rakesh Cardoza
--- NOTE | 2023-05-10 06:25 | Electrocardiogram Report ---
Test Reason : Blood Pressure : / mmHG Vent. Rate : 073 BPM Atrial Rate : 073 BPM P-R Int : 134 ms QRS Dur : 080 ms QT Int : 388 ms P-R-T Axes : 036 027 059 degrees QTc Int : 427 ms Normal sinus rhythm Normal ECG When compared with ECG of 07-MAY-2023 09:10, No significant change was found Confirmed by Rakesh Cardoza ([id number]) on 05/10/2023 6:24:51 AM Referred By: NO PCP Confirmed By:Rakesh Cardoza
== END 2023-05-08 14:49 | disposition home or self-care (01) | DRG 322 ==
LOC: ED 15:27 → SUATTDRO 17:12 → 2S 17:12
DX: F10.90 Alcohol use, unspecified, uncomplicated; I10 Essential (primary) hypertension; F41.9 Anxiety disorder, unspecified; Z79.84 Long term (current) use of oral hypoglycemic drugs; E11.9 Type 2 diabetes mellitus without complications; R00.1 Bradycardia, unspecified; E78.5 Hyperlipidemia, unspecified; Z82.49 Family history of ischemic heart disease and other diseases of the circulatory system; Z88.2 Allergy status to sulfonamides; R94.39 Abnormal result of other cardiovascular function study; I25.119 Atherosclerotic heart disease of native coronary artery with unspecified angina pectoris

== ENCOUNTER 2024-03-09 17:19 | Observation (INO) ==
--- OUTSIDE RECORDS SUMMARY | 2024-03-09 17:22 | External Medical Summary | Summary of Care ---
Author Name Unknown Organization [facility] Address [address] [place] [address] Phone [phone] Care Team Providers Care Quality Assurance Manager Name Role Phone Alpa Edytapaul Corona DO Primary Care Provider [phone] Reason for Visit * Reason Comments eRx-Medication Refill Encounter Details Date Type Department Care Team (Late st Contact Info) Description 02/29/2024 Refill Family Medicine [address] [phone] Barb Ayon [address] [address] Sexual dysfunction; Current moderate episode of major depressive disorder without prior episode (HCC) Allergies Active Allergy Reactions Criticality Noted Date Comments Niacin Rash,Wheezing High 10/17/2006 Pravachol Muscle pain 04/22/2009 Sulfa Antibiotics Chills, fever, rash documented as of this encounter (statuses as of 03/03/2024) Medications Medication Sig Dispensed Refills Start Date End Date Status SM Aspirin Adult Low Strength 81 MG Oral Tablet Delayed Release Take 1 Tablet by mouth in the morning. 04/18/20 20 Active Lisinopril 10 MG Oral Tablet (Prinivil)Indication s:HTN, goal below 140/90 Take 1 Tablet by mouth in the morning. 90 Tablet 3 05/25/20 23 Active Clopidogrel Bisulfate 75 MG Oral Tablet (pLAVix)Indications: Hyperlipidemia LDL goal <100,PSVT (paroxysmal supraventricular tachycardia) (HCC) Take 1 Tablet by mouth in the morning. 90 Tablet 3 06/13/20 23 Active Metoprolol Succinate ER 25 MG Oral Tablet Extended Release 24 Hour (toPROL XL)Indications:Coron maggie artery disease involving ugashik coronary artery of ugashik heart without angina pectoris,PSVT (paroxysmal supraventricular tachycardia) (HCC),NSVT (nonsustained ventricular tachycardia) (HCC),HTN, goal below 140/90,Dyslipidemia, goal LDL below 70,Insomnia, unspecified type,RLS (restless legs syndrome) Take 1 Tablet by mouth in the morning. 90 Tablet 3 06/15/20 23 Active Ezetimibe 10 MG Oral Tablet (Zetia)Indications:D yslipidemia, goal LDL below 130 TAKE 1 TABLET BY MOUTH EVERY MORNING 90 Tablet 3 06/20/19 24 Active Gabapentin 100 MG Oral Capsule (Neurontin) Take 1 capsule by mouth 90 minutes prior to bed. Can titrate dose up to 3 capsules nightly as instructed. 45 Capsule 1 06/21/19 24 Active Repatha SureClick 140 MG/ML Subcutaneous Solution Auto-injector (evolocumab) Inject 140 mg (1 pen) under the skin every 14 days. Remove from refrigerator 30 minutes prior to injection. 6 mL 3 08/14/19 24 Active DULoxetine HCl 60 MG Oral Capsule Delayed Release Particles (Cymbalta)Indication s:Current moderate episode of major depressive disorder without prior episode ([facility]) TAKE ONE CAPSULE BY MOUTH IN THE MORNING 90 Capsule 2 09/06/19 24 Active metFORMIN HCl ER 500 MG Oral Tablet Extended Release 24 Hour (Glucophage XR)Indications:DM type 2, goal HbA1c < 7% ([facility]) TAKE ONE TABLET BY MOUTH EVERY MORNING AND EVENING 180 Tablet 2 11/13/19 24 Active Icosapent Ethyl 1 GM Oral Capsule (Vascepa)Indications :Dyslipidemia, goal LDL below 70 TAKE TWO CAPSULES BY MOUTH MORNING AND EVENING with meals. swallow whole capsules, do not open or break 360 Capsule 02/25/20 24 Active Nitroglycerin 0.4 MG Sublingual Tablet Sublingual (Nitrostat)Indicatio ns:Chest pain, unspecified type Place 1 Tablet under the tongue every 5 minutes as needed for Pain, Chest. up to 3 doses in 15 minutes 25 Tablet 11 02/28/20 24 Active buPROPion HCl ER (XL) 150 MG Oral Tablet Extended Release 24 Hour (Wellbutrin XL)Indications:Sexua l dysfunction,Current moderate episode of major depressive disorder without prior episode (HCC) TAKE ONE TABLET BY MOUTH IN THE MORNING 30 Tablet 5 03/03/20 24 Active buPROPion HCl ER (XL) 150 MG Oral Tablet Extended Release 24 Hour (Wellbutrin XL)Indications:Sexua l dysfunction,Current moderate episode of major depressive disorder without prior episode (HCC) Take 1 Tablet by mouth in the morning. 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 Mixed dyslipidemia 12/02/2004 Overview: Per Lipid Taxonomy. 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 (Adult - for ages 18 years and over) Not on file 12/04/2023 Is your family able to pay t he heat, water, or electric bill? (Household - for ages 0-17 years) Not on file 12/04/2023 Does your family have access to good internet? (Household - for ages 0-17 years) Not on file 12/04/2023 Social Connections Answer Date Recorded How often do you feel lonely or isolated from those around you? (Adult - for ages 18 years and over) Not on file 12/04/2023 Sex and Gender Information Value Date Recorded Sex Assigned at Not on file Gender Identity Not on file Sexual Orientation Not on file Job Start Date Occupation Industry Not on file Not on file Not on file documented as of this encounter Miscellaneous Notes * Telephone Encounter - Bozena [facility] - 03/03/2024 8:10 AM EDTSigned Prescriptions: Disp Refills buPROPion HCl ER (XL) 150 MG Oral Tablet E*30 Tab*5 Sig: TAKE ONE TABLET BY MOUTH IN THE MORNING Authorizing Provider: BARB AYON Ordering User: BOZENA WINTER * Telephone Encounter - Interface, [facility] - 03/02/2024 1:15 PM EDT Pending Prescriptions: Disp Refills buPROPion HCl ER (XL) 150 MG Oral Tablet E*30 Tab*0 Sig: TAKE ONE TABLET BY MOUTH IN THE MORNING documented in this encounter Plan of Treatment Upcoming Encounters Date Type Department Care Team (Late st Contact Info) Description 03/07/2024 11:30 AM EDT Office Visit Cardiology, [facility] [place] [address] [address] [facility] Cardiology [facility] [address] [id number] 03/17/2024 8:00 AM EDT Imaging [facility] [address] [phone] Gw, Excess Time Radiology [address] [address] 04/03/2024 11:00 AM EDT Office Visit Cardiology, [facility] [place] [address] [address] Domingo Gibbs, [address] [address] Scheduled Procedures Name Priority Associated Diagnoses Date/Ti me COLONOSCOPY FLEXIBLE PROXIMAL DIAGNOSTIC Recall Screen for colon cancer Health Maintenance Due Date Last Done Comments Pneumococcal Vaccine: Pediatrics (0 to 5 Years) and At-Risk Patients (6 to 64 Years) (1 of 2 - PCV) 10/08/1973 HIV Screening 10/08/1982 Hepatitis B Vaccine (1 of 3 - 19+ 3-dose series) 10/08/1986 Cologuard 10/08/2012 Fecal Occult Blood Test 10/08/2012 Sigmoidoscopy 10/08/2012 Zoster Vaccines (1 of 2) 10/08/2017 Depression Monitoring 02/15/2021 02/16/2020 Diabetic Foot Exam 05/10/2023 05/10/2022 Diabetic Eye Exam 08/03/2023 08/03/2022, , 08/03/2022, Additional history exists HbA1c 11/14/2023 05/16/2023, 06/0 02/2023, 05/10/2022, Additional history exists Albumin/Creatinine Ratio 11/25/2023 11/24/2022, 10/17 COVID-19 Vaccine ( - season) 2024 09/24/2020 Influenza Vaccine (FLU shot) (#1) 2024 GFR 05/23/2024 05/23/2023, 04/19, 02/08/2023, Additional history exists Lipid Panel 10/26/2028 10/27/2023, 06/18, 02/08/2023, Additional history exists Colonoscopy 11/30/2029 12/01/2019, 12/01/2019 Colorectal Cancer Screening 11/30/2029 DTap/Tdap Vaccines (3 - Td or Tdap) 12/01/2030 12/01/2020, 05/04/2010, 06/18/2001 HPV (Gardasil) Vaccine Aged Out No lo nger eligible based on patient's age to complete this topic MENINGOCOCCAL (MENACTRA/MENVEO) Aged Out No longer eligible based on patient's age to complete this topic documented as of this encounter Medical Devices Not on filedocumented as of this encounter Visit Diagnoses Diagnosis Sexual dysfunction Psychosexual dysfunction, unspecified Current moderate episode of major depressive disorder without prior episode (HCC) documented in this encounter Care Teams Quality Assurance Manager Relationship Specialty Start Date End Date Edyta Yuen DO [address] [address] PCP - General Family Medicine 05/16/23 documented as of this encounter
--- OUTSIDE RECORDS SUMMARY | 2024-03-09 17:22 | External Medical Summary ---
Author Name Unknown Address Unknown Organization [id number]:[facility] [place] [address] [place] [address] Laboratory Report Ordering Provider Test Date Status JUSTICE CHACON 03/06/2024 11:30:51 Final Observation Date Value Abnormality Reference (Units ) Status MYCODE SPECIMEN-SST 03/06/2024 11:30:51 Freezing of extracted DNA, whole blood and/or serum. Final Performing Location [facility] - [address] [place] [address]
--- OUTSIDE RECORDS SUMMARY | 2024-03-09 17:22 | External Medical Summary ---
Author Name Unknown Address Unknown Organization K01:[facility] [place] [address] [place] [address] Laboratory Report Ordering Provider Test Date Status STEVEN SMITHO 03/06/2024 11:30:51 Final Observation Date Value Abnormality Reference (Units ) Status Triglyceride 03/06/2024 11:30:51 192 Above high normal <=174 (mg/dL) Final Triglyceride Reference Range s (mg/dL):
<150 Acceptable
150-174 Borderline high
175-499 High
>=500 Very high Cholesterol 03/06/2024 11:30:51 165 <200 (mg /dL) Final Total Cholesterol Reference Ranges (mg/dL):
<200 Desirable
200-239 Borderline high
>=240 High HDL 03/06/2024 11:30:51 73 >39 (mg/dL ) Final HDL Cholesterol Reference Ra nges (mg/dL):
>=60 High (Desirable)
<50 Low (Undesirable) For Females
<40 Low (Undesirable) For Males NON-HDL CHOLESTEROL 03/06/2024 11:30:51 92 <=159 (mg/dL) Final Non-HDL Cholesterol Referenc e Range (mg/dL):
<100 Target level for high risk ASCVD patient
<130 Optimal for general population
130-159 Near optimal for general population
160-189 Borderline High
190-219 High
>=220 Very High Performing Location [facility] - [address] [place] [address]
--- OUTSIDE RECORDS SUMMARY | 2024-03-09 17:22 | External Medical Summary | Summary of Care ---
Author Name Unknown Organization [facility] Address [address] [facility] [place] [address] Phone [phone] Care Team Providers Care Russian Language Instructor Name Role Phone Edyta Yuen DO Primary Care Provider [phone] Reason for Visit * Reason Comments Dosage Adjustment In Person (Anticoag Cl inic) Hyperlipidemia Encounter Details Date Type Department Care Team (Late st Contact Info) Description 03/07/2024 11:30 AM EDT Office Visit Cardiology, [facility] [address] [facility] [place] [address] [facility] Card[facility] [address] [facility] [place] [address] Dyslipidemia, goal LDL below 70* Allergies Active Allergy Reactions Criticality Noted Date Comments Niacin Rash,Wheezing High 10/17/2006 Pravachol Muscle pain 04/22/2009 Sulfa Antibiotics Chills, fever, rash documented as of this encounter (statuses as of 03/07/2024) Medications Medication Sig Dispensed Refills Start Date End Date Status SM Aspirin Adult Low Strength 81 MG Oral Tablet Delayed Release Take 1 Tablet by mouth in the morning. 04/18/2020 Active Lisinopril 10 MG Oral Tablet (Prinivil)Indications :HTN, goal below 140/90 Take 1 Tablet by mouth in the morning. 90 Tablet 3 05/25/2023 Active Clopidogrel Bisulfate 75 MG Oral Tablet (pLAVix)Indications:H yperlipidemia LDL goal <100,PSVT (paroxysmal supraventricular tachycardia) (HCC) Take 1 Tablet by mouth in the morning. 90 Tablet 3 06/13/2023 Active Metoprolol Succinate ER 25 MG Oral Tablet Extended Release 24 Hour (toPROL XL)Indications:Berger ry artery disease involving [place] coronary artery of [place] heart without angina pectoris,PSVT (paroxysmal supraventricular tachycardia) ([facility]),NSVT (nonsustained ventricular tachycardia) ([facility]),HTN, goal below 140/90,Dyslipidemia, goal LDL below 70,Insomnia, unspecified type,RLS (restless legs syndrome) Take 1 Tablet by mouth in the morning. 90 Tablet 3 06/15/2023 Active Ezetimibe 10 MG Oral Tablet (Zetia)Indications:Dy slipidemia, goal LDL below 130 TAKE 1 TABLET BY MOUTH EVERY MORNING 90 Tablet 3 06/20/2023 Active Gabapentin 100 MG Oral Capsule (Neurontin) Take 1 capsule by mouth 90 minutes prior to bed. Can titrate dose up to 3 capsules nightly as instructed. 45 Capsule 1 06/21/2023 Active Repatha SureClick 140 MG/ML Subcutaneous Solution Auto-injector (evolocumab) Inject 140 mg (1 pen) under the skin every 14 days. Remove from refrigerator 30 minutes prior to injection. 6 mL 3 08/14/2023 Active DULoxetine HCl 60 MG Oral Capsule Delayed Release Particles (Cymbalta)Indications :Current moderate episode of major depressive disorder without prior episode ([facility]) TAKE ONE CAPSULE BY MOUTH IN THE MORNING 90 Capsule 2 09/06/2023 Active metFORMIN HCl ER 500 MG Oral Tablet Extended Release 24 Hour (Glucophage XR)Indications:DM type 2, goal HbA1c < 7% ([facility]) TAKE ONE TABLET BY MOUTH EVERY MORNING AND EVENING 180 Tablet 2 11/13/2023 Active Icosapent Ethyl 1 GM Oral Capsule (Vascepa)Indications: Dyslipidemia, goal LDL below 70 TAKE TWO CAPSULES BY MOUTH MORNING AND EVENING with meals. swallow whole capsules, do not open or break 360 Capsule 02/25/2024 Active Nitroglycerin 0.4 MG Sublingual Tablet Sublingual (Nitrostat)Indication s:Chest pain, unspecified type Place 1 Tablet under the tongue every 5 minutes as needed for Pain, Chest. up to 3 doses in 15 minutes 25 Tablet 11 02/28/2024 Active buPROPion HCl ER (XL) 150 MG Oral Tablet Extended Release 24 Hour (Wellbutrin XL)Indications:Sexual dysfunction,Current moderate episode of major depressive disorder without prior episode (HCC) TAKE ONE TABLET BY MOUTH IN THE MORNING 30 Tablet 5 03/03/2024 Active documented as of this encounter (statuses as of 03/07/2024) Active Problems Problem Noted Date Diagnosed Date [...] as of this encounter (statuses as of 03/07/2024) Resolved Problems Problem Noted Date Diagnosed Date [...] as of this encounter (statuses as of 03/07/2024) Immunizations Name Administration Dates Next Due Covid-19 [...] Sign Reading Time Taken Comments Blood Pressure 141/100 03/07/2024 11:43 AM EDT Pulse 79 03/07/2024 11:43 AM EDT Temperature - - Respiratory Rate - - Oxygen Saturation - - Inhaled Oxygen Concentration - - Weight - - Height - - Body Mass Index - - documented in this encounter Patient Instructions * Patient Instructions* Saniya Guevara [facility] - 03/07/2024 11:45 AM EDT Take blood pressure at home <130/80 (Omron brand is good) Start back up exercise to help lower blood pressure [phone] Saniya uGevara Pharm D Clinical [facility] Pharmacist Cardiology 03/07/2024,11:47 AM documented in this encounter Progress Notes * Saniya Guevara RPh - 03/07/2024 11:35 AM EDT PHARMACY CHRONIC DISEASE MANAGEMENT - HYPERLIPIDEMIA HPI: William Wang is a 58 year old year old male. Referred for HLD management by Divya Delaney Diet review: Has not yet been able to reduce alcohol; going to [employer] and working on this Exercise review: not reviewed Patient Active Problem List Diagnosis HISTORY OF TOBACCO USE Anxiety state ADVANCE DIRECTIVE INFORMATION Disorder of intervertebral disc Hyperlipidemia LDL goal <100 Primary hypertension Current moderate episode of major depressive disorder without prior episode (HCC) Hyperprolactinemia (HCC) PSVT (paroxysmal supraventricular tachycardia) (HCC) DM type 2, goal HbA1c < 7% (HCC) Review of patient's allergies indicates: Allergen Reactions Niacin Rash and Wheezing Pravachol [Pravachol] Muscle pain Sulfa Antibiotics Chills, fever, rash Objective: Lab Results Component Value Date/Time LDL (CALCULATED)-OUTSIDE LAB 78 04/18/2020 12:00 AM LDL CHOLESTEROL (CALCULATED) - [facility] 56 06/28/2023 11:43 AM LDL CHOLESTEROL (CALCULATED) - [facility] 107 11/07/2021 11:28 AM LDL CHOLESTEROL (CALCULATED) - [facility] 195 (H) 08/23/2015 10:49 AM LDL CHOLESTEROL (CALCULATED) - [facility] 258 (H) 04/26/2012 04:23 PM LDL CHOLESTEROL (CALCULATED) - [facility] 131 (H) 10/03/2005 10:13 AM LDL CHOLESTEROL (DIRECT MEASURE) - [facility] 57 03/06/2024 11:30 AM LDL CHOLESTEROL (DIRECT MEASURE) - [facility] 66 10/27/2023 09:17 AM LDL CHOLESTEROL (DIRECT MEASURE) - [facility] 90 02/08/2023 03:40 PM LDL CHOLESTEROL (DIRECT MEASURE) - [facility] 284 (H) 02/16/2020 08:52 AM LDL CHOLESTEROL (DIRECT MEASURE) - [facility] NOT APPLICABLE 08/23/2015 10:49 AM LDL CHOLESTEROL (DIRECT MEASURE) - [facility] NOT APPLICABLE 04/26/2012 04:23 PM Lab Results Component Value Date/Time AST - [facility] 45 05/23/2023 11:23 AM AST - [facility] 64 (H) 05/16/2023 02:18 PM AST - [facility] 62 (H) 11/06/2022 02:00 PM AST - [facility] 24 01/21/2019 03:44 PM AST - [facility] 28 04/26/2012 04:23 PM AST - [facility] 37 10/03/2005 10:13 AM Lab Results Component Value Date/Time ALT - [facility] 68 (H) 05/23/2023 11:23 AM ALT - [facility] 96 (H) 05/16/2023 02:18 PM ALT - [facility] 63 (H) 11/06/2022 02:00 PM ALT - [facility] 24 01/21/2019 03:44 PM ALT - [facility] 29 04/26/2012 04:23 PM ALT - [facility] 34 10/24/2007 06:02 PM Lab Results Component Value Date/Time CK - [facility] 180 03/02/2004 07:41 PM Lab Results Component Value Date/Time 25-HYDROXY VITAMIN D - [facility] 25 05/16/2023 02:18 PM Lab Results Component Value Date/Time TSH - [facility] 1.63 11/24/2022 12:52 PM TSH - [facility] 2.30 09/02/2019 03:38 PM TSH - OUTSIDE LAB 0.792 04/18/2020 12:00 AM No results found for: "T4" No results found for: "MICROALBUMIN" Current Cardiac Medication(s): Metoprolol Er 25 mg daily Lisinopril 10 mg daily Repatha 140 mg every 2 weeks Zetia 10 mg daily Vascepa 2 gm BID Plavix 75 mg daily ASA 81 mg daily Current DM Medications: Metformin Er 500 mg BID Assessment & Plan: Uncontrolled HLD -Target LDL <55 -Intolerant to atorvastatin, crestor, and pravastatin--myalgia -Reduce alcohol Reviewed most recent lipid panel with patient. LDL continues to improve to 57 and is almost at goal. TG greatly improved from 277 to 192 and also almost at goal. Patient taking all medications as prescribed. Will continue. Patient reports he has not been able to reduce alcohol. Although this is still a goal for him. He is currently seeing a counselor. 2. CAD -Multivessel CAD, 90% mid to late RCA, 40-50% mid LAD, 75% ostial D1, 40% mid left circumflex. Status post PCI to mid to distal RCA with x2 ZEE (2.75 x 12, 2.75 x 18 mm [place]), Medical management of the diagonal branch recommended, 05/07/2023 -Nonischemic nuclear stress test 05/2023 3. Controlled Hypertension -Goal BP <130/80 Elevated last several times in clinic. Advised pt to monitor BP at home and contact our office if consistently >130/80. Discussed low salt diet, exercise, reducing alcohol and tobacco. Pt was working out in the spring and BP much better controlled. He plans to get back to exercise regimen. 4. Paroxysmal SVT and NSVT -Per [facility] 04/2020 5. Hx Tobacco use 6. ? TIA -04/2020 7. Controlled Type 2 Diabetes -HbA1c goal <7% Medication changes: none Labs Due: Lipid panel 3 months (ordered) Follow up: none; MTM will sign off I spent a total of 10-19 minutes (exact time 15 mins) on the date of service in preparation, delivery, and documentation of the care provided to William Wang excluding any time spent in the performance of separately billed services or time spent by another provider/QHP. Saniya Van [facility] Clinical Pharmacist 11:36 AM, 03/07/24 documented in this encounter Plan of Treatment Upcoming Encounters Date Type Department Care Team (Late st Contact Info) Description 03/17/2024 8:00 AM EDT [facility]nd [facility] [address] [place] [phone] Gw, Excess Time Radiology [address] [place] [address] 04/03/2024 11:00 AM EDT Office Visit Cardiology, [facility] [address] [place] [address] Domingo Gibbs, DO [address] [place] [address] Scheduled Procedures Name Priority Associated Diagnoses Date/Ti [...] Ratio 11/25/2023 11/24/2022, 10/17 COVID-19 Vaccine ( season) 2024 09/24/2020 Influenza Vaccine (FLU shot) (#1) 2024 GFR 05/23/2024 05/23/2023, 04/19, 02/08/2023, Additional history exists Lipid Panel 03/06/2029 03/06/2024, 10/16, 06/28/2023, Additional history exists Colonoscopy 11/30/2029 12/01/2019, 12/01/2019 [...] and unspecified hyperlipidemia documented in this encounter Care Teams Russian Language Instructor Relationship Specialty Start Date End Date Edyta Yuen DO [address] [place] [address] PCP - General Family Medicine 05/16/23 documented as of this encounter
--- OUTSIDE RECORDS SUMMARY | 2024-03-09 17:22 | External Medical Summary ---
Author Name Unknown Address Unknown Organization K01:[facility] [place] [address] [place] [address] Laboratory Report Ordering Provider Test Date Status SARAH SMITH 03/06/2024 11:30:51 Final Observation Date Value Abnormality Reference (Units ) Status LDL, (direct) 03/06/2024 11:30:51 57 <=129 (mg/dL) Final LDL Cholesterol Reference Ra nges (mg/dL):
<70 Target level for high risk ASCVD patient
<100 Optimal for general population
100-129 Near optimal for general population
130-159 Borderline high
160-189 High
>=190 Very high Performing Location [facility] - [address] [place] [address]
--- OUTSIDE RECORDS SUMMARY | 2024-03-09 17:22 | External Medical Summary | Summary of Care ---
Author Name Unknown Organization [facility] Address [address] [facility] [place] [address] Phone [phone] Care Team Providers Care Pack Out Operator Name Role Phone AlpaEdyta DO Primary Care Provider [phone] Reason for Visit * Reason Comments Outpatient Testing Encounter Details Date Type Department Care Team (Late st Contact Info) Description 03/06/2024 11:30 AM EDT Laboratory Laboratory [address] [place] [phone] [place] [address] [employer] Other*[id number]; Dyslipidemia, goal LDL below 70 Allergies Active Allergy Reactions Criticality Noted Date Comments Niacin Rash,Wheezing High 10/17/2006 Pravachol Muscle pain 04/22/2009 Sulfa Antibiotics Chills, fever, rash documented as of this encounter (statuses as of 03/06/2024) Medications Medication Sig Dispensed Refills Start Date [...] Hour (toPROL XL)Indications:Berger ry artery disease involving [place] coronary artery of [place] heart without angina pectoris,PSVT (paroxysmal supraventricular tachycardia) [...] major depressive disorder without prior episode ([facility]) TAKE ONE CAPSULE BY MOUTH IN THE MORNING 90 Capsule 2 09/06/2023 Active metFORMIN HCl ER 500 MG Oral Tablet Extended Release 24 Hour (Glucophage XR)Indications:DM type 2, goal HbA1c < 7% ([facility]) TAKE ONE TABLET BY MOUTH EVERY MORNING [...] as of this encounter (statuses as of 03/06/2024) Active Problems Problem Noted Date Diagnosed Date [...] as of this encounter (statuses as of 03/06/2024) Resolved Problems Problem Noted Date Diagnosed Date [...] as of this encounter (statuses as of 03/06/2024) Immunizations Name Administration Dates Next Due Covid-19 [...] Description 03/07/2024 11:30 AM EDT [facility] [address] [place] [address] [facility] Cardiology [facility] [place] [address] 03/17/2024 8:00 AM EDT Imaging [facility] 2nd Floor [facility] [place] [phone] Gw, Excess Time Radiology [address] [place] [address] 04/03/2024 11:00 AM EDT Office Visit Cardiology, [facility] [address] [place] [address] Domingo Gibbs, [address] [place] [address] Pending Results Name Type Priority Associated Diagnoses Date /Time MYCODE SUBSEQUENT ADULT Lab Routine [employer] Other*[id number] 03/06/2024 11:30 AM EDT LIPID PANEL WITH DIRECT LDL IF TG IS HIGH Lab Routine Dyslipidemia, goal LDL below 70 03/06/2024 11:30 AM EDT MYCODE SST1 Lab Routine [employer] Other*[id number] 03/06/2024 11:30 AM EDT MYCODE SST2 Lab Routine [employer] Other*[id number] 03/06/2024 11:30 AM EDT Scheduled Procedures Name Priority Associated Diagnoses [...] this encounter Visit Diagnoses Diagnosis [employer] Other*[id number] Dyslipidemia, goal LDL below 70 Other and unspecified hyperlipidemia documented in this encounter Care Teams Pack Out Operator Relationship Specialty Start Date End Date Edyta Yuen DO [address] [place] [address] PCP - General Family Medicine 05/16/23 documented as of this encounter
--- OUTSIDE RECORDS SUMMARY | 2024-03-09 17:22 | External Medical Summary ---
Author Name Unknown Address Unknown Organization K01:LABORATORY [facility] [place] - [address] [place] [address] Laboratory Report Ordering Provider Test Date Status JUSTICE CHACON 03/06/2024 11:30:51 Final Observation Date Value Abnormality Reference (Units ) Status MYCODE SPECIMEN-SST 03/06/2024 11:30:51 Freezing of extracted DNA, whole blood and/or serum. Final Performing Location [facility] - [address] [place] [address]
--- OUTSIDE RECORDS SUMMARY | 2024-03-09 17:23 | External Medical Summary | Summary of Care ---
Author Name Unknown Organization [facility] Address [address] [facility] [place] [address] Phone [phone] Care Team Providers Care Operations Support Representative Name Role Phone Edyta Yuen DO Primary Care Provider [phone] Reason for Visit * Reason Onset Date Comments Appointment 11/16/2023 Encounter Details Date Type Department Care Team (Late st Contact Info) Description 11/16/2023 Telephone Urology [facility] Maria R Rios [address] [place] [address] [address] [place] [address] Harley Nicole PA-C [address] [place] [address] Appointment Allergies Active Allergy Reactions Criticality Noted Date Comments Niacin Rash,Wheezing High 10/17/2006 Pravachol Muscle pain 04/22/2009 Sulfa Antibiotics Chills, fever, rash documented as of this encounter (statuses as of 11/16/2023) Medications Medication Sig Dispensed Refills Start Date End Date Status SM Aspirin Adult Low Strength 81 MG Oral Tablet Delayed Release Take 1 Tablet by mouth in the morning. 04/18/2020 Active Icosapent Ethyl 1 GM Oral Capsule (Vascepa)Indications: Dyslipidemia, goal LDL below 70 Take 2 Capsules by mouth 2 times a day with morning and evening meals. Swallow capsules whole, do not open or break. 360 Capsule 3 02/27/2023 Active Nitroglycerin 0.4 MG Sublingual Tablet Sublingual (Nitrostat) Place 1 Tablet under the tongue every 5 minutes as needed for Pain, Chest. up to 3 doses in 15 minutes 25 Tablet 11 04/26/2023 Active Lisinopril 10 MG Oral Tablet (Prinivil)Indications [...] Hour (toPROL XL)Indications:Berger ry artery disease involving [place] coronary artery of [place] heart without angina pectoris,PSVT (paroxysmal supraventricular tachycardia) [...] disorder without prior episode (HCC) TAKE ONE CAPSULE BY MOUTH IN THE MORNING 90 Capsule 2 09/06/2023 Active buPROPion HCl ER (XL) 150 MG Oral Tablet Extended Release 24 Hour (Wellbutrin XL)Indications:Sexual dysfunction,Current moderate episode of major depressive disorder without prior episode (HCC) Take 1 Tablet by mouth in the morning. 30 Tablet 5 09/14/2023 Active metFORMIN HCl ER 500 MG Oral Tablet Extended Release 24 Hour (Glucophage XR)Indications:DM type 2, goal HbA1c < 7% (HCC) TAKE ONE TABLET BY MOUTH EVERY MORNING AND EVENING 180 Tablet 2 11/13/2023 Active documented as of this encounter (statuses as of 11/16/2023) Active Problems Problem Noted Date Diagnosed Date [...] as of this encounter (statuses as of 11/16/2023) Resolved Problems Problem Noted Date Diagnosed Date [...] as of this encounter (statuses as of 11/16/2023) Immunizations Name Administration Dates Next Due Covid-19 [...] encounter Miscellaneous Notes * Telephone Encounter - Melva Brantley OSA - 11/16/2023 4:45 PM EDT LM to make pt aware that endocrine will call patient to schedule based off referral and Testosterone level to be checked prior to schedule appt with them. LLOYD Enriquez 11/16/2023 4:46 PM documented in this encounter Plan of Treatment Upcoming Encounters Date Type Department Care Team (Late st Contact Info) Description 02/28/2024 2:30 PM EDT Office Visit Cardiology [facility] [address] [place] [address] Domingo Gibbs DO [address] [address] 03/07/2024 11:30 AM EDT Office Visit Cardiology [facility] [address] [address] [facility] Cardiology [facility] [address] [place] [address] Scheduled Procedures Name Priority Associated Diagnoses Date/Ti me COLONOSCOPY FLEXIBLE PROXIMAL DIAGNOSTIC Recall Screen for colon cancer Health Maintenance Due Date Last Done Comments Pneumococcal Vaccine: Pediatrics (0 to 5 Years) and At-Risk Patients (6 to 64 Years) (1 of 2 - PCV) 10/08/1973 HIV Screening 10/08/1982 Hepatitis B (1 of 3 - 19+ 3-dose series) 10/08/1986 Cologuard 10/08/2012 Fecal Occult Blood Test 10/08/2012 Sigmoidoscopy 10/08/2012 Zoster Vaccines (1 of 2) 10/08/2017 Depression, Most Recent Score >= 10 (will fire each visit until score < 10) 02/17/2020 02/16/2020 COVID-19 Vaccine (2 - 2022- season) 2023 09/24/2020 Diabetic Foot Exam 05/10/2023 05/10/2022 Diabetic Eye Exam 08/03/2023 08/03/2022, , 08/03/2022, Additional history exists HbA1c 11/14/2023 05/16/2023, 06/02/2023, 05/10/2022, Additional history exists Albumin/Creatinine Ratio 11/25/2023 11/24/2022, 10/17 Influenza Vaccine (FLU shot) (Season Ended) 2024 GFR 05/23/2024 05/23/2023, 04/19, 02/08/2023, Additional [...] Not on filedocumented as of this encounter Care Teams Operations Support Representative Relationship Specialty Start Date End Date Edyta Yuen DO [address] [place] [address] PCP - General Family Medicine 05/16/23 documented as of this encounter
--- OUTSIDE RECORDS SUMMARY | 2024-03-09 17:23 | External Medical Summary | Summary of Care ---
Author Name Unknown Organization [facility] Address [address] [facility] [place] [address] Phone [phone] Care Team Providers Care Cushion Sewer Name Role Phone Estefany Lechuga DO Primary Care Provider [phone] Reason for Visit * Reason Comments eRx-Medication Refill Encounter Details Date Type Department Care Team (Late st Contact Info) Description 11/11/2023 Refill Family Practice [facility] [address] [place] [address] Estefany Lechuga DO [address] [place] [address] DM type 2, goal HbA1c < 7% ([facility]) Allergies Active Allergy Reactions Criticality Noted Date Comments Niacin Rash,Wheezing High 10/17/2006 Pravachol Muscle pain 04/22/2009 Sulfa Antibiotics Chills, fever, rash documented as of this encounter (statuses as of 11/13/2023) Medications Medication Sig Dispensed Refills Start Date End Date Status SM Aspirin Adult Low Strength 81 MG Oral Tablet Delayed Release Take 1 Tablet by mouth in the morning. 04/18/20 20 Active Icosapent Ethyl 1 GM Oral Capsule (Vascepa)Indications :Dyslipidemia, goal LDL below 70 Take 2 Capsules by mouth 2 times a day with morning and evening meals. Swallow capsules whole, do not open or break. 360 Capsule 3 02/28/20 23 Active Nitroglycerin 0.4 MG Sublingual Tablet Sublingual (Nitrostat) Place 1 Tablet under the tongue every 5 minutes as needed for Pain, Chest. up to 3 doses in 15 minutes 25 Tablet 11 04/26/20 23 Active Lisinopril 10 MG Oral Tablet (Prinivil)Indication [...] Hour (toPROL XL)Indications:Coron maggie artery disease involving [place] coronary artery of [place] heart without angina pectoris,PSVT (paroxysmal supraventricular tachycardia) [...] MORNING 90 Capsule 2 09/06/19 24 Active buPROPion HCl ER (XL) 150 MG Oral Tablet Extended Release 24 Hour (Wellbutrin XL)Indications:Sexua l dysfunction,Current moderate episode of major depressive disorder without prior episode (HCC) Take 1 Tablet by mouth in the morning. 30 Tablet 5 09/14/19 24 Active metFORMIN HCl ER 500 MG Oral Tablet Extended Release 24 Hour (Glucophage XR)Indications:DM type 2, goal HbA1c < 7% (HCC) TAKE ONE TABLET BY MOUTH EVERY MORNING AND EVENING 180 Tablet 2 11/13/19 24 Active metFORMIN HCl ER 500 MG Oral Tablet Extended Release 24 Hour (Glucophage XR)Indications:DM type 2, goal HbA1c < 7% (HCC) TAKE ONE TABLET BY MOUTH EVERY MORNING AND EVENING 180 Tablet 1 05/22/20 23 024 Discontinued documented as of this encounter (statuses as of 11/13/2023) Active Problems Problem Noted Date Diagnosed Date [...] as of this encounter (statuses as of 11/13/2023) Resolved Problems Problem Noted Date Diagnosed Date [...] as of this encounter (statuses as of 11/13/2023) Immunizations Name Administration Dates Next Due Covid-19 [...] encounter Miscellaneous Notes * Telephone Encounter - Luis Yeung [facility] - 11/13/2023 1:57 PM EDT Signed Prescriptions: Disp Refills metFORMIN HCl ER 500 MG Oral Tablet Extend*180 Ta*2 Sig: TAKE ONE TABLET BY MOUTH EVERY MORNING AND EVENINGAuthorizing Provider: ESTEFANY LECHUGA User: LUIS YEUNG documented in this encounter Plan of Treatment Upcoming Encounters Date Type Department Care Team (Late st Contact Info) Description 11/16/2023 2:00 PM EDT [facility] [address] [place] [address] [address] [place] [address] Harley Nicole PA-C [address] [place] [address] 02/28/2024 2:30 PM EDT Office Visit Cardiology, [facility] [address] [place] [address] Domingo Gibbs, [address] [place] [address] 03/07/2024 11:30 AM EDT Office Visit Cardiology, [facility] [address] [place] [address] [facility] [address] [place] [address] Scheduled Procedures Name Priority Associated Diagnoses Date/Ti [...] < 10) 02/17/2020 02/16/2020 COVID-19 Vaccine ( - season) 2023 09/24/2020 Diabetic Foot Exam 05/10/2023 [...] as of this encounter Visit Diagnoses Diagnosis DM type 2, goal HbA1c < 7% (HCC) documented in this encounter Care Teams Cushion Sewer Relationship Specialty Start Date End Date Estefany Lechuga DO [address] [place] [address] PCP - General Family Medicine 05/16/23 documented as of this encounter
--- OUTSIDE RECORDS SUMMARY | 2024-03-09 17:23 | External Medical Summary | Summary of Care ---
Author Name Unknown Organization [facility] Address [address] [place] [facility] [place] [address] Phone [phone] Care Team Providers Care Non Morse Intercept Technician Name Role Phone Edyta Yuen DO Primary Care Provider [phone] Reason for Referral * Precert (Within 10 days (routine)) - Pending Review Specialty Diagnoses / Procedures Referred By Katerin reilly Referred To Contact Radiology Diagnoses Chest pain, unspecified type Procedures NM MYOCARDIAL PERFUSION SPECT MULTIPLE STUDIES Domingo Gibbs DO [address] [place] [address] Referral ID Status Reason Start Date Expiration Date Visits Requested Visits Authorized [id number] Pending Review Precert 02/28/2024 [id number] Reason for Visit * Reason Comments Follow Up 6 month follow up Encounter Details Date Type Department Care Team (Latest Contact Info) Description 02/28/2024 2:30 PM EDT Office Visit Cardiology, [facility] [address] [place] [address] Domingo Gibbs DO [address] [place] [address] Chest pain, unspecified type*; PSVT (paroxysmal supraventricular tachycardia) (HCC); NSVT (nonsustained ventricular tachycardia) (HCC); HTN, goal below 140/90; Dyslipidemia, goal LDL below 70 Allergies Active Allergy Reactions Criticality Noted Date Comments Niacin Rash,Wheezing High 10/17/2006 Pravachol Muscle pain 04/22/2009 Sulfa Antibiotics Chills, fever, rash documented as of this encounter (statuses as of 02/28/2024) Medications Medication Sig Dispensed Refills Start Date End Date Status SM Aspirin Adult Low Strength 81 MG Oral Tablet Delayed Release Take 1 Tablet by mouth in the morning. 0 Active Lisinopril 10 MG Oral Tablet (Prinivil)Indications :HTN, goal below 140/90 Take 1 Tablet by mouth in the morning. 90 Tablet 3 3 Active Clopidogrel Bisulfate 75 MG Oral Tablet (pLAVix)Indications:H yperlipidemia LDL goal <100,PSVT (paroxysmal supraventricular tachycardia) ([facility]) Take 1 Tablet by mouth in the morning. 90 Tablet 3 3 Active Metoprolol Succinate ER 25 MG Oral Tablet Extended Release 24 Hour (toPROL XL)Indications:[place] artery disease involving [place] coronary artery of [place] heart without angina pectoris,PSVT (paroxysmal supraventricular tachycardia) (HCC),NSVT (nonsustained ventricular tachycardia) ([facility]),HTN, goal below 140/90,Dyslipidemia, goal LDL below 70,Insomnia, unspecified type,RLS (restless legs syndrome) Take 1 Tablet by mouth in the morning. 90 Tablet 3 3 Active Ezetimibe 10 MG Oral Tablet (Zetia)Indications:Dy slipidemia, goal LDL below 130 TAKE 1 TABLET BY MOUTH EVERY MORNING 90 Tablet 3 4 Active Gabapentin 100 MG Oral Capsule (Neurontin) Take 1 capsule by mouth 90 minutes prior to bed. Can titrate dose up to 3 capsules nightly as instructed. 45 Capsule 1 4 Active Repatha SureClick 140 MG/ML Subcutaneous Solution Auto-injector (evolocumab) Inject 140 mg (1 pen) under the skin every 14 days. Remove from refrigerator 30 minutes prior to injection. 6 mL 3 4 Active DULoxetine HCl 60 MG Oral Capsule Delayed Release Particles (Cymbalta)Indications :Current moderate episode of major depressive disorder without prior episode (HCC) TAKE ONE CAPSULE BY MOUTH IN THE MORNING 90 Capsule 2 4 Active buPROPion HCl ER (XL) 150 MG Oral Tablet Extended Release 24 Hour (Wellbutrin XL)Indications:Sexual dysfunction,Current moderate episode of major depressive disorder without prior episode (HCC) Take 1 Tablet by mouth in the morning. 30 Tablet 5 4 Active metFORMIN HCl ER 500 MG Oral Tablet Extended Release 24 Hour (Glucophage XR)Indications:DM type 2, goal HbA1c < 7% (HCC) TAKE ONE TABLET BY MOUTH EVERY MORNING AND EVENING 180 Tablet 2 4 Active Icosapent Ethyl 1 GM Oral Capsule (Vascepa)Indications: Dyslipidemia, goal LDL below 70 TAKE TWO CAPSULES BY MOUTH MORNING AND EVENING with meals. swallow whole capsules, do not open or break 360 Capsule 4 Active Nitroglycerin 0.4 MG Sublingual Tablet Sublingual (Nitrostat)Indication s:Chest pain, unspecified type Place 1 Tablet under the tongue every 5 minutes as needed for Pain, Chest. up to 3 doses in 15 minutes 25 Tablet 11 4 Active Nitroglycerin 0.4 MG Sublingual Tablet Sublingual (Nitrostat) Place 1 Tablet under the tongue every 5 minutes as needed for Pain, Chest. up to 3 doses in 15 minutes 25 Tablet 11 3 02/28/20 24 Discontinu ed(Refill) Nirmatrelvir&Ritonavi r 300/100 20 x 150 MG & 10 x 100MG Oral Tablet Therapy Pack (Paxlovid (300/100)) Take 2 pink tablets of Nirmatrelvir and 1 white tablet of Ritonavir two times a day by mouth. 30 Tablet 4 02/28/20 24 Discontinu ed(Patient preference /discontin uation) documented as of this encounter (statuses as of 02/28/2024) Active Problems Problem Noted Date Diagnosed Date [...] as of this encounter (statuses as of 02/28/2024) Resolved Problems Problem Noted Date Diagnosed Date [...] as of this encounter (statuses as of 02/28/2024) Immunizations Name Administration Dates Next Due Covid-19 [...] Sign Reading Time Taken Comments Blood Pressure 138/86 02/28/2024 2:23 PM EDT Pulse 76 02/28/2024 2:23 PM EDT Temperature - - Respiratory Rate 12 02/28/2024 2:23 PM EDT Oxygen Saturation - - Inhaled Oxygen Concentration - - Weight 79.7 kg (175 lb 12.8 oz) 02/28/2024 2:23 PM EDT Height - - Body Mass Index 25.22 06/21/2023 1:12 PM EST documented in this encounter Progress Notes * Domingo Gibbs, DO - 02/28/2024 2:44 PM EDT Images from the original note were not included. 02/28/2024 Cardiology Follow Up CHIEF COMPLAINT: follow up CAD, HTN, dyslipidemia, with chest pain today SUBJECTIVE: William Wang is a 58 year old year old male who returns in routine Cardiology follow-up. Notes overall he has been feeling well, but over the last few days he has been having low intensity 2/10 chest discomfort. He believes it may be related to stress. He states that he has issues with anxiety, and has a lot of pressure on him with work recently. Due to concerns of chest discomfort suggestive angina he had undergone an exercise stress echocardiogram on 04/25/2023 as an outpatient that was markedly abnormal with symptoms of dyspnea on exertionnoted with treadmill exercise, ischemic EKG response, and apical hypokinesis on the post exercise images. At time of outpatient follow-up on 05/04/2023 he would described ongoing waxing waning chest discomfort prompting referral for inpatient evaluation. Cardiac catheterization was performed by Dr. Norwood of interventional Cardiology at [facility] on 05/07/2023with findings of a culprit 95% stenosis of the mid RCA for which the patient underwent PCI and drug-eluting stent implantation. He was found to have moderate diffuse disease in the range of 40 to 50%in the mid LAD and a 70-80% ostial stenosis of the first diagonal branch. Past Medical History: Coronary artery disease Multivessel CAD, 90% mid to late RCA, 40-50% mid LAD, 75% ostial D1, 40% mid left circumflex. Status post PCI to mid to distal RCA with x2 ZEE (2.75 x 12, 2.75 x 18 mm Blas), Medical management of the diagonal branch recommended, 05/07/2023 Nonischemic nuclear stress test 05/2023 Palpitations, secondary to Paroxysmal SVT and nonsustained VT per Zio monitor 04/2020 Chronic HERNÁNDEZ- mild restrictive lung disease noted on PFTS, 07/2021 Hypertension, goal below 140/90 Dyslipidemia with statin intolerance, on Repatha and Vascepa History of tobacco use Former alcohol use quit 04/2024 ? TIA, 04/2020 Type 2 Diabetes Family history of sudden in father age 45 Extensive ROS: All systems reviewed & are unremarkable except as noted in HPI & below Cardiovascular (chest pain/palpitations/fluttering/diaphoresis/dyspnea on exertion/paroxysmally nocturnal dyspnea):Negative Review of patient's allergies indicates: Allergen Reactions Niacin Rash and Wheezing Pravachol [Pravachol] Muscle pain Sulfa Antibiotics Chills, fever, rash Current Outpatient Medications Medication Sig Dispense Refill SM Aspirin Adult Low Strength 81 MG Oral Tablet Delayed Release Take 1 Tablet by mouth in the morning. Lisinopril 10 MG Oral Tablet (Prinivil) Take 1 Tablet by mouth in the morning. 90 Tablet 3 Clopidogrel Bisulfate 75 MG Oral Tablet (pLAVix) Take 1 Tablet by mouth in the morning. 90 Tablet 3 Metoprolol Succinate ER 25 MG Oral Tablet Extended Release 24 Hour (toPROL XL) Take 1 Tablet by mouth in the morning. 90 Tablet 3 Ezetimibe 10 MG Oral Tablet (Zetia) TAKE 1 TABLET BY MOUTH EVERY MORNING 90 Tablet 3 Gabapentin 100 MG Oral Capsule (Neurontin) Take 1 capsule by mouth 90 minutes prior to bed. Can titrate dose up to 3 capsules nightly as instructed. 45 Capsule 1 Repatha SureClick 140 MG/ML Subcutaneous Solution Auto-injector (evolocumab) Inject 140 mg (1 pen) under the skin every 14 days. Remove from refrigerator 30 minutes prior to injection. 6 mL 3 DULoxetine HCl 60 MG Oral Capsule Delayed Release Particles (Cymbalta) TAKE ONE CAPSULE BY MOUTH INTHE MORNING 90 Capsule 2 buPROPion HCl ER (XL) 150 MG Oral Tablet Extended Release 24 Hour (Wellbutrin XL) Take 1 Tablet by mouth in the morning. 30 Tablet 5 metFORMIN HCl ER 500 MG Oral Tablet Extended Release 24 Hour (Glucophage XR) TAKE ONE TABLET BY MOUTH EVERY MORNING AND EVENING 180 Tablet 2 Icosapent Ethyl 1 GM Oral Capsule (Vascepa) TAKE TWO CAPSULES BY MOUTH MORNING AND EVENING with meals. swallow whole capsules, do not open or break 360 Capsule 0 Nitroglycerin 0.4 MG Sublingual Tablet Sublingual (Nitrostat) Place 1 Tablet under the tongue every5 minutes as needed for Pain, Chest. up to 3 doses in 15 minutes (Patient not taking: Reported on 02/28/2024) 25 Tablet 11 No current facility-administered medications for this visit. OBJECTIVE/PHYSICAL EXAMINATION: BP 138/86 | Pulse 76 | Resp 12 | Wt 79.7 kg (175 lb 12.8 oz) | BMI 25.22 kg/m | BSA 1.98 m General: no acute distress and stated age Eyes: conjunctiva are pink and non-injected, sclera clear Neck: normal jugular venous pulse, no hepatojugular reflux Chest: normal shape and normal respiratory effort Lungs: clear to auscultation , no rales rhonchi or wheezing Cardiac Exam: - regular heart sounds, no murmurs, rubs, or gallops Abdomen: abdomen soft, non-tender, no abnormal masses and no hepatosplenomegaly Musculoskeletal: no gait disturbance, no weakness Extremities: no edema and no cyanosis Neuro: grossly normal exam Psych: appropriate affect and insight. Data: EKG performed today 02/28/2024 and interpreted independently: reveals sinus rhythm at 73 beats per minute, normal EKG Summary of cardiac catheterization 05/04/23: Latest Reference Range & Units 10/27/23 09:17 Triglycerides <=174 mg/dL 277 (H) Cholesterol <200 mg/dL 168 Non-HDL Cholesterol <=159 mg/dL 102 HDL Cholesterol >39 mg/dL 66 LDL Cholesterol (Direct Measure) <=129 mg/dL 66 (H): Data is abnormally high ASSESSMENT / PLAN: 58 year old year old male ICD-10-CM 1. Chest pain, unspecified type R07.9 2. PSVT (paroxysmal supraventricular tachycardia) ([facility]) I47.10 3. NSVT (nonsustained ventricular tachycardia) ([facility]) I47.29 4. HTN, goal below 140/90 I10 5. Dyslipidemia, goal LDL below 70 E78.5 -patient noted to have residual coronary heart disease with intermediate LAD stenosis, also branch vessel disease of the diagonal, with noted history of mid right coronary artery stent in April,. He remains on dual anti-platelet therapy. Due to his symptoms, recommend proceeding with an exercise nuclear stress test. He had previously been tested with an exercise nuclear stress test in May, with no evidence of ischemia at that time. Patient denies any recurrent palpitations. EKG reveals sinus rhythm. Prescription medication therapy: Continue aspirin, clopidogrel, metoprolol, lisinopril, Vascepa, ezetimibe, Repatha. Patient due for repeat fasting lipid panel in advance of his upcoming [facility] appointment. He was aware to have that performed. As noted, patient is seen in longitudinal follow-up of the above chronic concerns with acute issue of recurrent chest discomfort today. DISPOSITION: Follow-up: Return in about 4 weeks (around 03/27/2024). | Check-out note: Exercise nuclear stress test as soon as possible, definitely within a month or sooner Follow up after test with Dr Gibbs or AILYN Gibbs DO Cardiology, [address] [address] This chart was completed in part utilizing [employer] Speech Voice Recognition Software. Grammatical errors, random [...] documented in this encounter Nursing Notes * Trinity Hickey CMA - 02/28/2024 2:19 PM EDT Examination Room: 11 Name: William Wang Date of : (1965). Reason for Visit: 6 month follow up Interim Hospitalization(s): denies Problems/Concerns: denies concerns Chest Pain/SOB: Slight chest pain 07/28, says it may be stress related. [facility] Discussed: Yes [facility] a [facility] you can [...] Description 03/07/2024 11:30 AM EDT [facility] [address] [place] [address] [facility] [place] [address] [place] [address] 04/03/2024 11:00 AM EDT [facility] [address] [place] [address] Domingo Gibbs DO [address] [place] [address] Scheduled Orders Name Type Priority Associated Diagnoses Orde r Schedule EKG EKG Routine Chest pain, unspecified type Ordered: 02/28/2024 NM MYOCARDIAL PERFUSION SPECT MULTIPLE STUDIES Cardiology Routine Chest pain, unspecified type Expected: 02/28/2024, Expires: 03/29/2025 Scheduled Procedures Name Priority Associated Diagnoses Date/Ti [...] hyperlipidemia documented in this encounter Care Teams Non Morse Intercept Technician Relationship Specialty Start Date End Date Edyta Yuen DO [address] [place] [address] PCP - General Family Medicine 05/16/23 documented as of this encounter"
--- OUTSIDE RECORDS SUMMARY | 2024-03-09 17:23 | External Medical Summary | Summary of Care ---
Author Name Unknown Organization [facility] Address [address] [facility] [place] [address] Phone [phone] Care Team Providers Care Heavy Equipment Diesel Mechanic Name Role Phone Edyta Yuen DO Primary Care Provider [phone] Reason for Referral * Evaluate & Treat - Unlimited Visits (Within 30 days (routine)) - Pending Review Specialty Diagnoses / Procedures Referred By Contac t Referred To Contact Endocrinology/Metabolism / Endocrinology Diagnoses Low testosterone Harley Nicole PA-C [address] [place] [address] Referral ID Status Reason Start Date Expiration Date Visits Requested Visits Authorized [id number] Pending Review Specialty Services Required 11/16/2023 999 [id number] Question Answer Referral Priority Within 30 days (routine) Where should this appointment be scheduled? [facility] For what condition is the patient being referred? Other Conditions Comments Low energy, normal low testosterone Reason for Visit * Evaluate & Treat - Unlimited Visits (Within 10 days (routine)) - Authorized Specialty Diagnoses / Procedures Referred By Contac t Referred To Contact Urology Diagnoses Sexual dysfunction Nohemi Avila CRNP [address] [place] [address] [place] [address] Referral ID Status Reason Start Date Expiration Date Visits Requested Visits Authorized [id number] Authorized Specialty Services Required 11/01/2023 10/31/[phone] Encounter Details Date Type Department Care Team (Late st Contact Info) Description 11/16/2023 2:00 PM EDT [facility] [address] [place] [address] [address] [place] [id number] Harley Nicole PA-C [address] [place] [address] Low testosterone*; Decreased energy Allergies Active Allergy Reactions Criticality Noted Date [...] Hour (toPROL XL)Indications:Berger [place] artery disease involving [place] coronary artery of [place] heart without angina pectoris,PSVT (paroxysmal supraventricular tachycardia) [...] 02/28/2024 2:30 PM EDT Office Visit Cardiology, [address] [place] [address] Domingo Gibbs, DO [address] [place] [address] 03/07/2024 11:30 AM EDT [facility] [address] [place] [address] [facility] [address] [place] [address] Scheduled Orders Name Type Priority Associated Diagnoses Orde r Schedule TESTOSTERONE, TOTAL Lab Routine Low testosterone Expected: 12/16/2023 (Approximate), Expires: 11/15/2024 Scheduled Procedures Name Priority Associated Diagnoses Date/Ti me COLONOSCOPY FLEXIBLE PROXIMAL DIAGNOSTIC Recall Screen for colon cancer Scheduled Referrals Name Type Priority Associated Diagnoses Orde r Schedule ADULT ENDOCRINOLOGY REFERRAL OP Referral Within 30 days (routine) Low testosterone Ordered: 11/16/2023 Health Maintenance Due Date Last Done Comments [...] Additional history exists Albumin/Creatinine Ratio 11/25/2023 11/24/2022, 05/2 08/2021 Influenza Vaccine (FLU shot) (Season Ended) 2024 [...] as of this encounter Visit Diagnoses Diagnosis Low testosterone- Primary Other testicular hypofunction Decreased energy Other malaise and fatigue documented in this encounter Care Teams Heavy Equipment Diesel Mechanic Relationship Specialty Start Date End Date Edyta Yuen DO [address] [place] [address] PCP - General Family Medicine 05/16/23 documented as of this encounter
--- OUTSIDE RECORDS SUMMARY | 2024-03-09 17:23 | External Medical Summary ---
Author Name Unknown Address Unknown Organization K[facility] [place] [address] [place] [address] Laboratory Report Ordering Provider Test Date Status DYLAN DAYT 09/15/2023 10:27:02 Final Observation Date Value Abnormality Reference (Units ) Status Albumin 09/15/2023 10:27:02 4.5 3.8-5.0 (g/dL) Final Sex Hormone Binding Globulin 09/15/2023 10:27:02 29 12-91 (nmol/L) Final Testosterone [Mass/volume] in Serum or Plasma 09/15/2023 10:27:02 285.9 193.0-740.0 (ng/dL) Final Free Testosterone, calculated 09/15/2023 10:27:02 58.8 35.0-130.0 (pg/mL) Final Bioavailable Testosterone, calculated 09/15/2023 10:27:02 143.9 79.0-335.0 (ng/dL) Final Performing Location [facility] [address] [address]
--- OUTSIDE RECORDS SUMMARY | 2024-03-09 17:23 | External Medical Summary | Summary of Care ---
Author Name Unknown Organization [facility] Address [address] [place] [place] [address] Phone [phone] Care Team Providers Care Dairy And Food Laboratory Assistant Name Role Phone Edyta Yuen DO Primary Care Provider [phone] Reason for Visit * Reason Comments Outpatient Testing Encounter Details Date Type Department Care Team (Late st Contact Info) Description 10/27/2023 8:30 AM EDT Laboratory Laboratory, [facility] [address] [place] [phone] [facility] [address] [place] [address] Dyslipidemia, goal LDL below 70 Allergies Active Allergy Reactions Criticality Noted Date Comments Niacin Rash,Wheezing High 10/17/2006 Pravachol Muscle pain 04/22/2009 Sulfa Antibiotics Chills, fever, rash documented as of this encounter (statuses as of 10/27/2023) Medications Medication Sig Dispensed Refills Start Date [...] 15 minutes 25 Tablet 11 04/26/2023 Active Additional Information Patient not taking.Reported on 09/26/2023 metFORMIN HCl ER 500 MG Oral Tablet Extended Release 24 Hour (Glucophage XR)Indications:DM type 2, goal HbA1c < 7% ([facility]) TAKE ONE TABLET BY MOUTH EVERY MORNING AND EVENING 180 Tablet 1 05/22/2023 Active Lisinopril 10 MG Oral Tablet (Prinivil)Indications :HTN, goal below 140/90 Take 1 Tablet by mouth in the morning. 90 Tablet 3 05/25/2023 Active Clopidogrel Bisulfate 75 MG Oral Tablet (pLAVix)Indications:H yperlipidemia LDL goal <100,PSVT (paroxysmal supraventricular tachycardia) ([facility]) Take 1 Tablet by mouth in the morning. 90 Tablet 3 06/13/2023 Active Metoprolol Succinate ER 25 MG Oral Tablet Extended Release 24 Hour (toPROL XL)Indications:Berger ry artery disease involving rincon coronary artery of rincon heart without angina pectoris,PSVT (paroxysmal supraventricular tachycardia) ([facility]),NSVT (nonsustained ventricular tachycardia) ([facility]),HTN, goal below 140/90,Dyslipidemia, goal LDL below 70,Insomnia, [...] the morning. 30 Tablet 5 09/14/2023 Active documented as of this encounter (statuses as of 10/27/2023) Active Problems Problem Noted Date Diagnosed Date [...] as of this encounter (statuses as of 10/27/2023) Resolved Problems Problem Noted Date Diagnosed Date [...] as of this encounter (statuses as of 10/27/2023) Immunizations Name Administration Dates Next Due Covid-19 [...] Care Team (Late st Contact Info) Description 11/01/2023 12:20 PM EDT Office Visit Family Medicine [address] [place] [address] Nohemi Avila [address] [place] [address] 11/02/2023 11:30 AM EDT Office Visit Cardiology [facility] [address] [place] [address] [place] [facility] Cardiology [facility] [address] [place] [address] 02/28/2024 2:30 PM EDT Office Visit Cardiology [facility] [address] [place] [address] Domingo Gibbs DO [address] [place] [address] Pending Results Name Type Priority Associated Diagnoses Date /Time LIPID PANEL WITH DIRECT LDL IF TG IS HIGH Lab Routine Dyslipidemia, goal LDL below 70 10/27/2023 9:17 AM EDT Scheduled Procedures Name Priority Associated [...] 10) 02/17/2020 02/16/2020 COVID-19 Vaccine ( - 2022- season) 2023 09/24/2020 Diabetic Foot Exam 05/10/2023 05/10/2022 Diabetic Eye Exam 08/03/2023 08/03/2022, , 08/03/2022, Additional history exists HbA1c 11/14/2023 05/16/2023, 06/0 02/2023, 05/10/2022, Additional history exists Albumin/Creatinine Ratio 11/25/2023 11/24/2022, 10/17 Influenza Vaccine (FLU shot) (Season Ended) 2024 GFR 05/23/2024 05/23/2023, 04/19, 02/08/2023, Additional history exists Lipid Panel 06/28/2028 06/28/2023, 01/17, 03/17/2022, Additional history exists Colonoscopy 11/30/2029 12/01/2019, 12/01/2019 [...] Visit Diagnoses Diagnosis Dyslipidemia, goal LDL below 70 Other and unspecified hyperlipidemia documented in this encounter Care Teams Dairy And Food Laboratory Assistant Relationship Specialty Start Date End Date Edyta Yuen DO [address] [place] [address] PCP - General Family Medicine 05/16/23 documented as of this encounter
--- OUTSIDE RECORDS SUMMARY | 2024-03-09 17:23 | External Medical Summary | Summary of Care ---
Author Name Unknown Organization [facility] Address [address] [facility] [address] Phone [phone] Care Team Providers Care Stereoplotter Operator Name Role Phone AlpaEdyta DO Primary Care Provider [phone] Reason for Visit * Reason Comments Follow Up Encounter Details Date Type Department Care Team (Latest Contact Info) Description 09/26/2023 1:30 PM EDT Office Visit Cardiology, [facility] [address] [facility] [place] [address] Divya Bryan CRNP [address] [facility] [place] [address] Coronary artery disease involving washoe coronary artery of washoe heart without angina pectoris*; PSVT (paroxysmal supraventricular tachycardia) (HCC); NSVT (nonsustained ventricular tachycardia) ([facility]); HTN, goal below 140/90; Dyslipidemia, goal LDL below 70; Insomnia, unspecified type; RLS (restless legs syndrome) Allergies Active Allergy Reactions Criticality Noted Date Comments Niacin Rash,Wheezing High 10/17/2006 Pravachol Muscle pain 04/22/2009 Sulfa Antibiotics Chills, fever, rash documented as of this encounter (statuses as of 09/26/2023) Medications Medication Sig Dispensed Refills Start Date [...] Hour (toPROL XL)Indications:Berger ry artery disease involving [place]hoe coronary artery of washoe heart without angina pectoris,PSVT (paroxysmal supraventricular tachycardia) [...] as of this encounter (statuses as of 09/26/2023) Active Problems Problem Noted Date Diagnosed Date [...] as of this encounter (statuses as of 09/26/2023) Resolved Problems Problem Noted Date Diagnosed Date [...] as of this encounter (statuses as of 09/26/2023) Immunizations Name Administration Dates Next Due Covid-19 [...] Sign Reading Time Taken Comments Blood Pressure 104/66 09/26/2023 1:32 PM EDT Pulse 76 09/26/2023 1:32 PM EDT Temperature - - Respiratory Rate - - Oxygen Saturation - - Inhaled Oxygen Concentration - - Weight 85.3 kg (188 lb) 09/26/2023 1:32 PM EDT Height - - Body Mass Index 26.98 06/21/2023 1:12 PM EST documented in this encounter Progress Notes * Divya Bryan CRNP - 09/26/2023 1:30 PM EDT Cardiology Outpatient Visit 09/26/2023 Primary Bread Stacker: Dr. Gibbs Past medical history: Coronary artery disease Multivessel CAD, 90% mid to late RCA, 40-50% mid LAD, 75% ostial D1, 40% mid left circumflex. Status post PCI to mid to distal RCA with x2 ZEE (2.75 x 12, 2.75 x 18 mm [place]), Medical management of the diagonal branch recommended, [...] follow-up. Was last evaluatedby the undersigned approximately 3 months ago. Patient carries a history of multivessel coronary disease undergoing PCI and stenting as described above in problem list in April of 2023. At his last appointment he was feeling well however has had issues with stamina-- referred to cardiac rehab He has also been following with our Cardio MTM clinic for hyperlipidemia management. He is now on Repatha + zetia. He is also on Vascepa for elevated triglycerides. Today the patient presents feeling well and offers no acute cardiovascular concerns. Denies any exertional chest pain or unusual shortness of breath. Has went back to work and is also going to the gym a few days per week. Lifting weights. Feels well doing so. No palpitations, dizziness, syncope or near syncope. No orthopnea, PND, or increased lower extremity edema. No fever, chills, cough, hematochezia, melena, or hemoptysis. Has been dealing with fatigue but recently his antidepressants have been adjusted with improvement in symptoms. He states he is compliant with all medications and offers no side effects. Has not needed any sublingual nitroglycerin. Does have questions regarding testosterone replacement therapy and if patient would be a candidate. Current Outpatient Medications Medication Sig Dispense Refill Aspirin Adult Low Strength 81 MG Oral Tablet Delayed Release Take 1 Tablet by mouth in the morning. Icosapent Ethyl 1 GM Oral Capsule (Vascepa) Take 2 Capsules by mouth 2 times a day with morning andevening meals. Swallow capsules whole, do not open or break. 360 Capsule 3 metFORMIN HCl ER 500 MG Oral Tablet Extended Release 24 Hour (Glucophage XR) TAKE ONE TABLET BY MOUTH EVERY MORNING AND EVENING 180 Tablet 1 Lisinopril 10 MG Oral Tablet (Prinivil) Take [...] BY MOUTH EVERY MORNING 90 Tablet 3 Repatha SureClick 140 MG/ML Subcutaneous Solution Auto-injector [...] mouth in the morning. 30 Tablet 5 Nitroglycerin 0.4 MG Sublingual Tablet Sublingual (Nitrostat) Place 1 Tablet under the tongue every5 minutes as needed for Pain, Chest. up to 3 doses in 15 minutes (Patient not taking: Reported on 09/26/2023) 25 Tablet 11 Gabapentin 100 MG Oral Capsule (Neurontin) Take 1 capsule by mouth 90 minutes prior to bed. Can titrate dose up to 3 capsules nightly as instructed. 45 Capsule 1 No current facility-administered medications for this [...] performed by Diana Dobbs MD at ENDOSCOPY [facility] CXR 2 VIEWS AP/PA & LATERAL 05/22/2004 pah-normal chest INFORMATION 07/2002 rt knee surgery , has donor ligament Social History Tobacco Use Smoking status: Never Passive exposure: Never Smokeless tobacco: Current Types: Snuff Tobacco comments: chews Vaping Use Vaping Use: Never used Substance Use Topics Alcohol use: No Drug use: No Review of patient's allergies indicates: Allergen Reactions Niacin Rash and Wheezing Pravachol [Pravachol] Muscle pain Sulfa Antibiotics Chills, fever, rash Review of Systems: See HPI for pertinent positives. All others negative, other than those noted in HPI. Physical Exam BP 104/66 | Pulse 76 | Wt 85.3 kg (188 lb) | BMI 26.98 kg/m | BSA 2.05 m General: No acute distress. A+Ox3. HEENT: [...] deficits. PSYCH: Normal. Lab data/imaging study review: Nuclear stress 06/13/2023 The exercise myocardial perfusion imaging study is normal with no evidence of inducible ischemia. Equivocal EKG changes were observed as described below. The patient achieved a moderately high peak workload, 7 minutes 16 seconds on a Bolivar protocol, 10 METs. The exercise test was terminated due to fatigue. No chest discomfort was reported. Gated SPECT imaging reveals normal myocardial thickening and wall motion. The left ventricular ejection fraction was calculated to be >70%. Summary of cardiac catheterization report 05/07/2023: 1. Multi-vessel coronary artery disease -95% late-mid RCA -40 to 50% mid LAD. 75% ostial D1 - 40% mid circumflex 2. Normal intracardiac filling pressure 3. Successful PCI of mid to distal RCA with 2 overlapping drug-eluting stents (2.75 x 12, 2.75 x 18mm Blas; postdilated with 3.0 NC). LISA 04/25/2023 The stress echo is positive [...] and normal perfusion as noted. Echocardiogram at [facility] [place] 04/18/2020 LVEF 60-65% with normal wall thickness and no wall motion abnormalities. Normal diastolic dysfunction. No significant valvular abnormalities. No evidence of PFO/ASD Impression/Plan: 1. Coronary artery disease involving washoe coronary artery of washoe heart without angina pectoris -Multivessel CAD, 90% mid to late RCA, 40-50% mid LAD, 75% ostial D1, 40% mid left circumflex. Status post PCI to mid to distal RCA with x2 ZEE. Medical management of the diagonal branch recommended,05/07/2023 -Nonischemic nuclear stress test 05/2023 -Stable, no exertional angina. 1. Continue dual anti-platelet therapy with aspirin 81 mg daily and Plavix 75 mg daily for a minimum of 1 year uninterrupted. Aspirin 81 mg daily will be lifelong. 2. In terms of testosterone replacement therapy--patient's testosterone level is still within normal range. Given his history of premature coronary disease and stent placement would advise against the use of TRT as this can raise blood pressure as well as hemoglobin/hematocrit. There was also concern regarding lipid levels with the use of TRT. Will cc PCP on this note. 2. PSVT (paroxysmal supraventricular tachycardia) (HCC) 3. NSVT (nonsustained ventricular tachycardia) (HCC) -Palpitations secondary to paroxysmal SVT and nonsustained V-tach per [facility]io 04/2020. 1. Continue metoprolol succinate 25 mg daily. 4. HTN, goal below 140/90 -Well controlled below goal. 1. Continue lisinopril 10 mg daily 5. Dyslipidemia, goal LDL below 70 -LDL controlled, 56. TG 89 1. Continue Repatha and Zetia as ordered. Also on Vascepa for elevated triglyceride. Follows with the Cardio MTM clinic. 6. Insomnia 7. Restless legs syndrome Follows with sleep med. The patient agrees to the above plan and will call with additional questions or concerns. ER with all emergencies advised. Follow-up: Return in about 6 months (around 03/27/2024). | Check-out note: MARILOU I spent a total of 30 minutes on the date of service in preparation, delivery, and documentation ofthe care provided to William Wang excluding any time spent in the performance of separately billed services. BOUCHRA Cortes, Department of Cardiology This chart was completed in part utilizing [employer] Speech Voice Recognition Software. Grammatical errors, random [...] documented in this encounter Nursing Notes * Juan Milligan, RN - 09/26/2023 1:31 PM EDT Examination Room: [address] [place] [address] Name: William Wang Date of : (1965). Reason for Visit: for follow up Interim Hospitalization(s): denies Problems/Concerns: denies Chest Pain/SOB: random chest discomfort over left chest wall. Does not radiate. [facility] Discussed: Not applicable [facility] is a way you can talk to [...] Care Team (Late st Contact Info) Description 10/11/2023 4:00 PM EDT Office Visit [facility] [place] [address] [place] [phone] Ca Kennedy CRNP [address] [place] [address] 10/16/2023 2:40 PM EDT Office Visit Family Medicine [address] [address] Nohemi Avila [address] [place] [address] 11/02/2023 11:30 AM EDT Office Visit [facility] [place] [address] [place] [address] [place] [facility] Cardiology [place] [address] [place] [address] 02/28/2024 2:30 PM EDT Office Visit [facility] [place] [address] [place] [address] Domingo Gibbs DO [address] [place] [address] Scheduled Procedures Name Priority Associated Diagnoses Date/Ti [...] as of this encounter Visit Diagnoses Diagnosis Coronary artery disease involving washoe coronary artery of washoe heart without angina pectoris- Primary PSVT (paroxysmal supraventricular tachycardia) (HCC) Paroxysmal supraventricular tachycardia NSVT (nonsustained ventricular tachycardia) (HCC) Paroxysmal ventricular tachycardia HTN, goal below 140/90 Unspecified essential hypertension Dyslipidemia, goal LDL below 70 Other and unspecified hyperlipidemia Insomnia, unspecified type RLS (restless legs syndrome) Restless legs syndrome (RLS) documented in this encounter Care Teams Stereoplotter Operator Relationship Specialty Start Date End Date Edyta Yuen DO [address] [place] [address] PCP - General Family Medicine 05/16/23 documented as of this encounter
--- OUTSIDE RECORDS SUMMARY | 2024-03-09 17:23 | External Medical Summary | Summary of Care ---
Author Name Unknown Organization [facility] Address [address] [facility] [place] [address] Phone [phone] Care Team Providers Care Cardiovascular Rn Name Role Phone Edyta Yuen DO Primary Care Provider [phone] Reason for Visit * Reason Comments Dosage Adjustment In Person (Anticoag Cl inic) Hyperlipidemia Encounter Details Date Type Department Care Team (Late st Contact Info) Description 11/02/2023 11:30 AM EDT Office Visit Cardiology, [facility] [address] [facility] [place] [address] [facility] Cardiology [place] [address] [facility] [place] [address] Dyslipidemia, goal LDL below 70* Allergies Active Allergy Reactions Criticality Noted Date Comments Niacin Rash,Wheezing High 10/17/2006 Pravachol Muscle pain 04/22/2009 Sulfa Antibiotics Chills, fever, rash documented as of this encounter (statuses as of 11/02/2023) Medications Medication Sig Dispensed Refills Start Date [...] 15 minutes 25 Tablet 11 04/26/2023 Active metFORMIN HCl ER 500 MG Oral [...] LDL goal <100,PSVT (paroxysmal supraventricular tachycardia) ([facility]) Take 1 Tablet by mouth in the morning. 90 Tablet 3 06/13/2023 Active Metoprolol Succinate ER 25 MG Oral Tablet Extended Release 24 Hour (toPROL XL)Indications:Berger ry artery disease involving [place] coronary artery of [place] heart without angina pectoris,PSVT (paroxysmal supraventricular tachycardia) ([facility]),NSVT (nonsustained ventricular tachycardia) ([facility]),HTN, goal below 140/90,Dyslipidemia, goal LDL below 70,Insomnia, [...] as of this encounter (statuses as of 11/02/2023) Active Problems Problem Noted Date Diagnosed Date [...] as of this encounter (statuses as of 11/02/2023) Resolved Problems Problem Noted Date Diagnosed Date [...] as of this encounter (statuses as of 11/02/2023) Immunizations Name Administration Dates Next Due Covid-19 [...] on file documented as of this encounter Patient Instructions * Patient Instructions* Saniya Van RPh - 11/02/2023 11:57 AM EDT Reduce alcohol to 1-2 drinks per day documented in this encounter Progress Notes * Saniya Van RPh - 11/02/2023 11:42 AM EDT PHARMACY CHRONIC DISEASE MANAGEMENT - HYPERLIPIDEMIA HPI: William Wang is a 58 year old year old male. Referred for HLD management by Divya Delaney Diet review: not reviewed Exercise review: lifting weight daily Patient Active Problem List Diagnosis Code HISTORY OF TOBACCO USE Z87.891 Anxiety state F41.1 ADVANCE DIRECTIVE INFORMATION Disorder of intervertebral disc M51.9 Hyperlipidemia LDL goal <100 E78.5 Primary hypertension I10 Current moderate episode of major depressive disorder without prior episode (HCC) F32.1 Hyperprolactinemia ([facility]) E22.1 PSVT (paroxysmal supraventricular tachycardia) ([facility]) I47.10 DM type 2, goal HbA1c < 7% ([facility]) E11.9 Review of patient's allergies indicates: Allergen Reactions [...] PM LDL CHOLESTEROL (DIRECT MEASURE) - [facility] 82 03/17/2022 11:34 AM LDL CHOLESTEROL (DIRECT MEASURE) - [facility] 284 [...] - OUTSIDE LAB 0.792 04/18/2020 12:00 AM Hemoglobin AIC Results: Lab Results Component Value Date/Time HEMOGLOBIN A1C - [facility] 7.0 (H) 05/16/2023 02:18 PM HEMOGLOBIN A1C - [facility] 7.1 (H) 11/24/2022 12:52 PM HEMOGLOBIN A1C - [facility] 6.8 (H) 05/10/2022 11:29 AM Current Cardiac Medication(s): Metoprolol Er 25 mg daily Lisinopril 10 mg daily Repatha 140 mg every 2 weeks Zetia 10 mg daily Vascepa 2 gm BID Plavix 75 mg daily ASA 81 mg daily Current DM Medications: Metformin Er 500 mg BID Assessment & Plan: Uncontrolled HLD -Target LDL <55 -Intolerant to atorvastatin, crestor, and pravastatin--myalgia -Reduce alcohol to 1-2 drinks per day -Lipid panel 3 months Reviewed most recent lipid panel with patient. LDL slightly above goal at 66. TG increased from 89 to 277. At last visit, pt was started on repatha and is tolerating well. Injecting in his thigh. Reports its affordable. Statin intolerant. Continues on zetia and vascepa. Pt feels reason his TG likely increased was due to increase in alcohol consumption. Reports from Apr-August he quit drinking. He is now back to drinking 3-4 drinks per day. Advised reduction in alcohol intake and will repeat lipid panel in 3 months. 2. CAD -Multivessel CAD, 90% mid to late RCA, 40-50% mid LAD, 75% ostial D1, 40% mid left circumflex. Status post PCI to mid to distal RCA with x2 ZEE (2.75 x 12, 2.75 x 18 mm [place]), Medical management of the diagonal branch recommended, 05/07/2023 -Nonischemic nuclear stress test 05/2023 3. Controlled Hypertension -Goal BP <130/80 4. Paroxysmal SVT and NSVT -Per [facility] 04/2020 5. Hx Tobacco use 6. ? TIA -04/2020 7. Controlled Type 2 Diabetes -HbA1c goal <7% Medication changes: none Labs Due: Lipid panel 3 months (ordered) Follow up: 3 months Saniya Van RPh Clinical Pharmacist 11:44 AM, 11/02/23 documented in this encounter Plan of Treatment Upcoming Encounters Date Type Department Care Team (Late st Contact Info) Description 11/16/2023 2:00 PM EDT [facility] [address] [place] [address] Dr [address] [place] [address] Harley Nicole PA-C [address] [place] [address] 02/28/2024 2:30 PM EDT Office Visit Cardiology, [facility] [address] [place] [address] Domingo Gibbs DO [address] [place] [address] 03/07/2024 11:30 AM EDT Office Visit Cardiology [facility] [address] [place] [address] [place] [facility] Card[facility] [place] [address] [place] [address] Scheduled Procedures Name Priority Associated Diagnoses Date/Ti [...] 10) 02/17/2020 02/16/2020 COVID-19 Vaccine (2 - 2022-24 season) 2023 09/24/2020 Diabetic Foot Exam 05/10/2023 [...] hyperlipidemia documented in this encounter Care Teams Cardiovascular Rn Relationship Specialty Start Date End Date Edyta Yuen DO [address] [place] [address] PCP - General Family Medicine 05/16/23 documented as of this encounter
--- OUTSIDE RECORDS SUMMARY | 2024-03-09 17:23 | External Medical Summary | Summary of Care ---
Author Name Unknown Organization [facility] Address [address] [place] [address] Phone [phone] Care Team Providers Care Creative Art Director Name Role Phone AlpaEdyta leon Chloe PUENTES Primary Care Provider [phone] Encounter Details Date Type Department Care Team (Late st Contact Info) Description 01/07/2024 Orders Only Outcomes Research Department [address], [place] [id number] Sulema Flaherty CHRA [employer] Research Other*[id number] Allergies Active Allergy Reactions Criticality Noted Date Comments Niacin Rash,Wheezing High 10/17/2006 Pravachol Muscle pain 04/22/2009 Sulfa Antibiotics Chills, fever, rash documented as of this encounter (statuses as of 01/07/2024) Medications Medication Sig Dispensed Refills Start Date [...] Hour (toPROL XL)Indications:Berger ry artery disease involving [place] coronary artery of [place] heart without angina pectoris,PSVT (paroxysmal supraventricular tachycardia) [...] as of this encounter (statuses as of 01/07/2024) Active Problems Problem Noted Date Diagnosed Date [...] as of this encounter (statuses as of 01/07/2024) Resolved Problems Problem Noted Date Diagnosed Date [...] as of this encounter (statuses as of 01/07/2024) Immunizations Name Administration Dates Next Due Covid-19 [...] 02/28/2024 2:30 PM EDT Office Visit Cardiology, [facility] [address] [place] [address] Domingo Gibbs DO [address] [place] [address] 03/07/2024 11:30 AM EDT [facility] [address] [place] [address] [facility] Cardiology [facility] [address] [place] [address] Scheduled Orders Name Type Priority Associated Diagnoses Orde r Schedule MYCODE SUBSEQUENT ADULT Lab Routine MyCode Research Other*[id number] Every 6 Months for 2 Occurrences starting 01/07/2024 until 01/26/2025 Scheduled Procedures Name Priority Associated Diagnoses Date/Ti [...] of 2) 10/08/2017 Depression Monitoring 02/15/2021 02/16/2020 COVID-19 Vaccine (2 - season) 2023 09/24/2020 Diabetic Foot Exam 05/10/2023 05/10/2022 Diabetic Eye Exam 08/03/2023 08/03/2022, , 08/03/2022, Additional history exists HbA1c 11/14/2023 05/16/2023, 06/0 02/2023, 05/10/2022, Additional history exists Albumin/Creatinine Ratio 11/25/2023 11/24/2022, 10/17 Influenza Vaccine (FLU shot) (#1) 2024 GFR [...] this encounter Visit Diagnoses Diagnosis MyCode Research Other*[id number] documented in this encounter Care Teams Creative Art Director Relationship Specialty Start Date End Date Edyta Yuen DO [address] [place] [address] PCP - General Family Medicine 05/16/23 documented as of this encounter
--- OUTSIDE RECORDS SUMMARY | 2024-03-09 17:23 | External Medical Summary | Summary of Care ---
Author Name Unknown Organization [facility] Address [address] [facility] [place] [address] Phone [phone] Care Team Providers Care [employer] Name Role Phone Alpa Edytapaul Corona DO Primary Care Provider [phone] Reason for Visit * Reason Comments eRx-Medication Refill Encounter Details Date Type Department Care Team (Late st Contact Info) Description 02/21/2024 Refill Cardiology, [facility] [address] [place] [address] Divya Bryan CRNP [address] [place] [address] Dyslipidemia, goal LDL below 70 Allergies Active Allergy Reactions Criticality Noted Date Comments Niacin Rash,Wheezing High 10/17/2006 Pravachol Muscle pain 04/22/2009 Sulfa Antibiotics Chills, fever, rash documented as of this encounter (statuses as of 02/25/2024) Medications Medication Sig Dispensed Refills Start Date End Date Status SM Aspirin Adult Low Strength 81 MG Oral Tablet Delayed Release Take 1 Tablet by mouth in the morning. 04/18/20 20 Active Nitroglycerin 0.4 MG Sublingual Tablet Sublingual [...] Hour (toPROL XL)Indications:Coron maggie artery disease involving [place] coronary artery of [place] heart without angina pectoris,PSVT (paroxysmal supraventricular tachycardia) [...] EVENING 180 Tablet 2 11/13/19 24 Active Nirmatrelvir&Ritonav ir 300/100 20 x 150 MG & 10 x 100MG Oral Tablet Therapy Pack (Paxlovid (300/100)) Take 2 pink tablets of Nirmatrelvir and 1 white tablet of Ritonavir two times a day by mouth. 30 Tablet 01/24/20 24 Active Icosapent Ethyl 1 GM Oral Capsule (Vascepa)Indications :Dyslipidemia, goal LDL below 70 TAKE TWO CAPSULES BY MOUTH MORNING AND EVENING with meals. swallow whole capsules, do not open or break 360 Capsule 02/25/20 24 Active Icosapent Ethyl 1 GM Oral Capsule (Vascepa)Indications :Dyslipidemia, goal LDL below 70 Take 2 Capsules by mouth 2 times a day with morning and evening meals. Swallow capsules whole, do not open or break. 360 Capsule 3 02/28/20 23 024 Discontinued documented as of this encounter (statuses as of 02/25/2024) Active Problems Problem Noted Date Diagnosed Date [...] as of this encounter (statuses as of 02/25/2024) Resolved Problems Problem Noted Date Diagnosed Date [...] as of this encounter (statuses as of 02/25/2024) Immunizations Name Administration Dates Next Due Covid-19 [...] encounter Miscellaneous Notes * Telephone Encounter - Saniya Biares [facility] - 02/25/2024 11:28 AM EDTSigned Prescriptions: Disp Refills Icosapent Ethyl 1 GM Oral Capsule (Vascepa)360 Ca*0 Sig: TAKE TWO CAPSULES BY MOUTH MORNING AND EVENING with meals. swallow whole capsules, do not open or break Authorizing Provider: ARSENIO GUADALUPE Ordering User: SANIYA BAIRES * Telephone Encounter - Amberly Peter [facility] - 02/25/2024 10:58 AM EDTPending Prescriptions: Disp Refills Icosapent Ethyl 1 GM Oral Capsule [Pharmac*360 Ca*0 Sig: TAKE TWO CAPSULES BY MOUTH MORNING AND EVENING with meals. swallow whole capsules, do not open or break * Telephone Encounter - Amberly Peter [facility] - 02/25/2024 10:58 AM EDT Did you pend patient's preferred pharmacy and medication before forwarding?yes Pharmacy: [id number] [address] [facility] Pending Prescriptions: Disp Refills Icosapent Ethyl 1 GM Oral Capsule (Vascep*360 Ca*0 Sig: TAKE TWO CAPSULES BY MOUTH MORNING AND EVENING with meals. swallow whole capsules, do not open or break Last Visit: 11/02/2023 (in office), 08/03/2023 (telemedicine) Next Visit: 02/28/2024 If no future appointments scheduled, and last appointment is greater than a year ago, please schedule patient for a follow-up appointment Last date the medication was ordered: 02-27-2023 Is this request for a controlled substance?No Urine Drug Screen:No results found for this or any previous visit. Patient Phone Numbers Labs: Lab Results Component Value Date/Time CREAT 0.9 05/23/2023 11:23 AM CREAT 0.9 05/04/2020 01:20 PM POTASSIUM 4.2 05/23/2023 11:23 AM POTASSIUM 4.1 04/18/2020 12:00 AM POTASSIUM 4.4 09/02/2019 03:38 PM TSH 1.63 11/24/2022 12:52 PM TSH 0.792 04/18/2020 12:00 AM TSH 2.30 09/02/2019 03:38 PM LDL 66 10/27/2023 09:17 AM LDL 56 06/28/2023 11:43 AM LDL 284 (H) 02/16/2020 08:52 AM LDL 195 (H) 08/23/2015 10:49 AM LDLCALC 78 04/18/2020 12:00 AM ALT 68 (H) 05/23/2023 11:23 AM ALT 24 01/21/2019 03:44 PM HGBA1C 7.0 (H) 05/16/2023 02:18 PM HGBA1C 6 (A) 04/18/2020 12:00 AM * Telephone Encounter - Interface, [facility] - 02/23/2024 7:56 PM EDT Pending Prescriptions: Disp Refills Icosapent Ethyl 1 GM Oral Capsule [Pharmac*360 Ca*0 Sig: TAKE TWO CAPSULES BY MOUTH MORNING AND EVENING with meals. swallow whole capsules, do not open or break---- documented in this encounter Plan of Treatment Upcoming Encounters Date Type Department Care Team (Late st Contact Info) Description 02/28/2024 2:30 PM EDT Office Visit Cardiology, [facility] [address] [place] [address] Arsenio Guadalupe, DO [address] [place] [address] 03/07/2024 11:30 AM EDT Office Visit Cardiology, [facility] [address] [place] [address] [facility] Cardiology [facility] [address] [place] [address] Scheduled Procedures Name Priority Associated Diagnoses Date/Ti [...] 11/25/2023 11/24/2022, 10/17 COVID-19 Vaccine ( - 2022- season) 2024 09/24/2020 Influenza Vaccine (FLU shot) [...] hyperlipidemia documented in this encounter Care Teams [employer] Relationship Specialty Start Date End Date Edyta Yuen DO [address] [place] [address] PCP - General Family Medicine 05/16/23 documented as of this encounter
--- OUTSIDE RECORDS SUMMARY | 2024-03-09 17:23 | External Medical Summary | Summary of Care ---
Author Name Unknown Organization [facility] Address [address] [facility] [place] [address] Phone [phone] Care Team Providers Care Oil Pipeline Dispatcher Name Role Phone Edyta Yuen DO Primary Care Provider [phone] Reason for Visit * Reason Onset Date Comments Appointment 10/26/2023 Encounter Details Date Type Department Care Team (Late st Contact Info) Description 10/26/2023 Telephone Cardiology, [facility] [address] [place] [address] Domingo Gibbs DO [address] [place] [address] Appointment Allergies Active Allergy Reactions Criticality Noted Date Comments Niacin Rash,Wheezing High 10/17/2006 Pravachol Muscle pain 04/22/2009 Sulfa Antibiotics Chills, fever, rash documented as of this encounter (statuses as of 11/14/2023) Medications Medication Sig Dispensed Refills Start Date [...] Hour (toPROL XL)Indications:Berger ry artery disease involving [place] coronary artery of [place] heart without angina pectoris,PSVT (paroxysmal supraventricular tachycardia) [...] as of this encounter (statuses as of 11/14/2023) Active Problems Problem Noted Date Diagnosed Date [...] as of this encounter (statuses as of 11/14/2023) Resolved Problems Problem Noted Date Diagnosed Date [...] as of this encounter (statuses as of 11/14/2023) Immunizations Name Administration Dates Next Due Covid-19 [...] encounter Miscellaneous Notes * Telephone Encounter - José Sanabria OSA - 11/14/2023 10:38 AM EDT Patient scheduled on: 03/07/2024 Status: Sumaya Time: 11:30 AM Length: 10 Visit Type: DOSAGE ADJ IN PERSON [[id number]] Reg Status: Verified Copay: $0.00 Provider: [facility] [place] * Telephone Encounter - José Sanabria OSA - 10/30/2023 11:30 AM EDT Patient called back, LM to call back, and I also stated I will call back by the end of the day as well. * Telephone Encounter - José Sanabria OSA - 10/29/2023 12:03 PM EDT LM for patient to call to change appt * Telephone Encounter - Kaylen Cardenas OSA - 10/26/2023 1:02 PM EDT Person calling: William Relationship to patient: self Number to return call: [phone] Reason for call: pt calling in to reschedule 11/02/23 appt stating he needs after 1145 am and NO Sunday's - please advise Pharmacy: NA Provider Name: Dr Edgemont documented in this encounter Plan of Treatment Upcoming Encounters Date Type Department Care Team (Late st Contact Info) Description 11/16/2023 2:00 PM EDT [facility] [address] [place] [address] [address] [place] [address] Harley Nicole PA-C [address] [place] [address] 02/28/2024 2:30 PM EDT Office Visit Cardiology, [facility] [address] [place] [address] Domingo Gibbs DO [address] [place] [address] 03/07/2024 11:30 AM EDT Office Visit Cardiology, [facility] [address] [place] [address] [facility] Cardiology [facility] [address] [place] [address] Scheduled Procedures Name Priority Associated Diagnoses Date/Ti [...] filedocumented as of this encounter Care Teams Oil Pipeline Dispatcher Relationship Specialty Start Date End Date Edyta Yuen DO [address] [place] [address] PCP - General Family Medicine 05/16/23 documented as of this encounter
--- OUTSIDE RECORDS SUMMARY | 2024-03-09 17:23 | External Medical Summary | Summary of Care ---
Author Name Unknown Organization [facility] Address [address] [place] [address] Phone [phone] Care Team Providers Care History Card Clerk Name Role Phone Edyta Yuen DO Primary Care Provider [phone] Reason for Visit * Reason Comments Outpatient Testing Encounter Details Date Type Department Care Team (Late st Contact Info) Description 09/15/2023 10:40 AM EDT Laboratory Laboratory, [facility] [address] [place] [phone] [facility] [address] [place] [address] Sexual dysfunction Allergies Active Allergy Reactions Criticality Noted Date Comments Niacin Rash,Wheezing High 10/17/2006 Pravachol Muscle pain 04/22/2009 Sulfa Antibiotics Chills, fever, rash documented as of this encounter (statuses as of 09/15/2023) Medications Medication Sig Dispensed Refills Start Date [...] XR)Indications:DM type 2, goal HbA1c < 7% ([facility]) TAKE ONE TABLET BY MOUTH EVERY MORNING AND EVENING 180 Tablet 1 05/22/2023 Active Lisinopril 10 MG Oral Tablet (Prinivil)Indications :HTN, goal below 140/90 Take 1 Tablet by mouth in the morning. 90 Tablet 3 05/25/2023 Active Clopidogrel Bisulfate 75 MG Oral Tablet (pLAVix)Indications:H yperlipidemia LDL goal <100,PSVT (paroxysmal supraventricular tachycardia) ([facility]) Take 1 Tablet by mouth in the morning. 90 Tablet 3 06/13/2023 Active Metoprolol Succinate ER 25 MG Oral Tablet Extended Release 24 Hour (toPROL XL)Indications:Berger ry artery disease involving [place] coronary artery of [place] heart without angina pectoris,PSVT (paroxysmal supraventricular tachycardia) ([facility]),NSVT (nonsustained ventricular tachycardia) ([facility]),HTN, goal below 140/90,Dyslipidemia, goal LDL [...] as of this encounter (statuses as of 09/15/2023) Active Problems Problem Noted Date Diagnosed Date [...] as of this encounter (statuses as of 09/15/2023) Resolved Problems Problem Noted Date Diagnosed Date [...] as of this encounter (statuses as of 09/15/2023) Immunizations Name Administration Dates Next Due Covid-19 [...] Care Team (Late st Contact Info) Description 09/26/2023 1:30 PM EDT Office Visit Cardiology, [facility] [address] [place] [address] Divya Bryan CRNP [address] [place] [address] 10/11/2023 4:00 PM EDT Office Visit [facility] [address] [place] [phone] Ca Kennedy CRNP [address] [place] [address] 10/16/2023 2:40 PM EDT Office Visit Family Medicine [address] [place] [address] Nohemi Avila CRNP [address] [place] [address] [place] [address] 11/02/2023 11:30 AM EDT Office Visit Cardiology, [facility] [address] [place] [address] [facility] Cardiology [facility] [address] [place] [address] Pending Results Name Type Priority Associated Diagnoses Date /Time TESTOSTERONE: TOTAL, FREE AND BIOAVAILABLE Lab Routine Sexual dysfunction 09/15/2023 10:27 AM EDT Scheduled Procedures Name Priority Associated [...] Vaccine (2 - 2022- season) 2023 09/24/2020 Influenza Vaccine (FLU shot) (#1) 2023 Diabetic Foot Exam 05/10/2023 05/10/2022 Diabetic Eye Exam 08/03/2023 08/03/2022, , 08/03/2022, Additional history exists HbA1c 11/14/2023 05/16/2023, 06/0 02/2023, 05/10/2022, Additional history exists Albumin/Creatinine Ratio 11/25/2023 11/24/2022, 10/17 GFR 05/23/2024 05/23/2023, 04/19, 02/08/2023, Additional history [...] Diagnoses Diagnosis Sexual dysfunction Psychosexual dysfunction, unspecified documented in this encounter Care Teams History Card Clerk Relationship Specialty Start Date End Date Edyta Yuen DO [address] [place] [address] PCP - General Family Medicine 05/16/23 documented as of this encounter
--- OUTSIDE RECORDS SUMMARY | 2024-03-09 17:23 | External Medical Summary | Summary of Care ---
Author Name Unknown Organization [facility] Address [address] [place] [address] Phone [phone] Care Team Providers Care Jig Bore Tool Maker Name Role Phone Edyta Yuen DO Primary Care Provider [phone] Reason for Referral * Evaluate & Treat - Unlimited Visits (Within 10 days (routine)) - Pending Review Specialty Diagnoses / Procedures Referred By Katerin reilly Referred To Contact Urology Diagnoses Sexual dysfunction Nohemi Avila CRNP [address] [place] [address] [place] [address] Referral ID Status Reason Start Date Expiration Date Visits Requested Visits Authorized [id number] Pending Review Specialty Services Required 11/01/[phone] Question Answer Referral Priority Within 10 days (routine) Where should this appointment be scheduled? [facility] What is the patient being referred for? ED Reason for Visit * Reason Comments Re-Check Encounter Details Date Type Department Care Team (Late st Contact Info) Description 11/01/2023 12:20 PM EDT Office Visit Family Medicine [address] [place] [phone] Nohemi Avila CRNP [address] [place] [address] [place] [address] Current moderate episode of major depressive disorder without prior episode (HCC)*; Sexual dysfunction; Anxiety state Allergies Active Allergy Reactions Criticality Noted Date Comments Niacin Rash,Wheezing High 10/17/2006 Pravachol Muscle pain 04/22/2009 Sulfa Antibiotics Chills, fever, rash documented as of this encounter (statuses as of 11/01/2023) Medications Medication Sig Dispensed Refills Start Date [...] XR)Indications:DM type 2, goal HbA1c < 7% ([facility]) TAKE ONE TABLET BY MOUTH EVERY MORNING AND EVENING 180 Tablet 1 05/22/2023 Active Lisinopril 10 MG Oral Tablet (Prinivil)Indications :HTN, goal below 140/90 Take 1 Tablet by mouth in the morning. 90 Tablet 3 05/25/2023 Active Clopidogrel Bisulfate 75 MG Oral Tablet (pLAVix)Indications:H yperlipidemia LDL goal <100,PSVT (paroxysmal supraventricular tachycardia) ([facility]) Take 1 Tablet by mouth in the morning. 90 Tablet 3 06/13/2023 Active Metoprolol Succinate ER 25 MG Oral Tablet Extended Release 24 Hour (toPROL XL)Indications:Berger ry artery disease involving [place] coronary artery of [place] heart without angina pectoris,PSVT (paroxysmal supraventricular tachycardia) ([facility]),NSVT (nonsustained ventricular tachycardia) ([facility]),HTN, goal below 140/90,Dyslipidemia, goal LDL below 70,Insomnia, [...] as of this encounter (statuses as of 11/01/2023) Active Problems Problem Noted Date Diagnosed Date [...] as of this encounter (statuses as of 11/01/2023) Resolved Problems Problem Noted Date Diagnosed Date [...] as of this encounter (statuses as of 11/01/2023) Immunizations Name Administration Dates Next Due Covid-19 [...] Sign Reading Time Taken Comments Blood Pressure 130/78 11/01/2023 12:08 PM EDT Pulse 68 11/01/2023 12:08 PM EDT Temperature 36.3 C (97.3 F) 11/01/2023 12:08 PM E DT Respiratory Rate 16 11/01/2023 12:08 PM EDT Oxygen Saturation - - Inhaled Oxygen Concentration - - Weight 81.6 kg (180 lb) 11/01/2023 12:08 PM EDT Height - - Body Mass Index 25.83 06/21/2023 1:12 PM EST documented in this encounter Nursing Notes * Marry Hyde RN - 11/01/2023 12:11 PM EDT Pt here for follow up of medication, also had labs for testosterone, to discuss documented in this encounter Plan of Treatment Upcoming Encounters Date Type Department Care Team (Late st Contact Info) Description 11/02/2023 11:30 AM EDT Office Visit Cardiology, [facility] [address] [place] [address] [facility] Cardiology [facility] [address] [place] [address] 02/28/2024 2:30 PM EDT Office Visit Cardiology, [facility] [address] [place] [address] Domingo Gibbs, [address] [place] [address] Scheduled Procedures Name Priority Associated Diagnoses Date/Ti me COLONOSCOPY FLEXIBLE PROXIMAL DIAGNOSTIC Recall Screen for colon cancer Scheduled Referrals Name Type Priority Associated Diagnoses Orde r Schedule ADULT/PEDS UROLOGY REFERRAL OP Referral Within 10 days (routine) Sexual dysfunction Ordered: 11/01/2023 Health Maintenance Due Date Last Done Comments [...] 08/03/2022, Additional history exists HbA1c 11/14/2023 05/16/2023, 0602/2023, 05/10/2022, Additional history exists Albumin/Creatinine Ratio 11/25/2023 [...] as of this encounter Visit Diagnoses Diagnosis Current moderate episode of major depressive disorder without prior episode (HCC)- Primary Sexual dysfunction Psychosexual dysfunction, unspecified Anxiety state Anxiety state, unspecified documented in this encounter Care Teams Jig Bore Tool Maker Relationship Specialty Start Date End Date Edyta Yuen DO [address] [place] [address] PCP - General Family Medicine 05/16/23 documented as of this encounter
--- OUTSIDE RECORDS SUMMARY | 2024-03-09 17:23 | External Medical Summary ---
Author Name Unknown Address Unknown Organization K01:LABORATORY [facility] - [address] [place] [address] Laboratory Report Ordering Provider Test Date Status OSEI SMITH 10/27/2023 09:17:58 Final Observation Date Value Abnormality Reference (Units ) Status LDL, (direct) 10/27/2023 09:17:58 66 <=129 (mg/dL) Final LDL Cholesterol Reference Ra nges (mg/dL):
<70 Target level for high risk ASCVD patient
<100 Optimal for general population
100-129 Near optimal for general population
130-159 Borderline high
160-189 High
>=190 Very high Performing Location LABORATORY [facility] - [address] [place] [address]
--- OUTSIDE RECORDS SUMMARY | 2024-03-09 17:23 | External Medical Summary | Summary of Care ---
Author Name Unknown Organization [facility] Address [address] [facility] [address] Phone [phone] Care Team Providers Care Disability Liaison Officer Name Role Phone Edyta Yuen DO Primary Care Provider [phone] Reason for Visit * Reason Onset Date Comments Appointment 11/01/2023 Encounter Details Date Type Department Care Team (Late st Contact Info) Description 11/01/2023 Telephone Family Practice [facility] [address] [place] [address] Edyta Yuen DO [address] [place] [address] Appointment Allergies Active Allergy Reactions Criticality Noted [...] yperlipidemia LDL goal <100,PSVT (paroxysmal supraventricular tachycardia) ([facility]) Take 1 Tablet by mouth in the morning. 90 Tablet 3 06/13/2023 Active Metoprolol Succinate ER 25 MG Oral Tablet Extended Release 24 Hour (toPROL XL)Indications:Berger ry artery disease involving [place] coronary artery of [place] heart without angina pectoris,PSVT (paroxysmal supraventricular tachycardia) ([facility]),NSVT (nonsustained ventricular tachycardia) ([facility]),HTN, goal below 140/90,Dyslipidemia, goal LDL [...] encounter Miscellaneous Notes * Telephone Encounter - Yehuda Chambers OSA - 11/01/2023 2:18 PM EDT Pt self schedule on the patient portal for Video visit on 11/16/23. * Telephone Encounter - Kasandra Madera OSA - 11/01/2023 12:52 PM EDT I attempted to schedule patient for [facility] or another location but patient refused location. Pt would prefer to be seen at [facility]. No availability came up for me. Would you please assist with scheduling this appt? Thank you! documented in this encounter Plan of Treatment Upcoming Encounters Date Type Department Care Team (Late st Contact Info) Description 11/02/2023 11:30 AM EDT Office Visit Cardiology, [facility] [address] [address] [facility] Cardiology [facility] [address] [address] 11/16/2023 2:00 PM EDT Telemedicine Urology [facility] Maria R Rios [address] [place] [address] Dr [address] [place] [address] Harley Nicole PA-C [address] [place] [address] 02/28/2024 2:30 PM EDT Office Visit Cardiology, [facility] [address] [place] [address] Domingo Gibbs, [address] [place] [address] Scheduled Procedures Name Priority Associated Diagnoses Date/Ti [...] filedocumented as of this encounter Care Teams Disability Liaison Officer Relationship Specialty Start Date End Date Edyta Yuen DO [address] [place] [address] PCP - General Family Medicine 05/16/23 documented as of this encounter
--- OUTSIDE RECORDS SUMMARY | 2024-03-09 17:23 | External Medical Summary ---
Author Name Unknown Address Unknown Organization K01:[facility] – [place] - [address] [place] [address] Laboratory Report Ordering Provider Test Date Status OSEI SMITH 10/27/2023 09:17:58 Final Observation Date Value Abnormality Reference (Units ) Status Triglyceride 10/27/2023 09:17:58 277 Above high normal <=174 (mg/dL) Final Triglyceride Reference Range s (mg/dL):
<150 Acceptable
150-174 Borderline high
175-499 High
>=500 Very high Cholesterol 10/27/2023 09:17:58 168 <200 (mg /dL) Final Total Cholesterol Reference Ranges (mg/dL):
<200 Desirable
200-239 Borderline high
>=240 High HDL 10/27/2023 09:17:58 66 >39 (mg/dL ) Final HDL Cholesterol Reference Ra nges (mg/dL):
>=60 High (Desirable)
<50 Low (Undesirable) For Females
<40 Low (Undesirable) For Males NON-HDL CHOLESTEROL 10/27/2023 09:17:58 102 <=159 (mg/dL) Final Non-HDL Cholesterol Referenc e Range (mg/dL):
<100 Target level for high risk ASCVD patient
<130 Optimal for general population
130-159 Near optimal for general population
160-189 Borderline High
190-219 High
>=220 Very High Performing Location [facility] - [address] [place] [address]
--- OUTSIDE RECORDS SUMMARY | 2024-03-09 17:23 | External Medical Summary | Summary of Care ---
Author Name Unknown Organization [facility] Address [address] [facility] [place] [address] Phone [phone] Care Team Providers Care Umbrella Frame Maker Name Role Phone Edyta Yuen DO Primary Care Provider [phone] Encounter Details Date Type Department Care Team (Late st Contact Info) Description 03/01/2024 Orders Only PATIENT PORTAL DO NOT DELETE THIS DEPT USED BY [place] [id number] Allergies Active Allergy Reactions Criticality Noted Date Comments Niacin Rash,Wheezing High 10/17/2006 Pravachol Muscle pain 04/22/2009 Sulfa Antibiotics Chills, fever, rash documented as of this encounter (statuses as of 03/01/2024) Medications Medication Sig Dispensed Refills Start Date [...] Hour (toPROL XL)Indications:Berger ry artery disease involving [place] coronary artery of [place] heart without angina pectoris,PSVT (paroxysmal supraventricular tachycardia) ([facility]),NSVT (nonsustained ventricular tachycardia) ([facility]),HTN, goal below 140/90,Dyslipidemia, goal LDL [...] XR)Indications:DM type 2, goal HbA1c < 7% ([facility]) TAKE ONE TABLET BY MOUTH [...] 15 minutes 25 Tablet 11 02/28/2024 Active documented as of this encounter (statuses as of 03/01/2024) Active Problems Problem Noted Date Diagnosed Date [...] as of this encounter (statuses as of 03/01/2024) Resolved Problems Problem Noted Date Diagnosed Date [...] as of this encounter (statuses as of 03/01/2024) Immunizations Name Administration Dates Next Due Covid-19 [...] 03/07/2024 11:30 AM EDT Office Visit Cardiology, [facility] [address] [address] [facility] Cardiology [facility] [place] [address] 03/17/2024 8:00 AM EDT Imaging [facility] [address] [place] [phone] Gw, Excess Time Radiology [address] [place] [address] 04/03/2024 11:00 AM EDT Office Visit Cardiology, [facility] [address] [place] [address] Domingo Gibbs, DO [address] [place] [address] Scheduled Procedures Name Priority Associated Diagnoses Date/Ti [...] filedocumented as of this encounter Care Teams Umbrella Frame Maker Relationship Specialty Start Date End Date Edyta Yuen DO [address] [place] [address] PCP - General Family Medicine 05/16/23 documented as of this encounter
--- OUTSIDE RECORDS SUMMARY | 2024-03-09 17:23 | External Medical Summary | Summary of Care ---
Author Name Unknown Organization [facility] Address [address] [place] [address] Phone [phone] Care Team Providers Care Director Erp Name Role Phone AlpaEdyta DO Primary Care Provider [phone] Reason for Visit * Reason Comments Acute Encounter Details Date Type Department Care Team (Late st Contact Info) Description 09/14/2023 12:20 PM EDT Office Visit Family Medicine [address] [phone] Nohemi Avila [address] [place] [address] Sexual dysfunction*; Current moderate episode of major depressive disorder without prior episode (HCC) Allergies Active Allergy Reactions Criticality Noted Date Comments Niacin Rash,Wheezing High 10/17/2006 Pravachol Muscle pain 04/22/2009 Sulfa Antibiotics Chills, fever, rash documented as of this encounter (statuses as of 09/14/2023) Medications Medication Sig Dispensed Refills Start Date [...] goal <100,PSVT (paroxysmal supraventricular tachycardia) ([facility]) Take 1 Tablet by mouth in the morning. 90 Tablet 3 06/13/2023 Active Metoprolol Succinate ER 25 MG Oral Tablet Extended Release 24 Hour (toPROL XL)Indications:Berger ry artery disease involving [place] coronary artery of [place] heart without angina pectoris,PSVT (paroxysmal supraventricular tachycardia) ([facility]),NSVT (nonsustained ventricular tachycardia) ([facility]),HTN, goal below 140/90,Dyslipidemia, goal LDL below 70,Insomnia, [...] as of this encounter (statuses as of 09/14/2023) Active Problems Problem Noted Date Diagnosed Date [...] as of this encounter (statuses as of 09/14/2023) Resolved Problems Problem Noted Date Diagnosed Date [...] as of this encounter (statuses as of 09/14/2023) Immunizations Name Administration Dates Next Due Covid-19 [...] Sign Reading Time Taken Comments Blood Pressure 122/70 09/14/2023 12:21 PM EDT Pulse 84 09/14/2023 12:21 PM EDT Temperature 36.6 C (97.8 F) 09/14/2023 12:21 PM E DT Respiratory Rate 16 09/14/2023 12:21 PM EDT Oxygen Saturation - - Inhaled Oxygen Concentration - - Weight 83.6 kg (184 lb 5 oz) 09/14/2023 12:21 PM EDT Height - - Body Mass Index 26.45 06/21/2023 1:12 PM EST documented in this encounter Nursing Notes * Shannan Nagy LPN - 09/14/2023 12:19 PM EDT Depression. documented in this encounter Plan of Treatment Upcoming Encounters Date Type Department Care Team (Late st Contact Info) Description 09/26/2023 1:30 PM EDT Office Visit Cardiology, [facility] [address] [address] Divya Bryan CRNP [address] [place] [address] 10/11/2023 4:00 PM EDT Office Visit [facility] [address] [facility] [place] [phone] Ca Kennedy CRNP [address] [facility] [place] [address] 10/16/2023 2:40 PM EDT Office Visit Family Medicine [address] [phone] Nohemi Avila CRNP [address] [place] [address] [place] [address] 11/02/2023 11:30 AM EDT Office Visit Cardiology, [facility] [address] [place] [address] [facility] Cardiology [facility] [address] [facility] [place] [address] Scheduled Orders Name Type Priority Associated Diagnoses Orde r Schedule TESTOSTERONE: TOTAL, FREE AND BIOAVAILABLE Lab Routine Sexual dysfunction Expected: 09/14/2023 (Approximate), Expires: 09/13/2024 Scheduled Procedures Name Priority Associated Diagnoses Date/Ti [...] Vaccine (2 - 2022-24 season) 2023 09/24/2020 Influenza Vaccine (FLU shot) [...] of this encounter Visit Diagnoses Diagnosis Sexual dysfunction- Primary Psychosexual dysfunction, unspecified Current moderate episode of major depressive disorder without prior episode (HCC) documented in this encounter Care Teams Director Erp Relationship Specialty Start Date End Date Edyta Yuen DO [address] [place] [address] PCP - General Family Medicine 05/16/23 documented as of this encounter
[2024-03-09] MEDS: ASPIRIN CHEW 324 MG PO STA (17:28)
--- NOTE | 2024-03-09 17:39 | Emergency Department Note ---
Impression & Plan Chest pain ED Provider Note NAME: ANAYELI RAJAN III AGE: 58 SEX: M : 1965 ARRIVES VIA: Walk-In INFORMANT: Patient, ED PROVIDER(S): Gustabo De Leon DO CHIEF COMPLAINT: Chest pain HPI: The patient is a 58-year-old male who presented to the emergency department for an evaluation of chest pain. The patient describes left-sided chest pain which began over the course the last several days. Initially it was intermittent. He did notice ongoing pain since this morning so he took some nitroglycerin. He had no relief of his symptoms so he presented to the emergency department. The patient has a history of coronary artery disease with stenting last April. The patient denies having any recent trauma. He denies having any shortness of breath or leg swelling. He started noticing some tenderness that went into the left side of his neck. For this reason he was concerned that this could be cardiac related and he presented to the emergency department for further evaluation. ROS: See above HPI for pertinent positives & negatives. A total of 10 systems reviewed and were otherwise negative. PAST MEDICAL HISTORY: See Below PAST SURGICAL HISTORY: See Below FAMILY HISTORY: See Below SOCIAL HISTORY: See Below HOME MEDICATIONS: See Below ALLERGIES: See Below VITALS: See Below PHYSICAL EXAMINATION: GENERAL: Patient is awake alert in no acute distress patient is resting comfortably and showing no signs of anxiety EYES: The conjunctivae are clear. The pupils are round and reactive. EARS, NOSE, MOUTH AND THROAT: The nose is without any evidence of any deformity. NECK: The neck is nontender and supple. RESPIRATORY: Normal respiratory effort is noted there is no evidence of wheezing rhonchi or rales CARDIOVASCULAR: Regular rate and rhythm noted there no murmurs rubs or gallops normal S1 normal S2. GASTROINTESTINAL: The abdomen is soft. Abdomen is nontender. MUSCULOSKELETAL/EXTREMITIES: There is no evidence of gross deformity full range of motion is noted in the hips and shoulders. SKIN: There is no obvious evidence of any rash. There are no petechiae, pallor or cyanosis noted. NEUROLOGIC: Patient is awake alert and oriented x3. Gait was steady. MEDICAL DECISION MAKING: The patient is a 58-year-old male who has a history of coronary artery disease who presented to the emergency department for an evaluation of chest pain. The patient described anterior chest pain. He did have some radiation of the pain. I discussed patient's laboratory and radiographic studies with him. I discussed the limitations of the emergency room workup or chest pain with him. Ultimately the patient was felt to be at high risk. He had serial troponins in the emergency department that were normal but pain continued. He was treated with aspirin. I felt the patient might be a better candidate for inpatient management. For this reason I discussed his condition with the on-call [facility] hospitalist. Triage Nursing notes reviewed. Prior medical records reviewed Vital Signs: reviewed and remarkable for no significant abnormalities Differential diagnosis: Cardiac ischemia, aortic dissection, pulmonary embolism, pneumothorax, pneumonia, pericarditis, myocarditis, esophageal rupture, GERD, cholecystitis, pancreatitis, musculoskeletal, as well as other pathologies. ER treatment provided: See below Diagnostics interpreted by me: ECG: EKG was obtained in the emergency department. My interpretation is normal sinus rhythm at 69 bpm. There is no ectopy. Nonspecific ST segment abnormalities were noted. This was compared to a tracing from May 08, 2023. No changes were noted. Cardiac Monitoring: An order was placed for continuous cardiac monitoring. The monitor shows a rate of 66 bpm with sinus rhythm. Laboratory studies: As stated above and show below. Imaging studies: See below. Radiographic imaging was reviewed by myself Consultation(s): I discussed this case with Dr. Schroeder who [facility]. Past Med/Surg History Problem List (Updated 03/09/24 @ 23:01 by Gustabo De Leon DO) CAD (coronary artery disease) Alcohol use Tobacco use Anxiety Diabetes mellitus, type II Abnormal cardiovascular stress test (Acute) Chest pain (Acute) Left leg weakness (Acute) Stroke-like symptom (Acute) Hypertension (Acute) Left leg weakness Left leg numbness Stroke-like symptoms HLD (hyperlipidemia) H/O: HTN (hypertension) Surgical History History of colonoscopy Family History Father Sudden age 45 Mother Diabetes Social History Smoking Status: Current every day smoker Tobacco Type: Smokeless Tobacco (Dip or Chew) Second Hand Exposure: No; Do You Dip or Chew Tobacco: Yes; Tobacco Cessation Education Requested by Patient: No Hx Alcohol Use: No Hx Substance Use: No Preferred Language: French Communication Ability: Effective 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 Locomotive 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/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 Required: No Beliefs That Will Affect Care: None marital status: Current Living Situation: Family Current Living Situation Comment: home with Feels Safe at Home: Yes Safety Concerns: Feels Safe At This Time Assistive Devices: Glasses Allergies Allergies Allergy/AdvReac Type Severity Reaction Status Date / Time niacin Allergy RASH/ Unverified 05/04/23 17:54 DIFFICULTY BREATHING Sulfa (Sulfonamide Allergy RASH/ Unverified 05/04/23 17:54 Antibiotics) DIFFICULTY BREATHING pravastatin [From Pravachol] AdvReac Muscle Pain Verified 05/04/23 17:54 Home Meds Home Medications Medication Instructions Recorded Confirmed atorvastatin 80 mg tablet (Lipitor) 80 mg PO DAILY 04/17/20 03/09/24 duloxetine 60 mg capsule,delayed 60 mg PO DAILY 04/17/20 03/09/24 release aspirin 81 mg tablet,delayed 81 mg PO DAILY 05/04/23 03/09/24 release ezetimibe 10 mg tablet 10 mg PO DAILY 05/04/23 03/09/24 hydrochlorothiazide 12.5 mg tablet 12.5 mg PO QAM 05/04/23 03/09/24 icosapent ethyl 1 gram capsule 2 g PO BIDM 05/04/23 03/09/24 lisinopril 20 mg tablet 20 mg PO DAILY 05/04/23 03/09/24 metformin 500 mg tablet,extended 500 mg PO AMPM 05/04/23 03/09/24 release 24 hr metoprolol succinate 25 mg 25 mg PO DAILY 05/04/23 03/09/24 tablet,extended release 24 hr nitroglycerin 0.4 mg sublingual 0.4 mg sublingual DIRECTED PRN 05/04/23 03/09/24 tablet Chest Pain evolocumab 140 mg/mL subcutaneous mg subcut WK 03/09/24 pen injector (Victor Manuel Padilla) thiamine HCl (vitamin B1) 100 mg 100 mg PO HS 03/09/24 03/09/24 tablet Previous Rx's Medication Instructions Recorded clopidogrel 75 mg tablet 75 mg PO QAM #30 tabs 05/08/23 folic acid 1 mg tablet 1 mg PO QAM #30 tabs 05/08/23 multivitamin with folic acid 400 1 tab PO QAM #30 tabs 05/08/23 mcg tablet (Daily-Bakari (with folic acid)) Results & Data (ED) Vital Signs Vital Signs - 24 hr 03/09/24 17:21 03/09/24 17:29 03/09/24 18:15 Temperature 36.5 C Temperature Source Temporal Artery Scan Pulse Rate 87 Pulse Rate [Apical] 68 71 Respiratory Rate 20 16 20 Respiratory Effort / Characteristics Non-Labored Spontaneous Non-Labored Spontaneous Non-Labored Spontaneous Respiratory Depth Normal Normal Normal Blood Pressure 149/79 H Blood Pressure [Right Arm] 136/86 136/30 L Blood Pressure Mean 102 Blood Pressure Mean [Right Arm] 102 65 Pulse Oximetry 97 98 Oxygen Delivery Method Room Air Room Air Sepsis Recent Fever Within 48 Hours No Sepsis New/Unexplained Change in Mental Status No Sepsis Action Taken by Nursing No Action Required 03/09/24 18:57 03/09/24 20:00 03/09/24 21:39 Temperature Temperature Source Pulse Rate Pulse Rate [Apical] 67 66 68 Respiratory Rate 17 19 18 Respiratory Effort / Characteristics Respiratory Depth Blood Pressure Blood Pressure [Right Arm] 129/95 155/96 H 147/98 H Blood Pressure Mean Blood Pressure Mean [Right Arm] 106 115 114 Pulse Oximetry 97 97 Oxygen Delivery Method Room Air Room Air Sepsis Recent Fever Within 48 Hours Sepsis New/Unexplained Change in Mental Status Sepsis Action Taken by Nursing 03/09/24 22:23 03/09/24 22:50 Temperature 36.9 C Temperature Source Oral Pulse Rate Pulse Rate [Apical] 67 66 Respiratory Rate 19 19 Respiratory Effort / Characteristics Non-Labored Spontaneous Respiratory Depth Normal Blood Pressure Blood Pressure [Right Arm] 149/99 H 125/89 Blood Pressure Mean Blood Pressure Mean [Right Arm] 115 101 Pulse Oximetry 99 98 Oxygen Delivery Method Room Air Room Air Sepsis Recent Fever Within 48 Hours Sepsis New/Unexplained Change in Mental Status Sepsis Action Taken by Skilled Nursing Medications Current Medication List: was personally reviewed by me Laboratory Data Attestation: I reviewed the patient's lab results. 03/09/24 17:37 03/09/24 17:37 Lab Results 03/09/24 03/09/24 Range/Units 17:37 19:42 WBC 7.61 (4.8-10.8) K/ul RBC 4.41 L (4.70-6.10) M/uL Hgb 15.2 (14.0-18.0) g/dl Hct 44.9 (42.0-52.0) % MCV 101.8 H (80.0-100.0) fL MCH 34.5 H (25.0-34.0) pg MCHC 33.9 (32.0-36.0) g/dL RDW Std Deviation 46.5 H (36.4-46.3) fL RDW Coeff of Lea 12.4 (11.5-14.5) % Plt Count 180 (130-400) K/uL MPV 10.4 (9.4-12.4) fL Immature Gran % (Auto) 0.4 % Neut % (Auto) 57.4 % Lymph % (Auto) 27.2 % Meigs % (Auto) 11.6 % Eos % (Auto) 2.6 % Baso % (Auto) 0.8 % Neut # (Auto) 4.37 (1.40-6.50) K/uL Lymph # (Auto) 2.07 (1.20-3.40) K/uL Meigs # (Auto) 0.88 H (0.11-0.59) K/uL Eos # (Auto) 0.20 (0.00-0.50) K/uL Baso # (Auto) 0.06 (0.00-0.20) K/uL Immature Gran # (Auto) 0.03 (0.01-0.20) K/uL PT 10.6 (9.0-12.0) Seconds INR 1.0 (0.9-1.1) APTT 24 (21-31) Seconds PTT Ratio 0.9 Sodium 141 (136-145) mmol/L Potassium 3.7 (3.5-5.1) mmol/L Chloride 103 (98-107) mmol/L Carbon Dioxide 31 (21-32) mmol/L Anion Gap 7 (3-11) BUN 12 (6-23) mg/dl Creatinine 0.91 (0.6-1.4) mg/dl Est Cr Clr Drug Dosing 90.6 ml/min Est GFR ( Amer) 108.8 ml/min Est GFR (Non-Af Amer) 93.9 ml/min BUN/Creatinine Ratio 13.2 (10-20) Glucose 128 H (70-99(Fasting)) mg/dl Calcium 9.4 (8.6-10.3) mg/dl Magnesium 1.9 (1.7-2.4) mg/dl Total Bilirubin 0.5 (0.2-1.0) mg/dl AST 26 (13-39) U/L ALT 33 (7-52) U/L Alkaline Phosphatase 59 (34-104) U/L Troponin I High Sens 3.7 3.8 (0-20) pg/ml Total Protein 7.0 (6.0-8.3) gm/dl Albumin 4.2 (3.4-5.0) gm/dl Globulin 2.8 (2.5-4.0) gm/dl Albumin/Globulin Ratio 1.5 (0.9-2) Lipase 35 (11-82) U/L Administered Medications Lactated Ringer's (Lr) 1,000 mls @ 60 mls/hr IV .[id number] STA Stop: 03/10/24 14:52 Last Admin: 03/09/24 22:21 Dose: 60 mls/hr Documented By: ELIZABETH Discontinued Medications Aspirin (Aspirin Chew 324 Mg) 324 mg PO NOW STA Stop: 03/09/24 17:26 Last Admin: 03/09/24 17:28 Dose: 324 mg Documented By: CARLOS Thiamine HCl 100 mg/ Syringe 10 mls @ 2 mls/min IV NOW STA Stop: 03/09/24 22:00 Last Admin: 03/09/24 22:21 Dose: 2 mls/min Documented By: ELIZABETH Nitroglycerin (Nitroglycerin Sl 0.4 Mg/Tab Tab) 0.4 mg SL NOW STA Stop: 03/09/24 21:54 Last Admin: 03/09/24 22:21 Dose: 0.4 mg Documented By: ELIZABETH Tizanidine HCl (Tizanidine Hcl 4 Mg Tablet) 2 mg PO NOW STA Stop: 03/09/24 21:55 Last Admin: 03/09/24 22:21 Dose: 2 mg Documented By: ELIZABETH Imaging Data Attestation: I personally reviewed and interpreted this imaging study as follows: My Impression: 1 view chest x-ray was obtained in the emergency department. My interpretation is no free air or definite infiltrate, final report below. Radiologist's Impression: Chest X-Ray 03/09/24 17:25 XR chest 1V portable CLINICAL HISTORY: Chest pain, nonspecific COMPARISON STUDY: Chest radiograph May 04, 2023. FINDINGS: Lung volumes are normal. Lungs are clear. There is no pneumothorax or pleural effusion. Cardiac size is normal. Mediastinal contours are normal. There is no evidence for pulmonary edema. IMPRESSION: No acute cardiopulmonary findings. ACT 112: Negative or not required by law. Electronically signed by: Nahum Cameron M.D. 03/09/2024 6:14 PM Discharge Plan Visit Data Chief Complaint: Chest Pain Stated Complaint: CHEST PAIN,STIFF NECK ED Provider: Gustabo De Leon Discharge Problem: Chest pain Patient Disposition: Being Evaluated by Hospitalist Forms Stand Alone Forms: My [facility] Prescriptions Prescriptions: No Action atorvastatin [Lipitor] 80 mg Tablet 80 mg PO DAILY duloxetine 60 mg capsule,delayed release(DR/EC) 60 mg PO DAILY lisinopril 20 mg tablet 20 mg PO DAILY aspirin 81 mg Tablet,Delayed Release (Dr/Ec) 81 mg PO DAILY nitroglycerin 0.4 mg tablet, sublingual 0.4 mg sublingual DIRECTED PRN (Reason: Chest Pain) Rx Instructions: Place 1 tab sl Q 5 min PRN, UP TO 3 DOSES IN 15 MIN. metoprolol succinate 25 mg tablet extended release 24 hr 25 mg PO DAILY metformin 500 mg tablet extended release 24 hr 500 mg PO AMPM ezetimibe 10 mg tablet 10 mg PO DAILY hydrochlorothiazide 12.5 mg tablet 12.5 mg PO QAM icosapent ethyl 1 gram capsule 2 g PO BIDM clopidogrel 75 mg Tablet 75 mg PO QAM Qty: 30 0RF folic acid 1 mg Tablet 1 mg PO QAM Qty: 30 0RF multivitamin with folic acid [Daily-Bakari (with folic acid)] 400 mcg Tablet 1 tab PO QAM Qty: 30 0RF Repatha SureClick 140 mg/mL pen injector SUBCUT WK Rx Instructions: every sunday thiamine HCl (vitamin B1) 100 mg tablet 100 mg PO HS Referrals Referrals: Edyta Yuen DO [Primary Care Provider] - Discharge Problem: Chest pain Qualifiers: Chest pain type: unspecified Qualified Code(s): R07.9 - Chest pain, unspecified
[2024-03-09 17:52] LABS: Basophils # (auto) 0.06 K/uL (0.00-0.20); Basophils % (auto) 0.8 %; Eosinophils % (auto) 2.6 %; Hematocrit (blood only) 44.9 % (42.0-52.0); Hemoglobin 15.2 g/dl (14.0-18.0); Immature Granulocytes # (auto) 0.03 K/uL (0.01-0.20); Immature Granulocytes % (auto) 0.4 %; Lymphocytes # (auto) 2.07 K/uL (1.20-3.40); Lymphocytes % (auto) 27.2 %; Mean Corpuscular Hemoglobin 34.5 pg (25.0-34.0); Mean Corpuscular Hgb Conc 33.9 g/dL (32.0-36.0); Mean Corpuscular Volume 101.8 fL (80.0-100.0); Mean Platelet Volume 10.4 fL (9.4-12.4); Monocytes # (auto) 0.88 K/uL (0.11-0.59); Monocytes % (auto) 11.6 %; Neutrophils # (auto) 4.37 K/uL (1.40-6.50); Neutrophils % (auto) 57.4 %; Platelet Count 180 K/uL (130-400); RDW Coefficient of Variation 12.4 % (11.5-14.5); RDW Standard Deviation 46.5 fL (36.4-46.3); Red Blood Count 4.41 M/uL (4.70-6.10); White Blood Count 7.61 K/ul (4.8-10.8)
[2024-03-09 18:09] LABS: Albumin Globulin Ratio 1.5 (0.9-2); Albumin Level 4.2 gm/dl (3.4-5.0); BUN Creatinine Ratio 13.2 (10-20); Bilirubin,Total 0.5 mg/dl (0.2-1.0); Calcium 9.4 mg/dl (8.6-10.3); Creatinine Clr Calc Pharmacy 90.6 ml/min; Est GFR (African American) 108.8 ml/min; Est GFR (Non-African American) 93.9 ml/min; Globulin 2.8 gm/dl (2.5-4.0); Potassium 3.7 mmol/L (3.5-5.1)
[2024-03-09 18:15] LABS: Troponin I High Sensitivity 3.7 pg/ml (0-20)
--- NOTE | 2024-03-09 18:16 | XRay Report ---
XR chest 1V portable CLINICAL HISTORY: Chest pain, nonspecific COMPARISON STUDY: Chest radiograph May 04, 2023. FINDINGS: Lung volumes are normal. Lungs are clear. There is no pneumothorax or pleural effusion. Car diac size is normal. Mediastinal contours are normal. There is no evidence for pulmonary edema. IMPRESSION: No acute cardiopulmonary findings. ACT 112: Negative or not required by law. Electronically signed by: Nahum Cameron M.D. 03/09/2024 6:14 PM
[2024-03-09 18:18] LABS: Partial Thromboplastin Ratio 0.9; Partial Thromboplastin Time 24 Seconds (21-31); Prothrombin Time 10.6 Seconds (9.0-12.0)
[2024-03-09 20:38] LABS: Troponin I High Sensitivity 3.8 pg/ml (0-20)
[2024-03-09 21:33] LABS: Magnesium 1.9 mg/dl (1.7-2.4)
--- NOTE | 2024-03-09 21:54 | History & Physical Report ---
Date of Service March 09, 2024 Assessment & Plan (1) Chest pain: Plan: Likely unstable angina hx CAD status post stent PSVT as per records hypertension, stable hyperlipidemia, on statin Rx DM2 on oral medications, well-controlled as of recent hemoglobin A1c of 7 last April 2023 hyperprolactinemia as per records, patient unaware of diagnosis, no prior Endochinology consultations, outpatient serum prolactin mildly elevated at 17 from 2019 Left-sided neck pain possibly from muscle strain alcohol abuse OBS PCU Continue antiplatelet Rx, beta-marialuisa, and statin Rx; nitro as needed pain Check troponin in a.m. IV heparin if with troponin elevation Cardiology consult Re: Unstable angina N.p.o. after midnight anticipation of ischemic workup Analgesia for left-sided neck pain, consider imaging if persistent ISS BG goal 1 10-1 40, update hemoglobin A1c DAWN S at risk protocol, DT precautions Check serum prolactin with a.m. labs, outpatient Endocrinology consult if still elevated DVT prophylaxis. Lovenox subcu Full code Text document was generated using [employer] voice recognition software. It may contain grammatical or spelling errors. Kindly contact undersigned for clarification of any documentation item in question. History of Present Illness Chief Complaint: Chest pain Primary Care Provider: Edyta Yuen DO History obtained from patient and records. Medical history significant for CAD status post stent, PSVT, hypertension, hyperlipidemia, DM2 on oral medications, hyperprolactinemia as per records, anxiety/mood disorder, alcohol abuse. Last confinement April 2023 for unstable angina. Culprit mid RCA stenosis on cardiac catheterization status post PCI and stent placement. Residual intermediate LAD stenosis and branch vessel disease of diagonal as per report. 2 weeks history of intermittent achy left-sided chest discomfort with occasional radiation to the left arm somewhat similar to heart attack in the past. Compliant with home medications. Denies unusual stress at home. Patient seen at [facility] asw specialist office on follow-up visit 2 weeks ago. Outpatient exercise nuclear stress test contemplated. Patient had worsening discomfort today with some relief with nitroglycerin. He also woke up with achy left-sided neck pain without recollection of recent trauma. 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 Allergies Allergy/AdvReac Type Severity Reaction Status Date / Time niacin Allergy RASH/ Unverified 11/17/23 17:54 DIFFICULTY BREATHING Sulfa (Sulfonamide Allergy RASH/ Unverified 05/04/23 17:54 Antibiotics) DIFFICULTY BREATHING pravastatin [From Pravachol] AdvReac Muscle Pain Verified 05/04/23 17:54 Home Medications Medication Instructions Recorded Confirmed Type atorvastatin 80 mg tablet (Lipitor) 80 mg PO DAILY 04/17/20 03/09/24 History duloxetine 60 mg capsule,delayed 60 mg PO DAILY 04/17/20 03/09/24 History release aspirin 81 mg tablet,delayed 81 mg PO DAILY 05/04/23 03/09/24 History release ezetimibe 10 mg tablet 10 mg PO DAILY 05/04/23 03/09/24 History hydrochlorothiazide 12.5 mg tablet 12.5 mg PO QAM 05/04/23 03/09/24 History icosapent ethyl 1 gram capsule 2 g PO BIDM 05/04/23 03/09/24 History lisinopril 20 mg tablet 20 mg PO DAILY 05/04/23 03/09/24 History metformin 500 mg tablet,extended 500 mg PO AMPM 05/04/23 03/09/24 History release 24 hr metoprolol succinate 25 mg 25 mg PO DAILY 05/04/23 03/09/24 History tablet,extended release 24 hr nitroglycerin 0.4 mg sublingual 0.4 mg sublingual DIRECTED PRN 05/04/23 03/09/24 History tablet Chest Pain clopidogrel 75 mg tablet 75 mg PO QAM #30 tabs 05/08/23 03/09/24 Rx folic acid 1 mg tablet 1 mg PO QAM #30 tabs 05/08/23 03/09/24 Rx multivitamin with folic acid 400 1 tab PO QAM #30 tabs 05/08/23 03/09/24 Rx mcg tablet (Daily-Bakari (with folic acid)) evolocumab 140 mg/mL subcutaneous mg subcut WK 03/09/24 History pen injector (Victor Manuel Padilla) thiamine HCl (vitamin B1) 100 mg 100 mg PO HS 03/09/24 03/09/24 History tablet Past Med/Surg History Problem List (Updated 03/10/24 @ 09:27 by Alex Mitchell) Chronic alcohol use Smokeless tobacco use Dyslipidemia, goal LDL below 70 Multi-vessel coronary artery stenosis Chest pain at rest CAD (coronary artery disease) Alcohol use Tobacco use Anxiety Diabetes mellitus, type II Abnormal cardiovascular stress test (Acute) Chest pain (Acute) Left leg weakness (Acute) Stroke-like symptom (Acute) Hypertension (Acute) Left leg weakness Left leg numbness Stroke-like symptoms HLD (hyperlipidemia) H/O: HTN (hypertension) Surgical History History of colonoscopy Family History Father Sudden age 45 Mother Diabetes Social History Smoking Status: Current every day smoker Tobacco Type: Smokeless Tobacco (Dip or Chew) Second Hand Exposure: No; Do You Dip or Chew Tobacco: Yes; Tobacco Cessation Education Requested by Patient: No Hx Alcohol Use: No Hx Substance Use: No Preferred Language: Chilean Communication Ability: Effective Marketing Automation Manager Required: No Beliefs That Will Affect Care: None marital status: Current Living Situation: Family Current Living Situation Comment: home with Feels Safe at Home: Yes Safety Concerns: Feels Safe At This Time Assistive Devices: Glasses Review of Systems Review of Systems: As per HPI, all other systems reviewed and negative Physical Exam Physical Exam: GENERAL: Comfortable, pleasant, slightly anxious, no respiratory distress SKIN: Normal color, warm HEENT: Alopecia, Mcnary palpebral conjunctivae, no ptosis, moist buccal mucosa NECK : Supple, minimal left cervical tenderness CHEST : CTA, no tenderness HEART : RRR, no obvious murmurs ABDOMEN: no distention, nontender EXTREMITIES : No LE swelling/tenderness, no other conspicuous deformities noted NEUROLOGIC : Coherent, no facial asymmetry, no other gross focality Results & Data Results & Data Vital Signs (Past 12 Hours) Vital Signs Temp Pulse Pulse Resp BP BP Pulse Ox 03/09/24 21:39 68 18 147/98 H 97 03/09/24 20:00 66 19 155/96 H 97 03/09/24 18:57 67 17 129/95 03/09/24 18:15 71 20 136/30 L 98 03/09/24 17:29 68 16 136/86 03/09/24 17:21 36.5 C 87 20 149/79 H 97 O2 Del Method 03/09/24 21:39 Room Air 03/09/24 20:00 Room Air 03/09/24 18:57 03/09/24 18:15 Room Air 03/09/24 17:29 03/09/24 17:21 Room Air Laboratory Results Laboratory Results WBC 7.61 K/ul (4.8-10.8) 03/09/24 17:37 RBC 4.41 M/uL (4.70-6.10) L 03/09/24 17:37 Hgb 15.2 g/dl (14.0-18.0) 03/09/24 17:37 Hct 44.9 % (42.0-52.0) 03/09/24 17:37 MCV 101.8 fL (80.0-100.0) H 03/09/24 17:37 MCH 34.5 pg (25.0-34.0) H 03/09/24 17:37 MCHC 33.9 g/dL (32.0-36.0) 03/09/24 17:37 RDW Std Deviation 46.5 fL (36.4-46.3) H 03/09/24 17:37 RDW Coeff of Lea 12.4 % (11.5-14.5) 03/09/24 17:37 Plt Count 180 K/uL (130-400) 03/09/24 17:37 MPV 10.4 fL (9.4-12.4) 03/09/24 17:37 Immature Gran % (Auto) 0.4 % 03/09/24 17:37 Neut % (Auto) 57.4 % 03/09/24 17:37 Lymph % (Auto) 27.2 % 03/09/24 17:37 [place] % (Auto) 11.6 % 03/09/24 17:37 Eos % (Auto) 2.6 % 03/09/24 17:37 Baso % (Auto) 0.8 % 03/09/24 17:37 Neut # (Auto) 4.37 K/uL (1.40-6.50) 03/09/24 17:37 Lymph # (Auto) 2.07 K/uL (1.20-3.40) 03/09/24 17:37 [place] # (Auto) 0.88 K/uL (0.11-0.59) H 03/09/24 17:37 Eos # (Auto) 0.20 K/uL (0.00-0.50) 03/09/24 17:37 Baso # (Auto) 0.06 K/uL (0.00-0.20) 03/09/24 17:37 Immature Gran # (Auto) 0.03 K/uL (0.01-0.20) 03/09/24 17:37 PT 10.6 Seconds (9.0-12.0) 03/09/24 17:37 INR 1.0 (0.9-1.1) 03/09/24 17:37 APTT 24 Seconds (21-31) 03/09/24 17:37 PTT Ratio 0.9 03/09/24 17:37 Sodium 141 mmol/L (136-145) 03/09/24 17:37 Potassium 3.7 mmol/L (3.5-5.1) 03/09/24 17:37 Chloride 103 mmol/L (98-107) 03/09/24 17:37 Carbon Dioxide 31 mmol/L (21-32) 03/09/24 17:37 Anion Gap 7 (3-11) 03/09/24 17:37 BUN 12 mg/dl (6-23) 03/09/24 17:37 Creatinine 0.91 mg/dl (0.6-1.4) 03/09/24 17:37 Est Cr Clr Drug Dosing 90.6 ml/min 03/09/24 17:37 Est GFR ( Amer) 108.8 ml/min 03/09/24 17:37 Est GFR (Non-Af Amer) 93.9 ml/min 03/09/24 17:37 BUN/Creatinine Ratio 13.2 (10-20) 03/09/24 17:37 Glucose 128 mg/dl (70-99(Fasting)) H 03/09/24 17:37 Calcium 9.4 mg/dl (8.6-10.3) 03/09/24 17:37 Magnesium 1.9 mg/dl (1.7-2.4) 03/09/24 19:42 Total Bilirubin 0.5 mg/dl (0.2-1.0) 03/09/24 17:37 AST 26 U/L (13-39) 03/09/24 17:37 ALT 33 U/L (7-52) 03/09/24 17:37 Alkaline Phosphatase 59 U/L (34-104) 03/09/24 17:37 Troponin I High Sens 3.8 pg/ml (0-20) 03/09/24 19:42 Total Protein 7.0 gm/dl (6.0-8.3) 03/09/24 17:37 Albumin 4.2 gm/dl (3.4-5.0) 03/09/24 17:37 Globulin 2.8 gm/dl (2.5-4.0) 03/09/24 17:37 Albumin/Globulin Ratio 1.5 (0.9-2) 03/09/24 17:37 Lipase 35 U/L (11-82) 03/09/24 17:37 Impressions Chest X-Ray 03/09/24 17:25 XR chest 1V portable CLINICAL HISTORY: Chest pain, nonspecific COMPARISON STUDY: Chest radiograph May 04, 2023. FINDINGS: Lung volumes are normal. Lungs are clear. There is no pneumothorax or pleural effusion. Cardiac size is normal. Mediastinal contours are normal. There is no evidence for pulmonary edema. IMPRESSION: No acute cardiopulmonary findings. ACT 112: Negative or not required by law. Electronically signed by: Nahum Cameron M.D. 03/09/2024 6:14 PM Diagnostic Findings EKG as per my interpretation : Rate 70, NSR, normal axis, T wave flattening inferior leads (1) Chest pain Chest pain type: unspecified Qualified Code(s): R07.9 - Chest pain, unspecified
[2024-03-09] MEDS ORDERED: LORazepam 2 MG/1 ML VIAL IV PRN (21:57)
[2024-03-09] MEDS ORDERED: MoRPHine SULFATE 4 MG/ML 1 ML CARP\\VIAL IV PRN (21:57)
[2024-03-09] MEDS ORDERED: oxyCODONE HCL IR 5 MG TAB (IMMEDIATE RELEASE) PO PRN (21:57)
[2024-03-09] MEDS ORDERED: PROMETHAZINE 6.25 MG/50.25 ML BAG IV PRN (21:57)
[2024-03-09] MEDS ORDERED: LORazepam 0.5 MG TAB PO PRN (21:57)
[2024-03-09] MEDS ORDERED: CARBOHYDRATES FOR HYPOGLYCEMIA PO PRN (22:00)
[2024-03-09] MEDS ORDERED: GLUCOSE 40% GEL 15 GM TUBE PO PRN (22:00)
[2024-03-09] MEDS ORDERED: GLUCAGON FOR INJ 1 MG VIAL SQ PRN (22:00)
[2024-03-09] MEDS ORDERED: GLUCOSE 10 TAB/TUBE PO PRN (22:00)
[2024-03-09] MEDS ORDERED: DEXTROSE 50% 50 ML SYRINGE IV PRN (22:00)
[2024-03-09] MEDS: tiZANidine HCL 4 MG TABLET PO STA (22:21)
[2024-03-09] MEDS: NITROGLYCERIN SL 0.4 MG/TAB TAB SL STA (22:21)
[2024-03-09] MEDS: THIAMINE HCL 100 MG in SYRINGE 9 ML IV STA (22:21)
[2024-03-09] MEDS: LACTATED RINGER'S 1,000 ML IV STA (22:21)
[2024-03-10] MEDS: diazePAM 5 MG TABLET PO STA (00:07)
[2024-03-10] MEDS: INSULIN ASPART PER UNIT CHARGE SC SCH ×2 (00:07→16:35)
[2024-03-10 04:32] LABS: Anion Gap 6 (3-11); BUN Creatinine Ratio 15.9 (10-20); Blood Urea Nitrogen 13 mg/dl (6-23); Calcium 8.7 mg/dl (8.6-10.3); Carbon Dioxide 28 mmol/L (21-32); Chloride 106 mmol/L (98-107); Cholesterol 142 mg/dl (0-200); Creatinine Clr Calc Pharmacy 100.6 ml/min; Est GFR (African American) 114.6 ml/min; Est GFR (Non-African American) 98.9 ml/min; Glucose 132 mg/dl (70-99(Fasting)); HDL Cholesterol 51 mg/dl; Potassium 3.5 mmol/L (3.5-5.1); Sodium 140 mmol/L (136-145); Triglycerides 512 mg/dl (0-150)
[2024-03-10 04:38] LABS: Troponin I High Sensitivity < 2.3 pg/ml (0-20)
[2024-03-10 04:47] LABS: Basophils # (auto) 0.06 K/uL (0.00-0.20); Eosinophils # (auto) 0.23 K/uL (0.00-0.50); Eosinophils % (auto) 3.9 %; Hematocrit (blood only) 39.5 % (42.0-52.0); Hemoglobin 13.6 g/dl (14.0-18.0); Immature Granulocytes # (auto) 0.03 K/uL (0.01-0.20); Immature Granulocytes % (auto) 0.5 %; Lymphocytes # (auto) 1.99 K/uL (1.20-3.40); Lymphocytes % (auto) 33.8 %; Mean Corpuscular Hemoglobin 34.7 pg (25.0-34.0); Mean Corpuscular Hgb Conc 34.4 g/dL (32.0-36.0); Mean Corpuscular Volume 100.8 fL (80.0-100.0); Mean Platelet Volume 10.5 fL (9.4-12.4); Monocytes # (auto) 0.75 K/uL (0.11-0.59); Monocytes % (auto) 12.7 %; Neutrophils # (auto) 2.83 K/uL (1.40-6.50); Neutrophils % (auto) 48.1 %; Platelet Count 155 K/uL (130-400); RDW Coefficient of Variation 12.6 % (11.5-14.5); RDW Standard Deviation 46.7 fL (36.4-46.3); Red Blood Count 3.92 M/uL (4.70-6.10); White Blood Count 5.89 K/ul (4.8-10.8)
[2024-03-10 04:54] LABS: Partial Thromboplastin Ratio 0.9; Partial Thromboplastin Time 25 Seconds (21-31)
[2024-03-10 05:36] LABS: Chol HDL Ratio 2.8 (0-5)
[2024-03-10 07:52] LABS: Estimated Average Glucose 137 mg/dl; Hemoglobin A1C 6.4 % (4.5-5.6)
[2024-03-10] MEDS ORDERED: MULTIVITAMIN TAB PO SCH (09:00)
[2024-03-10] MEDS: MULTIVITAMIN TAB PO SCH (09:03)
[2024-03-10] MEDS: lisinopril 20 MG TAB PO SCH (09:03)
[2024-03-10] MEDS: ATORVASTATIN 40 MG TAB PO SCH (09:03)
[2024-03-10] MEDS: ASPIRIN 81 MG ECTAB PO SCH (09:03)
[2024-03-10] MEDS: CLOPIDOGREL BISULFATE 75 MG TAB PO SCH (09:03)
[2024-03-10] MEDS: EZETIMIBE 10 MG TAB PO SCH (09:03)
[2024-03-10] MEDS: DULoxetine HCL 60 MG CAP PO SCH (09:03)
[2024-03-10] MEDS: FOLIC ACID 1 MG TAB PO SCH (09:03)
[2024-03-10] MEDS: ENOXAPARIN INJ 40 MG/0.4 ML SYR SQ SCH (09:05)
--- NOTE | 2024-03-10 09:15 | Cardiology Consultation ---
Date of Consultation March 10, 2024 Assessment & Plan (1) Chest pain at rest: (2) Multi-vessel coronary artery stenosis: (3) Dyslipidemia, goal LDL below 70: (4) Smokeless tobacco use: (5) Chronic alcohol use: Plan Atypical chest pain. At rest. Aggravated by certain movement (not pleuritic). Reproducible with palpation of the chest wall. ? Relief with sublingual nitroglycerin. - EKG without acute change. - High-sensitivity troponin negative x 3. - Chest x-ray OK. - Telemetry benign Await resting echocardiography Refer for exercise nuclear stress testing Multivessel coronary artery disease. Status post PCI of the mid RCA in April 2023. Continue aspirin 81 mg/day indefinitely, clopidogrel 75 mg/day, guideline directed metoprolol succinate and lisinopril. See above. Hypertension. Blood pressure well-controlled on the regimen of lisinopril 20 mg/day, hydrochlorothiazide 12.5 mg/day, and metoprolol succinate 25 mg/day. Dyslipidemia. LDL cholesterol 57 mg/deciliter and February 2024. Triglycerides 192 mg/deciliter. Patient intolerant to atorvastatin, rosuvastatin, and pravastatin. Continue ezetimibe 10 mg/day, Repatha, and Vascepa. PSVT and NSVT. Quiescent. Continue beta-marialuisa therapy with metoprolol succinate 25 mg/day Smokeless tobacco use and chronic alcohol use. Cessation mandated. Supervising Physician Co-Signing Physician Notes I have personally performed a history and physical examination on the patient. I have reviewed the advance practitioner's documentation, and I agree with, and take responsibility for the plan of care. 58-year-old male with history of coronary disease, RCA stenting, presents with atypical chest discomfort. No evidence of acute coronary syndrome. Resting echocardiogram pending. No dysrhythmia on telemetry. Proceed with exercise nuclear stress test in a.m. 03/11/2024 for further risk stratification. Continue current medications. I spent a total of 30 minutes on the date of service in preparation, delivery, and documentation of the care provided to this patient, excluding any time spent in the performance of separately billed services. Michael Franco DO, [facility] History of Present Illness Reason for Consultation: Chest pain Requesting Physician: Dr. Archibald Attending Physician: Dr. Vangala History of Present Illness Mr. William Wang II is a very pleasant 58 year old male who is being seen at the request of Dr. Archibald. Reason for consultation is unstable angina. Patient carries a history of multivessel coronary artery disease via diagnostic cardiac catheterization performed by Dr. Norwood at [facility] on May 07, 2023. At that time patient noted significant exertional dyspnea with diagnostic cardiac catheterization revealing a 95% mid RCA stenosis, undergoing PCI with a drug-eluting stent. Following intervention, patient's exertional dyspnea resolved. Residual coronary artery disease noted at the time of catheterization including 40 to 50% mid LAD stenosis and a 70 to 80% ostial first diagonal branch stenosis. Following catheterization patient complained of atypical chest pain and underwent exercise nuclear stress testing in May 2023 that was nonischemic. Additional medical problems include family history of premature coronary artery disease, hypertension, dyslipidemia, history of smokeless tobacco use, chronic alcohol use, type 2 diabetes mellitus, possible transient ischemic attack in April 2020, and palpitations secondary with ambulatory EKG revealing PSVT and nonsustained ventricular tachycardia in April 2020. To PSVT and nonsustained ventricular tachycardia palpitation. The patient notes chronically having slight pains in the chest. Yesterday he awoke with a stiff neck. While sitting watching football yesterday afternoon he developed 5 out of 10 left-sided dull chest discomfort that was aggravated by sitting up. He notes taking one sublingual nitroglycerin without improvement then taking a second sublingual nitroglycerin with improvement after approximately 10 minutes. No associated symptoms such as shortness of breath, diaphoresis, or nausea, or vomiting. Patient ultimately presented as a walk-in to the [facility] emergency room where he was evaluated by Dr. De Leon. EKG without acute change. High-sensitivity troponin negative, serially negative at 3.7 then 3.8 then less than 2.3. Follow-up EKGs without acute abnormality. Chest x-ray without acute cardiopulmonary abnormality. Resting echocardiography has been performed but not yet interpreted. Review of the [facility]'s conveyor monitor in ER reveals no arrhythmias, currently sinus bradycardia at 64 bpm Additional Past Medical and Surgical History: Anxiety and depression. Arthroscopic right knee surgery. Family History: Father with an [place] at 45. Mother is alive in their 80s. 2 brothers without cardiac history Social History: Chronic smokeless tobacco user. No cigarette use. Alcohol: 1 case of beer per week. No illegal/illicit drug use. 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, [email or web address] Allergies Allergy/AdvReac Type Severity Reaction Status Date / Time niacin Allergy RASH/ Unverified 05/04/23 17:54 DIFFICULTY BREATHING Sulfa (Sulfonamide Allergy RASH/ Unverified 05/04/23 17:54 Antibiotics) DIFFICULTY BREATHING pravastatin [From Pravachol] AdvReac Muscle Pain Verified 05/04/23 17:54 Home Medications Medication Instructions Recorded Confirmed Type atorvastatin 80 mg tablet (Lipitor) 80 mg PO DAILY 04/17/20 03/09/24 History duloxetine 60 mg capsule,delayed 60 mg PO DAILY 04/17/20 03/09/24 History release aspirin 81 mg tablet,delayed 81 mg PO DAILY 05/04/23 03/09/24 History release ezetimibe 10 mg tablet 10 mg PO DAILY 05/04/23 03/09/24 History hydrochlorothiazide 12.5 mg tablet 12.5 mg PO QAM 05/04/23 03/09/24 History icosapent ethyl 1 gram capsule 2 g PO BIDM 05/04/23 03/09/24 History lisinopril 20 mg tablet 20 mg PO DAILY 05/04/23 03/09/24 History metformin 500 mg tablet,extended 500 mg PO AMPM 05/04/23 03/09/24 History release 24 hr metoprolol succinate 25 mg 25 mg PO DAILY 05/04/23 03/09/24 History tablet,extended release 24 hr nitroglycerin 0.4 mg sublingual 0.4 mg sublingual DIRECTED PRN 05/04/23 03/09/24 History tablet Chest Pain clopidogrel 75 mg tablet 75 mg PO QAM #30 tabs 05/08/23 03/09/24 Rx folic acid 1 mg tablet 1 mg PO QAM #30 tabs 05/08/23 03/09/24 Rx multivitamin with folic acid 400 1 tab PO QAM #30 tabs 05/08/23 03/09/24 Rx mcg tablet (Daily-Bakari (with folic acid)) evolocumab 140 mg/mL subcutaneous mg subcut WK 03/09/24 History pen injector (Victor Manuel Padilla) thiamine HCl (vitamin B1) 100 mg 100 mg PO HS 03/09/24 03/09/24 History tablet Patient History Surgical History History of colonoscopy Family History Father Sudden age 45 Mother Diabetes Social History Smoking Status: Current every day smoker Tobacco Type: Smokeless Tobacco (Dip or Chew) Second Hand Exposure: No; Do You Dip or Chew Tobacco: Yes; Tobacco Cessation Education Requested by Patient: No Hx Alcohol Use: No Hx Substance Use: No Preferred Language: Maori Communication Ability: Effective Internet Marketing Executive Required: No Beliefs That Will Affect Care: None marital status: Current Living Situation: Family Current Living Situation Comment: home with Feels Safe at Home: Yes Safety Concerns: Feels Safe At This Time Assistive Devices: Glasses Review of Systems Review of Systems: Complete Review of Systems is as stated above, negative, or noncontributory. Physical Exam Physical Exam: General: A&Ox3. NAD. Skin: Tattoo left upper extremity HENT: Normocephalic. Atraumatic. Eyes: PER. Conjunctiva pink, sclera clear. Neck: No carotid bruits. No JVD. No HJR. Heart: RRR, 64 bpm. No murmur. No rub. No gallop. PMI is nondisplaced. Chest: Reproducible left pectoral chest pain with palpation Lungs: Clear to auscultation. Abdomen: +BS. Soft. Nontender. No masses or organomegaly. Extremities: No clubbing, cyanosis, or edema. Limited neurological examination is without focal deficits. Pulses: radial=2/4, posterior tibial=2/4. Results & Data Vital Signs (Past 12 Hours) Vital Signs Temp Pulse Pulse Resp BP Pulse Ox Pulse Ox 03/10/24 09:02 63 18 126/80 99 03/10/24 07:12 60 03/10/24 06:05 57 L 16 115/87 98 03/10/24 06:05 98 03/10/24 05:37 57 L 03/10/24 02:35 74 19 114/81 99 03/10/24 02:35 98 03/09/24 22:50 66 19 125/89 98 03/09/24 22:23 36.9 C 67 19 149/99 H 99 03/09/24 21:39 68 18 147/98 H 97 O2 Del Method O2 Del Method 03/10/24 09:02 Room Air 03/10/24 07:12 03/10/24 06:05 Room Air 03/10/24 06:05 Room Air 03/10/24 05:37 03/10/24 02:35 Room Air 03/10/24 02:35 Room Air 03/09/24 22:50 Room Air 03/09/24 22:23 Room Air 03/09/24 21:39 Room Air Laboratory Results Cardiac Enzymes 03/09/24 03/09/24 03/10/24 Range/Units 17:37 19:42 03:45 AST 26 (13-39) U/L Troponin I High Sens 3.7 3.8 < 2.3 (0-20) pg/ml Coagulation 03/09/24 03/10/24 Range/Units 17:37 03:45 PT 10.6 (9.0-12.0) Seconds APTT 24 25 (21-31) Seconds Lipids 03/10/24 Range/Units 03:45 Triglycerides 512 H (0-150) mg/dl Cholesterol 142 (0-200) mg/dl HDL Cholesterol 51 mg/dl Cholesterol/HDL Ratio 2.8 (0-5) CBC 03/09/24 03/10/24 Range/Units 17:37 03:45 WBC 7.61 5.89 (4.8-10.8) K/ul RBC 4.41 L 3.92 L (4.70-6.10) M/uL Hgb 15.2 13.6 L (14.0-18.0) g/dl Hct 44.9 39.5 L (42.0-52.0) % Plt Count 180 155 (130-400) K/uL Neut # (Auto) 4.37 2.83 (1.40-6.50) K/uL Lymph # (Auto) 2.07 1.99 (1.20-3.40) K/uL [place] # (Auto) 0.88 H 0.75 H (0.11-0.59) K/uL Eos # (Auto) 0.20 0.23 (0.00-0.50) K/uL Baso # (Auto) 0.06 0.06 (0.00-0.20) K/uL Comprehensive Metabolic Panel 03/09/24 03/10/24 Range/Units 17:37 03:45 Sodium 141 140 (136-145) mmol/L Potassium 3.7 3.5 (3.5-5.1) mmol/L Chloride 103 106 (98-107) mmol/L Carbon Dioxide 31 28 (21-32) mmol/L BUN 12 13 (6-23) mg/dl Creatinine 0.91 0.82 (0.6-1.4) mg/dl Glucose 128 H 132 H (70-99(Fasting)) mg/dl Calcium 9.4 8.7 (8.6-10.3) mg/dl AST 26 (13-39) U/L ALT 33 (7-52) U/L Alkaline Phosphatase 59 (34-104) U/L Total Protein 7.0 (6.0-8.3) gm/dl Albumin 4.2 (3.4-5.0) gm/dl Intake and Output 03/09/24 03/10/24 03/10/24 22:59 06:59 14:59 Other: Weight 79 kg Weight Measurement Method Built in [facility]
[2024-03-10] MEDS ORDERED: ACETAMINOPHEN 325 MG TAB PO PRN (14:40)
[2024-03-10] MEDS: POTASSIUM CHLORIDE CRTAB 20 MEQ TABCR PO ONE (14:48)
[2024-03-10] MEDS ORDERED: Nursing to Pharmacy Communication SCH (15:15)
--- NOTE | 2024-03-10 16:48 | Hospitalist Progress Note ---
Date of Service March 10, 2024 Assessment & Plan (1) Chest pain: Plan: Atypical chest pain H/O multivessel coronary artery disease S/P PCI --CXR: No acute cardiopulmonary findings. --ECHO: No significant change when compared to prior echo. EF 60 to 65%. Left ventricle wall motion is normal. No significant valvular pathology. -- HbA1c 6.4 -- Lipid panel: Showed elevated triglycerides -- Troponin negative --EKG showed no signs of acute ischemia --Continue aspirin, Lipitor, Plavix, Zetia, atorvastatin -- Appreciate cardiology input --N.p.o. after midnight for stress test tomorrow Alcohol use disorder Counseled to quit drinking Continue thiamine, folic acid Monitor for withdrawal Hypertension Continue lisinopril Monitor BP Hyperlipidemia On statin, Zetia DM II HbA1c 6.4 Hold p.o. meds Continue insulin while hospitalized Hyperprolactinemia as per records Outpatient serum prolactin mildly elevated at 17 from 2019 Prolactin 13.9 Follow-up as outpatient Left-sided neck pain Likely musculoskeletal Monitor DVT Px: Lovenox SQ Code Status Full code Admission and Anticipated Discharge Date Admission Date: March 09, 2024 Subjective Patient is seen and examined at bedside States having chest pain today Denies any dyspnea, nausea, vomiting, abdominal pain No other complaints Review of Systems Review of Systems: All systems reviewed & are unremarkable except as noted in Subjective Physical Exam Physical Exam: Physical Exam: Vitals signs as noted above General Appearance:Moderately built and nourished, no apparent distress Head: normocephalic, Atraumatic Eyes: normal inspection, EOMI Neck: supple, Trachea midline Respiratory/Chest: Normal breath sounds, CTA, No accessory muscle use Cardiovascular: S1, S2, No murmur Abdomen/GI:Soft, Non tender, Bowel sounds present Extremities/Musculoskeletal:normal inspection, no edema Neurologic/Psych:AAOX3, grossly no focal neurological deficits Skin: normal color, warm Results & Data Results & Data Vital Signs (Past 12 Hours) Vital Signs Pulse Pulse Resp BP Pulse Ox Pulse Ox O2 Del Method 03/10/24 13:00 76 20 140/87 97 Room Air 03/10/24 09:02 63 18 126/80 99 Room Air 03/10/24 07:12 60 03/10/24 06:05 57 L 16 115/87 98 Room Air 03/10/24 06:05 98 03/10/24 05:37 57 L O2 Del Method 03/10/24 13:00 03/10/24 09:02 03/10/24 07:12 03/10/24 06:05 03/10/24 06:05 Room Air 03/10/24 05:37 Laboratory Results Short CBC 03/09/24 03/10/24 Range/Units 17:37 03:45 WBC 7.61 5.89 (4.8-10.8) K/ul Hgb 15.2 13.6 L (14.0-18.0) g/dl Hct 44.9 39.5 L (42.0-52.0) % Plt Count 180 155 (130-400) K/uL BMP 03/09/24 03/10/24 17:37 03:45 Sodium 141 140 Potassium 3.7 3.5 Chloride 103 106 Carbon Dioxide 31 28 BUN 12 13 Creatinine 0.91 0.82 Glucose 128 H 132 H Calcium 9.4 8.7 Liver Function 03/09/24 Range/Units 17:37 Total Bilirubin 0.5 (0.2-1.0) mg/dl AST 26 (13-39) U/L ALT 33 (7-52) U/L Alkaline Phosphatase 59 (34-104) U/L Albumin 4.2 (3.4-5.0) gm/dl (1) Chest pain Chest pain type: unspecified Qualified Code(s): R07.9 - Chest pain, unspecified
--- NOTE | 2024-03-10 22:47 | Electrocardiogram Report ---
Test Reason : Blood Pressure : */* mmHG Vent. Rate : 69 BPM Atrial Rate : 69 BPM P-R Int : 120 ms QRS Dur : 72 ms QT Int : 372 ms P-R-T Axes : 47 45 24 degrees QTcB Int : 398 ms Normal sinus rhythm Normal ECG When compared with ECG of 08-May-2023 08:15, No significant change was found Confirmed by Rakesh Cardoza ([id number]) on 03/10/2024 10:47:08 PM Referred By: REFERRED SELF Confirmed By: Rakesh Cardoza
[2024-03-10] MEDS: THIAMINE HCL 100 MG TAB PO SCH (23:03)
[2024-03-10 23:31] VITALS: RESP 18
[2024-03-11] MEDS: INSULIN ASPART PER UNIT CHARGE SC SCH (00:29)
--- NOTE | 2024-03-11 06:07 | Electrocardiogram Report ---
Test Reason : Blood Pressure : */* mmHG Vent. Rate : 57 BPM Atrial Rate : 57 BPM P-R Int : 134 ms QRS Dur : 74 ms QT Int : 420 ms P-R-T Axes : -10 49 35 degrees QTcB Int : 408 ms Sinus bradycardia Otherwise normal ECG When compared with ECG of 09-Mar-2024 17:25, No significant change was found Confirmed by Rakesh Cardoza ([id number]) on 03/11/2024 6:07:31 AM Referred By: REFERRED SELF Confirmed By: Rakesh Cardoza
[2024-03-11 07:02] VITALS: O2SAT 99
[2024-03-11 07:37] LABS: Hematocrit (blood only) 44.1 % (42.0-52.0); Hemoglobin 15.1 g/dl (14.0-18.0); Mean Corpuscular Hemoglobin 34.7 pg (25.0-34.0); Mean Corpuscular Hgb Conc 34.2 g/dL (32.0-36.0); Mean Corpuscular Volume 101.4 fL (80.0-100.0); Mean Platelet Volume 10.6 fL (9.4-12.4); Platelet Count 155 K/uL (130-400); RDW Coefficient of Variation 12.3 % (11.5-14.5); RDW Standard Deviation 46.5 fL (36.4-46.3); Red Blood Count 4.35 M/uL (4.70-6.10); White Blood Count 5.26 K/ul (4.8-10.8)
[2024-03-11 08:08] LABS: BUN Creatinine Ratio 13.1 (10-20); Calcium 9.3 mg/dl (8.6-10.3); Creatinine Clr Calc Pharmacy 98.2 ml/min; Est GFR (African American) 113.4 ml/min; Est GFR (Non-African American) 97.9 ml/min; Potassium 4.4 mmol/L (3.5-5.1)
[2024-03-11 11:30] VITALS: BP 154/92; TEMP 97.7
--- NOTE | 2024-03-11 11:45 | CT Scan Report ---
CT cervical spine wo con CLINICAL HISTORY: 58 years-old Male with neck pain. Acute neck pain without reported trauma COMPARISON: CT neck 04/17/2020 TECHNIQUE: Multiple axial CT images of the cervical spine were obtained without contrast. A dose low ering technique was utilized adhering to the principles of ALARA. FINDINGS: Straightening of the normal cervical lordosis. There is mild multilevel intervertebral disc space narrowing, vertebral hypertrophy and facet arthrosis. Mild to moderate intervertebral disc spa ce narrowing with circumferential disc osteophyte complex noted at C5-C6. There is suboptimal evaluat ion of the central canal and neural foramen by CT technique. There is suggestion of at least mild to moderate right-sided neural foraminal narrowing at C5-C6. There is no prevertebral edema. No pneumothorax. Mastoid air cells appear clear. The visualized lung apices appear clear. IMPRESSION: 1. No acute cervical spine fracture or subluxation. 2. Straightening of the normal cervical lordosis with degenerative changes most pronounced at C5-C6 a s above. ACT 112: Negative or not required by law. The above report was generated using voice recognition software. It may contain grammatical, syntax o r spelling errors. Electronically signed by: Sebastien Land M.D. 03/11/2024 11:44 AM
--- NOTE | 2024-03-11 12:37 | Hospitalist Progress Note ---
Date of Service March 11, 2024 Assessment & Plan (1) Chest pain: Plan: Atypical chest pain H/O multivessel coronary artery disease S/P PCI --CXR: No acute cardiopulmonary findings. --ECHO: No significant change when compared to prior echo. EF 60 to 65%. Left ventricle wall motion is normal. No significant valvular pathology. -- HbA1c 6.4 -- Lipid panel: Showed elevated triglycerides -- Troponin negative --EKG showed no signs of acute ischemia --Continue aspirin, Lipitor, Plavix, Zetia, atorvastatin -- Appreciate cardiology input -- Plan for stress test today Alcohol use disorder Counseled to quit drinking Continue thiamine, folic acid Monitor for withdrawal No signs of withdrawal currently Cervicalgia--POA Likely due to loss of cervical lordosis --Neck CT:No acute cervical spine fracture or subluxation. Straightening of the normal cervical lordosis with degenerative changes most pronounced at C5-C6 as above. Will benefit from physical therapy Hypertension Continue lisinopril Monitor BP Hyperlipidemia On statin, Zetia DM II HbA1c 6.4 Hold p.o. meds Continue insulin while hospitalized Hyperprolactinemia as per records Outpatient serum prolactin mildly elevated at 17 from 2019 Prolactin 13.9 Follow-up as outpatient DVT Px: Lovenox SQ Code Status Full code Disposition Home as able Admission and Anticipated Discharge Date Admission Date: March 09, 2024 Subjective Patient is seen and examined at bedside States having some chest discomfort and neck pain today morning Plan for stress test today Denies any dyspnea, nausea, vomiting, abdominal pain No other complaints Review of Systems Review of Systems: All systems reviewed & are unremarkable except as noted in Subjective Physical Exam Physical Exam: Physical Exam: Vitals signs as noted above General Appearance:Moderately built and nourished, no apparent distress Head: normocephalic, Atraumatic Eyes: normal inspection, EOMI Neck: supple, Trachea midline Respiratory/Chest: Normal breath sounds, CTA, No accessory muscle use Cardiovascular: S1, S2, No murmur Abdomen/GI:Soft, Non tender, Bowel sounds present Extremities/Musculoskeletal:normal inspection, no edema Neurologic/Psych:AAOX3, grossly no focal neurological deficits Skin: normal color, warm Results & Data Results & Data Vital Signs (Past 12 Hours) Vital Signs Temp Pulse Resp BP Pulse Ox O2 Del Method 03/11/24 11:28 36.5 C 64 18 154/92 H 99 Room Air 03/11/24 07:01 36.6 C 86 18 120/79 99 Room Air Laboratory Results Short CBC 03/11/24 Range/Units 06:34 WBC 5.26 (4.8-10.8) K/ul Hgb 15.1 (14.0-18.0) g/dl Hct 44.1 (42.0-52.0) % Plt Count 155 (130-400) K/uL BMP 03/11/24 06:34 Sodium 144 Potassium 4.4 D Chloride 105 Carbon Dioxide 32 BUN 11 Creatinine 0.84 Glucose 119 H Calcium 9.3 (1) Chest pain Chest pain type: unspecified Qualified Code(s): R07.9 - Chest pain, unspecified
--- NOTE | 2024-03-11 16:06 | Myocardial Perfusion Study ---
Date of Service March 11, 2024 Myocardial Perfusion Study [facility] Myocardial Perfusion Study Report Indication: Chest pain, coronary disease, recent RCA stent implantation, residual 80% ostial first diagonal branch stenosis. Patient performed stress test according to [place] protocol for 8 minutes and 31 seconds, achieving a work level of 10.10 METS. Resting heart rate of 78 bpm nia to a maximum heart rate of 166 bpm. This value represents 101% of the maximal, age-predicted heart rate. The resting blood pressure of 137/88 mmHg nia to a maximum blood pressure of 167/91 mmHg. Stress test was stopped due to fatigue. Normal heart rate and blood pressure response to exercise. Exercise capacity is above average. Resting ECG: Normal sinus rhythm, normal ECG. Stress ECG: No ischemia. Nuclear imaging: For the stress portion of the study 29.2 mCi of Tc 99m Cardiolite IV was injected at 1330 p.m. on 03/11/2024. 15 minutes following the injection, imaging of the heart was performed in multiple projections For the rest portion of the study 10 mCi of technetium 99m Cardiolite was injected at 11:33 AM. 1 hour following the injection, imaging of the heart was performed in the same projections. Raw data: No significant extracardiac uptake of isotope tracer on rotating, raw data images. Right ventricle: Not well-visualized. Resting images: Normal perfusion. Stress images: Normal perfusion. No reversible defects to suggest significant ischemia. Gated SPECT imaging: Normal left ventricular wall motion and myocardial thickening. Calculated LV ejection fraction 73%. Conclusion: 1. Normal exercise nuclear myocardial perfusion imaging study without evidence of myocardial scar or inducible ischemia. 2. Normal gated SPECT imaging. 3. Tachycardia left ventricular ejection fraction 73% Michael Franco DO, [facility]
--- NOTE | 2024-03-11 16:12 | Cardiology Progress Note ---
Date of Service March 11, 2024 Assessment & Plan (1) Chest pain at rest: (2) Multi-vessel coronary artery stenosis: (3) Dyslipidemia, goal LDL below 70: (4) Smokeless tobacco use: (5) Chronic alcohol use: Plan Exercise nuclear stress test negative for inducible ischemia at high workload. No anginal symptoms during exercise despite achieving greater than 100% of the maximum, age-predicted heart rate. Multivessel coronary artery disease. Status post PCI of the mid RCA in April 2023. Continue aspirin 81 mg/day indefinitely, clopidogrel 75 mg/day, guideline directed metoprolol succinate and lisinopril. Blood pressure controlled on the regimen of lisinopril 20 mg/day, hydrochlorothiazide 12.5 mg/day, and metoprolol succinate 25 mg/day. Dyslipidemia. LDL cholesterol 57 mg/deciliter and February 2024. Triglycerides 192 mg/deciliter. Patient intolerant to atorvastatin, rosuvastatin, and pravastatin. Continue ezetimibe 10 mg/day, Repatha, and Vascepa. No further inpatient cardiac testing or intervention recommended at this time. Outpatient cardiology follow-up as scheduled. Cardiology will sign off. Please call with additional concerns/questions. Michael Franco DO, [facility] Admission and Anticipated Discharge Date Admission Date: March 09, 2024 Subjective 58-year-old male seen and examined at the bedside. Notes musculoskeletal neck and left shoulder discomfort. Denies chest pain currently. Exercise nuclear stress test negative for inducible ischemia. Tolerating cuttent medications. Review of Systems Review of Systems: All systems reviewed & are unremarkable except as noted in Subjective Physical Exam Constitutional: well developed and well nourished; no acute distress Respiratory: no respiratory distress, no labored breathing and no retractions Auscultation: no crackles, no rales, no rhonchi and no wheezes Cardiovascular: Rate/Rhythm: regular rate and regular rhythm Heart Sounds: normal S1 and normal S2 Vessels: femoral pulses present and radial pulses present; no JVD Extremities: no edema Gastrointestinal (Abdomen): Inspection/Auscultation: + abdomen abnormal to inspection, abdomen not distended and + abnormal bowel sounds Percussion/Palpation: abdomen soft; abdomen nontender, no guarding and abdomen not rigid Neurologic: CN's II-XI intact bilaterally and moves all extremities Results & Data Vital Signs (Past 12 Hours) Vital Signs Temp Pulse Pulse Resp BP Pulse Ox O2 Del Method 03/11/24 14:43 81 03/11/24 11:28 36.5 C 64 18 154/92 H 99 Room Air 03/11/24 07:01 36.6 C 86 18 120/79 99 Room Air Laboratory Results CBC 03/11/24 Range/Units 06:34 WBC 5.26 (4.8-10.8) K/ul RBC 4.35 L (4.70-6.10) M/uL Hgb 15.1 (14.0-18.0) g/dl Hct 44.1 (42.0-52.0) % Plt Count 155 (130-400) K/uL Comprehensive Metabolic Panel 03/11/24 Range/Units 06:34 Sodium 144 (136-145) mmol/L Potassium 4.4 D (3.5-5.1) mmol/L Chloride 105 (98-107) mmol/L Carbon Dioxide 32 (21-32) mmol/L BUN 11 (6-23) mg/dl Creatinine 0.84 (0.6-1.4) mg/dl Glucose 119 H (70-99(Fasting)) mg/dl Calcium 9.3 (8.6-10.3) mg/dl Intake and Output 03/11/24 03/11/24 03/11/24 06:59 14:59 22:59 Other: Other Intake Source NPO # Unmeasured Voids 2 6 Weight 79 kg Weight Measurement Method Built in [facility]
--- NOTE | 2024-03-11 16:16 | Discharge Summary ---
Date of Service March 11, 2024 Admission HPI Per Admitting Provider History obtained from patient and records. Medical history significant for CAD status post stent, PSVT, hypertension, hyperlipidemia, DM2 on oral medications, hyperprolactinemia as per records, anxiety/mood disorder, alcohol abuse. Last confinement April 2023 for unstable angina. Culprit mid RCA stenosis on cardiac catheterization status post PCI and stent placement. Residual intermediate LAD stenosis and branch vessel disease of diagonal as per report. 2 weeks history of intermittent achy left-sided chest discomfort with occasional radiation to the left arm somewhat similar to heart attack in the past. Compliant with home medications. Denies unusual stress at home. 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 Outpatient exercise nuclear stress test contemplated. Patient had worsening discomfort today with some relief with nitroglycerin. He also woke up with achy left-sided neck pain without recollection of recent trauma. 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 Admission Exam Per Admitting Provider GENERAL: Comfortable, pleasant, slightly anxious, no respiratory distress SKIN: Normal color, warm HEENT: Alopecia, [place] palpebral conjunctivae, no ptosis, moist buccal mucosa NECK : Supple, minimal left cervical tenderness CHEST : CTA, no tenderness HEART : RRR, no obvious murmurs ABDOMEN: no distention, nontender EXTREMITIES : No LE swelling/tenderness, no other conspicuous deformities noted NEUROLOGIC : Coherent, no facial asymmetry, no other gross focality Principal Diagnosis Atypical chest pain Cervicalgia Alcohol use disorder Discharge Data Allergies Allergy/AdvReac Type Severity Reaction Status Date / Time niacin Allergy RASH/ Unverified 05/04/23 17:54 DIFFICULTY BREATHING Sulfa (Sulfonamide Allergy RASH/ Unverified 05/04/23 17:54 Antibiotics) DIFFICULTY BREATHING pravastatin [From Pravachol] AdvReac Muscle Pain Verified 05/04/23 17:54 Consultations 03/09/24 21:02 ED Decision to Admit Stat 03/10/24 00:12 Consult Cardiology Routine Procedures Performed Laboratory Results WBC 5.26 K/ul (4.8-10.8) 03/11/24 06:34 RBC 4.35 M/uL (4.70-6.10) L 03/11/24 06:34 Hgb 15.1 g/dl (14.0-18.0) 03/11/24 06:34 Hct 44.1 % (42.0-52.0) 03/11/24 06:34 MCV 101.4 fL (80.0-100.0) H 03/11/24 06:34 MCH 34.7 pg (25.0-34.0) H 03/11/24 06:34 MCHC 34.2 g/dL (32.0-36.0) 03/11/24 06:34 RDW Std Deviation 46.5 fL (36.4-46.3) H 03/11/24 06:34 RDW Coeff of Lea 12.3 % (11.5-14.5) 03/11/24 06:34 Plt Count 155 K/uL (130-400) 03/11/24 06:34 MPV 10.6 fL (9.4-12.4) 03/11/24 06:34 Immature Gran % (Auto) 0.5 % 03/10/24 03:45 Neut % (Auto) 48.1 % 03/10/24 03:45 Lymph % (Auto) 33.8 % 03/10/24 03:45 Mckean % (Auto) 12.7 % 03/10/24 03:45 Eos % (Auto) 3.9 % 03/10/24 03:45 Baso % (Auto) 1.0 % 03/10/24 03:45 Neut # (Auto) 2.83 K/uL (1.40-6.50) 03/10/24 03:45 Lymph # (Auto) 1.99 K/uL (1.20-3.40) 03/10/24 03:45 Mckean # (Auto) 0.75 K/uL (0.11-0.59) H 03/10/24 03:45 Eos # (Auto) 0.23 K/uL (0.00-0.50) 03/10/24 03:45 Baso # (Auto) 0.06 K/uL (0.00-0.20) 03/10/24 03:45 Immature Gran # (Auto) 0.03 K/uL (0.01-0.20) 03/10/24 03:45 PT 10.6 Seconds (9.0-12.0) 03/09/24 17:37 INR 1.0 (0.9-1.1) 03/09/24 17:37 APTT 25 Seconds (21-31) 03/10/24 03:45 PTT Ratio 0.9 03/10/24 03:45 Sodium 144 mmol/L (136-145) 03/11/24 06:34 Potassium 4.4 mmol/L (3.5-5.1) D 03/11/24 06:34 Chloride 105 mmol/L (98-107) 03/11/24 06:34 Carbon Dioxide 32 mmol/L (21-32) 03/11/24 06:34 Anion Gap 7 (3-11) 03/11/24 06:34 BUN 11 mg/dl (6-23) 03/11/24 06:34 Creatinine 0.84 mg/dl (0.6-1.4) 03/11/24 06:34 Est Cr Clr Drug Dosing 98.2 ml/min 03/11/24 06:34 Est GFR ( Amer) 113.4 ml/min 03/11/24 06:34 Est GFR (Non-Af Amer) 97.9 ml/min 03/11/24 06:34 BUN/Creatinine Ratio 13.1 (10-20) 03/11/24 06:34 Glucose 119 mg/dl (70-99(Fasting)) H 03/11/24 06:34 POC Glucose 97 mg/dl (70-99) 03/11/24 12:32 Estimat Average Glucose 137 mg/dl 03/10/24 03:45 Hemoglobin A1c 6.4 % (4.5-5.6) H 03/10/24 03:45 Calcium 9.3 mg/dl (8.6-10.3) 03/11/24 06:34 Magnesium 2.0 mg/dl (1.7-2.4) 03/11/24 06:34 Total Bilirubin 0.5 mg/dl (0.2-1.0) 03/09/24 17:37 AST 26 U/L (13-39) 03/09/24 17:37 ALT 33 U/L (7-52) 03/09/24 17:37 Alkaline Phosphatase 59 U/L (34-104) 03/09/24 17:37 Troponin I High Sens < 2.3 pg/ml (0-20) 03/10/24 03:45 Total Protein 7.0 gm/dl (6.0-8.3) 03/09/24 17:37 Albumin 4.2 gm/dl (3.4-5.0) 03/09/24 17:37 Globulin 2.8 gm/dl (2.5-4.0) 03/09/24 17:37 Albumin/Globulin Ratio 1.5 (0.9-2) 03/09/24 17:37 Triglycerides 512 mg/dl (0-150) H 03/10/24 03:45 Cholesterol 142 mg/dl (0-200) 03/10/24 03:45 VLDL Cholesterol, Calc TNP 03/10/24 03:45 HDL Cholesterol 51 mg/dl 03/10/24 03:45 Cholesterol/HDL Ratio 2.8 (0-5) 03/10/24 03:45 Lipase 35 U/L (11-82) 03/09/24 17:37 Prolactin 13.90 ng/ml 03/10/24 03:45 Impressions Chest X-Ray 03/09/24 17:25 XR chest 1V portable CLINICAL HISTORY: Chest pain, nonspecific COMPARISON STUDY: Chest radiograph May 04, 2023. FINDINGS: Lung volumes are normal. Lungs are clear. There is no pneumothorax or pleural effusion. Cardiac size is normal. Mediastinal contours are normal. There is no evidence for pulmonary edema. IMPRESSION: No acute cardiopulmonary findings. ACT 112: Negative or not required by law. Electronically signed by: Nahum Cameron M.D. 03/09/2024 6:[address] 03/11/24 09:50 CT cervical spine wo con CLINICAL HISTORY: 58 years-old Male with neck pain. Acute neck pain without reported trauma COMPARISON: CT neck 04/17/2020 TECHNIQUE: Multiple axial CT images of the cervical spine were obtained without contrast. A dose lowering technique was utilized adhering to the principles of ALARA. FINDINGS: Straightening of the normal cervical lordosis. There is mild multilevel intervertebral disc space narrowing, vertebral hypertrophy and facet arthrosis. Mild to moderate intervertebral disc space narrowing with circumferential disc osteophyte complex noted at C5-C6. There is suboptimal evaluation of the central canal and neural foramen by CT technique. There is suggestion of at least mild to moderate right-sided neural foraminal narrowing at C5-C6. There is no prevertebral edema. No pneumothorax. Mastoid air cells appear clear. The visualized lung apices appear clear. IMPRESSION: 1. No acute cervical spine fracture or subluxation. 2. Straightening of the normal cervical lordosis with degenerative changes most pronounced at C5-C6 as above. ACT 112: Negative or not required by law. The above report was generated using voice recognition software. It may contain grammatical, syntax or spelling errors. Electronically signed by: Sebastien Land M.D. 03/11/2024 11:44 AM Ordered Studies 03/11/24 09:50 CT cervical spine wo con Urgent Hospital Course (1) Chest pain: Atypical chest pain H/O multivessel coronary artery disease S/P PCI --CXR: No acute cardiopulmonary findings. --ECHO: No significant change when compared to prior echo. EF 60 to 65%. Left ventricle wall motion is normal. No significant valvular pathology. -- HbA1c 6.4 -- Lipid panel: Showed elevated triglycerides -- Troponin negative --EKG showed no signs of acute ischemia --Continue aspirin, Lipitor, Plavix, Zetia, atorvastatin, metoprolol -- Appreciate cardiology input -- stress test: Negative for inducible ischemia. Plan to discharge home today Alcohol use disorder Counseled to quit drinking Continue thiamine, folic acid Monitor for withdrawal No signs of withdrawal currently Cervicalgia--POA Likely due to loss of cervical lordosis --Neck CT:No acute cervical spine fracture or subluxation. Straightening of the normal cervical lordosis with degenerative changes most pronounced at C5-C6 as above. Will benefit from physical therapy Hypertension Continue lisinopril, metoprolol Monitor BP Hyperlipidemia On statin, Zetia, Repatha DM II HbA1c 6.4 Hold p.o. meds Continue insulin while hospitalized Hyperprolactinemia as per records Outpatient serum prolactin mildly elevated at 17 from 2020 Prolactin 13.9 Follow-up as outpatient DVT Px: Lovenox SQ Code Status Full code Disposition Home Total Time Total Time Spent Total Time Spent (In Minutes): 45 minutes Discharge Plan Discharge Items Patient Disposition: Home - Self-Care Reason For Visit: CHEST PAIN Discharge Diagnosis: Atypical chest pain Cervicalgia Alcohol use disorder Activity: Per Instructions section Exercise/Sports: Gradually increase as tolerated Non-emergency contact: Primary Care Provider Call non-emergency contact if: you have any medication questions, your symptoms worsen, your pain is concerning for you and you have a fever Follow-up/Referrals: Edyta Yuen, [Primary Care Provider] - (Date & Time 03/17/2024 11:40 AM Provider Kenny Lantigua MD Department Family Practice [facility] ) Diet: Carb Consistent or DM2 and Heart Healthy Addtl Attending Provider Instructions: Follow-up with your primary care physician on 03/17/2024 11:40 AM -- Quit drinking alcohol as advised Seek immediate medical attention if your symptoms reoccur or worsen Please take all medications as instructed on discharge list below. Please call if you have any questions or problems. You can reach a [facility] hospitalist on duty at [facility] 24 hours a day by calling [phone] Pending Studies at Discharge: No Stand-Alone Forms: My [facility], Smoking Cessation Medications and DC Order Prescriptions: Continued atorvastatin [Lipitor] 80 mg Tablet 80 mg PO DAILY duloxetine 60 mg capsule,delayed release(DR/EC) 60 mg PO DAILY lisinopril 20 mg tablet 20 mg PO DAILY aspirin 81 mg Tablet,Delayed Release (Dr/Ec) 81 mg PO DAILY nitroglycerin 0.4 mg tablet, sublingual 0.4 mg sublingual DIRECTED PRN (Reason: Chest Pain) Rx Instructions: Place 1 tab sl Q 5 min PRN, UP TO 3 DOSES IN 15 MIN. metoprolol succinate 25 mg tablet extended release 24 hr 25 mg PO DAILY metformin 500 mg tablet extended release 24 hr 500 mg PO AMPM ezetimibe 10 mg tablet 10 mg PO DAILY hydrochlorothiazide 12.5 mg tablet 12.5 mg PO QAM icosapent ethyl 1 gram capsule 2 g PO BIDM clopidogrel 75 mg Tablet 75 mg PO QAM Qty: 30 0RF folic acid 1 mg Tablet 1 mg PO QAM Qty: 30 0RF multivitamin with folic acid [Daily-Bakari (with folic acid)] 400 mcg Tablet 1 tab PO QAM Qty: 30 0RF Repatha SureClick 140 mg/mL pen injector SUBCUT WK Rx Instructions: every sunday thiamine HCl (vitamin B1) 100 mg tablet 100 mg PO HS Discharge Orders: Discharge Order (Routine); Ordered 03/11/24 Ordered By: Jd Sanchez/Other Patient Handouts: Managing Type 2 Diabetes Admission Data Admit Date/Time: 03/09/24 21:56 Attending Provider: Jd Simmons Admit Provider: Lm Archibald Primary Care Provider: Edyta Yuen Other Providers: Lm Archibald; Divya Holt; Domingo Gibbs; Javi Rihcter; Michael Franco; Jonh Gillespie; Alex Mitchell; Ambreen García; Sofie Red; Gem Corley; Divya Bryan; Fletcher Castrejon; Kendall Rodriguez; Heidy Lofton; Yue Ang; Kaylen Guzman; Lisa Cid; Irwin Juárez; Opal Silver
[2024-03-11 16:49] VITALS: PULSE 64
--- NOTE | 2024-03-11 21:13 | Electrocardiogram Report ---
Test Reason : Blood Pressure : */* mmHG Vent. Rate : 59 BPM Atrial Rate : 59 BPM P-R Int : 124 ms QRS Dur : 70 ms QT Int : 414 ms P-R-T Axes : 31 27 8 degrees QTcB Int : 409 ms Sinus bradycardia Otherwise normal ECG When compared with ECG of 10-Mar-2024 09:00, No significant change was found Confirmed by Rakesh Cardoza ([id number]) on 03/11/2024 9:13:26 PM Referred By: REFERRED SELF Confirmed By: Rakesh Cardoza
--- NOTE | 2024-03-11 21:13 | Electrocardiogram Report ---
Test Reason : Blood Pressure : */* mmHG Vent. Rate : 64 BPM Atrial Rate : 64 BPM P-R Int : 124 ms QRS Dur : 72 ms QT Int : 400 ms P-R-T Axes : -1 29 21 degrees QTcB Int : 412 ms Normal sinus rhythm Normal ECG When compared with ECG of 10-Mar-2024 02:44, No significant change was found Confirmed by Rakesh Cardoza ([id number]) on 03/11/2024 9:13:14 PM Referred By: REFERRED SELF Confirmed By: Rakesh Cardoza
--- NOTE | 2024-03-11 21:14 | Electrocardiogram Report ---
Test Reason : Blood Pressure : */* mmHG Vent. Rate : 65 BPM Atrial Rate : 65 BPM P-R Int : 124 ms QRS Dur : 74 ms QT Int : 410 ms P-R-T Axes : 50 40 17 degrees QTcB Int : 426 ms Normal sinus rhythm Normal ECG When compared with ECG of 10-Mar-2024 12:59, No significant change was found Confirmed by Rakesh Cardoza ([id number]) on 03/11/2024 9:13:45 PM Referred By: REFERRED SELF Confirmed By: Rakesh Cardoza
== END 2024-03-11 17:55 | disposition home or self-care (01) ==
LOC: EDINP 17:19 → ED 17:19 → 2S 03-10 18:14